=== PATIENT | female | born 1940 | race Caucasian/White ===

== ENCOUNTER 2019-09-11 10:52 | Outpatient (CLI) | payer BC, MEDICARE, SELFPAY ==
--- NOTE | ~2019-09-11 | CT_ITS ---
EXAMINATION: CT brain wo con EXAM DATE: 09/11/2019 11:43 INDICATION: Head trauma. TECHNIQUE: Spiral CT of the head was performed without contrast. Axial, coronal and sagittal images were reviewed. The dose-length product (DLP) for this examination was 605.33 mGy-cm. The exposure w as tailored according to patient size, and iterative reconstruction (ASIR) was used as additional dos e reduction technique. Comparison is made to prior examination from 08/19/2015. FINDINGS: There is no acute intraparenchymal hemorrhage. No evidence of intraparenchymal brain mass lesion. No evidence of acute infarction. Please note that initial head CT has limited sensitivity f or small or acute infarctions. Small right choroidal fissure cyst. There is mild periventricular an d subcortical hypodensity, nonspecific but probably related to small vessel ischemic disease. There is mild prominence of the sulci and ventricles related to cerebral atrophy. There is intracranial carotid arteriosclerosis. There are no extra-axial collections. There is no mass effect or midline shift. Patient has had bilateral ocular lens surgery. Soft tissue is unremarkable. The visualized sinuses and mastoid air cells are well aerated. IMPRESSION: 1. No acute intracranial findings. 2. Chronic age related findings. Reviewed, dictated and finalized at location B. GING SUPERVISOR
== END 2019-09-11 10:53 | disposition home or self-care (01) ==
DX: S09.90XA Unspecified injury of head, initial encounter (principal); X58.XXXA Exposure to other specified factors, initial encounter
CPT/HCPCS: 70450

== ENCOUNTER 2019-09-12 10:42 | Inpatient (IN) | payer BC, MEDICARE, SELFPAY ==
[2019-09-12] VITALS (12 sets, daily range): BP systolic 90–113; BP diastolic 39–97; PULSE 65–194; RESP 23–33; TEMP 36.4–37.8; O2SAT 94–99; BMI 33.5
--- NOTE | ~2019-09-12 | XR_ITS ---
EXAMINATION: XR chest 2V EXAM DATE: 09/12/2019 11:45 INDICATION: Fall, weakness. TECHNIQUE: Frontal and lateral projections of the chest obtained and reviewed. Comparison is made to prior examination from 09/26/2018. FINDINGS: Linear left basilar atelectasis. The lungs are otherwise clear. There are no pleural effu sions. The cardiomediastinal silhouette is within normal limits. There is no pneumothorax suspected . There is aortic arterial sclerosis. There are mild bony degenerative changes. There are cholecyste ctomy clips. IMPRESSION: Mild linear left basilar atelectasis. Reviewed, dictated and finalized at location B. INE BURRER
--- NOTE | ~2019-09-12 | XR_ITS ---
EXAMINATION: XR chest 1V portable INDICATION: CODE BLUE TECHNIQUE: Portable AP chest at 1537 hours COMPARISON: 1130 hours FINDINGS: The lung volumes are low. There is mild diffuse opacities of the lungs. The cardiomediastin al silhouette is normal for technique. No pleural effusion or pneumothorax is identified. Surgical cl ips in the right upper quadrant are likely from prior cholecystectomy. IMPRESSION: 1. Minimal bilateral opacities of the lungs which could reflect pulmonary edema versus low lung volum es. Reviewed, dictated and finalized at location A. SPORTATION DISPATCH MANAGER IMPRESSION: 1. Minimal bilateral opacities of the lungs which could reflect pulmonary edema versus low lung volumes.
--- NOTE | ~2019-09-12 | US_ITS ---
US renal BI 09/18/2019 13:37 Procedure: Realtime transabdominal ultrasound of the kidneys and bladder. Indication: Sepsis, UTI and bacteremia Comparison: CT dated 02/12/2018 Findings: Renal echotexture is normal bilaterally without hydronephrosis, contour deforming mass or r enal calculus. There is a cyst of the left kidney measuring 2.7 x 1.3 x 1.2 cm. The right kidney lonny ures 10.7 cm and left kidney measures 10.5 cm. Bladder within normal limits. Impression: 1: Left renal cyst measuring 2.7 cm maximum dimension. Reviewed, dictated and finalized at location B. DER CONVEYOR OPERATOR Impression: 1: Left renal cyst measuring 2.7 cm maximum dimension.
[2019-09-12 10:53] LABS: Glucose Point of Care 167 (65-105)
--- NOTE | 2019-09-12 10:57 | ECG_ITS ---
Measurements Intervals [place] Rate: 71 P: 16 FL: 161 QRS: 8 QRSD: 86 T: 30 QT: 465 QTc: 508 Interpretive Statements SINUS RHYTHM ATRIAL PREMATURE COMPLEXES INCOMPLETE RIGHT BUNDLE BRANCH BLOCK PROLONGED QT INTERVAL BASELINE WANDER- I, II, III, AVR, AVL, AVF, V5-V6 ABNORMAL ECG Electronically Signed On 09-12-2019 11:14:06 PRESS ASSISTANT AND FEEDER by Pop Costello D.O.
--- NOTE | 2019-09-12 11:07 | ED.WEAKNESS ---
HPI - Weakness General Chief complaint: Weakness Stated complaint: weakness Time Seen by Provider: 09/12/19 10:47 Source: patient Mode of arrival: EMS Limitations: no limitations History of Present Illness HPI Narrative: Pt is a 79 y/o female who presents to the ED, via EMS, secondary to falling out of bed at 1AM this morning. Pt states that she has been on the floor since then because she is too weak to get up. She has been having frequent falls and her son states that he got called at 3AM one day to help her get up off the floor. Pt states that she slipped out of bed when she tried to get up and just laid there until this morning. Pt denies hitting her head. She had a head CT done yesterday and a neck XR on Monday (6 days ago) at [facility] for her frequent falls. Both were negative. Pt reports fever, chills, sweats, myalgia, BRIDGES, back pain, and a non-productive cough. She also notes that she had intermittent SOB yesterday while doing chores around the house, such as laundry, dusting, and sweeping. Pt denies dysuria or frequency. She states that she has been avoiding walking up and down stairs d/t her weakness. Per son, pt has been depressed since her a year ago. Pt takes Elqiuis as her anticoagulation therapy for her H/O AFIB. Her PCP is Dr. Man. Complaint: generalized weakness Onset (ago): unknown Duration: progressively worsening Location: generalized Relieving factors: none Exacerbating factors: none Associated symptoms: shortness of breath and other ( fever, chills, sweats, myalgia, BRIDGES, back pain, and a non-productive cough) Related Data Home Medications Medication Instructions Recorded Confirmed apixaban [Eliquis] 5 mg PO BID 09/12/19 09/12/19 aspirin [Aspir-81] 81 mg PO DAILY 09/12/19 09/12/19 duloxetine 60 mg PO DAILY 09/12/19 09/12/19 escitalopram oxalate 20 mg PO DAILY 09/12/19 09/12/19 insulin aspart U-100 [Novolog See Rx Instructions .ROUTE .COMPLEX 09/12/19 09/12/19 Flexpen U-100 Insulin] insulin glargine [Lantus Solostar 36 unit SUBCUT HS 09/12/19 09/12/19 U-100 Insulin] sotalol 80 mg PO BID 09/12/19 09/12/19 spironolactone 50 mg PO DAILY 09/12/19 09/12/19 Allergies Allergy/AdvReac Type Severity Reaction Status Date / Time codeine Allergy Unknown Unknown Verified 09/12/19 18:59 meperidine Allergy Unknown Unknown Verified 09/12/19 18:59 propoxyphene Allergy Unknown Unknown Verified 09/12/19 18:59 Review of Systems Review of Systems: All systems reviewed & are unremarkable except as noted in HPI and below Constitutional: Constitutional: Reports body ache(s), Reports chills, Reports fever(s), Reports weakness and Reports other (sweats) Respiratory: Respiratory: Reports cough and Reports dyspnea on exertion Genitourinary: Genitourinary: Denies nocturia and Denies dysuria Musculoskeletal: Musculoskeletal: Reports back pain and Reports myalgias Neurologic: Reports headache(s) [facility] Past Medical History Medical History (Updated 09/12/19 @ 19:24 by Brooklynn Zafar NP) Afib Cardioversion 7 months ago. Anxiety Arthritis Chronic anticoagulation Depression Diabetes mellitus With peripheral neuropathy Diverticulitis DVT (deep venous thrombosis) IVC filter Endometrial cancer GI (gastrointestinal bleed) HLD (hyperlipidemia) HTN (hypertension) IBS (irritable bowel syndrome) Osteomyelitis Paroxysmal atrial fibrillation Peripheral neuropathy Psoriasis Pulmonary embolism Surgical History Surgical History (Updated 09/12/19 @ 19:24 by Brooklynn Zafar NP) H/O bilateral cataract extraction H/O: hysterectomy History of back surgery History of left hip replacement History of partial pancreatectomy History of partial splenectomy Hx of cholecystectomy Hx of tonsillectomy S/P IVC filter Family History Family History (Updated 09/12/19 @ 19:26 by Brooklynn Zafar NP) Sibling Cerebrovascular accident Mother Congestive heart failure Hypertension Diabetes mellitus
[2019-09-12 11:09] LABS: Basophils Absolute Auto 0.1 K/mm3 (0.0-0.1); Basophils Percent Auto 0.5 % (0.2-1.2); Hematocrit 41.1 % (37.0-47.0); Hemoglobin 13.6 g/dL (12.0-15.0); Immature Granulocyte Absolute 1.01 K/mm3 (0.00-0.031); Immature Granulocyte Percent A 3.9 % (0-0.5); Lymphocytes Absolute Auto 0.35 K/mm3 (0.9-3.2); Lymphocytes Percent Auto 1.3 % (18.3-44.2); Mean Corpuscular HGB Conc 33.1 g/dl (32-36); Mean Corpuscular Hemoglobin 29.5 pg (26-34); Mean Corpuscular Volume 89.2 fl (80-100); Mean Platelet Volume 10.9 fl (7.4-10.4); Monocytes Absolute Auto 1.5 K/mm3 (0.1-0.6); Monocytes Percent Auto 5.9 % (2.6-8.5); Neutrophils Absolute Auto 22.9 K/mm3 (1.3-6.7); Neutrophils Percent Auto 88.4 % (45.5-73.1); Nucleated Red Blood Cells Perc 0.1 % (0.0-0.2); Platelet Count Result 254 k/mm3 (150-375); Red Blood Count 4.61 M/mm3 (4.2-5.4); Red Cell Distribution Width 18.1 % (11.5-14.5)
[2019-09-12 11:24] LABS: Alanine Aminotransferase 24 U/L (4-35); Albumin Level 3.6 g/dL (3.5-5.1); Alkaline Phosphatase 199 U/L (38-126); Aspartate Amino Transferase 57 U/L (14-36); Blood Urea Nitrogen 47 mg/dL (7-17); Calcium 9.2 mg/dL (8.4-10.2); Carbon Dioxide 21 mmol/L (22-30); Chloride 98 mmol/L (98-107); Estimated CRCL calculation 21 ml/min; Estimated Glomerular Filt Rate 23; Glucose 170 mg/dL (65-105); Potassium 4.5 mmol/L (3.4-5.0); Sodium 134 mmol/L (137-145)
[2019-09-12 11:42] LABS: Creatine Kinase 527 U/L (30-135)
[2019-09-12 12:29] LABS: Add Urine Microscopic? YES; Appearance Urine Cloudy (Clear); Bacteria Urine 2+ /hpf; Bilirubin Urine Negative (Negative); Blood Urine 3+ (Negative); Color Urine Yellow (Yellow); Glucose Urine UA Negative (Negative); Ketones Urine Negative (Negative); Leukocyte Esterase Ur 3+ LEU/UL (Negative); Mucus Urine Rare /lpf; Nitrate Urine Negative (Negative); Protein Urine 2+ mg/dL (Negative); Specific Grav Ur 1.018 (1.001-1.035); Squamous Epithelial Cell Urine Rare /hpf (Few); Urobilinogen Urine Negative mg/dL (<2.0); WBC Clumps Urine Present /HPF; WBC Urine >75 /hpf
[2019-09-12] MEDS: SODIUM CHLORIDE 0.9% IV 1,000 ML 999 ML IV CONT (13:36)
--- NOTE | 2019-09-12 13:36 | PC.NURSE ---
1 L NS initiated per EMS in route infused, 0 volume left in container. Stop time: 1330.
[2019-09-12] MEDS: SODIUM CHLORIDE 0.9% IV 500 ML 999 ML IV CONT (13:37)
--- NOTE | 2019-09-12 15:13 | ECG_ITS ---
Measurements Intervals [place] Rate: 106 P: [place]: 0 QRS: -59 QRSD: 86 T: 106 QT: 370 QTc: 493 Interpretive Statements SINUS RHYTHM NONSUSTAINED VENTRICULAR TACHYCARDIA AND SALVOS OF PVC'S DELAYED PRECORDIAL R/S TRANSITION BASELINE ARTIFACT- I, II, III, AVR, AVL, AVF, V1-V6 ABNORMAL ECG Electronically Signed On 09-12-2019 16:26:08 LIBRARY SERVICES DEAN by Pop Costello D.O.
--- NOTE | 2019-09-12 15:13 | PC.NURSE ---
Ofirmev 1000 given per EDP at bedside VORB
--- NOTE | 2019-09-12 15:27 | ECG_ITS ---
Measurements Intervals [place] Rate: 96 P: VA: 0 QRS: -53 QRSD: 97 T: 84 QT: 360 QTc: 456 Interpretive Statements ATRIAL FIBRILLATION LEFT AXIS DEVIATION INCOMPLETE RIGHT BUNDLE BRANCH BLOCK CANNOT RULE OUT SEPTAL INFARCT, AGE INDETERMINATE BORDERLINE ST-T WAVE ABNORMALITY- LATERAL LEADS BASELINE ARTIFACT- I, II, III, AVR, AVL, AVF, V1-V3 ABNORMAL ECG Electronically Signed On 09-12-2019 20:15:34 CONE RUNNER by Pop Costello D.O.
--- NOTE | 2019-09-12 15:28 | PC.NURSE ---
Pt began to have back pain, decreased LOC, restlessness, and mottling. Pt also noted to have cyanotic. Pt placed had tremors and track greaser showed runs of V tac. Pt placed on LIFEPAK and pads placed. Pt placed on 2 L NC O2. Pt became unresponsive. No pulse palpated w/ rhythm showing V Tac. CPR initiated by EDP in room, code called at 1521. Pt shocked at 1521. Pt shows V tach on monitor, second shock at 1524. Monitor shows V tach, third shock at 1525. Pt alert. Pulse palpated. Pt given Amiodarone 300 IVP at 1525. Pt on NRB mask 15L. Pt on track greaser shows A-Fib (per family has PMH of A-Fib) at 1527. Repeat EKG 1527. Amiodarone gtt initiated. Family at bedside and updated. Pt is alert and aware of events. VSS at this time.
[2019-09-12] MEDS: AMIODARONE 360 MG/D5W 200 ML 360 MG/200 ML BAG 33.3 MG IV CONT (15:33)
[2019-09-12 16:00] LABS: Magnesium 1.4 mg/dL (1.6-2.3)
[2019-09-12 16:07] LABS: Reflex Lactic Acid Yes or No Add Lactic
[2019-09-12] MEDS: MAGNESIUM SULF 2 GM/WATER 50ML 2 GM/50 ML BAG IVPB ×2 (16:35→18:07)
[2019-09-12] MEDS: SODIUM CHLORIDE 0.9% IV 1,000 ML 125 ML IV CONT (17:11)
--- NOTE | 2019-09-12 17:53 | ECG_ITS ---
Measurements Intervals [place] Rate: 79 P: DC: 0 QRS: -7 QRSD: 95 T: 24 QT: 426 QTc: 489 Interpretive Statements ATRIAL FIBRILLATION INCOMPLETE RIGHT BUNDLE BRANCH BLOCK LOW QRS VOLTAGE IN PRECORDIAL LEADS VOLTAGE CRITERIA FOR LVH CONSIDER INFERIOR INFARCT, AGE INDETERMINATE BASELINE ARTIFACT- I, II, III ABNORMAL ECG Electronically Signed On 09-13-2019 7:05:49 SEED SERVICE ADVISOR by Pop Costello D.O.
--- NOTE | 2019-09-12 17:54 | PM.CNCAR ---
Assessment and Plan Assessment and plan (1) Sepsis: Qualifiers: Acute renal failure type: unspecified Sepsis acute organ dysfunction status: with acute organ dysfunction Sepsis type: sepsis due to unspecified organism Severe sepsis acute organ dysfunction type: acute renal failure Severe sepsis shock status: unspecified Qualified Code(s): A41.9 - Sepsis, unspecified organism; R65.20 - Severe sepsis without septic shock; N17.9 - Acute kidney failure, unspecified Code(s): A41.9 - Sepsis, unspecified organism Status: Acute Assessment and Plan: Likely urosepsis has the etiology (2) V-tach: Code(s): I47.2 - Ventricular tachycardia Status: Acute Assessment and Plan: Reportedly monomorphic VT. I do have some concern event of polymorphic VT but I do not have enough rhythm strip to adequately assess. This could be ischemic. It could be related to QT prolongation also especially obviously if polymorphic VT is to be considered. I am going to stop her amiodarone and she was started on for now. Also will hold her sotalol. Her Eliquis is also on hold in case ischemic will are workup/cardiac catheterization is needed. I will give her 1 dose of Lovenox of 1 milligram/kilogram subcu x1. Will continue to trend cardiac enzymes with serial troponins. EKG now. 2D echocardiogram Doppler is also ordered. Will also replace her magnesium with an initial 2 g IV x1. Further workup and recommendations depend on what is found, response to treatment. Will also investigate track down the past cardiac workup performed to Dr. Hammond office as well as at Dr. Vang's office. (3) Acute renal failure: Qualifiers: Acute renal failure type: unspecified Qualified Code(s): N17.9 - Acute kidney failure, unspecified Code(s): N17.9 - Acute kidney failure, unspecified Status: Acute Assessment and Plan: Likely related to a combination of dehydration and UTI (4) Acute UTI: Code(s): N39.0 - Urinary tract infection, site not specified Status: Acute Assessment and Plan: On antibiotics. Would avoid fluoroquinolones (5) Paroxysmal atrial fibrillation: Code(s): I48.0 - Paroxysmal atrial fibrillation Status: Acute Assessment and Plan: Plan as above. Will hold sotalol for now and restart depending on what her QTC does. Also temporarily hold Eliquis in case angiogram is needed. Lovenox to be given in the meantime (6) Chronic anticoagulation: Code(s): Z79.01 - senior living (current) use of anticoagulants Status: Acute Assessment and Plan: As above History of Present Illness History of Present Illness Consult date/time: 09/12/19 17:54 Requesting physician: Micah Richardson MD Consult reason: Other (Cardiac arrest) Reason For Visit: sepsis,uti,renal failure Narrative: Date of service 09/12/2019 History: Patient is a 79-year-old female who has seen Dr. Vang in the past and most recently Dr. Garza. Predominantly seen Dr. Salcedo because atrial fibrillation. She has undergone elective outpatient cardioversion in a sounds. She also history of vascular disease which has been predominantly treated at [facility]. She is on sotalol and Eliquis. She came to the hospital today following a 1/2 week history of multiple falls. In particular today she fell out of bed at about 1:00 a.m. and she could not get up off the floor. EMS was called. She has had 3 falls over the past week and a half. She has had very foul-smelling urine and her urinalysis here in the hospital-0 urinary tract infection, and lab work shows lactic acidosis, acute renal insufficiency [place] [address]. While in the emergency room however she started to develop some achiness in her back. I did talk to Dr. Richardson who states that she started to have some ectopy and shortly thereafter went into what he thinks was monomorphic ventricular tachyc
[2019-09-12 18:20] LABS: Glucose Point of Care 246 (65-105)
--- NOTE | 2019-09-12 18:54 | PM.IMHP ---
H&P: HPI History of Present Illness Chief complaint: sepsis,uti,renal failure Narrative: Jennifer Cano is a 79 year old female Presented to the emergency room today secondary to falling out of bed at 1:00 a.m. this morning. The patient laid on the floor since then as she was too weak to get up. According the family she has been having frequent falls. Another day the family got a call at 3:00 a.m. to help her get up off the floor. She had a CT of the brain performed yesterday and and neck x-ray approximately 6 days ago at [facility] for her frequent falls. He was reportedly negative. Patient also complains of being short of breath when walking around the house. She recently hired a made about a month ago to come in and help clean. Patient does not have a collar button and she lives home alone. She was cardiovert for her AFib approximately [address] Garza. Today she was found to be in AFib and was started on amiodarone. cardiology has seen the patient and stop the amiodarone. She does have a prolonged QT. She is also seen by vascular specialist at [facility] and has had history of PEs and DVTs. According to the daughter she has had a thrombectomy and 1 of her legs and also IVC filter. A code was initiated in the emergency room. See code sheet. Her white count was noted to be 27,000. it was noted that the patient had monomorphic ventricular tachycardia. The patient was shocked 3 times and eventually restored a rhythm. . She was alert and orientated and talking. Although she feels somewhat sleepy. Troponin slightly elevated. Date of service 09/12/2019. Review of Systems Review of Systems: Narrative: Patient stated that she feels very fatigued. She has no chest pain. No nausea no vomiting no diarrhea. No fever no chills. She has been falling quite frequently. She has not been able to do as much around the house and recently hired a housekeeper and laundry assistant. All systems reviewed & are unremarkable except as noted in HPI and below Constitutional: Constitutional: Reports as per HPI and Reports no additional constitutional complaints Eyes: Eyes: Reports as per HPI and Reports no additional eye complaints ENT: Reports system reviewed and no additional complaints, except as documented and Reports Normal hearing present Cardiovascular: Cardiovascular: Reports no additional cardiovascular complaints Respiratory: Respiratory: Reports no additional respiratory complaints and Reports no additional respiratory complaints Gastrointestinal: Gastrointestinal: Reports as per HPI and Reports no additional gastrointestinal complaints Musculoskeletal: Musculoskeletal: Reports no additional musculoskeletal complaints Integumentary/Breasts: Skin/Breast: Reports system reviewed and no additional complaints, except as docu and Reports as per HPI Neurologic: Reports system reviewed and no additional complaints, except as documented, Reports as per HPI and Reports Normal hearing present Psychiatric: Psychiatric: Reports no additional psychiatric complaints and Reports as per HPI Endocrine: Endocrine: Reports no additional endocrine complaints Hematologic/Lymphatic: Hematologic/Lymphatic: Reports no additional hematologic/lymphatic complaints Allergic/Immunologic: Allergic/Immunologic: Reports no additional allergic/immunologic complaints [facility] Past Medical History Medical History (Updated 09/12/19 @ 19:53 by Brooklynn Zafar NP) Afib Cardioversion 7 months ago. Anxiety Arthritis Chronic anticoagulation Depression Diabetes mellitus With peripheral neuropathy Diverticulitis DVT (deep venous thrombosis) IVC filter Endometrial cancer GI (gastrointestinal bleed) HLD (hyperlipidemia) HTN (hypertension) IBS (irritable bowel syndrome) Osteomyelitis Paroxysmal atrial fibrillation Peripheral neuropathy Psoriasis Pulmonary embolism Surgical History Surgical History (Updated 09/12/19 @ 19:24 by Brooklynn Zafar NP) H/O bilatera
[2019-09-12] MEDS: ENOXAPARIN 100 MG/ML SYRINGE 85 MG SUB-Q (19:01)
[2019-09-12 19:04] LABS: Lactic Acid 1.6 mmol/L (0.7-2.1)
[2019-09-12 19:17] LABS: Troponin I 0.987 ng/mL (0.000-0.034)
[2019-09-12] MEDS: INSULIN GLARGINE (*BKC) 100 UNITS/ML 36 UNITS SUB-Q (21:21)
[2019-09-12] MEDS: ACETAMINOPHEN 325 MG TABLET 650 MG PO (22:35)
[2019-09-12 22:52] LABS: Troponin I 0.502 ng/mL (0.000-0.034)
[2019-09-13] VITALS (20 sets, daily range): BP systolic 96–157; BP diastolic 46–133; PULSE 64–73; RESP 16–31; TEMP 36.4–36.8; O2SAT 97–100
--- NOTE | 2019-09-13 | ECHO_ITS ---
Patient Info Name: Jennifer Cano Age: 79 years : 1940 Gender: Female Ht: 63 in Wt: 189 lbs BSA: 1.99 m2 HR: 67 bpm Heart Rhythm: Sinus Rhythm Technical Quality: Good Exam Date: 09/13/2019 7:38 AM Exam Location: [facility] Patient Status: Inpatient Admit Date: 09/12/2019 Staff Ordering Physician: Daryl Rodriguez MD Glue Bone Drier: Jony Mancilla, ALANIS, RT Attending Provider: Lois Rodriguez MD Referring Physician: Jennifer VANEGAS; Exam Type: CA echo dop color flow w con Study Info Indications I47.2 - Ventricular tachycardia Complete two-dimensional, color flow and Doppler transthoracic echocardiogram is performed with contrast to opacify the left ventrical and to improve the deliniation of the left ventrical endocarial boarders. Summary 1. Left ventricular systolic function is normal, estimated at 65-70%. 2. There is moderate concentric increased left ventricular wall thickness. 3. Right ventricular chamber dimension is moderately enlarged. 4. Left atrial chamber dimension is severely enlarged. 5. There is mild to moderate mitral valve regurgitation. 6. There is moderate to severe tricuspid valve regurgitation. 7. The TR velocity estimates RV systolic pressure to be 42 mmHg. 8. Compared to the exam in this laboratory from September of 2018 the findings are essentially unchanged. Left Ventricle Left ventricular chamber dimension is normal. Left ventricular systolic function is normal, estimated at 65-70%. There is moderate concentric increased left ventricular wall thickness. The left ventricular diastolic function is grade I diastolic dysfunction. Right Ventricle Right ventricular chamber dimension is moderately enlarged. Right ventricular systolic function is reduced. Left Atria Left atrial chamber dimension is severely enlarged. Right Atria Right atrial chamber dimension is mildly enlarged. Aortic Valve The aortic valve is trileaflet. There is mild aortic valve sclerosis. Pulmonic Valve The pulmonic valve is normal. There is trace pulmonic regurgitation. Mitral Valve The mitral valve has normal leaflets and calcified annulus. There is mild to moderate mitral valve regurgitation. Tricuspid Valve The tricuspid valve leaflets are normal. There is moderate to severe tricuspid valve regurgitation. The TR velocity estimates RV systolic pressure to be 42 mmHg. Pericardium/Pleural The pericardium appears normal. Aorta The aortic root size at the sinus of Valsalva is normal. Left Ventricular Outflow Tract Name Value Normal LVOT 2D LVOT Diameter 1.96 cm LVOT Doppler LVOT Peak Gradient 6 mmHg LVOT Mean Gradient 3 mmHg LVOT VTI 21.87 cm LVOT VTI/AV VTI Ratio 0.73 LVOT Stroke Volume 66.26 ml LVOT CO 5.36 l/min LVOT CI 2.70 L/min/m2 Pulmonic Valve Name Value Normal -
[2019-09-13 00:03] LABS: Glucose Point of Care 301 (65-105)
[2019-09-13] MEDS: INSULIN ASPART (*BKC) 100 UNITS/ML SUB-Q ×2 (00:13→06:28)
[2019-09-13] MEDS: SODIUM CHLORIDE 0.9% IV 1,000 ML 125 ML IV CONT ×2 (00:16→07:59)
[2019-09-13 01:37] LABS: Glucose Point of Care 343 (65-105)
[2019-09-13 04:36] LABS: Basophils Absolute Auto 0.1 K/mm3 (0.0-0.1); Basophils Percent Auto 0.7 % (0.2-1.2); Eosinophils Percent Auto 0.1 % (0-4.4); Hematocrit 36.2 % (37.0-47.0); Immature Granulocyte Absolute 0.33 K/mm3 (0.00-0.031); Immature Granulocyte Percent A 1.7 % (0-0.5); Lymphocytes Absolute Auto 0.32 K/mm3 (0.9-3.2); Lymphocytes Percent Auto 1.7 % (18.3-44.2); Mean Corpuscular HGB Conc 33.1 g/dl (32-36); Mean Corpuscular Hemoglobin 29.1 pg (26-34); Mean Corpuscular Volume 87.7 fl (80-100); Monocytes Absolute Auto 0.7 K/mm3 (0.1-0.6); Monocytes Percent Auto 3.8 % (2.6-8.5); Neutrophils Absolute Auto 17.8 K/mm3 (1.3-6.7); Nucleated Red Blood Cells Perc 0.1 % (0.0-0.2); Platelet Count Result 214 k/mm3 (150-375); Red Blood Count 4.13 M/mm3 (4.2-5.4); Red Cell Distribution Width 17.9 % (11.5-14.5); White Blood Count 19.3 K/mm3 (4.5-10.0)
[2019-09-13 04:46] LABS: Hemoglobin A1C 8.2 % (<5.7)
[2019-09-13 04:52] LABS: Alanine Aminotransferase 76 U/L (4-35); Albumin Level 2.9 g/dL (3.5-5.1); Alkaline Phosphatase 284 U/L (38-126); Aspartate Amino Transferase 99 U/L (14-36); Bilirubin,Total 0.6 mg/dL (0.2-1.3); Blood Urea Nitrogen 44 mg/dL (7-17); Calcium 7.9 mg/dL (8.4-10.2); Carbon Dioxide 18 mmol/L (22-30); Chloride 104 mmol/L (98-107); Estimated CRCL calculation 24 ml/min; Estimated Glomerular Filt Rate 27; Glucose 253 mg/dL (65-105); Magnesium 2.7 mg/dL (1.6-2.3); Potassium 4.1 mmol/L (3.4-5.0); Sodium 137 mmol/L (137-145)
[2019-09-13 05:05] LABS: Atypical Lymphocytes Present; Platelet Estimate Adequate (Adequate)
[2019-09-13 05:06] LABS: Crenated RBC 1+ (NORMAL)
[2019-09-13 05:54] LABS: Glucose Point of Care 208 (65-105)
--- NOTE | 2019-09-13 08:00 | WPDCNINT ---
Assessment and Plan Assessment and plan (1) Sepsis: Qualifiers: Acute renal failure type: unspecified Sepsis acute organ dysfunction status: with acute organ dysfunction Sepsis type: sepsis due to unspecified organism Severe sepsis acute organ dysfunction type: acute renal failure Severe sepsis shock status: unspecified Qualified Code(s): A41.9 - Sepsis, unspecified organism; R65.20 - Severe sepsis without septic shock; N17.9 - Acute kidney failure, unspecified Code(s): A41.9 - Sepsis, unspecified organism Status: Acute Assessment and Plan: secondary to UTI. culture sent and pending. Patient on empiric ceftriaxone. IV fluid bolus and infusion. Lactic acid has normalized. Continue to monitor closely in ICU at this time will decrease rate of IV fluids this time and rebolusif needed (2) Acute UTI: Code(s): N39.0 - Urinary tract infection, site not specified Status: Acute Assessment and Plan: see above (3) V-tach: Code(s): I47.2 - Ventricular tachycardia Status: Acute Assessment and Plan: patient had episode of ventricular tachycardia in the ED and was cardioverted. Cardiology has seen the patient. Patient's magnesium was low and she was given a 2 g dose of magnesium x1. Patient be NPO after midnight. patient was initially started on amiodarone but was later discontinued due to prolonged QTC. She is on sotalol at home which was also has. She was given a dose of subcu Lovenox x1. Echocardiogram done this morning and is pending at this time. patient may need cardiac catheterization but management will depend on Cardiology. patient is NPO at this time (4) Acute renal failure: Qualifiers: Acute renal failure type: unspecified Qualified Code(s): N17.9 - Acute kidney failure, unspecified Code(s): N17.9 - Acute kidney failure, unspecified Status: Acute Assessment and Plan: most likely prerenal from sepsis and hypovolemia. also has mild rhabdomyolysis Creatinine has improved today with IV fluids. Continue to monitor intake and output, urinary output, electrolyte and creatinine metabolic acidosis - add p.o. bicarb monitor CK level (5) Diabetes mellitus: Code(s): E11.9 - Type 2 diabetes mellitus without complications Status: Chronic Assessment and Plan: Check A1c and do sliding scale insulin. Continue with patient's Lantus. (6) Afib: Code(s): I48.91 - Unspecified atrial fibrillation Status: Acute Assessment and Plan: patient has history of atrial fibrillation status post cardioversion last year. Patient is now back into atrial fibrillation with controlled ventricular rate. Patient was started on amiodarone yesterday but was discontinued due to prolonged QTC.. Will focus on rate control at this time. 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 resume anticoagulation as per above (8) DVT (deep venous thrombosis): Code(s): I82.409 - Acute embolism and thrombosis of unspecified deep veins of unspecified lower extremity Status: Acute Assessment and Plan: see above Additional Plan DVT prophylaxis - received a dose of Lovenox and has SCDs Stress ulcer prophylaxis - not indicated Nutrition - NPO Code Status - patient is not sure this time and would like to think over. She requests to be Full Code until she makes a decision. Pt daughter updated at bedside and Total Critical Care Time - 32 minutes Due to a high probability of clinically significant, life threatening deterioration, the patient required my highest level of preparedness to intervene emergently and I personally spent this critical care time directly and personally managi
[2019-09-13] MEDS: PERFLUTREN LIPID MICROSPHERES 1.5 ML VIAL DILUTED TO 10 ML TOTAL VOLUME IV PUSH (08:29)
--- NOTE | 2019-09-13 09:12 | PM.IMPN ---
Progress Note: A&P Assessment and Plan (1) Sepsis: Qualifiers: Acute renal failure type: unspecified Sepsis acute organ dysfunction status: with acute organ dysfunction Sepsis type: sepsis due to unspecified organism Severe sepsis acute organ dysfunction type: acute renal failure Severe sepsis shock status: unspecified Qualified Code(s): A41.9 - Sepsis, unspecified organism; R65.20 - Severe sepsis without septic shock; N17.9 - Acute kidney failure, unspecified Code(s): A41.9 - Sepsis, unspecified organism Status: Acute Assessment and Plan: Criteria met on admission. Result of UTI. Urine culture now growing E. coli. Blood cultures negative thus far. Blood pressure reviewed on 09/13/2019 and stable. Will continue IV ceftriaxone. Continue to monitor. (2) Acute UTI: Code(s): N39.0 - Urinary tract infection, site not specified Status: Acute Assessment and Plan: Urine culture now with E coli. Continue IV ceftriaxone while awaiting sensitivities. (3) V-tach: Code(s): I47.2 - Ventricular tachycardia Status: Acute Assessment and Plan: Had episode of V-tach in the ER. Did receive cardioversion in ER. Cardiology has been consulted and appreciate input. Discussed briefly with Cardiology today. Home sotalol previously discontinued. Cardiology now starting on flecainide. Eliquis for anticoagulation. Current telemetry reviewed on 09/13/2019 with patient maintaining sinus rhythm with heart rate well controlled. Will continue to monitor. (4) Acute renal failure: Qualifiers: Acute renal failure type: unspecified Qualified Code(s): N17.9 - Acute kidney failure, unspecified Code(s): N17.9 - Acute kidney failure, unspecified Status: Acute Assessment and Plan: Result of UTI, sepsis, dehydration. Creatinine is improved to 1.80 today. Will continue to monitor with low-dose IV fluids in place. (5) Afib: Qualifiers: Atrial fibrillation type: unspecified Qualified Code(s): I48.91 - Unspecified atrial fibrillation Code(s): I48.91 - Unspecified atrial fibrillation Status: Acute Assessment and Plan: Known history previously controlled on sotalol but now switched to flecainide with episode of V-tach and emergency room yesterday. Cardiology following as noted. Continue to monitor. (6) HTN (hypertension): Qualifiers: Hypertension type: essential hypertension Qualified Code(s): I10 - Essential (primary) hypertension Code(s): I10 - Essential (primary) hypertension Status: Chronic Assessment and Plan: Blood pressure reviewed on 09/13/2019 and presently stable. Not on medication at this time. Will monitor. (7) Diabetes mellitus: Qualifiers: Diabetes mellitus complication status: with hyperglycemia Diabetes mellitus terminal clerk insulin use: with terminal clerk use Diabetes mellitus type: type 2 Qualified Code(s): E11.65 - Type 2 diabetes mellitus with hyperglycemia; Z79.4 - snf (current) use of insulin Code(s): E11.9 - Type 2 diabetes mellitus without complications Status: Chronic Assessment and Plan: Hemoglobin A1c 8.2. Glucose reviewed on 09/13/2019 and still elevated but improving. Remains on home Lantus. Sliding scale insulin available. Will continue to monitor and adjust treatment as needed. (8) Depression: Qualifiers: Depression Type: unspecified Qualified Code(s): F32.9 - Major depressive disorder, single episode, unspecified Code(s): F32.9 - Major depressive disorder, single episode, unspecified Status: Chronic Assessment and Plan: Mood stable. Home Cymbalta being given. Will monitor. (9) DVT prophylaxis: Code(s): Z29.9 - Encounter for prophylactic measures, unspecified Status: Acute Assessment and Plan: On Eliquis. Time Spent With Patient Time with patient: 15 - 25 minutes
[2019-09-13] MEDS: SODIUM BICARBONATE TAB 650 MG TABLET 1300 MG PO ×2 (10:06→17:23)
[2019-09-13] MEDS: ASPIRIN 325 MG ENTERIC TABLET PO (10:07)
[2019-09-13] MEDS: ACETAMINOPHEN 325 MG TABLET 650 MG PO ×2 (10:07→21:30)
[2019-09-13] MEDS: DULOXETINE 60 MG CAPSULE.DR PO (10:07)
[2019-09-13 11:54] LABS: Glucose Point of Care 163 (65-105)
--- NOTE | 2019-09-13 17:25 | PM.PNCARD ---
Progress Note: A&P Additional Plan 79-year-old lady with interesting history of atrial fibrillation being maintained in sinus rhythm on sotalol following cardioversion last year by her manager online. Workup [facility] did demonstrate normal LV function and no evidence of coronary disease at [facility] less than 1 year ago. Monomorphic ventricular tachycardia in the emergency room with precipitating factors including stress of sepsis, hypo magnesemia, and possibly pro rhythmic effect of sotalol. I will recommend resuming systemic anticoagulation with apixaban. I will initiate alternative anti arrhythmic treatment with flecainide in hopes of maintaining sinus rhythm and selecting an agent that is unrelated to sotalol. Since the patient is known to have non disease coronary arteries and normal left ventricular function is full flecainide may be a very reasonable choice. Time Spent With Patient Time with patient: 25 - 35 minutes Subjective Date/time seen: Date of service: 09/13/19 17:25 Interval history: 79-year-old white female with Urinary tract infection and sepsis, history of atrial fibrillation being maintained on sotalol and apixaban. Patient known to have angiographically non diseased coronary arteries and normal LV function. Current echocardiogram also demonstrates some RV enlargement. Patient has a history of previous pulmonary embolism/DVT Feels well this afternoon and is offering no cardiovascular complaints Exam Const: General: comfortable and no acute distress HENMT: Mouth: Yes moist mucous membranes Eyes: Sclera: sclerae normal Pupils: Equal, round and reactive pupils present Neck: Neck: supple and no JVD Thyroid: thyroid normal Resp: Effort & Inspection: normal respiratory effort Auscultation: clear to auscultation bilaterally Cardio: Rate: regular rate Rhythm: regular rhythm GI: Auscultation: normal bowel sounds Skin: General skin exam: normal color Neuro: Cognition (Neuro): normal cognition Extrem: General: normal to inspection Objective Data Vital Signs Vital Signs: Vital Signs - 24 hr 09/12/19 17:35 09/12/19 18:00 09/12/19 18:21 Temperature Pulse Rate 89 79 80 Respiratory Rate 23 H 30 H Blood Pressure 90/57 L 97/48 L Pulse Oximetry 94 97 09/12/19 20:00 09/12/19 21:51 09/13/19 00:00 Temperature 36.4 C L 36.4 C L Pulse Rate 69 65 69 Respiratory Rate 25 H 25 H 28 H Blood Pressure 111/57 L 111/57 L 107/69 Pulse Oximetry 96 97 97 09/13/19 02:00 09/13/19 02:09 09/13/19 04:00 Temperature 36.8 C Pulse Rate 69 69 70 Respiratory Rate 31 H 26 H Blood Pressure 107/63 112/61 Pulse Oximetry 97 98 09/13/19 05:59 09/13/19 07:40 09/13/19 08:00 Temperature 36.6 C Pulse Rate 70 68 71 Respiratory Rate 25 H 27 H Blood Pressure 107/53 L 104/50 L Pulse Oximetry 98 98 09/13/19 09:48 09/13/19 12:00 09/13/19 12:03 Temperature 36.6 C Pulse Rate 66 70 70 Respiratory Rate 21 H 23 H Blood Pressure 157/133 H 104/46 L Pulse Oximetry 98 97 09/13/19 13:48 09/13/19 14:00 09/13/19 16:00 Temperature 36.4 C L Pulse Rate 64 64 73 Respiratory Rate 26 H 17 Blood Pressure 99/58 L 96/60 L Pulse Oximetry 98 100 Intake/Output Intake/Output: Intake & Output 09/10/19 09/11/19 09/12/19 09/13/19 23:59 23:59 23:59 23:59 Intake Total 1849 2000 Output Total 300 500 Balance 1549 1500 Meds/Results Medications: Active Medications Generic Name Dose Route Start Last Admin Trade Name Freq PRN Reason Stop Dose Admin Acetaminophen 650 mg 09/12/19 14:31 09/13/19 10:07 Tylenol Tablet PO 650 mg Q4H PRN Administration Mild Pain (1-3) or Fever Aspirin 325 mg 09/13/19 09:00 09/13/19 10:07 Aspirin Ec PO 325 mg QAM RAFAEL Administration Dextrose 12.5 gm 09/12/19 19:53 Dextrose 50% Syringe IV PUSH PRN PRN Hypoglycemia Protocol Dextrose 12.5 gm 09/13/19 08:03 Dextrose 50% Syringe IV PUS
[2019-09-13 19:42] LABS: Glucose Point of Care 163 (65-105)
[2019-09-13] MEDS: APIXABAN 5 MG TABLET PO (20:31)
[2019-09-13] MEDS: INSULIN GLARGINE (*BKC) 100 UNITS/ML 36 UNITS SUB-Q (20:32)
[2019-09-13] MEDS: FLECAINIDE ACETATE 100 MG TABLET PO (20:32)
[2019-09-13 20:41] LABS: Glucose Point of Care 280 (65-105)
[2019-09-13] MEDS: SODIUM CHLORIDE 0.9% IV 1,000 ML 50 ML IV CONT (22:45)
[2019-09-14] VITALS (14 sets, daily range): BP systolic 102–142; BP diastolic 57–107; PULSE 63–74; RESP 14–24; TEMP 36.3–36.6; O2SAT 95–100
[2019-09-14 06:06] LABS: Hematocrit 37.3 % (37.0-47.0); Hemoglobin 12.2 g/dL (12.0-15.0); Mean Corpuscular HGB Conc 32.7 g/dl (32-36); Mean Corpuscular Volume 88.6 fl (80-100); Mean Platelet Volume 11.4 fl (7.4-10.4); Platelet Count Result 184 k/mm3 (150-375); Red Blood Count 4.21 M/mm3 (4.2-5.4); Red Cell Distribution Width 18.1 % (11.5-14.5); White Blood Count 14.8 K/mm3 (4.5-10.0)
[2019-09-14 06:18] LABS: Alanine Aminotransferase 53 U/L (4-35); Albumin Level 2.9 g/dL (3.5-5.1); Alkaline Phosphatase 297 U/L (38-126); Aspartate Amino Transferase 41 U/L (14-36); Bilirubin,Total 0.6 mg/dL (0.2-1.3); Blood Urea Nitrogen 38 mg/dL (7-17); Calcium 7.9 mg/dL (8.4-10.2); Carbon Dioxide 20 mmol/L (22-30); Chloride 102 mmol/L (98-107); Creatine Kinase 109 U/L (30-135); Estimated CRCL calculation 34 ml/min; Estimated Glomerular Filt Rate 40; Glucose 225 mg/dL (65-105); Magnesium 2.7 mg/dL (1.6-2.3); Potassium 4.3 mmol/L (3.4-5.0); Sodium 136 mmol/L (137-145)
[2019-09-14 07:37] LABS: Glucose Point of Care 194 (65-105)
--- NOTE | 2019-09-14 08:04 | WPDINTPN ---
Progress Note: A&P Assessment and Plan (1) Sepsis: Qualifiers: Acute renal failure type: unspecified Sepsis acute organ dysfunction status: with acute organ dysfunction Sepsis type: sepsis due to unspecified organism Severe sepsis acute organ dysfunction type: acute renal failure Severe sepsis shock status: unspecified Qualified Code(s): A41.9 - Sepsis, unspecified organism; R65.20 - Severe sepsis without septic shock; N17.9 - Acute kidney failure, unspecified Code(s): A41.9 - Sepsis, unspecified organism Status: Acute Assessment and Plan: secondary to UTI. culture sent and urine culture is growing E coli sensitive to Rocephin. blood cultures are negative Continue ceftriaxone. Patient received IV fluid bolus and infusion. Lactic acid has normalized. blood pressure adequate will decrease IV fluids this time (2) Acute UTI: Code(s): N39.0 - Urinary tract infection, site not specified Status: Acute Assessment and Plan: see above (3) V-tach: Code(s): I47.2 - Ventricular tachycardia Status: Acute Assessment and Plan: patient had episode of ventricular tachycardia in the ED and was cardioverted. Cardiology has seen the patient. Patient's magnesium was low and she was given a 2 g dose of magnesium x1. patient was initially started on amiodarone but was later discontinued due to prolonged QTC. She is on sotalol at home. echo was repeated and reviewed patient was started on flecainide and apixaban was resumed by Cardiology. At this time there is no plan for any cardiac catheterization as patient had that recently done. (4) Acute renal failure: Qualifiers: Acute renal failure type: unspecified Qualified Code(s): N17.9 - Acute kidney failure, unspecified Code(s): N17.9 - Acute kidney failure, unspecified Status: Acute Assessment and Plan: most likely prerenal from sepsis and hypovolemia. also had mild rhabdomyolysis Creatinine has improved today and is close to normal nowwith IV fluids. Continue to monitor intake and output, urinary output, electrolyte and creatinine metabolic acidosis - Improved with p.o. bicarb. (5) Diabetes mellitus: Qualifiers: Diabetes mellitus type: type 2 Diabetes mellitus residential insulin use: with moth exterminator use Diabetes mellitus complication status: with hyperglycemia Qualified Code(s): E11.65 - Type 2 diabetes mellitus with hyperglycemia; Z79.4 - shelter (current) use of insulin Code(s): E11.9 - Type 2 diabetes mellitus without complications Status: Chronic Assessment and Plan: Check A1c and do sliding scale insulin. Continue with patient's Lantus (6) Afib: Qualifiers: Atrial fibrillation type: unspecified Qualified Code(s): I48.91 - Unspecified atrial fibrillation Code(s): I48.91 - Unspecified atrial fibrillation Status: Acute Assessment and Plan: patient has history of atrial fibrillation status post cardioversion last year. Patient patient was in AFib with RVR at presentation but now has converted back to sinus rhythm on admission, patient was started on amiodarone yesterday but was discontinued due to prolonged QTC.. 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 apixaban resumed (8) DVT (deep venous thrombosis): Code(s): I82.409 - Acute embolism and thrombosis of unspecified deep veins of unspecified lower extremity Status: Acute Assessment and Plan: see above Additional Plan DVT prophylaxis - Apixaban Stress ulcer prophylaxis - not indicated Nutrition - diabetic diet Code Status - patient is not sure this time and would like to think over
--- NOTE | 2019-09-14 09:10 | PM.PNCARD ---
Progress Note: A&P Additional Plan No change in medical regimen today. Patient seems to be stable. Hopefully flecainide will successfully maintain sinus rhythm. It is not certain that the patient had sotalol related proarrhythmia however that is certainly in the differential diagnosis and so it seems reasonable to discontinue that drug for an alternative. Systemic anticoagulation with apixaban will be continued. Patient should be kept in the hospital until Monday morning to ensure there is no apparent flecainide related proarrhythmia. After that follow-up can be with Dr. Garza, his established hvac lead Time Spent With Patient Time with patient: 15 - 25 minutes Subjective Date/time seen: Date of service: 09/14/19 09:10 Interval history: Follow-up visit for management of atrial fibrillation/ventricular tachycardia Patient looks and feels well today. Has had 2nd dose of flecainide this morning. Exam Const: General: comfortable and no acute distress HENMT: Mouth: Yes moist mucous membranes Eyes: Sclera: sclerae normal Pupils: Equal, round and reactive pupils present Neck: Neck: supple and no JVD Thyroid: thyroid normal Resp: Effort & Inspection: normal respiratory effort Auscultation: clear to auscultation bilaterally Cardio: Rate: regular rate Rhythm: regular rhythm GI: Auscultation: normal bowel sounds Neuro: Cognition (Neuro): normal cognition Extrem: General: normal to inspection Objective Data Vital Signs Vital Signs: Vital Signs - 24 hr 09/13/19 09:48 09/13/19 12:00 09/13/19 12:03 Temperature 36.6 C Pulse Rate 66 70 70 Respiratory Rate 21 H 23 H Blood Pressure 157/133 H 104/46 L Pulse Oximetry 98 97 09/13/19 13:48 09/13/19 14:00 09/13/19 16:00 Temperature 36.4 C L Pulse Rate 64 64 73 Respiratory Rate 26 H 17 Blood Pressure 99/58 L 96/60 L Pulse Oximetry 98 100 09/13/19 18:00 09/13/19 19:50 09/13/19 20:00 Temperature 36.6 C Pulse Rate 71 65 67 Respiratory Rate 18 17 Blood Pressure 101/64 102/71 Pulse Oximetry 99 99 09/13/19 20:32 09/13/19 21:46 09/13/19 23:00 Temperature Pulse Rate 66 67 64 Respiratory Rate 16 Blood Pressure 120/85 Pulse Oximetry 98 97 09/13/19 23:54 09/14/19 00:00 09/14/19 02:00 Temperature 36.7 C Pulse Rate 69 68 63 Respiratory Rate 17 14 Blood Pressure 119/71 102/57 L Pulse Oximetry 99 99 09/14/19 04:00 09/14/19 05:38 09/14/19 07:40 Temperature 36.6 C 36.6 C Pulse Rate 65 65 68 Respiratory Rate 16 16 23 H Blood Pressure 110/61 121/107 H 127/67 Pulse Oximetry 99 100 95 09/14/19 08:00 Temperature Pulse Rate 68 Respiratory Rate 23 H Blood Pressure Pulse Oximetry 95 Intake/Output Intake/Output: Intake & Output 09/11/19 09/12/19 09/13/19 09/14/19 23:59 23:59 23:59 23:59 Intake Total 1849 3710 598 Output Total 300 1000 700 Balance 1549 2710 -102 Meds/Results Medications: Active Medications Generic Name Dose Route Start Last Admin Trade Name Freq PRN Reason Stop Dose Admin Acetaminophen 650 mg 09/12/19 14:31 09/13/19 21:30 Tylenol Tablet PO 650 mg Q4H PRN Administration Mild Pain (1-3) or Fever Apixaban 5 mg 09/13/19 21:00 09/13/19 20:31 Eliquis PO 5 mg Q12HR RAFAEL Administration Dextrose 12.5 gm 09/12/19 19:53 Dextrose 50% Syringe IV PUSH PRN PRN Hypoglycemia Protocol Dextrose 12.5 gm 09/13/19 08:03 Dextrose 50% Syringe IV PUSH PRN PRN Hypoglycemia Protocol Duloxetine HCl 60 mg 09/13/19 09:00 09/13/19 10:07 Cymbalta PO 60 mg DAILY RAFAEL Administration Flecainide Acetate 100 mg 09/13/19 21:00 09/13/19 20:32 Tambocor PO 100 mg Q12HR RAFAEL Administration Glucagon 1 mg 09/12/19 19:53 Glucagon For Inj IM PRN PRN Hypoglycemia Protocol Glucagon 1 mg 09/13/19 08:03 Glucagon For Inj IM PRN PRN Hypoglycemia Protocol Glucose 15 gm 09/12/19 19:53 G
[2019-09-14] MEDS: FLECAINIDE ACETATE 100 MG TABLET PO ×2 (09:27→21:46)
[2019-09-14] MEDS: APIXABAN 5 MG TABLET PO ×2 (09:27→21:46)
[2019-09-14] MEDS: DULOXETINE 60 MG CAPSULE.DR PO (09:27)
[2019-09-14] MEDS: SODIUM BICARBONATE TAB 650 MG TABLET 1300 MG PO ×3 (09:28→17:53)
--- NOTE | 2019-09-14 11:45 | PC.NURSE ---
This patient, Jennifer Cano, was received from ICU on 09/14/19 at 1145. Personal belongings list checked and signed. Patient/family oriented to unit policies and routines
[2019-09-14 12:01] LABS: Glucose Point of Care 252 (65-105)
[2019-09-14] MEDS: INSULIN ASPART (*BKC) 100 UNITS/ML SUB-Q ×2 (12:24→17:59)
[2019-09-14] MEDS: ACETAMINOPHEN 325 MG TABLET 650 MG PO ×2 (14:58→22:13)
--- NOTE | 2019-09-14 16:39 | PM.IMPN ---
Progress Note: A&P Assessment and Plan (1) Sepsis: Qualifiers: Acute renal failure type: unspecified Sepsis acute organ dysfunction status: with acute organ dysfunction Sepsis type: sepsis due to unspecified organism Severe sepsis acute organ dysfunction type: acute renal failure Severe sepsis shock status: unspecified Qualified Code(s): A41.9 - Sepsis, unspecified organism; R65.20 - Severe sepsis without septic shock; N17.9 - Acute kidney failure, unspecified Code(s): A41.9 - Sepsis, unspecified organism Status: Acute Assessment and Plan: Criteria met on admission. Result of UTI. Urine culture now growing E. coli. Blood cultures negative thus far. Blood pressure reviewed on 09/14/2019 and stable. Will continue IV ceftriaxone. Continue to monitor. 09/14/19 16:39 Patient is 79 female was brought to the emergency department after she had fallen at home and was found to have sepsis UTI however while in the ER patient had cardiac arrest ACLS was started patient was seen by brush painter amiodarone was stopped as well as a sotalol thinking these medication may be proarrhythemia and started on flecainide since then patient is stable rate is controlled, patient was seen by brush painter today recommended to monitor the patient until Monday to watch for any arrhythmia, patient with a UTI with E coli and being treated with Rocephin, today patient is feeling better denies any chest pain shortness of breath palpitation fever or chills, does complaint of headache, daughter is present in the room (2) Acute UTI: Code(s): N39.0 - Urinary tract infection, site not specified Status: Acute Assessment and Plan: Urine culture now with E coli. Continue IV ceftriaxone while awaiting sensitivities. (3) V-tach: Code(s): I47.2 - Ventricular tachycardia Status: Acute Assessment and Plan: Had episode of V-tach in the ER. Did receive cardioversion in ER. Cardiology has been consulted and appreciate input. Discussed briefly with Cardiology today. Home sotalol previously discontinued. Cardiology now starting on flecainide. Eliquis for anticoagulation. Current telemetry reviewed on 09/14/2019 with patient maintaining sinus rhythm with heart rate well controlled. Will continue to monitor. (4) Acute renal failure: Qualifiers: Acute renal failure type: unspecified Qualified Code(s): N17.9 - Acute kidney failure, unspecified Code(s): N17.9 - Acute kidney failure, unspecified Status: Acute Assessment and Plan: Result of UTI, sepsis, dehydration. Creatinine is improved to 1.30 today. Will continue to monitor with low-dose IV fluids in place. (5) Afib: Qualifiers: Atrial fibrillation type: unspecified Qualified Code(s): I48.91 - Unspecified atrial fibrillation Code(s): I48.91 - Unspecified atrial fibrillation Status: Acute Assessment and Plan: Known history previously controlled on sotalol but now switched to flecainide with episode of V-tach and emergency room yesterday. Cardiology following as noted. Continue to monitor. (6) HTN (hypertension): Qualifiers: Hypertension type: essential hypertension Qualified Code(s): I10 - Essential (primary) hypertension Code(s): I10 - Essential (primary) hypertension Status: Chronic Assessment and Plan: Blood pressure reviewed on 09/14/2019 and presently stable. Not on medication at this time. Will monitor. (7) Diabetes mellitus: Qualifiers: Diabetes mellitus type: type 2 Diabetes mellitus jail insulin use: with jail use Diabetes mellitus complication status: with hyperglycemia Qualified Code(s): E11.65 - Type 2 diabetes mellitus with hyperglycemia; Z79.4 - care home (current) use of insulin Code(s): E11.9 - Type 2 diabetes mellitus without complications Status: Chronic Assessment and Plan: Hemoglobin A1c 8
[2019-09-14 18:03] LABS: Glucose Point of Care 223 (65-105)
[2019-09-14] MEDS: INSULIN GLARGINE (*BKC) 100 UNITS/ML 36 UNITS SUB-Q (22:00)
[2019-09-14 22:48] LABS: Glucose Point of Care 260 (65-105)
[2019-09-15] VITALS (12 sets, daily range): BP systolic 117–150; BP diastolic 80–88; PULSE 66–113; RESP 16–20; TEMP 36.6–36.9; O2SAT 94–98
[2019-09-15 06:34] LABS: Hematocrit 35.9 % (37.0-47.0); Hemoglobin 11.9 g/dL (12.0-15.0); Mean Corpuscular HGB Conc 33.1 g/dl (32-36); Mean Corpuscular Hemoglobin 28.9 pg (26-34); Mean Corpuscular Volume 87.1 fl (80-100); Platelet Count Result 168 k/mm3 (150-375); Red Blood Count 4.12 M/mm3 (4.2-5.4); Red Cell Distribution Width 17.8 % (11.5-14.5); White Blood Count 10.3 K/mm3 (4.5-10.0)
[2019-09-15 06:50] LABS: Alanine Aminotransferase 42 U/L (4-35); Albumin Level 2.9 g/dL (3.5-5.1); Alkaline Phosphatase 294 U/L (38-126); Aspartate Amino Transferase 26 U/L (14-36); Bilirubin,Total 0.6 mg/dL (0.2-1.3); Blood Urea Nitrogen 32 mg/dL (7-17); Calcium 8.6 mg/dL (8.4-10.2); Carbon Dioxide 21 mmol/L (22-30); Chloride 107 mmol/L (98-107); Estimated CRCL calculation 44 ml/min; Estimated Glomerular Filt Rate 53; Glucose 221 mg/dL (65-105); Magnesium 2.4 mg/dL (1.6-2.3); Sodium 135 mmol/L (137-145)
[2019-09-15] MEDS: FLECAINIDE ACETATE 100 MG TABLET PO ×2 (08:27→20:38)
[2019-09-15] MEDS: APIXABAN 5 MG TABLET PO ×2 (08:27→20:38)
[2019-09-15 09:35] LABS: Glucose Point of Care 195 (65-105)
[2019-09-15] MEDS: DULOXETINE 60 MG CAPSULE.DR PO (09:58)
[2019-09-15] MEDS: SODIUM BICARBONATE TAB 650 MG TABLET 1300 MG PO (09:58)
[2019-09-15 12:33] LABS: Glucose Point of Care 259 (65-105)
[2019-09-15] MEDS: INSULIN ASPART (*BKC) 100 UNITS/ML SUB-Q ×2 (12:34→18:03)
--- NOTE | 2019-09-15 14:04 | PM.PNCARD ---
Progress Note: A&P Additional Plan Patient with paroxysmal atrial fibrillation. Was in sinus rhythm yesterday but is in rate controlled asymptomatic AFib today. I will add back some beta-phil therapy to the flecainide and hopefully this will assist in stabilizing this. If she persists in recurrent atrial fibrillation it would be my judgment to provide rate control and eventually stop the flecainide if she does not seem to have any propensity to maintain sinus rhythm. This issue however does not have to prolong her hospitalization here but will follow this while she is here and after discharge she will be followed by her established tuck pointer helper, Dr. Garza Subjective Date/time seen: Date of service: 09/15/19 14:04 Interval history: Follow-up visit for management of atrial fibrillation/ventricular tachycardia Patient on telemetry out on the floor now. Had her 4th dose of flecainide this morning. Telemetry shows her to be in rate controlled atrial fibrillation with which she seems to be asymptomatic and unaware of. Heart rate is in the 90s to low 100s. Exam Const: General: comfortable and no acute distress HENMT: Mouth: Yes moist mucous membranes Eyes: Sclera: sclerae normal Pupils: Equal, round and reactive pupils present Neck: Neck: supple and no JVD Thyroid: thyroid normal Resp: Effort & Inspection: normal respiratory effort Auscultation: clear to auscultation bilaterally Cardio: Rate: regular rate Rhythm: abnormal rhythm irregularly irregular GI: Auscultation: normal bowel sounds Skin: General skin exam: normal color Extrem: General: normal to inspection Objective Data Vital Signs Vital Signs: Vital Signs - 24 hr 09/14/19 16:00 09/14/19 20:00 09/14/19 21:46 Temperature Pulse Rate 73 70 64 Respiratory Rate Blood Pressure Pulse Oximetry 09/14/19 22:00 09/15/19 00:00 09/15/19 04:00 Temperature 36.3 C L Pulse Rate 67 69 67 Respiratory Rate 20 Blood Pressure 139/80 Pulse Oximetry 96 09/15/19 06:00 09/15/19 08:27 Temperature 36.7 C Pulse Rate 66 71 Respiratory Rate 20 Blood Pressure 150/80 H Pulse Oximetry 98 Intake/Output Intake/Output: Intake & Output 09/12/19 09/13/19 09/14/19 09/15/19 23:59 23:59 23:59 23:59 Intake Total 1849 3710 1338 150 Output Total 300 1000 1500 800 Balance 0363 7690 -775 -882 Meds/Results Medications: Active Medications Generic Name Dose Route Start Last Admin Trade Name Freq PRN Reason Stop Dose Admin Acetaminophen 650 mg 09/14/19 13:53 09/14/19 22:13 Tylenol Tablet PO 650 mg Q6H PRN Administration Mild Pain (1-3) or Fever Apixaban 5 mg 09/13/19 21:00 09/15/19 08:27 Eliquis PO 5 mg Q12HR RAFAEL Administration Dextrose 12.5 gm 09/12/19 19:53 Dextrose 50% Syringe IV PUSH PRN PRN Hypoglycemia Protocol Dextrose 12.5 gm 09/13/19 08:03 Dextrose 50% Syringe IV PUSH PRN PRN Hypoglycemia Protocol Duloxetine HCl 60 mg 09/13/19 09:00 09/15/19 09:58 Cymbalta PO 60 mg DAILY RAFAEL Administration Flecainide Acetate 100 mg 09/13/19 21:00 09/15/19 08:27 Tambocor PO 100 mg Q12HR RAFAEL Administration Glucagon 1 mg 09/12/19 19:53 Glucagon For Inj IM PRN PRN Hypoglycemia Protocol Glucagon 1 mg 09/13/19 08:03 Glucagon For Inj IM PRN PRN Hypoglycemia Protocol Glucose 15 gm 09/12/19 19:53 Glutose 15 PO PRN PRN Hypoglycemia Protocol Glucose 15 gm 09/13/19 08:03 Glutose 15 PO PRN PRN Hypoglycemia Protocol Ceftriaxone Sodium/Dextrose 1 gm in 50 mls @ 100 mls/hr 09/12/19 15:00 09/14/19 15:42 Rocephin 1 Gm/D5w 50 Ml IVPB Infused Q24H RAFAEL Infusion Dextrose 1,000 mls @ 100 mls/hr 09/12/19 19:53 Dextrose 5% 1,000 Ml IVPB PRN PRN Hypoglycemia Protocol Dextrose 1,000 mls @ 100 mls/hr 09/13/19 08:03 Dextrose 5% 1,000 Ml IVPB P
[2019-09-15] MEDS: METOPROLOL SUCCINATE EXT REL 50 MG TABCR PO (14:43)
--- NOTE | 2019-09-15 15:08 | PM.IMPN ---
Progress Note: A&P Assessment and Plan (1) Sepsis: Qualifiers: Acute renal failure type: unspecified Sepsis acute organ dysfunction status: with acute organ dysfunction Sepsis type: sepsis due to unspecified organism Severe sepsis acute organ dysfunction type: acute renal failure Severe sepsis shock status: unspecified Qualified Code(s): A41.9 - Sepsis, unspecified organism; R65.20 - Severe sepsis without septic shock; N17.9 - Acute kidney failure, unspecified Code(s): A41.9 - Sepsis, unspecified organism Status: Acute Assessment and Plan: Criteria met on admission. Result of UTI. Urine culture and blood cultures x2 now growing E. coli. Will repeat blood cultures. Remains on IV ceftriaxone as sensitive. Anticipate 5-7 days IV antibiotics. Blood pressure reviewed on 09/15/2019 and stable. Continue PT/OT. Will continue to monitor. (2) Acute UTI: Code(s): N39.0 - Urinary tract infection, site not specified Status: Acute Assessment and Plan: Urine culture now with E coli as noted above. Continue IV ceftriaxone. (3) Afib: Qualifiers: Atrial fibrillation type: unspecified Qualified Code(s): I48.91 - Unspecified atrial fibrillation Code(s): I48.91 - Unspecified atrial fibrillation Status: Acute Assessment and Plan: Cardiology consulted and appreciate help. Now on flecainide with episode of V-tach in the emergency room. Telemetry reviewed on 09/15/2019 with atrial fibrillation with heart rate controlled. Low-dose metoprolol added in addition to flecainide. Will continue to monitor. Remains on Eliquis for anticoagulation. (4) V-tach: Code(s): I47.2 - Ventricular tachycardia Status: Acute Assessment and Plan: Had episode of V-tach in the ER. Did receive cardioversion in ER. Cardiology consulted and appreciate input. Now on flecainide as noted above. Continue to monitor. (5) Acute renal failure: Qualifiers: Acute renal failure type: unspecified Qualified Code(s): N17.9 - Acute kidney failure, unspecified Code(s): N17.9 - Acute kidney failure, unspecified Status: Acute Assessment and Plan: Result of UTI, sepsis, dehydration. Creatinine now normal at 1.00 today. Will follow. (6) HTN (hypertension): Qualifiers: Hypertension type: essential hypertension Qualified Code(s): I10 - Essential (primary) hypertension Code(s): I10 - Essential (primary) hypertension Status: Chronic Assessment and Plan: Blood pressure reviewed on 09/15/2019 and stable. Will monitor with addition of metoprolol. 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 Glucose reviewed on 09/15/2019 and remains elevated. Will increase Lantus. Sliding scale insulin available as needed. Will monitor and adjust treatment as needed. (8) Depression: Qualifiers: Depression Type: unspecified Qualified Code(s): F32.9 - Major depressive disorder, single episode, unspecified Code(s): F32.9 - Major depressive disorder, single episode, unspecified Status: Chronic Assessment and Plan: Mood stable. Continue home Cymbalta. Discussed with family will not restart Lexapro. (9) DVT prophylaxis: Code(s): Z29.9 - Encounter for prophylactic measures, unspecified Status: Acute Assessment and Plan: On Eliquis. Time Spent With Patient Time with patient: 15 - 25 minutes Subjective Date/time seen: 09/15/19 15:08 Interval history: Date of Service:
[2019-09-15] MEDS: ACETAMINOPHEN 325 MG TABLET 650 MG PO (17:57)
[2019-09-15 18:06] LABS: Glucose Point of Care 305 (65-105)
[2019-09-15] MEDS: INSULIN GLARGINE (*BKC) 100 UNITS/ML 36 UNITS SUB-Q (20:41)
[2019-09-15 21:04] LABS: Glucose Point of Care 337 (65-105)
[2019-09-16] VITALS (12 sets, daily range): BP systolic 138–142; BP diastolic 73–88; PULSE 85–100; RESP 18; TEMP 36.4–36.7; O2SAT 92–97
[2019-09-16 06:08] LABS: Hematocrit 40.6 % (37.0-47.0); Hemoglobin 13.8 g/dL (12.0-15.0); Mean Corpuscular Hemoglobin 28.6 pg (26-34); Mean Corpuscular Volume 84.2 fl (80-100); Mean Platelet Volume 11.2 fl (7.4-10.4); Platelet Count Result 178 k/mm3 (150-375); Red Blood Count 4.82 M/mm3 (4.2-5.4); Red Cell Distribution Width 17.2 % (11.5-14.5); White Blood Count 9.9 K/mm3 (4.5-10.0)
[2019-09-16 06:22] LABS: Alanine Aminotransferase 36 U/L (4-35); Alkaline Phosphatase 349 U/L (38-126); Aspartate Amino Transferase 24 U/L (14-36); Bilirubin,Total 0.8 mg/dL (0.2-1.3); Blood Urea Nitrogen 24 mg/dL (7-17); Carbon Dioxide 21 mmol/L (22-30); Chloride 101 mmol/L (98-107); Estimated CRCL calculation 48 ml/min; Estimated Glomerular Filt Rate 60; Glucose 219 mg/dL (65-105); Magnesium 1.9 mg/dL (1.6-2.3); Potassium 3.9 mmol/L (3.4-5.0); Sodium 135 mmol/L (137-145)
[2019-09-16] MEDS: INSULIN ASPART (*BKC) 100 UNITS/ML SUB-Q ×2 (07:29→11:25)
[2019-09-16] MEDS: DULOXETINE 60 MG CAPSULE.DR PO (09:15)
[2019-09-16] MEDS: FLECAINIDE ACETATE 100 MG TABLET PO (09:15)
[2019-09-16] MEDS: APIXABAN 5 MG TABLET PO ×2 (09:15→21:16)
[2019-09-16] MEDS: METOPROLOL SUCCINATE EXT REL 50 MG TABCR PO ×2 (09:20→17:53)
[2019-09-16 09:32] LABS: Glucose Point of Care 238 (65-105)
[2019-09-16] MEDS: polyethylene glycoL 3350 17 GM POWD.PACK PO (11:14)
[2019-09-16 12:06] LABS: Glucose Point of Care 286 (65-105)
[2019-09-16] MEDS: ACETAMINOPHEN 325 MG TABLET 650 MG PO ×2 (12:43→17:52)
--- NOTE | 2019-09-16 13:51 | PM.IMPN ---
Progress Note: A&P Assessment and Plan (1) Sepsis: Qualifiers: Acute renal failure type: unspecified Sepsis acute organ dysfunction status: with acute organ dysfunction Sepsis type: sepsis due to unspecified organism Severe sepsis acute organ dysfunction type: acute renal failure Severe sepsis shock status: unspecified Qualified Code(s): A41.9 - Sepsis, unspecified organism; R65.20 - Severe sepsis without septic shock; N17.9 - Acute kidney failure, unspecified Code(s): A41.9 - Sepsis, unspecified organism Status: Acute Assessment and Plan: Criteria met on admission. Result of UTI. Urine culture and initial blood cultures x2 growing E. coli. Repeat blood cultures negative thus far. Remains on IV ceftriaxone Day #5 as sensitive. Anticipate 5-7 days IV antibiotics. Blood pressure reviewed on 09/16/2019 and remains stable. Continue PT/OT. Patient plans to return home at discharge. Will continue to monitor. Hopeful discharge in next 1-2 days. (2) Acute UTI: Code(s): N39.0 - Urinary tract infection, site not specified Status: Acute Assessment and Plan: Urine culture now with E coli as noted above. Continue IV ceftriaxone as noted above. (3) Afib: Qualifiers: Atrial fibrillation type: unspecified Qualified Code(s): I48.91 - Unspecified atrial fibrillation Code(s): I48.91 - Unspecified atrial fibrillation Status: Acute Assessment and Plan: Cardiology consulted and appreciate help. Now on flecainide after episode of V-tach in the emergency room. Telemetry reviewed on 09/16/2019 with atrial fibrillation with heart rate presently controlled but does occasionally increase. Has been on metoprolol and flecainide. Per Cardiology, flecainide discontinued today with metoprolol advanced. Will continue to monitor. Continue Eliquis for anticoagulation. (4) V-tach: Code(s): I47.2 - Ventricular tachycardia Status: Acute Assessment and Plan: Had episode of V-tach in the ER. Did receive cardioversion in ER. Cardiology consulted and appreciate input. Cardiac treatment as noted above. Continue to monitor. (5) Acute renal failure: Qualifiers: Acute renal failure type: unspecified Qualified Code(s): N17.9 - Acute kidney failure, unspecified Code(s): N17.9 - Acute kidney failure, unspecified Status: Resolved Assessment and Plan: Result of UTI, sepsis, dehydration. Resovled. Creatinine now normal at 0.90 today. Will follow while here. (6) HTN (hypertension): Qualifiers: Hypertension type: essential hypertension Qualified Code(s): I10 - Essential (primary) hypertension Code(s): I10 - Essential (primary) hypertension Status: Chronic Assessment and Plan: Blood pressure reviewed on 09/16/2019. Remains stable. Will continue to monitor on metoprolol. 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 Glucose reviewed on 09/16/2019 and still mildly elevated. Will increase Lantus today as not done yesterday. Sliding scale insulin available as needed. Will monitor and adjust treatment as needed. (8) Depression: Qualifiers: Depression Type: unspecified Qualified Code(s): F32.9 - Major depressive disorder, single episode, unspecified Code(s): F32.9 - Major depressive disorder, single episode, unspecified Status: Chronic Assessment and Plan: Mood remains stable. Continue home Cymbalta. Home Lexapro discontinued on admission. (9) DVT prophylaxis:
--- NOTE | 2019-09-16 15:48 | PCPTNOTE ---
PT returned to complete A.M. PT treatment.
--- NOTE | 2019-09-16 15:52 | PM.PNCARD ---
Progress Note: A&P Time Spent With Patient Time: 79-year-old white female with: History of paroxysmal atrial fibrillation previously been treated with anticoagulation and sotalol. Had malignant ventricular arrhythmias requiring resuscitation at the time of presentation. One must consider the possibility of sotalol related proarrhythmia. Accordingly this drug has been discontinued. She has currently been on flecainide since last week Monday and for the last 48 hours has had nothing but atrial fibrillation noted on the monitor. For the time being since her AFib is asymptomatic going to stop the flecainide since she does not seem to be benefitting from that. I will advance her metoprolol doses to try to provide some additional heart rate control. At this point I would not start any additional specific antiarrhythmic therapy. The patient will likely be in chronic atrial fibrillation and be managed with rate control. Time with patient: 15 - 25 minutes Subjective Date/time seen: Date of service: 09/16/19 15:52 Interval history: Follow-up visit for atrial fibrillation, recent admission for sepsis and ventricular arrhythmias requiring resuscitation in the ED. Concern regarding potential for sotalol related proarrhythmic effect Patient essentially comfortable reports no significant symptomatology. Exam Const: General: comfortable and no acute distress HENMT: Mouth: Yes moist mucous membranes Eyes: Sclera: sclerae normal Pupils: Equal, round and reactive pupils present Neck: Neck: supple and no JVD Thyroid: thyroid normal Resp: Effort & Inspection: normal respiratory effort Auscultation: clear to auscultation bilaterally Cardio: Rhythm: abnormal rhythm irregularly irregular GI: Auscultation: normal bowel sounds Skin: General skin exam: normal color Neuro: Cognition (Neuro): normal cognition Extrem: General: normal to inspection Objective Data Vital Signs Vital Signs: Vital Signs - 24 hr 09/15/19 16:00 09/15/19 20:00 09/15/19 20:38 Temperature Pulse Rate 100 102 H 100 Respiratory Rate Blood Pressure Pulse Oximetry 09/15/19 22:00 09/16/19 00:00 09/16/19 04:00 Temperature 36.6 C Pulse Rate 102 H 97 95 Respiratory Rate 18 Blood Pressure 118/88 Pulse Oximetry 94 09/16/19 06:00 09/16/19 08:00 09/16/19 09:15 Temperature 36.6 C Pulse Rate 85 98 100 Respiratory Rate 18 Blood Pressure 139/85 Pulse Oximetry 92 09/16/19 09:20 09/16/19 12:00 09/16/19 14:00 Temperature 36.7 C Pulse Rate 100 94 87 Respiratory Rate 18 Blood Pressure 142/73 H Pulse Oximetry 97 Intake/Output Intake/Output: Intake & Output 09/13/19 09/14/19 09/15/19 09/16/19 23:59 23:59 23:59 23:59 Intake Total 3710 1338 1500 880 Output Total 1000 1500 2150 1000 Balance 2710 -162 -650 -120 Meds/Results Medications: Active Medications Generic Name Dose Route Start Last Admin Trade Name Freq PRN Reason Stop Dose Admin Acetaminophen 650 mg 09/14/19 13:53 09/16/19 12:43 Tylenol Tablet PO 650 mg Q6H PRN Administration Mild Pain (1-3) or Fever Apixaban 5 mg 09/13/19 21:00 09/16/19 09:15 Eliquis PO 5 mg Q12HR RAFAEL Administration Dextrose 12.5 gm 09/12/19 19:53 Dextrose 50% Syringe IV PUSH PRN PRN Hypoglycemia Protocol Dextrose 12.5 gm 09/13/19 08:03 Dextrose 50% Syringe IV PUSH PRN PRN Hypoglycemia Protocol Duloxetine HCl 60 mg 09/13/19 09:00 09/16/19 09:15 Cymbalta PO 60 mg DAILY RAFAEL Administration Glucagon 1 mg 09/12/19 19:53 Glucagon For Inj IM PRN PRN Hypoglycemia Protocol Glucagon 1 mg 09/13/19 08:03 Glucagon For Inj IM PRN PRN Hypoglycemia Protocol Glucose 15 gm 09/12/19 19:53 Glutose 15 PO PRN PRN Hypoglycemia Protocol Glucose 15 gm 09/13/19 08:03 Glutose 15 PO PRN PRN Hypoglycemia Protocol Ceftriaxone S
[2019-09-16 17:44] LABS: Glucose Point of Care 191 (65-105)
[2019-09-16] MEDS: INSULIN GLARGINE (*BKC) 100 UNITS/ML 40 UNITS SUB-Q (21:20)
[2019-09-16 21:36] LABS: Glucose Point of Care 374 (65-105)
[2019-09-17] VITALS (9 sets, daily range): BP systolic 144–146; BP diastolic 88–94; PULSE 90–110; RESP 16–18; TEMP 36.1–36.8; O2SAT 95–96
[2019-09-17 06:02] LABS: Hematocrit 39.6 % (37.0-47.0); Hemoglobin 13.6 g/dL (12.0-15.0); Mean Corpuscular HGB Conc 34.3 g/dl (32-36); Mean Corpuscular Hemoglobin 28.9 pg (26-34); Mean Corpuscular Volume 84.1 fl (80-100); Mean Platelet Volume 10.9 fl (7.4-10.4); Platelet Count Result 187 k/mm3 (150-375); Red Blood Count 4.71 M/mm3 (4.2-5.4); Red Cell Distribution Width 17.4 % (11.5-14.5); White Blood Count 11.3 K/mm3 (4.5-10.0)
[2019-09-17 06:28] LABS: Alanine Aminotransferase 34 U/L (4-35); Albumin Level 2.9 g/dL (3.5-5.1); Alkaline Phosphatase 339 U/L (38-126); Aspartate Amino Transferase 28 U/L (14-36); Bilirubin,Total 0.6 mg/dL (0.2-1.3); Blood Urea Nitrogen 24 mg/dL (7-17); Calcium 8.9 mg/dL (8.4-10.2); Carbon Dioxide 23 mmol/L (22-30); Chloride 102 mmol/L (98-107); Estimated CRCL calculation 54 ml/min; Estimated Glomerular Filt Rate > 60; Glucose 223 mg/dL (65-105); Magnesium 1.7 mg/dL (1.6-2.3); Potassium 3.9 mmol/L (3.4-5.0); Sodium 137 mmol/L (137-145)
[2019-09-17 08:20] LABS: Glucose Point of Care 194 (65-105)
[2019-09-17] MEDS: APIXABAN 5 MG TABLET PO ×2 (09:55→22:09)
[2019-09-17] MEDS: DULOXETINE 60 MG CAPSULE.DR PO (09:55)
[2019-09-17] MEDS: METOPROLOL SUCCINATE EXT REL 100 MG TABCR PO (09:56)
[2019-09-17] MEDS: polyethylene glycoL 3350 17 GM POWD.PACK PO (09:57)
[2019-09-17 11:50] LABS: Glucose Point of Care 229 (65-105)
[2019-09-17] MEDS: INSULIN ASPART (*BKC) 100 UNITS/ML SUB-Q ×2 (12:02→18:22)
--- NOTE | 2019-09-17 13:14 | PCOTNOTE ---
Attempted to see patient, however, patient with Will re-attempt if time permits today 09/17/19.
--- NOTE | 2019-09-17 16:24 | PM.IMPN ---
Progress Note: A&P Assessment and Plan (1) Sepsis: Qualifiers: Acute renal failure type: unspecified Sepsis acute organ dysfunction status: with acute organ dysfunction Sepsis type: sepsis due to unspecified organism Severe sepsis acute organ dysfunction type: acute renal failure Severe sepsis shock status: unspecified Qualified Code(s): A41.9 - Sepsis, unspecified organism; R65.20 - Severe sepsis without septic shock; N17.9 - Acute kidney failure, unspecified Code(s): A41.9 - Sepsis, unspecified organism Status: Acute Assessment and Plan: Criteria met on admission. Result of UTI and septicemia with urine and blood cultures x2 growing E. coli. Repeat blood cultures negative thus far. Remains on IV ceftriaxone Day #6 as sensitive. Anticipate 5-7 days IV antibiotics. Remove Morales. Continue PT/OT. Patient plans to return home at discharge. Will continue to monitor. Hopeful discharge tomorrow. Call by RN about patient losing her IV. Will change to Cefdinir. (2) Acute UTI: Code(s): N39.0 - Urinary tract infection, site not specified Status: Acute Assessment and Plan: Urine culture growing royal-sensitive E coli as noted above. Continue IV ceftriaxone as noted above. (3) Afib: Qualifiers: Atrial fibrillation type: unspecified Qualified Code(s): I48.91 - Unspecified atrial fibrillation Code(s): I48.91 - Unspecified atrial fibrillation Status: Acute Assessment and Plan: Cardiology consulted and appreciate their input. Was on flecainide after episode of V-tach in the emergency room. Flecainide discontinued and metoprolol advanced. Will continue to monitor. Continue Eliquis for anticoagulation. (4) V-tach: Code(s): I47.2 - Ventricular tachycardia Status: Acute Assessment and Plan: Had episode of V-tach in the ER. Did receive cardioversion in ER. Cardiology consulted and appreciate input. Cardiac treatment as noted above. Continue to monitor. (5) Acute renal failure: Qualifiers: Acute renal failure type: unspecified Qualified Code(s): N17.9 - Acute kidney failure, unspecified Code(s): N17.9 - Acute kidney failure, unspecified Status: Resolved Assessment and Plan: Cr 2.1 on admission. Result of UTI, sepsis, and dehydration. Resolved with creatinine now down to 0.8 today. Will continue to follow. (6) HTN (hypertension): Qualifiers: Hypertension type: essential hypertension Qualified Code(s): I10 - Essential (primary) hypertension Code(s): I10 - Essential (primary) hypertension Status: Chronic Assessment and Plan: Blood pressure reviewed on 09/17/2019. BP reasonably well controlled. Will continue to monitor on metoprolol. 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 Glucose reviewed on 09/17/2019 and still elevated. Lantus increased yesterday. Will monitor for now but advance tomorrow if still elevated. Sliding scale insulin available as needed. Will monitor and adjust treatment as needed. (8) Depression: Qualifiers: Depression Type: unspecified Qualified Code(s): F32.9 - Major depressive disorder, single episode, unspecified Code(s): F32.9 - Major depressive disorder, single episode, unspecified Status: Chronic Assessment and Plan: Mood remains stable. Continue home Cymbalta. Home Lexapro discontinued on admission. (9) DVT prophylaxis: Code(s): Z29.9 - Encounter for prophylactic measur
--- NOTE | 2019-09-17 17:03 | PM.PNCARD ---
Progress Note: A&P Assessment and Plan (1) V-tach: Code(s): I47.2 - Ventricular tachycardia Status: Acute Assessment and Plan: Reportedly monomorphic VT. This could have been ischemic. It could have been related to QT prolongation. Sotalol has been discontinued. Electrolytes have been supplemented. She has had no further ventricular tachycardia. (2) Sepsis: Qualifiers: Acute renal failure type: unspecified Sepsis acute organ dysfunction status: with acute organ dysfunction Sepsis type: sepsis due to unspecified organism Severe sepsis acute organ dysfunction type: acute renal failure Severe sepsis shock status: unspecified Qualified Code(s): A41.9 - Sepsis, unspecified organism; R65.20 - Severe sepsis without septic shock; N17.9 - Acute kidney failure, unspecified Code(s): A41.9 - Sepsis, unspecified organism Status: Acute Assessment and Plan: Likely urosepsis as the etiology. Management per hospitalist service. (3) Acute renal failure: Qualifiers: Acute renal failure type: unspecified Qualified Code(s): N17.9 - Acute kidney failure, unspecified Code(s): N17.9 - Acute kidney failure, unspecified Status: Resolved Assessment and Plan: Likely related to a combination of dehydration and UTI. Resolved Gently lag back in her spironolactone and monitor renal function. (4) Acute UTI: Code(s): N39.0 - Urinary tract infection, site not specified Status: Acute Assessment and Plan: On antibiotics. Would avoid fluoroquinolones (5) Paroxysmal atrial fibrillation: Code(s): I48.0 - Paroxysmal atrial fibrillation Status: Acute Assessment and Plan: History of paroxysmal atrial fibrillation. Was in sinus rhythm but converted to atrial fibrillation. Metoprolol succinate has been increased to 100 mg daily. Flecainide has been discontinued. Good rate control at this dose. Up to bedside commode earlier this afternoon with heart rates only getting into the 111 range. (6) Chronic anticoagulation: Code(s): Z79.01 - intermediate designer (current) use of anticoagulants Status: Acute Assessment and Plan: Eliquis was resumed on a 09/13/2019 Additional Plan Family concerned about edema. Will restart spironolactone at 25 mg daily (home dose 50 mg daily) and will up titrate pending her renal function. No further cardiac recommendations. She is to follow up with her primary code enforcement inspector Dr. Garza Will follow-up p.r.n.. Plan discussed with Dr. Ellington [id number] 09/17/2019 Time Spent With Patient Time with patient: less than 15 minutes Subjective Date/time seen: 09/17/19 17:03 Interval history: Follow-up for: atrial fibrillation, recent admission for sepsis and ventricular arrhythmias requiring resuscitation in the ED. Concern regarding potential for sotalol related proarrhythmic effect Date of service: 09/17/2019 Subjective: No ischemic chest pain. Does have musculoskeletal discomfort from CPR. Short of breath with exertional activities. Walked with physical therapy and could wait to get back to the room because of shortness of breath and fatigue. No lightheadedness or palpitations. Review of Systems Constitutional: Constitutional: Denies fatigue and Denies headache(s) Eyes: Eyes: Denies blurry vision ENT: Denies headache(s), Denies lip swelling and Denies tinnitus Cardiovascular: Cardiovascular: Denies rapid heart rate, Reports leg edema, Denies lightheadedness and Reports dyspnea on exertion Respiratory: Respiratory: Reports dyspnea on exertion and Denies wheezing Gastrointestinal: Gastrointestinal: Denies abdominal pain, Denies melena, Denies bloating, Denies hematochezia, Denies nausea and Denies vomiti
[2019-09-17 18:18] LABS: Glucose Point of Care 215 (65-105)
[2019-09-17] MEDS: ACETAMINOPHEN 325 MG TABLET 650 MG PO (18:27)
[2019-09-17] MEDS: CEFDINIR 300 MG CAPSULE PO (22:09)
[2019-09-17] MEDS: INSULIN GLARGINE (*BKC) 100 UNITS/ML 40 UNITS SUB-Q (22:11)
[2019-09-17 22:23] LABS: Glucose Point of Care 236 (65-105)
[2019-09-18] VITALS (11 sets, daily range): BP systolic 111–147; BP diastolic 71–84; PULSE 86–122; RESP 18; TEMP 36.4–36.8; O2SAT 94–96
[2019-09-18] MEDS: ACETAMINOPHEN 325 MG TABLET 650 MG PO ×2 (03:00→15:44)
[2019-09-18 06:09] LABS: Hematocrit 38.3 % (37.0-47.0); Hemoglobin 12.8 g/dL (12.0-15.0); Mean Corpuscular HGB Conc 33.4 g/dl (32-36); Mean Corpuscular Hemoglobin 28.6 pg (26-34); Mean Corpuscular Volume 85.5 fl (80-100); Mean Platelet Volume 11.2 fl (7.4-10.4); Platelet Count Result 223 k/mm3 (150-375); Red Blood Count 4.48 M/mm3 (4.2-5.4); Red Cell Distribution Width 17.3 % (11.5-14.5); White Blood Count 12.1 K/mm3 (4.5-10.0)
[2019-09-18 06:21] LABS: Alanine Aminotransferase 28 U/L (4-35); Albumin Level 2.7 g/dL (3.5-5.1); Alkaline Phosphatase 291 U/L (38-126); Aspartate Amino Transferase 23 U/L (14-36); Bilirubin,Total 0.7 mg/dL (0.2-1.3); Blood Urea Nitrogen 23 mg/dL (7-17); Calcium 8.9 mg/dL (8.4-10.2); Carbon Dioxide 25 mmol/L (22-30); Chloride 105 mmol/L (98-107); Estimated CRCL calculation 53 ml/min; Estimated Glomerular Filt Rate > 60; Glucose 138 mg/dL (65-105); Magnesium 1.6 mg/dL (1.6-2.3); Potassium 3.8 mmol/L (3.4-5.0); Sodium 136 mmol/L (137-145)
[2019-09-18] MEDS: APIXABAN 5 MG TABLET PO ×2 (08:08→21:58)
[2019-09-18] MEDS: SPIRONOLACTONE 25 MG TABLET PO (08:08)
[2019-09-18] MEDS: CEFDINIR 300 MG CAPSULE PO ×2 (08:08→21:58)
[2019-09-18] MEDS: DULOXETINE 60 MG CAPSULE.DR PO (08:09)
[2019-09-18] MEDS: METOPROLOL SUCCINATE EXT REL 100 MG TABCR PO (08:09)
[2019-09-18 08:18] LABS: Glucose Point of Care 107 (65-105)
[2019-09-18] MEDS: INSULIN ASPART (*BKC) 100 UNITS/ML SUB-Q (12:12)
[2019-09-18] MEDS: MAGNESIUM OXIDE 400 MG TABLET PO (12:12)
[2019-09-18 12:21] LABS: Glucose Point of Care 262 (65-105)
--- NOTE | 2019-09-18 12:39 | PM.IMPN ---
Progress Note: A&P Assessment and Plan (1) Sepsis: Qualifiers: Acute renal failure type: unspecified Sepsis acute organ dysfunction status: with acute organ dysfunction Sepsis type: sepsis due to unspecified organism Severe sepsis acute organ dysfunction type: acute renal failure Severe sepsis shock status: unspecified Qualified Code(s): A41.9 - Sepsis, unspecified organism; R65.20 - Severe sepsis without septic shock; N17.9 - Acute kidney failure, unspecified Code(s): A41.9 - Sepsis, unspecified organism Status: Acute Assessment and Plan: Criteria met on admission. Result of UTI and septicemia with urine and blood cultures x2 growing E. coli. Repeat blood cultures negative thus far. Abx Day #7. Anticipate 14 days total. Voiding normally after Morales removed. Continue PT/OT. Patient plans to return home at discharge. Will continue to monitor. Not feeling well today so will hopeful discharge tomorrow. (2) Acute UTI: Code(s): N39.0 - Urinary tract infection, site not specified Status: Acute Assessment and Plan: Urine culture growing royal-sensitive E coli as noted above. Changed to Cefdinir. Check renal US to exclude abscess or hydronephrosis. (3) Afib: Qualifiers: Atrial fibrillation type: unspecified Qualified Code(s): I48.91 - Unspecified atrial fibrillation Code(s): I48.91 - Unspecified atrial fibrillation Status: Acute Assessment and Plan: Cardiology consulted and appreciate their input. Was on flecainide after episode of V-tach in the emergency room. Flecainide discontinued and metoprolol advanced. Will continue to monitor. Continue Eliquis for anticoagulation. Lasix x 1 to see if this helps foe dyspnea. (4) V-tach: Code(s): I47.2 - Ventricular tachycardia Status: Acute Assessment and Plan: Had episode of V-tach in the ER. Did receive cardioversion in ER. Cardiology consulted and appreciate input. Cardiac treatment as noted above. Continue to monitor. (5) Acute renal failure: Qualifiers: Acute renal failure type: unspecified Qualified Code(s): N17.9 - Acute kidney failure, unspecified Code(s): N17.9 - Acute kidney failure, unspecified Status: Resolved Assessment and Plan: Cr 2.1 on admission. Result of UTI, sepsis, and dehydration. Resolved with creatinine now down to 0.8 today. Will continue to follow. Spironolactone on hold. (6) HTN (hypertension): Qualifiers: Hypertension type: essential hypertension Qualified Code(s): I10 - Essential (primary) hypertension Code(s): I10 - Essential (primary) hypertension Status: Chronic Assessment and Plan: Blood pressure reviewed on 09/18/2019. BP reasonably well controlled. Will continue to monitor on metoprolol. (7) Diabetes mellitus: Qualifiers: Diabetes mellitus type: type 2 Diabetes mellitus halfway insulin use: with halfway use Diabetes mellitus complication status: with hyperglycemia Qualified Code(s): E11.65 - Type 2 diabetes mellitus with hyperglycemia; Z79.4 - continuous churn buttermaker (current) use of insulin Code(s): E11.9 - Type 2 diabetes mellitus without complications Status: Chronic Assessment and Plan: A1c 8.2. Glucose reviewed on 09/18/2019. Lantus increased recently and glucose 107 this morning. Will continue to monitor. Sliding scale insulin available as needed. Will monitor and adjust treatment as needed. (8) Depression: Qualifiers: Depression Type: unspecified Qualified Code(s): F32.9 - Major depressive disorder, single episode, unspecified Code(s): F32.9 - Major depressive disorder, single episode, unspecified Status: Chronic Assessment and Plan: Mood remains stable but seems a little down today. Continue home Cymbalta. Home Lexapro discontinued on admission. (9) DVT prophylaxis:
[2019-09-18] MEDS: FUROSEMIDE 20 MG TABLET PO (14:10)
--- NOTE | 2019-09-18 15:28 | PCOTNOTE ---
Attempted to see patient several times this date. First attempt, patient was with nursing. Second attempt, patient was eating breakfast. Third attempt, patient was eating lunch. Assisted patient to chair in order for patient to eat lunch more efficiently.
[2019-09-18 15:49] LABS: Glucose Point of Care 185 (65-105)
[2019-09-18 17:23] LABS: Glucose Point of Care 168 (65-105)
[2019-09-18] MEDS: INSULIN GLARGINE (*BKC) 100 UNITS/ML 40 UNITS SUB-Q (22:03)
[2019-09-18 22:16] LABS: Glucose Point of Care 223 (65-105)
[2019-09-19] VITALS (9 sets, daily range): BP systolic 132–133; BP diastolic 72–76; PULSE 82–120; RESP 16–18; TEMP 36.6–36.8; O2SAT 95–98
[2019-09-19] MEDS: ACETAMINOPHEN 325 MG TABLET 650 MG PO ×2 (01:13→21:36)
[2019-09-19 06:28] LABS: Basophils Absolute Auto 0.1 K/mm3 (0.0-0.1); Basophils Percent Auto 0.8 % (0.2-1.2); Eosinophils Absolute Auto 0.4 K/mm3 (0-0.3); Eosinophils Percent Auto 3.3 % (0-4.4); Hematocrit 38.3 % (37.0-47.0); Hemoglobin 12.9 g/dL (12.0-15.0); Immature Granulocyte Absolute 0.55 K/mm3 (0.00-0.031); Immature Granulocyte Percent A 4.9 % (0-0.5); Lymphocytes Absolute Auto 1.43 K/mm3 (0.9-3.2); Lymphocytes Percent Auto 12.8 % (18.3-44.2); Mean Corpuscular HGB Conc 33.7 g/dl (32-36); Mean Corpuscular Hemoglobin 28.9 pg (26-34); Mean Corpuscular Volume 85.7 fl (80-100); Mean Platelet Volume 10.3 fl (7.4-10.4); Monocytes Absolute Auto 0.8 K/mm3 (0.1-0.6); Monocytes Percent Auto 6.9 % (2.6-8.5); Neutrophils Percent Auto 71.3 % (45.5-73.1); Nucleated Red Blood Cells Perc 0.2 % (0.0-0.2); Platelet Count Result 291 k/mm3 (150-375); Red Blood Count 4.47 M/mm3 (4.2-5.4); Red Cell Distribution Width 17.4 % (11.5-14.5); White Blood Count 11.2 K/mm3 (4.5-10.0)
[2019-09-19 06:38] LABS: Blood Urea Nitrogen 22 mg/dL (7-17); Calcium 8.8 mg/dL (8.4-10.2); Carbon Dioxide 25 mmol/L (22-30); Chloride 106 mmol/L (98-107); Estimated CRCL calculation 54 ml/min; Estimated Glomerular Filt Rate > 60; Glucose 116 mg/dL (65-105); Potassium 3.8 mmol/L (3.4-5.0); Sodium 136 mmol/L (137-145)
[2019-09-19] MEDS: MAGNESIUM OXIDE 400 MG TABLET PO (08:44)
[2019-09-19] MEDS: DULOXETINE 60 MG CAPSULE.DR PO (08:44)
[2019-09-19] MEDS: METOPROLOL SUCCINATE EXT REL 100 MG TABCR PO (08:45)
[2019-09-19] MEDS: SPIRONOLACTONE 25 MG TABLET PO (08:45)
[2019-09-19] MEDS: APIXABAN 5 MG TABLET PO ×2 (08:45→21:04)
[2019-09-19] MEDS: CEFDINIR 300 MG CAPSULE PO ×2 (08:45→21:04)
[2019-09-19 08:54] LABS: Glucose Point of Care 100 (65-105)
--- NOTE | 2019-09-19 09:51 | PCNWS ---
Weekly nutritional screen. Patient is tolerating current diet with adequate intake. No weight loss reported. No nutritional needs at this time.
[2019-09-19 12:04] LABS: Glucose Point of Care 266 (65-105)
[2019-09-19] MEDS: INSULIN ASPART (*BKC) 100 UNITS/ML SUB-Q (12:05)
--- NOTE | 2019-09-19 17:04 | PM.IMPN ---
Progress Note: A&P Assessment and Plan (1) Sepsis: Qualifiers: Acute renal failure type: unspecified Sepsis acute organ dysfunction status: with acute organ dysfunction Sepsis type: sepsis due to unspecified organism Severe sepsis acute organ dysfunction type: acute renal failure Severe sepsis shock status: unspecified Qualified Code(s): A41.9 - Sepsis, unspecified organism; R65.20 - Severe sepsis without septic shock; N17.9 - Acute kidney failure, unspecified Code(s): A41.9 - Sepsis, unspecified organism Status: Acute Assessment and Plan: Criteria met on admission. Result of UTI and septicemia with urine and blood cultures x2 growing E. coli. Repeat blood cultures negative thus far. Abx Day #8. Anticipate 14 days total. Continue PT/OT. Patient plans to return home at discharge. Will continue to monitor. Home when family can accept her. (2) Acute UTI: Code(s): N39.0 - Urinary tract infection, site not specified Status: Acute Assessment and Plan: Urine culture growing royal-sensitive E coli as noted above. Changed to Cefdinir. Renal US showing no abscess or hydronephrosis. (3) Afib: Qualifiers: Atrial fibrillation type: unspecified Qualified Code(s): I48.91 - Unspecified atrial fibrillation Code(s): I48.91 - Unspecified atrial fibrillation Status: Acute Assessment and Plan: Cardiology consulted and appreciate their input. Sotalol stopped. Was on flecainide after episode of V-tach in the emergency room. Flecainide discontinued and metoprolol ordered. Will continue to monitor. Continue Eliquis for anticoagulation. Lasix has helped her edema. (4) V-tach: Code(s): I47.2 - Ventricular tachycardia Status: Acute Assessment and Plan: Had episode of V-tach in the ER. Did receive cardioversion in ER. Cardiology consulted and appreciate input. Cardiac treatment as noted above. Continue to monitor. (5) Acute renal failure: Qualifiers: Acute renal failure type: unspecified Qualified Code(s): N17.9 - Acute kidney failure, unspecified Code(s): N17.9 - Acute kidney failure, unspecified Status: Resolved Assessment and Plan: Cr 2.1 on admission. Result of UTI, sepsis, Spironolactone and dehydration. Resolved with creatinine now down to 0.8 today. Will continue to follow. Spironolactone remains on hold. (6) HTN (hypertension): Qualifiers: Hypertension type: essential hypertension Qualified Code(s): I10 - Essential (primary) hypertension Code(s): I10 - Essential (primary) hypertension Status: Chronic Assessment and Plan: Blood pressure reviewed on 09/19/2019. BP well controlled. Will continue to monitor on metoprolol. (7) Diabetes mellitus: Qualifiers: Diabetes mellitus complication status: with hyperglycemia Diabetes mellitus terminal gauger insulin use: with usp use Diabetes mellitus type: type 2 Qualified Code(s): E11.65 - Type 2 diabetes mellitus with hyperglycemia; Z79.4 - long term care pharmacist (current) use of insulin Code(s): E11.9 - Type 2 diabetes mellitus without complications Status: Chronic Assessment and Plan: A1c 8.2. Glucose reviewed on 09/19/2019. Lantus increased recently and glucose 100 this morning but 266 at noon. Will continue to monitor clsoely and watch for lows.. Sliding scale insulin available as needed. Will monitor and adjust treatment as needed (8) Depression: Qualifiers: Depression Type: unspecified Qualified Code(s): F32.9 - Major depressive disorder, single episode, unspecified Code(s): F32.9 - Major depressive disorder, single episode, unspecified Status: Chronic Assessment and Plan: Mood remains stable. Continue home Cymbalta. Home Lexapro discontinued on admission. (9) DVT prophylaxis: Code(s): Z29.9 - Encounter for prophylact
[2019-09-19 17:32] LABS: Glucose Point of Care 199 (65-105)
[2019-09-19] MEDS: INSULIN GLARGINE (*BKC) 100 UNITS/ML 40 UNITS SUB-Q (21:27)
[2019-09-19 22:12] LABS: Glucose Point of Care 198 (65-105)
[2019-09-20 06:00] VITALS: BP 129/87; PULSE 115; RESP 18; TEMP 36; O2SAT 100
[2019-09-20] MEDS: MAGNESIUM OXIDE 400 MG TABLET PO (08:29)
[2019-09-20] MEDS: APIXABAN 5 MG TABLET PO (08:29)
[2019-09-20] MEDS: CEFDINIR 300 MG CAPSULE PO (08:29)
[2019-09-20 08:30] VITALS: PULSE 105
[2019-09-20] MEDS: METOPROLOL SUCCINATE EXT REL 100 MG TABCR PO (08:30)
[2019-09-20] MEDS: DULOXETINE 60 MG CAPSULE.DR PO (08:30)
[2019-09-20] MEDS: SPIRONOLACTONE 25 MG TABLET PO (08:30)
[2019-09-20 08:48] LABS: Glucose Point of Care 79 (65-105)
[2019-09-20] MEDS: ACETAMINOPHEN 325 MG TABLET 650 MG PO (10:23)
[2019-09-20] MEDS: INSULIN ASPART (*BKC) 100 UNITS/ML SUB-Q (11:36)
[2019-09-20 11:37] LABS: Glucose Point of Care 216 (65-105)
--- NOTE | 2019-09-20 12:45 | PM.DS ---
DS: Diagnosis Admitting Diagnosis Admitting Diagnosis: Sepsis, unspecified organism Discharge Diagnosis (1) Sepsis: Qualifiers: Acute renal failure type: unspecified Sepsis acute organ dysfunction status: with acute organ dysfunction Sepsis type: sepsis due to unspecified organism Severe sepsis acute organ dysfunction type: acute renal failure Severe sepsis shock status: unspecified Qualified Code(s): A41.9 - Sepsis, unspecified organism; R65.20 - Severe sepsis without septic shock; N17.9 - Acute kidney failure, unspecified Code(s): A41.9 - Sepsis, unspecified organism Status: Acute Assessment and Plan: Criteria met on admission. Result of UTI and septicemia with urine and blood cultures x2 growing E. coli. Repeat blood cultures negative. PT/OT worked with her. (2) Acute UTI: Code(s): N39.0 - Urinary tract infection, site not specified Status: Acute Assessment and Plan: Urine culture growing royal-sensitive E coli as noted above. Started on Rocephin and completed 5 days then changed to Cefdinir. Renal US showing no abscess or hydronephrosis. (3) Afib: Qualifiers: Atrial fibrillation type: unspecified Qualified Code(s): I48.91 - Unspecified atrial fibrillation Code(s): I48.91 - Unspecified atrial fibrillation Status: Acute Assessment and Plan: Cardiology consulted and appreciate their input. Sotalol stopped. Was on flecainide after episode of V-tach in the emergency room. Flecainide discontinued and metoprolol ordered. Continued on Eliquis for anticoagulation. Lasix x1 for edema. (4) V-tach: Code(s): I47.2 - Ventricular tachycardia Status: Acute Assessment and Plan: Had episode of V-tach in the ER. Did receive cardioversion in ER. Cardiology consulted and appreciate input. Cardiac treatment as noted above. (5) Acute renal failure: Qualifiers: Acute renal failure type: unspecified Qualified Code(s): N17.9 - Acute kidney failure, unspecified Code(s): N17.9 - Acute kidney failure, unspecified Status: Resolved Assessment and Plan: Cr 2.1 on admission. Result of UTI, sepsis, Spironolactone and dehydration. Resolved with creatinine now down to 0.8 today. Spironolactone remains on hold. (6) HTN (hypertension): Qualifiers: Hypertension type: essential hypertension Qualified Code(s): I10 - Essential (primary) hypertension Code(s): I10 - Essential (primary) hypertension Status: Chronic Assessment and Plan: Blood pressure moniotred closely. BP well controlled. Will continue to monitor on metoprolol. (7) Diabetes mellitus: Qualifiers: Diabetes mellitus type: type 2 Diabetes mellitus [facility] insulin use: with [facility] use Diabetes mellitus complication status: with hyperglycemia Qualified Code(s): E11.65 - Type 2 diabetes mellitus with hyperglycemia; Z79.4 - nursing home (current) use of insulin Code(s): E11.9 - Type 2 diabetes mellitus without complications Status: Chronic Assessment and Plan: A1c 8.2. Glucose monitored closely. Continued with Lantus. Accuchecks covering with sliding scale insulin. (8) Depression: Qualifiers: Depression Type: unspecified Qualified Code(s): F32.9 - Major depressive disorder, single episode, unspecified Code(s): F32.9 - Major depressive disorder, single episode, unspecified Status: Chronic Assessment and Plan: Mood remains stable. We continued home Cymbalta. Home Lexapro discontinued on admission. (9) DVT prophylaxis: Code(s): Z29.9 - Encounter for prophylactic measures, unspecified Status: Acute Assessment and Plan: On Eliquis. DS: Summary Hospital Course Reason for hospitalization: 79yo female here for sepsis who developed monomorphic VTach in ER. Please see H&P for details. [facility]osp[facility]
== END 2019-09-20 14:03 | disposition home health service (06) | DRG 872 ==
LOC: ANHED 15:29 → ANHICU 15:44 → ANH3MEDSUR 09-14 11:45
PROVIDERS: Emergency Medicine; Internal Medicine; Internal Medicine Cardiovascular Disease; Nurse Practitioner; Admitting Provider Hospitalist; Emergency Provider Emergency Medicine; Visit Provider Internal Medicine
DX: A41.51 Sepsis due to Escherichia coli [E. coli] (principal); N39.0 Urinary tract infection, site not specified; I47.2 Ventricular tachycardia; N17.9 Acute kidney failure, unspecified; M62.82 Rhabdomyolysis; R65.20 Severe sepsis without septic shock; I48.91 Unspecified atrial fibrillation; E86.0 Dehydration; E11.65 Type 2 diabetes mellitus with hyperglycemia; E11.42 Type 2 diabetes mellitus with diabetic polyneuropathy; F32.9 Major depressive disorder, single episode, unspecified; I10 Essential (primary) hypertension; I48.0 Paroxysmal atrial fibrillation; E78.5 Hyperlipidemia, unspecified; M19.90 Unspecified osteoarthritis, unspecified site; F41.9 Anxiety disorder, unspecified; K58.9 Irritable bowel syndrome, unspecified; L40.9 Psoriasis, unspecified; Z79.4 Long term (current) use of insulin; Z79.01 Long term (current) use of anticoagulants; Z87.891 Personal history of nicotine dependence; Z86.718 Personal history of other venous thrombosis and embolism; Z86.711 Personal history of pulmonary embolism; Z85.44 Personal history of malignant neoplasm of other female genital organs; Z98.42 Cataract extraction status, left eye; Z98.41 Cataract extraction status, right eye; Z90.710 Acquired absence of both cervix and uterus; Z96.642 Presence of left artificial hip joint; Z90.49 Acquired absence of other specified parts of digestive tract
CPT/HCPCS: 36415; 51701; 71045; 71046; 76775; 80048; 80053; 81001; 82550; 82948; 83036; 83605; 83735; 84443; 84484; 85025; 85027; 87040; 87077; 87081; 87086; 87088; 87186; 87804; 93005; 93306; 96361; 96365; 96367; 96375; 97110; 97116; 97161; 97166; 97530; 97535; 99285; A9270; C8929; J0131; J0282; J0696; J1650; J1815; J3475; J7030; J7040; Q9957

== ENCOUNTER 2020-05-10 10:55 | Inpatient (IN) | payer BC, MEDICARE, SELFPAY ==
[2020-05-10] VITALS (12 sets, daily range): BP systolic 142–172; BP diastolic 55–82; PULSE 42–96; RESP 16–20; TEMP 36–36.8; O2SAT 94–100; BMI 32.5
--- NOTE | ~2020-05-10 | XR_ITS ---
EXAMINATION: XR chest 2V DATE: 05/10/2020 13:47 INDICATION: Cough TECHNIQUE: frontal and lateral views of the chest were obtained. COMPARISON: Chest radiograph dated 09/12/2019 FINDINGS: Lung volumes remain small. Linear bands of likely discoid atelectasis/scarring in the left mid to low er lung zone. Mild opacities along the posterior diaphragm, unclear whether on the left, right or kp aterally most likely additional atelectasis although differential includes pneumonia. No pleural effu gilmer or pneumothorax. Cardiomegaly with mitral annular calcification. Post cystectomy clips in the ri ght upper quadrant. IMPRESSION: 1. Mild opacities at the posterior lung bases most likely atelectasis although differential includes less likely pneumonia. 2. Cardiomegaly. Reviewed, dictated and finalized at location A.
--- NOTE | ~2020-05-10 | CT_ITS ---
EXAMINATION: CT abdomen pelvis wo con DATE: 05/11/2020 14:17 INDICATION: Chronic urinary tract infections. TECHNIQUE: Computed tomography (CT) of the abdomen and pelvis was performed without intravenous contr ast. Automated exposure control and iterative reconstruction technique were employed. The dose-length product was 891.49 mGy-cm. COMPARISON: CT abdomen and pelvis 02/12/2018, 11/01/09 FINDINGS: The visualized portions of the lung bases demonstrate mild atelectasis. No pleural effusion . Cardiomegaly is noted. There are coronary artery calcifications. No pericardial effusion. The liver is normal. There are changes of cholecystectomy. There are changes of splenectomy and distal pancrea tectomy. There is a 15 mm cystic lesion in the head of the pancreas, stable from 11/01/09, likely shar gn. There is a chronic 19 mm mass in right adrenal gland measuring low-attenuation, consistent with a n adenoma. Left adrenal gland is normal. There are cysts in the kidneys measuring up to 2.2 cm on the left. There is cortical thinning of the kidneys. There is a 1 mm right kidney stone. There are scatt ered diverticula in the colon. There is wall thickening of the sigmoid colon with surrounding fat str anding. There are no dilated loops of bowel. The appendix is normal. There is a filter in the inferio r vena cava. There is a stent in the inferior vena cava and right common and external iliac veins. Th ere are no pathologically enlarged lymph nodes. There is no free intraperitoneal fluid. There is a to anika left hip arthroplasty. There is severe thoracolumbar spondylosis. IMPRESSION: 1. 1 mm nonobstructing right kidney stone. 2. Mild atrophy of the kidneys. 3. Sigmoid diverticulitis. No perforation or abscess. Reviewed, dictated and finalized at location A.
--- NOTE | ~2020-05-10 | XR_ITS ---
EXAMINATION: XR abdomen/kub 1V DATE: 05/11/2020 14:08 INDICATION: Chronic urinary tract infections. TECHNIQUE: A supine view of the abdomen on 2 radiographs was obtained. COMPARISON: CT abdomen and pelvis 05/11/2020 FINDINGS: There are no dilated loops of bowel. There is no visible urolithiasis. There are phlebolith s in the pelvis. There is a filter in the inferior vena cava. There is a stent in the inferior vena c eber and right common and external iliac veins. Surgical clips in the right upper quadrant are likely from cholecystectomy. There is a total left hip arthroplasty. IMPRESSION: 1. No visible urolithiasis. Reviewed, dictated and finalized at location A. IMPRESSION: 1. No visible urolithiasis.
[2020-05-10] MEDS: ACETAMINOPHEN 325 MG TABLET 650 MG PO (12:40)
[2020-05-10] MEDS: IBUPROFEN 600 MG TABLET PO (12:42)
--- NOTE | 2020-05-10 12:52 | ED.BACK ---
HPI - Back Pain/Injury General Chief Complaint: Back Pain/Injury Stated Complaint: UTI/abx not helping Time Seen by Provider: 05/10/20 12:17 Source: patient and family Limitations: no limitations History of Present Illness HPI Narrative: 79 years old complaining of general weakness, hard to stand up and walk without assistant track and field coach, feeling wobbly, diaphoretic, unable to manage activity without assistant track and field coach. Patient lives alone, brought to the emergency room by her daughter. History of recurrent urinary tract infection since August 2019, currently on cefdinir Patient denies any fever, chills, nausea, vomiting, chest pain, shortness of breath, headache, exposure to anybody known to have COVID-19 Patient does not smoke, drinks occasionally, does not use drugs Patient main complaint right now is chronic knee pain bilaterally, [id number]. Related Data Home Medications Medication Instructions Recorded Confirmed Eliquis 5 mg PO BID 09/12/19 09/12/19 aspirin [Aspir-81] 81 mg PO DAILY 09/12/19 09/12/19 duloxetine 60 mg PO DAILY 09/12/19 09/12/19 insulin aspart U-100 [Novolog See Rx Instructions .ROUTE .COMPLEX 09/12/19 09/12/19 Flexpen U-100 Insulin] amiodarone 200 mg tablet 200 mg PO DAILY 04/03/20 metoprolol succinate 50 mg 50 mg PO DAILY 04/03/20 tablet,extended release 24 hr Allergies Allergy/AdvReac Type Severity Reaction Status Date / Time codeine Allergy Unknown Unknown Verified 05/10/20 11:00 meperidine Allergy Unknown Unknown Verified 05/10/20 11:00 propoxyphene Allergy Unknown Unknown Verified 05/10/20 11:00 Review of Systems Review of Systems: Narrative: CONSTITUTIONAL: Denies fever, chills, or sweats. EYES: Denies visual changes, redness, or discharge. ENT: Denies rhinorrhea, congestion, sore throat, or otalgia. CARDIOVASCULAR: Denies chest pain, palpitations, or edema. RESPIRATORY: Denies cough or dyspnea. GASTROINTESTINAL: Denies abdominal pain, nausea, vomiting, or diarrhea. GENITOURINARY: Denies dysuria or hematuria. SKIN: Denies rash or itching. MUSCULOSKELETAL: Denies back pain, joint pain, or myalgia. NEUROLOGIC: Denies headache, numbness, or weakness. PSYCHIATRIC: Denies anxiety or depression. [facility]LY [facility] Past Medical History Medical History Afib Cardioversion 7 months ago. Anxiety Arthritis Chronic anticoagulation Depression Diabetes mellitus With peripheral neuropathy Diverticulitis DVT (deep venous thrombosis) IVC filter Endometrial cancer GI (gastrointestinal bleed) HLD (hyperlipidemia) HTN (hypertension) IBS (irritable bowel syndrome) Osteomyelitis Paroxysmal atrial fibrillation Peripheral neuropathy Psoriasis Pulmonary embolism Surgical History Surgical History H/O bilateral cataract extraction H/O: hysterectomy History of back surgery History of left hip replacement History of partial pancreatectomy History of partial splenectomy Hx of cholecystectomy Hx of tonsillectomy S/P IVC filter Family History Family History Sibling Cerebrovascular accident Mother Congestive heart failure Hypertension Diabetes mellitus Father Lung cancer Social History Social History Social History: she lives home alone. 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 She is to smoke. At the age of 19, she smoked about half pack a cigarettes a day for year. Occasionally drinks alcohol. She desires to be a full code. No power state's attorney at this time. She has a son and a daughter. Smoking status: Former smoker Tobacco type: cigarettes Second hand tobacco smoke exposure: No Alcohol intake: current Drinks per week: 2 Substance use: current Substance use type: marijuana Other substance usage details: Marijuana gummies Last use: 09-11-2019 Gender identity (if verbalized by the patien
[2020-05-10 13:22] LABS: Basophils Absolute Auto 0.2 K/mm3 (0.0-0.1); Basophils Percent Auto 1.7 % (0.2-1.2); Eosinophils Absolute Auto 0.3 K/mm3 (0-0.3); Eosinophils Percent Auto 3.1 % (0-4.4); Hemoglobin 13.2 g/dL (12.0-15.0); Immature Granulocyte Absolute 0.12 K/mm3 (0.00-0.031); Immature Granulocyte Percent A 1.4 % (0-0.5); Lymphocytes Absolute Auto 1.61 K/mm3 (0.9-3.2); Lymphocytes Percent Auto 18.6 % (18.3-44.2); Mean Corpuscular HGB Conc 31.4 g/dl (32-36); Mean Corpuscular Hemoglobin 28.8 pg (26-34); Mean Corpuscular Volume 91.7 fl (80-100); Mean Platelet Volume 9.8 fl (7.4-10.4); Monocytes Absolute Auto 1.5 K/mm3 (0.1-0.6); Monocytes Percent Auto 17.8 % (2.6-8.5); Neutrophils Percent Auto 57.4 % (45.5-73.1); Nucleated Red Blood Cells Perc 0.5 % (0.0-0.2); Platelet Count Result 479 k/mm3 (150-375); Red Blood Count 4.58 M/mm3 (4.2-5.4); White Blood Count 8.7 K/mm3 (4.5-10.0)
[2020-05-10 13:29] LABS: Add Urine Microscopic? YES; Appearance Urine Clear (Clear); Bacteria Urine 1+ /hpf; Bilirubin Urine Negative (Negative); Color Urine Yellow (Yellow); Glucose Urine UA Negative (Negative); Hyaline Casts Urine 15-19 /lpf; Ketones Urine Negative (Negative); Leukocyte Esterase Ur 1+ LEU/UL (Negative); Mucus Urine Rare /lpf; Nitrate Urine Positive (Negative); Protein Urine 1+ mg/dL (Negative); Specific Grav Ur 1.023 (1.001-1.035); Squamous Epithelial Cell Urine Many /hpf (Few); Urobilinogen Urine Negative mg/dL (<2.0); WBC Urine 31-50 /hpf
[2020-05-10 13:30] LABS: Blood Urine Negative (Negative)
--- NOTE | 2020-05-10 13:30 | ECG_ITS ---
Measurements Intervals [place] Rate: 47 P: 12 ID: 197 QRS: 2 QRSD: 90 T: 4 QT: 474 QTc: 423 Interpretive Statements SINUS BRADYCARDIA ATRIAL PREMATURE COMPLEXES INCOMPLETE RIGHT BUNDLE BRANCH BLOCK VOLTAGE CRITERIA FOR LVH ABNORMAL ECG Electronically Signed On 05-10-2020 19:30:22 CDT by Pop Costello D.O.
[2020-05-10 13:35] LABS: INR 1.7; Prothrombin Time 19.6 Seconds (11.1-14.7)
[2020-05-10 13:36] LABS: Partial Thromboplastin Time 30.3 SECONDS (22.3-36.8)
[2020-05-10 13:40] LABS: Alanine Aminotransferase 61 U/L (4-35); Albumin Level 4.4 g/dL (3.5-5.1); Alkaline Phosphatase 139 U/L (38-126); Anion Gap 14 mmol/L (8-16); Aspartate Amino Transferase 72 U/L (14-36); Bilirubin,Total 0.6 mg/dL (0.2-1.3); Blood Urea Nitrogen 44 mg/dL (7-17); CRP 0.7 mg/dL (<1.0); Calcium 10.2 mg/dL (8.4-10.2); Carbon Dioxide 22 mmol/L (22-30); Chloride 102 mmol/L (98-107); Estimated CRCL calculation 19 ml/min; Estimated Glomerular Filt Rate 22; Glucose 224 mg/dL (65-105); Potassium 6.5 mmol/L (3.4-5.0); Sodium 138 mmol/L (137-145)
[2020-05-10 14:06] LABS: Troponin I < 0.012 ng/mL (0.000-0.034)
[2020-05-10] MEDS: DEXTROSE 50% 25 GM/50 ML SYRINGE IV PUSH ×2 (14:06→21:46)
[2020-05-10] MEDS: CALCIUM GLUCONATE 1,000 MG/10 ML VIAL 1000 MG IV PUSH (14:07)
[2020-05-10] MEDS: INSULIN HUMAN REGULAR (*BKC) 100 UNITS/ML 10 UNITS IV PUSH ×2 (14:08→21:46)
[2020-05-10] MEDS: SODIUM BICARBONATE 8.4% 50 MEQ/50 ML VIAL IV PUSH (14:08)
[2020-05-10] MEDS: SODIUM CHLORIDE 0.9% IV 1,000 ML 999 ML IV CONT (14:09)
--- NOTE | 2020-05-10 15:18 | ADMGEN ---
This patient, Jennifer Cano, was admitted to IMU Room 201-01 at 1501 on 05/10/2020. Patient/family oriented to hospital policies and general routines including ID bracelet, bed and alarms, visiting hours, pain management, procedures, bathroom and other care routines, personal items, smoking policy, room service/diet, and visiting hours. Information on how to activate the Rapid Response Team has been discussed. Patient/Family are encouraged to report perceived risks to care and to ask questions if they do not understand what they are told or what they should do.
[2020-05-10 17:32] LABS: Glucose Point of Care 61 (65-105)
[2020-05-10 17:46] LABS: Troponin I < 0.012 ng/mL (0.000-0.034)
[2020-05-10] MEDS: SODIUM CHLORIDE 0.9% IV 1,000 ML 125 ML IV CONT (17:50)
[2020-05-10 17:52] LABS: Glucose Point of Care 87 (65-105)
--- NOTE | 2020-05-10 19:11 | PM.IMHP ---
H&P: HPI History of Present Illness Date/Time: 05/10/20 19:11 Chief complaint: Hypokalemia/Sinus Bradycardia/UTI/SELENE Narrative: Jennifer Cano is a 79 year old female Who came to the emergency room today because of generalized weakness. She was having difficulty standing and could walk without assistance. The patient felt very diaphoretic and wobbly and was and able to manage her activity without assistance. The patient does live home alone and was brought to emergency room by her daughter. Her daughter is a durable power district attorney for healthcare. Patient denied any chest pain or shortness of breath. She has not had any fever chills. She occasionally has a drink but has not been drinking any alcohol. She does have chronic knee pain. She denies having any exposure to COVID. Patient stated she has been taking her medications as prescribed. She has had a history of having atrial fibrillation in the past and is on Eliquis. The patient did not fall today. She is not eat much today either. The patient is in sinus rhythm. She has had a history of an ablation in the past. The patient had been admitted the last time here in 09/12/2019 where she did fall out of bed at 1:00 a.m. in the morning and laid on the floor. She had had multiple falls at that point. Patient has a history of having a PE and DVT. With a IVC filter. That admission the patient had been coded in the emergency room where she had him on a more Sadi ventricular tachycardia. The patient was shocked 3 times and eventually restored to the a rhythm at that time. She had a slight elevation of troponin at that time. The patient was found to be in septic shock for UTI. She had pansensitive E coli at that time. Cardiology saw her at that time and stopped her sotalol. The patient stated she has not been on any new medication and she has been taking her prescribed medications. Her potassium was found to be 6.5 and her creatinine 2.2. The patient stated that she urinates frequency and is still on her spironolactone. Her glucose today was 224. The patient was given Tylenol in the emergency room Motrin, normal saline, an amp of D50, sodium bicarb, 10 units of regular insulin, and ceftriaxone IV for UTI. Her urine was not that impressive for UTI and could be contaminant as there were many squamous they will epithelium. Cultures have been obtained. Patient had an episode were blood sugar dropped below 60 and she was diaphoretic and she was given a tray and I believe orange juice and it brought her up to 80. She was alert orientated x3. Patient is admitted to IMU inpatient on the date of service of 05/10/2020 Review of Systems Review of Systems: All systems reviewed & are unremarkable except as noted in HPI and below Constitutional: Constitutional: Reports as per HPI and Reports no additional constitutional complaints Eyes: Eyes: Reports as per HPI and Reports no additional eye complaints ENT: Reports system reviewed and no additional complaints, except as documented and Reports Normal hearing present Cardiovascular: Cardiovascular: Reports no additional cardiovascular complaints Respiratory: Respiratory: Reports no additional respiratory complaints and Reports no additional respiratory complaints Gastrointestinal: Gastrointestinal: Reports as per HPI and Reports no additional gastrointestinal complaints Musculoskeletal: Musculoskeletal: Reports no additional musculoskeletal complaints Integumentary/Breasts: Skin/Breast: Reports system reviewed and no additional complaints, except as docu and Reports as per HPI Neurologic: Reports system reviewed and no additional complaints, except as documented, Reports as per HPI and Reports Normal hearing present Psychiatric: Psychiatric: Reports no additional psychiatric complaints and Reports as per HPI Endocrine: Endocrine: Reports no additional endocrine complaints Hematologic/Lymphatic: Hematologic/Lymphatic: Reports no additional
[2020-05-10 20:24] LABS: Glucose Point of Care 312 (65-105)
[2020-05-10 20:51] LABS: Anion Gap 13 mmol/L (8-16); Blood Urea Nitrogen 44 mg/dL (7-17); Calcium 9.6 mg/dL (8.4-10.2); Carbon Dioxide 22 mmol/L (22-30); Chloride 105 mmol/L (98-107); Estimated CRCL calculation 19 ml/min; Estimated Glomerular Filt Rate 22; Glucose 289 mg/dL (65-105); Potassium 6.3 mmol/L (3.4-5.0); Sodium 140 mmol/L (137-145)
[2020-05-10 20:58] LABS: Troponin I < 0.012 ng/mL (0.000-0.034)
[2020-05-10 21:26] LABS: Glucose Point of Care 300 (65-105)
[2020-05-10] MEDS: CALCIUM GLUC 1,000 MG/NS 50 ML 1,000 MG/50 ML BAG 100 MG IVPB (21:46)
[2020-05-10] MEDS: SODIUM POLYSTYRENE SULFONONATE 15 GM/60 ML BTL 30 GM PO (21:47)
[2020-05-10 22:22] LABS: Glucose Point of Care 332 (65-105); Glucose Point of Care 374 (65-105)
[2020-05-11] VITALS (15 sets, daily range): BP systolic 109–151; BP diastolic 48–95; PULSE 53–73; RESP 15–20; TEMP 35.6–36.4; O2SAT 95–100
[2020-05-11 00:12] LABS: Anion Gap 11 mmol/L (8-16); Blood Urea Nitrogen 44 mg/dL (7-17); Calcium 10.1 mg/dL (8.4-10.2); Carbon Dioxide 22 mmol/L (22-30); Chloride 109 mmol/L (98-107); Estimated CRCL calculation 21 ml/min; Estimated Glomerular Filt Rate 24; Glucose 201 mg/dL (65-105); Potassium 5.9 mmol/L (3.4-5.0); Sodium 142 mmol/L (137-145)
[2020-05-11 05:30] LABS: Basophils Absolute Auto 0.1 K/mm3 (0.0-0.1); Eosinophils Absolute Auto 0.3 K/mm3 (0-0.3); Eosinophils Percent Auto 2.4 % (0-4.4); Hematocrit 35.2 % (37.0-47.0); Hemoglobin 11.3 g/dL (12.0-15.0); Immature Granulocyte Percent A 0.9 % (0-0.5); Lymphocytes Absolute Auto 1.13 K/mm3 (0.9-3.2); Lymphocytes Percent Auto 10.4 % (18.3-44.2); Mean Corpuscular HGB Conc 32.1 g/dl (32-36); Mean Corpuscular Hemoglobin 28.5 pg (26-34); Mean Corpuscular Volume 88.9 fl (80-100); Mean Platelet Volume 10.1 fl (7.4-10.4); Monocytes Absolute Auto 0.6 K/mm3 (0.1-0.6); Neutrophils Absolute Auto 8.8 K/mm3 (1.3-6.7); Neutrophils Percent Auto 80.3 % (45.5-73.1); Nucleated Red Blood Cells Perc 0.3 % (0.0-0.2); Platelet Count Result 459 k/mm3 (150-375); Red Blood Count 3.96 M/mm3 (4.2-5.4); Red Cell Distribution Width 18.5 % (11.5-14.5); White Blood Count 10.9 K/mm3 (4.5-10.0)
[2020-05-11 05:51] LABS: Anion Gap 9 mmol/L (8-16); Blood Urea Nitrogen 43 mg/dL (7-17); Calcium 9.4 mg/dL (8.4-10.2); Carbon Dioxide 20 mmol/L (22-30); Chloride 109 mmol/L (98-107); Estimated CRCL calculation 24 ml/min; Estimated Glomerular Filt Rate 27; Glucose 256 mg/dL (65-105); Magnesium 2.2 mg/dL (1.6-2.3); Potassium 6.1 mmol/L (3.4-5.0); Sodium 138 mmol/L (137-145)
[2020-05-11 06:22] LABS: Hemoglobin A1C 8.5 % (<5.7)
[2020-05-11] MEDS: ALBUTEROL SULFATE NEB 2.5 MG/0.5 ML INH 10 MG INHALATION (06:33)
[2020-05-11 06:45] LABS: Glucose Point of Care 253 (65-105)
[2020-05-11] MEDS: INSULIN HUMAN REGULAR (*BKC) 100 UNITS/ML 10 UNITS IV PUSH (06:46)
[2020-05-11] MEDS: SODIUM BICARBONATE 8.4% 50 MEQ/50 ML VIAL IV PUSH (06:46)
[2020-05-11] MEDS: CALCIUM GLUC 1,000 MG/NS 50 ML 1,000 MG/50 ML BAG 100 MG IVPB (06:46)
[2020-05-11] MEDS: DEXTROSE 50% 25 GM/50 ML SYRINGE IV PUSH (06:46)
[2020-05-11 08:20] LABS: Anion Gap 12 mmol/L (8-16); Blood Urea Nitrogen 44 mg/dL (7-17); Calcium 9.7 mg/dL (8.4-10.2); Carbon Dioxide 21 mmol/L (22-30); Chloride 106 mmol/L (98-107); Estimated CRCL calculation 24 ml/min; Estimated Glomerular Filt Rate 27; Glucose 258 mg/dL (65-105); Potassium 5.1 mmol/L (3.4-5.0); Sodium 139 mmol/L (137-145)
[2020-05-11] MEDS: INSULIN ASPART (*BKC) 100 UNITS/ML SUB-Q ×3 (08:54→16:54)
[2020-05-11] MEDS: APIXABAN 5 MG TABLET PO ×2 (08:59→16:55)
[2020-05-11] MEDS: AMIODARONE HCL 200 MG TABLET PO (09:00)
[2020-05-11] MEDS: ASPIRIN 81 MG ENTERIC TABLET PO (09:00)
[2020-05-11] MEDS: MAGNESIUM OXIDE 400 MG TABLET PO (09:00)
[2020-05-11] MEDS: METOPROLOL SUCCINATE EXT REL 50 MG TABCR PO (09:01)
[2020-05-11] MEDS: DULoxetine HCL 30 MG CAPSULE.DR 90 MG PO (09:02)
[2020-05-11] MEDS: HYDROcodone/acetaminophen (*CRX) 5-325 MG TABLET 1 TAB PO ×2 (09:18→16:54)
[2020-05-11] MEDS: SODIUM CHLORIDE 0.9% IV 1,000 ML 125 ML IV CONT ×3 (11:46→20:30)
[2020-05-11 11:47] LABS: Glucose Point of Care 316 (65-105)
--- NOTE | 2020-05-11 14:11 | PCOTNOTE ---
OT evaluation attempted. Patient down for testing at this time. Will attempt OT evaluation at later time.
[2020-05-11 15:44] LABS: Glucose Point of Care 347 (65-105)
--- NOTE | 2020-05-11 15:58 | PM.IMPN ---
Progress Note: A&P Assessment and Plan (1) Hyperkalemia: Code(s): E87.5 - Hyperkalemia Status: Acute Assessment and Plan: patient was given a combination of medications including D50, IV insulin, and calcium gluconate in the emergency room. The high potassium level could be due to the acute renal failure or could be due to the spironolactone. I am holding the spironolactone today. May consider discontinuing it altogether. Recheck her potassium down in the morning. 05/11/20 15:58 patient is 79 year female was brought to the emergency depart patient brought by her daughter as patient was quite weak and fatigued patient was found to to have a potassium of 6.5 and creatinine of 2.2 patient states see has been urinating frequently, emergency department patient was treated with ampules of D50, sodium bicarb, calcium gluconate and patient's potassium was trended down to 5.1 patient is on spironolactone which is on hold, currently patient states feeling better compared when she arrived with the patient and her daughter both concern about recurrence UTI patient was started on Rocephin will consult urologist further recommendation (2) Ambulatory dysfunction: Code(s): R26.2 - Difficulty in walking, not elsewhere classified Status: Acute Assessment and Plan: PT and OT evaluation would greatly be appreciated. Could be due to the electrolyte imbalance. (3) Paroxysmal atrial fibrillation: Code(s): I48.0 - Paroxysmal atrial fibrillation Status: Acute Assessment and Plan: The patient is in sinus rhythm. He is on amiodarone. Continue metoprolol. The patient had been cardioverted several times. The patient is on Eliquis as well. 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 The patient is at risk for bleeding as she has multiple falls And periods of weakness. (4) HLD (hyperlipidemia): Code(s): E78.5 - Hyperlipidemia, unspecified Status: Chronic Assessment and Plan: patient would not be a good candidate for statin due to her weakness. (5) HTN (hypertension): Qualifiers: Hypertension type: essential hypertension Qualified Code(s): I10 - Essential (primary) hypertension Code(s): I10 - Essential (primary) hypertension Status: Chronic Assessment and Plan: Continue with patient's amiodarone and metoprolol (6) Depression: Qualifiers: Depression Type: unspecified Qualified Code(s): F32.9 - Major depressive disorder, single episode, unspecified Code(s): F32.9 - Major depressive disorder, single episode, unspecified Status: Chronic Assessment and Plan: continue with Cymbalta (7) Diabetes mellitus: Qualifiers: Diabetes mellitus type: type 2 Diabetes mellitus fpc insulin use: with intermediate teacher use Diabetes mellitus complication status: with hyperglycemia Qualified Code(s): E11.65 - Type 2 diabetes mellitus with hyperglycemia; Z79.4 - manager terminal (current) use of insulin Code(s): E11.9 - Type 2 diabetes mellitus without complications Status: Chronic Assessment and Plan: I am going to hold her Lantus for tonight because her blood sugar was down in the 60s. Please re-evaluate tomorrow. However the patient had gotten a concoction of D50 with regular insulin IV in the ER which could have caused a low blood sugar however she has eaten since then. Will just do the sliding scale insulin for now. Reconsider the Lantus tomorrow after review. (8) Acute UTI: Code(s): N39.0 - Urinary tract infection, site not specified Status: Acute Assessment and Plan: Continue with Rocephin and will get urine cultures and blood cultures. She has had pansensitive E coli in the past. Subjective Date/time seen: 05/11/20 15:58 patient is 79 year female was brought to the emergency depart patient brought by her daughter as patient was quite weak and fatigued patient
--- NOTE | 2020-05-11 16:19 | PM.CNCAR ---
Assessment and Plan Additional Plan this is a 79-year-old lady with paroxysmal atrial fibrillation. She is currently maintaining sinus rhythm on a regimen of amiodarone and metoprolol. She is systemically anticoagulated with apixaban. We were consulted to see her because she was transiently bradycardic earlier today. It should also be noted that she was also hyperkalemic and that has now been corrected. I would agree with discontinuing her spironolactone for the time being. For now I would not observer telemetry while she is in the hospital if we continue to seep concerning Diego arrhythmias her metoprolol dosage can be reduced as well. The principal reason she was admitted to the hospital however was concern regarding urinary tract infection. Cultures for that have been collected and are pending in the laboratory. Will follow her with you on telemetry while she is in the hospital for the time being I would continue her amiodarone and metoprolol. Charly Ellington MD [facility] History of Present Illness History of Present Illness Consult date/time: 05/11/20 16:19 Reason For Visit: Hypokalemia/Sinus Bradycardia/UTI/SELENE Narrative: this is a 79-year-old woman who I remember from a previous hospitalization here at [place] in August I am seeing her at the request of the hospitalist today because of bradycardia that was noticed on telemetry. The patient has a history of paroxysmal atrial fibrillation for a long time and is an established patient of Dr. Garza in [place]. I do not believe she has any other cardiac problems other than atrial fibrillation. We were consulted to see her in August and early part of September of this year when she was hospitalized here at [place] [facility] she presented to the hospital with severe weakness was felt to have a urinary tract infection and then unexpectedly had the development of monomorphic sustained ventricular tachycardia in the emergency department and had to be resuscitated including CPR and being defibrillated. The patient had a history of atrial fibrillation and previous cardioversions at that time she was taking sotalol. There was concern at sotalol might have been a proarrhythmic drug at this point so the drug was stopped she was back in atrial fibrillation although not greatly symptomatic with and was treated with flecainide. Despite being on flecainide she was still going in and out of atrial fibrillation. She was ultimately discharged on September 19 with beta-phil and anticoagulation treatment. She states that since then she had seen her patent agent who performed a ischemia evaluation it sounds like she had a coronary angiogram done at [facility] although I do not have those records at the time of this dictation. She states that since then she was cardioverted and placed on amiodarone and was followed in their office with success. She enters [facility] with the sense of generalized weakness she believes she was mostly concerned that she had a urinary infection because of follows smelling urine and some back pain. She states she has had a number of urinary tract infections in the past and these were typical symptoms. Cultures have been done and she has been placed on antibiotics. None of her physicians are medical care is otherwise delivered here at [facility] her PCP is at [facility] and again her patent agent is in [facility] at [facility]. She is in sinus rhythm on telemetry I have been consulted to see her today because earlier in the day I was told that she was bradycardic with a heart rate in the upper 40s although she was still in sinus rhythm. Her medical regimen consists of amiodarone at 200 mg per day and metoprolol succinate at 50 mg per day as well as systemic anticoagulation with apixaban. It should also be noted that upon admission she was hyperkalemic with a potassium level of 6.1. That has been corrected and spironolactone has been placed on hold. She appears to be comfortable and
--- NOTE | 2020-05-11 16:21 | WPDURCON ---
Assessment and Plan Assessment and plan (1) Acute UTI: Code(s): N39.0 - Urinary tract infection, site not specified Status: Acute Assessment and Plan: CT/KUB showed a 1mm non obstructive stone which was insignificant and is not the cause of her UTI's. Would recommend a cysto with Dr. Abel as an outpatient and starting a low dose daily antibiotic to prevent further UTI's such as Keflex 250mg qd or Trimethoprim 100mg QD based on culture sensitivity. Tailor IV antibiotics to culture sensitivity, continue IV antibiotics. Will continue to follow. (2) Right renal stone: Code(s): N20.0 - Calculus of kidney Status: Acute Urology Consult Note HPI Date Seen: 05/11/20 Requesting Physician: Jose Alfredo Cortez MD Primary Care Provider: Lucian Xiong, Consult Narrative Narrative: Jennifer Cano is a 79 year old female who presented to the ER for weakness and diaphoresis. She has c/o chronic UTI's with symptoms of diaphoresis, dysuria, frequency, urgency and incontinence. She has not seen a urologist before. She has had urosepsis previously and several hospitalizations for UTI's. She was on Cefdinir for a UTI when she arrived at the hospital. She had a CT/KUB today that shows a 1mm kidney stone in the right kidney that is non obstructive, otherwise normal. Her Creatinine has improved from 2.00 yesterday to 1.80 today, her WBC is elevated also at 10.9. Her UA is positive for nitrites, urine and blood cultures are pending although her preliminary blood cultures are negative. She does state that she is well hydrated and makes a concisus effort to drink water. Review of Systems Cardiovascular: Cardiovascular: Denies chest pain Respiratory: Respiratory: Denies no additional respiratory complaints Gastrointestinal: Gastrointestinal: Denies abdominal pain, Denies nausea and Denies vomiting Genitourinary: Genitourinary: Denies hematuria, Reports nocturia, Denies dysuria, Denies flank pain, Denies urinary hesitancy and Denies urinary urgency [facility] Past Medical History Medical History (Updated 05/11/20 @ 16:31 by Richa Lee APRN) Afib Cardioversion 7 months ago. Anxiety Arthritis Chronic anticoagulation Depression Diabetes mellitus With peripheral neuropathy Diverticulitis DVT (deep venous thrombosis) IVC filter Endometrial cancer GI (gastrointestinal bleed) HLD (hyperlipidemia) HTN (hypertension) IBS (irritable bowel syndrome) Osteomyelitis Paroxysmal atrial fibrillation Peripheral neuropathy Psoriasis Pulmonary embolism Surgical History Surgical History H/O bilateral cataract extraction H/O: hysterectomy History of back surgery History of left hip replacement History of partial pancreatectomy History of partial splenectomy Hx of cholecystectomy Hx of tonsillectomy S/P IVC filter Family History Family History Sibling Cerebrovascular accident Mother Congestive heart failure Hypertension Diabetes mellitus Father Lung cancer Social History Social History Social History: she lives home alone. 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 she plans to not run for [employer] again this year. She is going to retire. She Used to smoke. At the age of 19, she smoked about half pack a cigarettes a day for year. Occasionally drinks alcohol. She desires to be a full code. her daughter is now the durable [employer] business intelligence reporting analyst for healthcare. She has a son and a daughter. Smoking status: Former smoker Tobacco type: cigarettes Second hand tobacco smoke exposure: No Alcohol intake: current Drinks per week: 2 Substance use: never Substance use type: marijuana Other substance usage details: Marijuana gummies Last use: 09-11-2019 Gender identity (if verbalized by the patient): Female Spiritual
[2020-05-11 17:01] LABS: Glucose Point of Care 332 (65-105)
--- NOTE | 2020-05-11 18:43 | PC.NURSE ---
This patient, Jennifer Cano, was received from IMU on 05/11/20 at 1843. Personal belongings list checked and signed. Patient/family oriented to unit policies and routines
--- NOTE | 2020-05-11 18:45 | PC.NURSE ---
This patient, Jennifer Cano, was transferred to [facility] on 05/11/20 at 1831. Personal belongings sent with patient. Report given to Abigail RODRIGUEZ. Appropriate documentation sent with patient.
[2020-05-11 20:44] LABS: Glucose Point of Care 283 (65-105)
[2020-05-12] VITALS (14 sets, daily range): BP systolic 106–147; BP diastolic 53–60; PULSE 60–78; RESP 16–20; TEMP 36.2–36.9; O2SAT 94–99
[2020-05-12 05:52] LABS: Hematocrit 31.1 % (37.0-47.0); Hemoglobin 9.9 g/dL (12.0-15.0); Mean Corpuscular HGB Conc 31.8 g/dl (32-36); Mean Corpuscular Hemoglobin 28.9 pg (26-34); Mean Corpuscular Volume 90.7 fl (80-100); Mean Platelet Volume 9.4 fl (7.4-10.4); Platelet Count Result 357 k/mm3 (150-375); Red Blood Count 3.43 M/mm3 (4.2-5.4); Red Cell Distribution Width 18.6 % (11.5-14.5); White Blood Count 11.6 K/mm3 (4.5-10.0)
[2020-05-12 06:03] LABS: Anion Gap 6 mmol/L (8-16); Blood Urea Nitrogen 32 mg/dL (7-17); Calcium 8.7 mg/dL (8.4-10.2); Carbon Dioxide 23 mmol/L (22-30); Chloride 110 mmol/L (98-107); Estimated CRCL calculation 30 ml/min; Estimated Glomerular Filt Rate 36; Glucose 179 mg/dL (65-105); Magnesium 1.8 mg/dL (1.6-2.3); Potassium 5.2 mmol/L (3.4-5.0); Sodium 139 mmol/L (137-145)
[2020-05-12] MEDS: SODIUM CHLORIDE 0.9% IV 1,000 ML 125 ML IV CONT (06:23)
[2020-05-12 07:53] LABS: Glucose Point of Care 165 (65-105)
--- NOTE | 2020-05-12 08:57 | WPDUROPN2 ---
Progress Note: A&P Assessment and Plan (1) Acute UTI: Code(s): N39.0 - Urinary tract infection, site not specified Status: Acute Assessment and Plan: Patient will need a urine culture done, please collect. I would recommend starting antibiotics d/t nitrite positive urine and her being symptomatic. She should then start prophylaxis after she finishes current treatment. She will follow up for cystocopy with Dr. Abel in the office. CT shows only a 1mm right renal stone non obstructive, otherwise normal. Subjective Subjective Date/Time Seen: 05/12/20 08:57 Patient is doing ok today, but still complains of urgency, frequency, incontinence, weakness and urine malodor. No urine culture was done, but UA is nitrite positive, so I would recommend starting antibiotics. Review of Systems Cardiovascular: Cardiovascular: Denies chest pain Respiratory: Respiratory: Reports no additional respiratory complaints Gastrointestinal: Gastrointestinal: Denies abdominal pain, Denies nausea and Denies vomiting Genitourinary: Genitourinary: Denies hematuria, Reports nocturia, Denies dysuria, Denies pelvic pain, Reports urinary incontinence, Reports urinary urgency and Reports other (patient c/o urine malodor) Exam Resp: Effort & Inspection: normal respiratory effort Cardio: Rate: regular rate GI: GI Palp: Yes Soft to palpation and No Tenderness to palpation present (GI) : General: Yes no CVA tenderness Extrem: General: no edema Objective Data Vital Signs Vital Signs: Vital Signs - 24 hr 05/11/20 09:00 05/11/20 09:01 05/11/20 10:00 Temperature Pulse Rate 73 73 66 Respiratory Rate Blood Pressure Pulse Oximetry 05/11/20 12:00 05/11/20 14:00 05/11/20 16:00 Temperature 96.9 F L 96.6 F L Pulse Rate 59 L 53 L 59 L Respiratory Rate 18 18 Blood Pressure 124/55 L 109/48 L Pulse Oximetry 95 98 05/11/20 18:00 05/11/20 20:00 05/11/20 22:00 Temperature 97.5 F L Pulse Rate 61 65 63 Respiratory Rate 18 18 Blood Pressure 123/51 L Pulse Oximetry 98 96 05/12/20 00:00 05/12/20 02:00 05/12/20 04:00 Temperature 98.4 F Pulse Rate 62 72 67 Respiratory Rate 20 Blood Pressure 116/53 L Pulse Oximetry 98 05/12/20 06:00 05/12/20 08:49 Temperature 97.4 F L Pulse Rate 69 Respiratory Rate 20 Blood Pressure 106/57 L Pulse Oximetry 99 98 Intake/Output Intake/Output: Intake & Output 05/09/20 05/10/20 05/11/20 05/12/20 23:59 23:59 23:59 23:59 Intake Total 1290 3800 1640 Output Total 2300 600 Balance 1290 1500 1040 Meds/Results Medications: Active Medications Generic Name Dose Route Start Last Admin Trade Name Freq PRN Reason Stop Dose Admin Hydrocodone Bitart/Acetaminophen 1 tab 05/11/20 09:09 05/11/20 16:54 Hydrocodone/Acetaminophen (*Crx) 5-325 Mg Tablet PO 1 tab Q4H PRN Administration Pain Rated 4-6 Amiodarone HCl 200 mg 05/11/20 09:00 05/11/20 09:00 Amiodarone Hcl 200 Mg Tablet PO 200 mg DAILY RAFAEL Administration Apixaban 5 mg 05/11/20 09:00 05/11/20 16:55 Apixaban 5 Mg Tablet PO 5 mg BID RAFAEL Administration Aspirin 81 mg 05/11/20 09:00 05/11/20 09:00 Aspirin 81 Mg Enteric Tablet PO 81 mg DAILY RAFAEL Administration Dextrose 12.5 gm 05/10/20 19:45 Dextrose 50% 25 Gm/50 Ml Syringe IV PUSH PRN PRN Hypoglycemia Protocol Duloxetine HCl 90 mg 05/11/20 09:00 05/11/20 09:02 Duloxetine Hcl 30 Mg Capsule.Dr PO 90 mg DAILY RAFAEL Administration Glucagon 1 mg 05/10/20 19:45 Glucagon For Inj 1 Mg Vial IM PRN PRN Hypoglycemia Protocol Glucose 15 gm 05/10/20 19:45 Glucose Oral Gel 15 Gm Of Glucse In 37.5 Gm Tube PO PRN PRN Hypoglycemia Protocol Sodium Chloride 1,000 mls @ 125 mls/hr 05/10/20 14:15 05/12/20 07:36 Normal Saline Iv IV CONT Not Given .Q8H RAFAEL Dextrose 1,000 mls @ 100 mls/hr 05/10/20 19:45 Dextrose 5% 1,000 Ml
[2020-05-12] MEDS: MAGNESIUM OXIDE 400 MG TABLET PO (09:06)
[2020-05-12] MEDS: AMIODARONE HCL 200 MG TABLET PO (09:06)
[2020-05-12] MEDS: METOPROLOL SUCCINATE EXT REL 50 MG TABCR PO (09:06)
[2020-05-12] MEDS: DULoxetine HCL 30 MG CAPSULE.DR 90 MG PO (09:06)
[2020-05-12] MEDS: APIXABAN 5 MG TABLET PO ×2 (09:06→16:59)
[2020-05-12] MEDS: ASPIRIN 81 MG ENTERIC TABLET PO (09:06)
[2020-05-12] MEDS: BENZOCAINE/MENTHOL (*BKC) 18 EA LOZENGE 1 LOZENGE PO (12:08)
[2020-05-12 13:16] LABS: Glucose Point of Care 222 (65-105)
[2020-05-12] MEDS: INSULIN ASPART (*BKC) 100 UNITS/ML SUB-Q ×2 (13:31→17:00)
--- NOTE | 2020-05-12 14:00 | PCOTNOTE ---
Patient refused OT evaluation this afternoon due to just finishing lunch and having too busy of a day. Refused any/off activity despite education on the importance of activity and getting out of bed. Will continue to attempt.
--- NOTE | 2020-05-12 14:13 | PC.NURSE ---
On 05/12/20, the student, [ Sue Montanez and Carmela Mckinley], provided care and completed [facility] documentation on this patient. I have reviewed the student's documentation and agree with the findings. Richa Diaz RN
--- NOTE | 2020-05-12 15:59 | PM.PNCARD ---
Progress Note: A&P Assessment and Plan (1) Afib: Qualifiers: Atrial fibrillation type: unspecified Qualified Code(s): I48.91 - Unspecified atrial fibrillation Code(s): I48.91 - Unspecified atrial fibrillation Status: Acute Assessment and Plan: Paroxysmal atrial fibrillation. Cardioverted approximately 7 months ago. Maintaining sinus rhythm on amiodarone and Metoprolol. Systemically anticoagulated with apixaban. No further bradycardia on telemetry. Continue to monitor. (2) Chronic anticoagulation: Code(s): Z79.01 - superintendent container terminal (current) use of anticoagulants Status: Acute Assessment and Plan: Continue apixaban b.i.d.. (3) Hyperkalemia: Code(s): E87.5 - Hyperkalemia Status: Acute Assessment and Plan: Resolving with treatment. Potassium 5.2 today. Continue to hold spironolactone. (4) Exertional shortness of breath: Code(s): R06.02 - Shortness of breath Status: Acute Assessment and Plan: May be multifactorial. Due to her bad knees she is not very active. She is slightly anemic. No evidence of pulmonary fibrosis on chest x-ray from her amiodarone. It is possible it is her beta-phil however she does not have known lung disease. Echocardiogram in August of this year: Left ventricular systolic function was normal estimated 65-70%. Moderate concentric increase left ventricular wall thickness. Right ventricular chamber dimension was modestly enlarged. Left atrial chamber dimension was severely enlarged. Mild to moderate mitral valve regurgitation. Moderate to severe tricuspid valve regurgitation. TR velocity estimated RV systolic pressure to be 42 mm Hg. Compared to the exam done in September of 2018 findings were essentially unchanged. Will repeat an echocardiogram to re-evaluate her LV function, pulmonary pressures as well as her valvular function. TSH is within normal limits. Additional Plan Plan discussed Dr Gibbs [id number] 05/12/2020 Subjective Date/time seen: 05/12/20 15:59 Interval history: Follow-up for: Bradycardia, hyperkalemia, paroxysmal atrial fibrillation, long-term use of anticoagulation with apixaban. Date of service: 05/12/2020 Subjective: Denied chest discomfort. Short of breath with exertional activity. This has been getting worse. Lightheaded when gets up from a lying or sitting position. No lower extremity edema. Review of Systems Constitutional: Constitutional: Reports fatigue, Reports lethargy and Reports weakness Eyes: Eyes: Denies blurry vision ENT: Denies epistaxis Cardiovascular: Cardiovascular: Denies chest pain, Denies pedal edema, Denies leg edema, Reports lightheadedness and Denies palpitations Respiratory: Respiratory: Denies cough, Reports dyspnea, Reports dyspnea on exertion and Denies wheezing Gastrointestinal: Gastrointestinal: Denies abdominal pain, Denies melena, Denies bloating, Denies hematochezia, Denies nausea and Denies vomiting Genitourinary: Genitourinary: Denies hematuria and Reports flank pain Musculoskeletal: Musculoskeletal: Reports neck pain Integumentary/Breasts: Skin/Breast: Reports erythema and Reports rash Neurologic: Denies Abnormal speech present Psychiatric: Psychiatric: Denies anxiety Endocrine: Endocrine: Reports fatigue Hematologic/Lymphatic: Hematologic/Lymphatic: Reports easy bruising Allergic/Immunologic: Allergic/Immunologic: Denies seasonal rhinorrhea Exam Narrative: Exam Narrative: Laying comfortably in bed. No distress. Const: General: cooperative, comfortable and no acute distress HENMT: Head: normocephalic and atraumatic Ears: hearing grossly impaired General nose exam: no epistaxis Eyes: Sclera: sclerae normal Pupils: Equal, round and reactive pupils present Neck: Neck: no JVD Resp: Effort & Inspection: norm
--- NOTE | 2020-05-12 16:37 | PM.IMPN ---
Progress Note: A&P Assessment and Plan (1) Hyperkalemia: Code(s): E87.5 - Hyperkalemia Status: Acute Assessment and Plan: 05/12/20 16:37 patient is 79 year female was brought to the emergency depart patient brought by her daughter as patient was quite weak and fatigued patient was found to to have a potassium of 6.5 and creatinine of 2.2 patient states see has been urinating frequently, emergency department patient was treated with ampules of D50, sodium bicarb, calcium gluconate and patient's potassium was trended down to 5.1 patient is on spironolactone which is on hold, currently patient states feeling better compared when she arrived with the patient and her daughter both concern about recurrence UTI patient was started on Rocephin will consult urologist further recommendation today patient is feeling better denies any chest pain shortness of breath or palpitation, patient was seen by emt paramedic does not recommend adjusting any medication as patient's heart rate is now stable on current dose metoprolol and amiodarone, patient is also has history of recurrent UTI and was seen by urology recommended to start the patient on antibiotics and follow-up on urine culture start the patient on Rocephin will follow-up on urine culture and sensitivity and further recommendation to follow, will have a PT OT evaluate the patient. (2) Ambulatory dysfunction: Code(s): R26.2 - Difficulty in walking, not elsewhere classified Status: Acute Assessment and Plan: PT and OT evaluation would greatly be appreciated. Could be due to the electrolyte imbalance. (3) Paroxysmal atrial fibrillation: Code(s): I48.0 - Paroxysmal atrial fibrillation Status: Acute Assessment and Plan: The patient is in sinus rhythm. He is on amiodarone. Continue metoprolol. The patient had been cardioverted several times. The patient is on Eliquis as well. 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 The patient is at risk for bleeding as she has multiple falls And periods of weakness. (4) HLD (hyperlipidemia): Code(s): E78.5 - Hyperlipidemia, unspecified Status: Chronic Assessment and Plan: patient would not be a good candidate for statin due to her weakness. (5) HTN (hypertension): Qualifiers: Hypertension type: essential hypertension Qualified Code(s): I10 - Essential (primary) hypertension Code(s): I10 - Essential (primary) hypertension Status: Chronic Assessment and Plan: Continue with patient's amiodarone and metoprolol (6) Depression: Qualifiers: Depression Type: unspecified Qualified Code(s): F32.9 - Major depressive disorder, single episode, unspecified Code(s): F32.9 - Major depressive disorder, single episode, unspecified Status: Chronic Assessment and Plan: continue with Cymbalta (7) Diabetes mellitus: Qualifiers: Diabetes mellitus complication status: with hyperglycemia Diabetes mellitus superintendent marine oil terminal insulin use: with superintendent marine oil terminal use Diabetes mellitus type: type 2 Qualified Code(s): E11.65 - Type 2 diabetes mellitus with hyperglycemia; Z79.4 - FDC (current) use of insulin Code(s): E11.9 - Type 2 diabetes mellitus without complications Status: Chronic Assessment and Plan: I am going to hold her Lantus for tonight because her blood sugar was down in the 60s. Please re-evaluate tomorrow. However the patient had gotten a concoction of D50 with regular insulin IV in the ER which could have caused a low blood sugar however she has eaten since then. Will just do the sliding scale insulin for now. Reconsider the Lantus tomorrow after review. (8) Acute UTI: Code(s): N39.0 - Urinary tract infection, site not specified Status: Acute Assessment and Plan: Continue with Rocephin and will get urine cultures and blood cultures. She has had pansensitive E c
[2020-05-12 16:55] LABS: Glucose Point of Care 250 (65-105)
[2020-05-12] MEDS: HYDROcodone/acetaminophen (*CRX) 5-325 MG TABLET 1 TAB PO (16:59)
[2020-05-12 20:27] LABS: Glucose Point of Care 231 (65-105)
[2020-05-13] VITALS (14 sets, daily range): BP systolic 102–151; BP diastolic 59–73; PULSE 56–79; RESP 18–20; TEMP 35.9–36.7; O2SAT 94–98
[2020-05-13 06:07] LABS: Hematocrit 29.3 % (37.0-47.0); Hemoglobin 9.3 g/dL (12.0-15.0); Mean Corpuscular HGB Conc 31.7 g/dl (32-36); Mean Corpuscular Hemoglobin 28.4 pg (26-34); Mean Corpuscular Volume 89.3 fl (80-100); Mean Platelet Volume 9.7 fl (7.4-10.4); Platelet Count Result 354 k/mm3 (150-375); Red Blood Count 3.28 M/mm3 (4.2-5.4); Red Cell Distribution Width 18.6 % (11.5-14.5)
[2020-05-13 06:21] LABS: Anion Gap 6 mmol/L (8-16); Blood Urea Nitrogen 27 mg/dL (7-17); Calcium 8.9 mg/dL (8.4-10.2); Carbon Dioxide 21 mmol/L (22-30); Chloride 111 mmol/L (98-107); Estimated CRCL calculation 35 ml/min; Estimated Glomerular Filt Rate 43; Glucose 223 mg/dL (65-105); Potassium 5.6 mmol/L (3.4-5.0); Sodium 138 mmol/L (137-145)
[2020-05-13 07:49] LABS: Glucose Point of Care 183 (65-105)
[2020-05-13] MEDS: METOPROLOL SUCCINATE EXT REL 50 MG TABCR PO (08:52)
[2020-05-13] MEDS: DULoxetine HCL 30 MG CAPSULE.DR 90 MG PO (08:52)
[2020-05-13] MEDS: MAGNESIUM OXIDE 400 MG TABLET PO (08:53)
[2020-05-13] MEDS: ASPIRIN 81 MG ENTERIC TABLET PO (08:53)
[2020-05-13] MEDS: AMIODARONE HCL 200 MG TABLET PO (08:53)
[2020-05-13] MEDS: APIXABAN 5 MG TABLET PO ×2 (08:53→17:03)
--- NOTE | 2020-05-13 09:00 | ECHO_ITS ---
Patient Info Name: Jennifer Cano Age: 79 years : 1940 Gender: Female Ht: 63 in Wt: 192 lbs BSA: 2.00 m2 HR: 75 bpm BP: 141 / 64 mmHg Heart Rhythm: Sinus Rhythm Technical Quality: Good Exam Date: 05/13/2020 9:12 AM Exam Location: [facility] Patient Status: Inpatient Admit Date: 05/10/2020 Staff Ordering Physician: Halina Tang APRN Blood Bank Order Control Clerk: Dragan Jensen RDCS Attending Provider: Jose Alfredo Cortez MD Referring Physician: Clyde LARA; Exam Type: CA echo doppler color flow Study Info Indications R06.02 - Shortness of breath Complete two-dimensional, color flow and Doppler transthoracic echocardiogram is performed. Strain analysis performed. History/Risk Factors SOB/MENARD; pAfib, bradycardia, HTN, pHTN. Summary 1. Complete two-dimensional, color flow and Doppler transthoracic echocardiogram is performed. 2. Left ventricular chamber size and systolic function are normal with no regional wall motion abnormalities with an estimated ejection fraction of 65-70%. Grade 2 diastolic dysfunction is present. No segmental wall motion abnormalities. The global longitudinal strain is normal at-20%. 3. Right ventricular chamber dimension is moderately enlarged, with mild hypokinesis, there is flattening of the intraventricular septum during diastole consistent with right ventricular volume overload. 4. Left atrial chamber dimension is severely enlarged. 5. Right atrial chamber dimension is moderately enlarged. 6. There is mild aortic valve stenosis. Mean gradient of 11 mm Hg and aortic valve area of 1.5-1.6 cm2. 7. There is moderate mitral valve regurgitation. 8. There is moderate to severe tricuspid valve regurgitation. 9. Severe pulmonary hypertension, estimated pulmonary arterial systolic pressure is 125 mmHg. 10. Normal sinus rhythm. Left Ventricle Left ventricular chamber size and systolic function are normal with no regional wall motion abnormalities with an estimated ejection fraction of 65-70%. Grade 2 diastolic dysfunction is present. No segmental wall motion abnormalities. The global longitudinal strain is normal at-20%. Left ventricular chamber dimension is normal. Left ventricular systolic function is normal, estimated at 65-70%. There is moderately increased left ventricular wall thickness. Left ventricular septal wall motion is normal. The left ventricular diastolic function is grade II diastolic dysfunction. E/e' 15.1 is abnormal. Global longitudinal strain is normal at 20 %. Right Ventricle Right ventricular chamber dimension is moderately enlarged, with mild hypokinesis, there is flattening of the intraventricular septum during diastole consistent with right ventricular volume overload. Right ventricular systolic function is reduced. Left Atria Left atrial chamber dimension is severely enlarged. Right Atria Right atrial chamber dimension is moderately enlarged. Aortic Valve The aortic valve is trileaflet. There is no aortic valve sclerosis. There is mild aortic valve stenosis. Mean gradient of 11 mm Hg and aortic valve area of 1.5-1.6 cm2. There is no aortic valve regurgitation. There is mild aortic valve calcification. Pulmonic Valve The pulmonic valve is normal. There is no pulmonic valve stenosis. There is trace pulmonic regurgitation. Mitral Valve The mitral valve has calcified annulus. There is no mitral valve stenosis. There is moderate mitral valve regurgitation. Tricuspid Valve The tricuspid valve
[2020-05-13] MEDS: SODIUM POLYSTYRENE SULFONONATE 15 GM/60 ML BTL PO (09:39)
--- NOTE | 2020-05-13 11:22 | PM.PNCARD ---
Progress Note: A&P Assessment and Plan (1) Afib: Qualifiers: Atrial fibrillation type: unspecified Qualified Code(s): I48.91 - Unspecified atrial fibrillation Code(s): I48.91 - Unspecified atrial fibrillation Status: Acute Assessment and Plan: Paroxysmal atrial fibrillation. Cardioverted approximately 7 months ago. Maintaining sinus rhythm on amiodarone and Metoprolol. Systemically anticoagulated with apixaban. No significant bradycardia on telemetry for the last 48 hours. 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 (3) Hyperkalemia: Code(s): E87.5 - Hyperkalemia Status: Acute Assessment and Plan: Spironolactone discontinued. Potassium 5.6 today. Kayexalate has already been given by the hospitalist. Renal function continues to improve. IV fluids were stopped yesterday. (4) Exertional shortness of breath: Code(s): R06.02 - Shortness of breath Status: Acute Assessment and Plan: May be multifactorial. Due to her bad knees she is not very active. She is slightly anemic. No evidence of pulmonary fibrosis on chest x-ray from her amiodarone. It is possible it is her beta-phil however she does not have known lung disease. Echocardiogram in August of this year: Left ventricular systolic function was normal estimated 65-70%. Moderate concentric increase left ventricular wall thickness. Right ventricular chamber dimension was modestly enlarged. Left atrial chamber dimension was severely enlarged. Mild to moderate mitral valve regurgitation. Moderate to severe tricuspid valve regurgitation. TR velocity estimated RV systolic pressure to be 42 mm Hg. Compared to the exam done in September of 2018 findings were essentially unchanged. TSH is within normal limits. Echo pending. Additional Plan Plan discussed Dr. Ellington 1130 05/13/2020 Subjective Date/time seen: 05/13/20 11:22 Interval history: Follow-up for: Bradycardia, hyperkalemia, paroxysmal atrial fibrillation, long-term use of anticoagulation with apixaban. Date of service: 05/13/2020 Subjective: Tired. Note some swelling. Denied chest discomfort or back discomfort. Short of breath with exertional activities. Echo is pending. Lightheaded if gets up and moves too quickly. Review of Systems Constitutional: Constitutional: Reports fatigue and Reports lethargy Eyes: Eyes: Denies blurry vision ENT: Denies epistaxis and Reports neck pain Cardiovascular: Cardiovascular: Denies chest pain, Reports pedal edema, Denies leg edema, Reports lightheadedness, Denies palpitations, Reports dyspnea and Reports dyspnea on exertion Respiratory: Respiratory: Denies cough, Reports dyspnea, Reports dyspnea on exertion and Denies wheezing Gastrointestinal: Gastrointestinal: Reports abdominal pain ( Related to Kayexalate), Denies melena, Denies bloating, Denies hematochezia, Denies nausea and Denies vomiting Genitourinary: Genitourinary: Denies hematuria and Reports flank pain Musculoskeletal: Musculoskeletal: Reports neck pain Integumentary/Breasts: Skin/Breast: Denies erythema and Denies rash Neurologic: Denies Abnormal speech present and Reports weakness Psychiatric: Psychiatric: Denies anxiety Endocrine: Endocrine: Reports fatigue and Denies palpitations Hematologic/Lymphatic: Hematologic/Lymphatic: Reports easy bruising Allergic/Immunologic: Allergic/Immunologic: Denies seasonal rhinorrhea and Denies wheezing Exam Narrative: Exam Narrative: Laying comfortably in bed. No distress. Const: General: cooperative, comfortable and no acute distress HENMT: Head: normocephalic and atraumatic Ears: hearing grossly impaired General nose exam: no epist
[2020-05-13 11:46] LABS: Glucose Point of Care 351 (65-105)
[2020-05-13] MEDS: HYDROcodone/acetaminophen (*CRX) 5-325 MG TABLET 1 TAB PO ×2 (11:52→21:36)
[2020-05-13] MEDS: INSULIN ASPART (*BKC) 100 UNITS/ML SUB-Q ×2 (11:53→17:01)
--- NOTE | 2020-05-13 12:49 | WPDINFPN2 ---
Progress Note: A&P Assessment and Plan (1) Bacteriuria: Code(s): R82.71 - Bacteriuria Status: Acute Assessment and Plan: 1. Bacteriuria, I do not think that she has infectious cystitis. Original UA suggests contamination 2. Chronic nocturia, her only bladder symptom, due to diuretic 3. Weakness, her CC on admission, metabolic --> due to renal insufficiency (pre-renal?), hyperkalemia and hyperglycemia 4. DM, not controlled 5. Nephrolithiasis, not infected 6. L lumbar back pain, musculoligamentous, not due to cystitis REC Needs I/O cath. I will continue imipenem until that is available. I do not think that she should not be on chronic oral antibiotic suppression. Glycemic control. Subjective Date/time seen: 05/13/20 12:49 Objective Data Vital Signs Vital Signs: Vital Signs - 24 hr 05/12/20 14:09 05/12/20 16:00 05/12/20 18:00 Temperature 36.4 C L 36.2 C L Pulse Rate 74 78 69 Respiratory Rate 20 16 Blood Pressure 129/53 L 139/60 Pulse Oximetry 94 99 05/12/20 20:00 05/12/20 22:00 05/13/20 00:00 Temperature 36.8 C Pulse Rate 60 62 63 Respiratory Rate 20 Blood Pressure 147/56 H Pulse Oximetry 97 05/13/20 02:00 05/13/20 04:00 05/13/20 06:00 Temperature 36.4 C 36.7 C Pulse Rate 75 66 79 Respiratory Rate 20 20 Blood Pressure 141/64 H 151/73 H Pulse Oximetry 94 94 05/13/20 08:00 05/13/20 08:52 05/13/20 08:53 Temperature Pulse Rate 68 78 78 Respiratory Rate Blood Pressure Pulse Oximetry 05/13/20 09:45 Temperature 35.9 C L Pulse Rate 58 L Respiratory Rate 18 Blood Pressure 146/62 H Pulse Oximetry 98 Intake/Output Intake/Output: Intake & Output 05/10/20 05/11/20 05/12/20 05/13/20 23:59 23:59 23:59 23:59 Intake Total 1290 3800 3590 640 Output Total 2300 800 800 Balance 1290 1500 2790 -160 Meds/Results Medications: Active Medications Generic Name Dose Route Start Last Admin Trade Name Freq PRN Reason Stop Dose Admin Hydrocodone Bitart/Acetaminophen 1 tab 05/11/20 09:09 05/13/20 11:52 Hydrocodone/Acetaminophen (*Crx) 5-325 Mg Tablet PO 1 tab Q4H PRN Administration Pain Rated 4-6 Amiodarone HCl 200 mg 05/11/20 09:00 05/13/20 08:53 Amiodarone Hcl 200 Mg Tablet PO 200 mg DAILY RAFAEL Administration Apixaban 5 mg 05/11/20 09:00 05/13/20 08:53 Apixaban 5 Mg Tablet PO 5 mg BID RAFAEL Administration Aspirin 81 mg 05/11/20 09:00 05/13/20 08:53 Aspirin 81 Mg Enteric Tablet PO 81 mg DAILY RAFAEL Administration Benzocaine 1 lozenge 05/12/20 11:12 05/12/20 12:08 Benzocaine/Menthol (*Bkc) 18 Ea Lozenge PO 1 lozenge PRN PRN Administration Sore Throat Dextrose 12.5 gm 05/10/20 19:45 Dextrose 50% 25 Gm/50 Ml Syringe IV PUSH PRN PRN Hypoglycemia Protocol Duloxetine HCl 90 mg 05/11/20 09:00 05/13/20 08:52 Duloxetine Hcl 30 Mg Capsule.Dr PO 90 mg DAILY RAFAEL Administration Glucagon 1 mg 05/10/20 19:45 Glucagon For Inj 1 Mg Vial IM PRN PRN Hypoglycemia Protocol Glucose 15 gm 05/10/20 19:45 Glucose Oral Gel 15 Gm Of Glucse In 37.5 Gm Tube PO PRN PRN Hypoglycemia Protocol Dextrose 1,000 mls @ 100 mls/hr 05/10/20 19:45 Dextrose 5% 1,000 Ml IVPB PRN PRN Hypoglycemia Protocol Imipenem/Cilastatin Sodium 250 mg in 100 mls @ 300 mls/hr 05/13/20 09:00 05/13/20 09:55 Primaxin 250 Mg/D5w 100 Ml IVPB Infused Q6H RAFAEL Infusion Insulin Aspart 2 - 5 units 05/11/20 08:00 05/13/20 11:53 Insulin Aspart (*Bkc) 100 Units/Ml SUB-Q 5 units TIDWM RAFAEL Administration Protocol Metoprolol Succinate 50 mg 05/11/20 09:00 05/13/20 08:52 Metoprolol Succinate Ext Rel 50 Mg Tabcr PO 50 mg DAILY RAFAEL Administration Radiology Results: ITS Impressions Chest X-Ray 05/10/20 13:56 IMPRESSION: 1. Mild opacities at the posterior lung bases most likely atelectasis although differential includes
--- NOTE | 2020-05-13 13:20 | WPDCDIQUERY2 ---
CDI Query Clarification Request Patient admitted 05/10 with generalized weakness, hyperkalemia, and UTI. Please clarify clinical significance of Creatinine levels: 05/10 13:16 2.20 05/10 10:06 2.20 05/10 23:44 2.00 05/11 04:15 1.80 05/11 07:51 1.80 05/12 05:38 1.40 05/13 05:43 1.20 Thank you! <PETR House - Last Filed: 05/13/20 13:34> Clarified Diagnosis (1) Acute renal failure: Qualifiers: Acute renal failure type: unspecified Qualified Code(s): N17.9 - Acute kidney failure, unspecified <PETR House - Last Filed: 05/13/20 13:34> Code(s): N17.9 - Acute kidney failure, unspecified <PETR House - Last Filed: 05/13/20 13:34> Status: Resolved <PETR House - Last Filed: 05/13/20 13:34> Assessment and Plan: Most likely acute kidney injury secondary to dehydration, as patient was gently hydrated, patient kidney function improved <Lluvia Chew MD - Last Filed: 05/15/20 11:53>
[2020-05-13 13:31] LABS: Add Urine Microscopic? YES; Appearance Urine Cloudy (Clear); Bacteria Urine Trace /hpf; Bilirubin Urine Negative (Negative); Blood Urine Negative (Negative); Color Urine Straw (Yellow); Glucose Urine UA 3+ mg/dL (Negative); Ketones Urine Negative (Negative); Leukocyte Esterase Ur 3+ LEU/UL (Negative); Nitrate Urine Positive (Negative); Protein Urine Negative (Negative); Specific Grav Ur 1.015 (1.001-1.035); Squamous Epithelial Cell Urine Few /hpf (Few); Urobilinogen Urine Negative mg/dL (<2.0); WBC Clumps Urine Present /HPF; WBC Urine >75 /hpf
--- NOTE | 2020-05-13 13:55 | PM.IMPN ---
Progress Note: A&P Assessment and Plan (1) Hyperkalemia: Code(s): E87.5 - Hyperkalemia Status: Acute Assessment and Plan: 05/13/20 13:55 patient is 79 year female was brought to the emergency depart patient brought by her daughter as patient was quite weak and fatigued patient was found to to have a potassium of 6.5 and creatinine of 2.2 patient states she has been urinating frequently, emergency department patient was treated with ampules of D50, sodium bicarb, calcium gluconate and patient's potassium was trended down to 5.1 patient was on spironolactone which is now on hold, today again her potassium is 5.6, currently patient is not on any potassium-sparing medication nor she is taking any supplement, will give the patient Kayexalate and monitor if it does persist will consult nephrology for further recommendation, there was a concern the patient has a recurrent UTI patient was started on Rocephin, urine culture is growing E coli resistant to multiple antibiotics started the patient imipenem however patient does not have any complaint of dysuria or frequency of urine will consult Dr. pimentel for his opinion. 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 Could be due to the electrolyte imbalance. (3) Paroxysmal atrial fibrillation: Code(s): I48.0 - Paroxysmal atrial fibrillation Status: Acute Assessment and Plan: The patient is in sinus rhythm. He is on amiodarone. Continue metoprolol. The patient had been cardioverted several times. The patient is on Eliquis as well. 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 The patient is at risk for bleeding as she has multiple falls And periods of weakness. (4) HLD (hyperlipidemia): Code(s): E78.5 - Hyperlipidemia, unspecified Status: Chronic Assessment and Plan: patient would not be a good candidate for statin due to her weakness. (5) HTN (hypertension): Qualifiers: Hypertension type: essential hypertension Qualified Code(s): I10 - Essential (primary) hypertension Code(s): I10 - Essential (primary) hypertension Status: Chronic Assessment and Plan: Continue with patient's amiodarone and metoprolol (6) Depression: Qualifiers: Depression Type: unspecified Qualified Code(s): F32.9 - Major depressive disorder, single episode, unspecified Code(s): F32.9 - Major depressive disorder, single episode, unspecified Status: Chronic Assessment and Plan: continue with Cymbalta (7) Diabetes mellitus: Qualifiers: Diabetes mellitus type: type 2 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 Please re-evaluate tomorrow. However the patient had gotten a concoction of D50 with regular insulin IV in the ER which could have caused a low blood sugar however she has eaten since then. Will just do the sliding scale insulin for now. Reconsider the Lantus tomorrow after review. (8) Acute UTI:
[2020-05-13 16:34] LABS: Glucose Point of Care 215 (65-105)
--- NOTE | 2020-05-13 18:00 | CONS_ITS ---
DATE OF CONSULTATION: 05/13/2020 REASON FOR CONSULTATION: Abnormal urine culture. HISTORY OF PRESENT ILLNESS: A 79-year-old female, who was here in the hospital in late August. She had urine and blood cultures positive for E. coli and was treated accordingly. I did not see her at that time. Since that time, she had been on several courses of oral antibiotics apparently brought about due to nocturia. These have been persistently abnormal apparently, and most recently, she has received trimethoprim sulfa, which she was taking until the time of her present admission. Also, nitrofurantoin, which she completed 3 days before her present admission. In addition, she was here in the emergency room about 1 month before admission after she dropped a jar of peanut butter on her left leg and she received cephalexin at that time. She has had several falls, and feels short of breath and generally weak when she arises too quickly. The weakness unfortunately became progressive one day before admission, and she presented to the emergency room and then was admitted. She was given ceftriaxone initially, changed to imipenem this morning and consultation requested. She and her daughter are unaware of any recent prescriptions for cefdinir, contrary to her current medical record. The patient has never been told of drug-resistant bacteria isolation. She does have periodic cold sensation and sweats, but unaccompanied by any fever. She has been on no immunosuppressants. 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 The dose has been adjusted downward apparently in response to the nocturia. Spironolactone is on hold currently. She has had hemoglobin A1cs in the 7 to 8 percent range both here and also as an outpatient. She is on insulin at home. There has been no hematuria and she denies any other cystitis symptoms. She has never seen a urologist and knows of no past history of kidney stones. ALLERGIES: OPIOIDS, NO ANTIBIOTICS. CURRENT MEDICATIONS: List reviewed. No immunosuppressants. HABITS: She quit smoking many years ago. Occasional alcohol. FAMILY HISTORY: Stroke, diabetes, hypertension, lung cancer. 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 REVIEW OF SYSTEMS: Left lumbar back pain, worse with bending over, improved with Tylenol or with heat. 14-point review otherwise negative. 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 She tends not to use the bathroom at work. Does have to urinate as soon as she gets home. Her daughter is at the bedside and the patient lives alone, one son and one daughter. PHYSICAL EXAMINATION: GENERAL: Elderly female who appears her actual age. No acute distress. VITAL SIGNS: Afebrile since arrival, 146/62, 58, 18, 98% on room air. SKIN: Warm and dry. No generalized rashes. No erythroderma. EENT: The conjunctivae are normal. Pupils equal, round. Oral mucosa is well hydrated currently. NECK: No meningismus, mass, tenderness. LUNGS: Clear to auscultation and percussion. BACK: No CVAT. No lumbar tenderness. CARDIAC: Soft S1, S2. No ectopy at this time. No murmurs or gallops. Pulses are 2+ and equal. ABDOMEN: Nondistended, soft. No masses. No organomegaly. EXTREMITIES: She has a 1 cm crusted lesion consistent with trauma over the left distal leg. No evidence of cellulitis. She has a 1+ nonpitting edema at the ankles and she has stasis erythema. VIDA
[2020-05-13 21:03] LABS: Glucose Point of Care 273 (65-105)
[2020-05-14] VITALS (12 sets, daily range): BP systolic 125–168; BP diastolic 46–83; PULSE 57–79; RESP 8–20; TEMP 36–36.9; O2SAT 95–98
[2020-05-14 06:05] LABS: Hemoglobin 10.2 g/dL (12.0-15.0); Mean Corpuscular HGB Conc 31.9 g/dl (32-36); Mean Corpuscular Hemoglobin 28.5 pg (26-34); Mean Corpuscular Volume 89.4 fl (80-100); Mean Platelet Volume 9.4 fl (7.4-10.4); Platelet Count Result 339 k/mm3 (150-375); Red Blood Count 3.58 M/mm3 (4.2-5.4); Red Cell Distribution Width 18.4 % (11.5-14.5); White Blood Count 9.3 K/mm3 (4.5-10.0)
[2020-05-14 06:20] LABS: Anion Gap 6 mmol/L (8-16); Blood Urea Nitrogen 21 mg/dL (7-17); Carbon Dioxide 23 mmol/L (22-30); Chloride 106 mmol/L (98-107); Estimated CRCL calculation 42 ml/min; Estimated Glomerular Filt Rate 53; Glucose 251 mg/dL (65-105); Potassium 4.8 mmol/L (3.4-5.0); Sodium 135 mmol/L (137-145)
[2020-05-14] MEDS: ASPIRIN 81 MG ENTERIC TABLET PO (07:55)
[2020-05-14] MEDS: DULoxetine HCL 30 MG CAPSULE.DR 90 MG PO (07:55)
[2020-05-14] MEDS: METOPROLOL SUCCINATE EXT REL 50 MG TABCR PO (07:56)
[2020-05-14] MEDS: INSULIN ASPART (*BKC) 100 UNITS/ML SUB-Q ×3 (07:56→16:45)
[2020-05-14] MEDS: APIXABAN 5 MG TABLET PO ×2 (07:56→16:45)
[2020-05-14] MEDS: AMIODARONE HCL 200 MG TABLET PO (07:56)
[2020-05-14 08:01] LABS: Glucose Point of Care 238 (65-105)
[2020-05-14] MEDS: ACETAMINOPHEN 325 MG TABLET 650 MG PO ×2 (11:26→20:36)
[2020-05-14 11:38] LABS: Glucose Point of Care 332 (65-105)
[2020-05-14] MEDS: INSULIN GLARGINE (*BKC) 100 UNITS/ML 20 UNITS SUB-Q (12:15)
--- NOTE | 2020-05-14 16:16 | WPDINFPN2 ---
Progress Note: A&P Assessment and Plan (1) Bacteriuria: Code(s): R82.71 - Bacteriuria Status: Acute Assessment and Plan: 1. Bacteriuria, straight cath abnormal. With her abdominal tenderness, and with prior splenectomy causing immune suppression, I think treatment is warranted for possible uti. CT=no urologic abnormalities 2. Chronic nocturia, her only bladder symptom, due to diuretic 3. Weakness, her CC on admission, metabolic --> due to renal insufficiency (pre-renal?), hyperkalemia and hyperglycemia 4. DM, not controlled 5. Nephrolithiasis, not infected 6. L lumbar back pain, musculoligamentous, not due to cystitis REC Macrobid x 7 days. Adjust based on new culture. Daughter notes that she was on nitrofurantoin last week; however this medication has no effect when renal insufficiency is present. Now that her Cr is back to normal, I think that the [employer] insurance producer will be eradicated. See urology as outpatient. Glycemic control. Will sign off, call if Qs Subjective Date/time seen: 05/14/20 16:16 Interval history: no dysuria, no subjective fever. She is lightheaded on arising, relieved when she sits for a few minutes first. She is ambulatory, minimal fatigue. Exam Narrative: Exam Narrative: afebrile Const: General: no acute distress Resp: Auscultation: clear to auscultation bilaterally Cardio: Rate: regular rate Rhythm: regular rhythm Heart sounds: no murmurs GI: Inspection: non-distended GI Palp: Yes Soft to palpation, Yes Tenderness to palpation present (GI) and No Guarding due to palpation present (GI) Objective Data Vital Signs Vital Signs: Vital Signs - 24 hr 05/13/20 18:00 05/13/20 20:00 05/13/20 22:00 Temperature 36.7 C 36.3 C L Pulse Rate 61 66 65 Respiratory Rate 18 20 Blood Pressure 133/69 144/65 H Pulse Oximetry 97 97 05/14/20 00:00 05/14/20 02:00 05/14/20 04:00 Temperature 36.3 C L Pulse Rate 79 66 66 Respiratory Rate 18 Blood Pressure 147/66 H Pulse Oximetry 96 05/14/20 06:00 05/14/20 07:56 05/14/20 08:00 Temperature 36.2 C L Pulse Rate 63 75 65 Respiratory Rate 18 Blood Pressure 156/70 H Pulse Oximetry 96 05/14/20 10:00 05/14/20 12:00 05/14/20 14:00 Temperature 36.4 C 36.9 C Pulse Rate 65 68 57 L Respiratory Rate 20 16 Blood Pressure 141/46 H 125/52 L Pulse Oximetry 97 95 Intake/Output Intake/Output: Intake & Output 05/11/20 05/12/20 05/13/20 05/14/20 23:59 23:59 23:59 23:59 Intake Total 3800 3590 2320 870 Output Total 2300 800 1650 500 Balance 1500 2790 670 370 Meds/Results Medications: Active Medications Generic Name Dose Route Start Last Admin Trade Name Freq PRN Reason Stop Dose Admin Acetaminophen 650 mg 05/14/20 11:00 05/14/20 11:26 Acetaminophen 325 Mg Tablet PO 650 mg Q6H PRN Administration Mild Pain (1-3) or Fever Hydrocodone Bitart/Acetaminophen 1 tab 05/11/20 09:09 05/13/20 21:36 Hydrocodone/Acetaminophen (*Crx) 5-325 Mg Tablet PO 1 tab Q4H PRN Administration Pain Rated 4-6 Amiodarone HCl 200 mg 05/11/20 09:00 05/14/20 07:56 Amiodarone Hcl 200 Mg Tablet PO 200 mg DAILY RAFAEL Administration Apixaban 5 mg 05/11/20 09:00 05/14/20 07:56 Apixaban 5 Mg Tablet PO 5 mg BID RAFAEL Administration Aspirin 81 mg 05/11/20 09:00 05/14/20 07:55 Aspirin 81 Mg Enteric Tablet PO 81 mg DAILY RAFAEL Administration Benzocaine 1 lozenge 05/12/20 11:12 05/12/20 12:08 Benzocaine/Menthol (*Bkc) 18 Ea Lozenge PO 1 lozenge PRN PRN Administration Sore Throat Dextrose 12.5 gm 05/10/20 19:45 Dextrose 50% 25 Gm/50 Ml Syringe IV PUSH PRN PRN Hypoglycemia Protocol Duloxetine HCl 90 mg 05/11/20 09:00 05/14/20 07:55 Duloxetine Hcl 30 Mg Capsule.Dr PO 90 mg DAILY RAFAEL Administration Glucagon 1 mg 05/10/20 19:45 Glucagon For Inj 1 Mg Vial IM PRN PRN Hypoglycemia Protocol Glucose 15 gm 05/10/20 19:45 Glu
[2020-05-14 16:28] LABS: Glucose Point of Care 248 (65-105)
--- NOTE | 2020-05-14 16:40 | PM.PNCARD ---
Progress Note: A&P Assessment and Plan (1) Afib: Qualifiers: Atrial fibrillation type: unspecified Qualified Code(s): I48.91 - Unspecified atrial fibrillation Code(s): I48.91 - Unspecified atrial fibrillation Status: Acute Assessment and Plan: Paroxysmal atrial fibrillation. Cardioverted approximately 7 months ago. Maintaining sinus rhythm on amiodarone and Metoprolol. Systemically anticoagulated with apixaban. No significant bradycardia on telemetry for the last 72hours. No pauses. Discontinue telemetry (2) Chronic anticoagulation: Code(s): Z79.01 - prison (current) use of anticoagulants Status: Acute Assessment and Plan: Continue apixaban b.i.d.. as above (3) Hyperkalemia: Code(s): E87.5 - Hyperkalemia Status: Acute Assessment and Plan: Spironolactone discontinued. Potassium 4.8 today. Kayexalate 05/13/2020. Renal function continues to improve. (4) Exertional shortness of breath: Code(s): R06.02 - Shortness of breath Status: Acute Assessment and Plan: May be multifactorial. Due to her bad knees she is not very active. She is slightly anemic. No evidence of pulmonary fibrosis on chest x-ray from her amiodarone. It is possible it is her beta-phil however she does not have known lung disease. Echocardiogram in August of this year: Left ventricular systolic function was normal estimated 65-70%. Moderate concentric increase left ventricular wall thickness. Right ventricular chamber dimension was modestly enlarged. Left atrial chamber dimension was severely enlarged. Mild to moderate mitral valve regurgitation. Moderate to severe tricuspid valve regurgitation. TR velocity estimated RV systolic pressure to be 42 mm Hg. Compared to the exam done in September of 2018 findings were essentially unchanged. TSH is within normal limits. Echo05/13/2020: Severe pulmonary hypertension with estimated pulmonary arterial systolic pressure of 125 is now noted. Also noted that there was flattening of the interventricular septum during diastole consistent with right ventricular volume overload. She has no history of sleep apnea that she is aware of. She she does snore. She is a restless sleeper due to knee discomfort as well as needing to urinate approximately every 2 hours. Recommend follow-up with her primary lumber sorter machine Dr. Garza within the next few weeks. Additional Plan OK to discharge from cardiac standpoint. See discharge instructions for follow-up. Plan discussed Dr. Ellington [id number] Subjective Date/time seen: 05/14/20 16:40 Interval history: Follow-up for: Bradycardia, hyperkalemia, paroxysmal atrial fibrillation, long-term use of anticoagulation with apixaban. Date of service: 05/14/2020 Subjective: Up in chair. Daughter at bedside. Denied any chest discomfort. Short of breath with exertional activity. Lightheaded if gets up too quickly. No palpitations. Review of Systems Constitutional: Constitutional: Denies chills and Denies fever(s) Eyes: Eyes: Denies blurry vision ENT: Denies epistaxis, Reports neck pain and Reports other ( Frequent needing to clear her throat) Cardiovascular: Cardiovascular: Denies chest pain, Reports pedal edema, Denies leg edema, Reports lightheadedness, Denies palpitations and Reports dyspnea on exertion Respiratory: Respiratory: Reports no additional respiratory complaints, Denies cough, Reports dyspnea on exertion and Denies wheezing Gastrointestinal: Gastrointestinal: Denies melena, Denies bloating, Denies hematochezia, Denies nausea and Denies vomiting Genitourinary: Genitourinary: Denies hematuria and Denies flank pain Musculoskeletal: Musculoskeletal: Reports neck pain Integumentary/Breasts: Skin/Breast: Denies erythema and Denies rash Neurologic: D
--- NOTE | 2020-05-14 17:36 | PM.IMPN ---
Progress Note: A&P Assessment and Plan (1) Hyperkalemia: Code(s): E87.5 - Hyperkalemia Status: Acute Assessment and Plan: 05/14/20 17:36 patient is 79 year female was brought to the emergency depart patient brought by her daughter as patient was quite weak and fatigued patient was found to to have a potassium of 6.5 and creatinine of 2.2 patient states she has been urinating frequently, emergency department patient was treated with ampules of D50, sodium bicarb, calcium gluconate and patient's potassium was trended down to 5.1 patient was on spironolactone which is now on hold, today again her potassium is 5.6, currently patient is not on any potassium-sparing medication nor she is taking any supplement, will give the patient Kayexalate and monitor if it does persist will consult nephrology for further recommendation, there was a concern the patient has a recurrent UTI patient was started on Rocephin, urine culture is growing E coli resistant to multiple antibiotics started the patient imipenem however patient does not have any complaint of dysuria or frequency of urine will consult Dr. pimentel for his opinion. today 05/14 patient is feeling better denies any chest pain shortness of breath or palpitation, patient was seen by enlisted aircrew/aerial observer/gunner does not recommend adjusting any medication as patient's heart rate is now stable on current dose metoprolol and amiodarone, repeat cardiac echo was essentially normal patient clinically stable. again today patient was seen by Dr. pimentel and stopped imipenem and recommended Macrobid, patient with hyperkalemia patient was given Kayexalate her potassium is high normal will continue to monitor 1 more day reassess tomorrow if remains within normal limits will discharge the patient home. (2) Ambulatory dysfunction: Code(s): R26.2 - Difficulty in walking, not elsewhere classified Status: Acute Assessment and Plan: PT and OT evaluation would greatly be appreciated. Could be due to the electrolyte imbalance. (3) Paroxysmal atrial fibrillation: Code(s): I48.0 - Paroxysmal atrial fibrillation Status: Acute Assessment and Plan: The patient is in sinus rhythm. He is on amiodarone. Continue metoprolol. The patient had been cardioverted several times. The patient is on Eliquis as well. 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 The patient is at risk for bleeding as she has multiple falls And periods of weakness. (4) HLD (hyperlipidemia): Code(s): E78.5 - Hyperlipidemia, unspecified Status: Chronic Assessment and Plan: patient would not be a good candidate for statin due to her weakness. (5) HTN (hypertension): Qualifiers: Hypertension type: essential hypertension Qualified Code(s): I10 - Essential (primary) hypertension Code(s): I10 - Essential (primary) hypertension Status: Chronic Assessment and Plan: Continue with patient's amiodarone and metoprolol (6) Depression: Qualifiers: Depression Type: unspecified Qualified Code(s): F32.9 - Major depressive disorder, single episode, unspecified Code(s): F32.9 - Major depressive disorder, single episode, unspecified Status: Chronic Assessment and Plan: continue with Cymbalta (7) Diabetes mellitus: Qualifiers: Diabetes mellitus type: type 2 Diabetes mellitus director long term care insulin use: with custodial use Diabetes mellitus complication status: with hyperglycemia Qualified Code(s): E11.65 - Type 2 diabetes mellitus with hyperglycemia; Z79.4 - director long term care (current) use of insulin Code(s): E11.9 - Type 2 diabetes mellitus without complications Status: Chronic Assessment and Plan: I am going to hold her Lantus for tonight because her blood sugar was down in the 60s. Please re-evaluate tomorrow. However the patient had gotten a concoction of D50 with regular insulin IV in the
[2020-05-14] MEDS: NITROFURANTOIN MONOHYD MACROCR 100 MG CAP PO (20:26)
[2020-05-14 21:49] LABS: Glucose Point of Care 226 (65-105)
[2020-05-15 02:00] VITALS: BP 134/57; PULSE 63; RESP 16; TEMP 36.7; O2SAT 93
[2020-05-15 04:00] VITALS: BP 158/71; PULSE 66; RESP 18; TEMP 36.8; O2SAT 97
[2020-05-15 05:43] LABS: Hemoglobin 10.2 g/dL (12.0-15.0); Mean Corpuscular HGB Conc 32.9 g/dl (32-36); Mean Corpuscular Hemoglobin 28.8 pg (26-34); Mean Corpuscular Volume 87.6 fl (80-100); Mean Platelet Volume 9.6 fl (7.4-10.4); Platelet Count Result 354 k/mm3 (150-375); Red Blood Count 3.54 M/mm3 (4.2-5.4); White Blood Count 8.3 K/mm3 (4.5-10.0)
[2020-05-15 05:50] LABS: Anion Gap 7 mmol/L (8-16); Blood Urea Nitrogen 21 mg/dL (7-17); Calcium 9.2 mg/dL (8.4-10.2); Carbon Dioxide 27 mmol/L (22-30); Chloride 104 mmol/L (98-107); Estimated CRCL calculation 39 ml/min; Estimated Glomerular Filt Rate 48; Glucose 222 mg/dL (65-105); Potassium 4.5 mmol/L (3.4-5.0); Sodium 138 mmol/L (137-145)
[2020-05-15] MEDS: ACETAMINOPHEN 325 MG TABLET 650 MG PO (06:51)
[2020-05-15 07:54] LABS: Glucose Point of Care 196 (65-105)
--- NOTE | 2020-05-15 09:22 | PCPTNOTE ---
PT attempted to see patient, however patient requests therapy return later today. Patient states she did not sleep well last night and would like to rest. Patient states that she will be discharged home today. PT will return later today and will continue per plan of care.
[2020-05-15 09:37] VITALS: PULSE 74
[2020-05-15] MEDS: NITROFURANTOIN MONOHYD MACROCR 100 MG CAP PO (09:37)
[2020-05-15] MEDS: AMIODARONE HCL 200 MG TABLET PO (09:37)
[2020-05-15] MEDS: DULoxetine HCL 30 MG CAPSULE.DR 90 MG PO (09:37)
[2020-05-15] MEDS: METOPROLOL SUCCINATE EXT REL 50 MG TABCR PO (09:37)
[2020-05-15] MEDS: ASPIRIN 81 MG ENTERIC TABLET PO (09:38)
[2020-05-15] MEDS: APIXABAN 5 MG TABLET PO (09:38)
[2020-05-15 10:00] VITALS: BP 144/62; PULSE 64; RESP 18; TEMP 36.6; O2SAT 96
--- NOTE | 2020-05-15 11:39 | PM.DS ---
DS: Admitting Diagnosis Admitting Diagnosis Admitting Diagnosis: Hypokalemia/Sinus Bradycardia/UTI/SELENE DS: Discharge Diagnosis Discharge Diagnosis (1) Hyperkalemia: Code(s): E87.5 - Hyperkalemia Status: Acute Assessment and Plan: 05/14/20 17:36 patient is 79 year female was brought to the emergency depart patient brought by her daughter as patient was quite weak and fatigued patient was found to to have a potassium of 6.5 and creatinine of 2.2 patient states she has been urinating frequently, emergency department patient was treated with ampules of D50, sodium bicarb, calcium gluconate and patient's potassium was trended down to 5.1 patient was on spironolactone which is now on hold, today again her potassium is 5.6, currently patient is not on any potassium-sparing medication nor she is taking any supplement, will give the patient Kayexalate and monitor if it does persist will consult nephrology for further recommendation, there was a concern the patient has a recurrent UTI patient was started on Rocephin, urine culture is growing E coli resistant to multiple antibiotics started the patient imipenem however patient does not have any complaint of dysuria or frequency of urine will consult Dr. pimentel for his opinion. today 05/14 patient is feeling better denies any chest pain shortness of breath or palpitation, patient was seen by purchase order checker does not recommend adjusting any medication as patient's heart rate is now stable on current dose metoprolol and amiodarone, repeat cardiac echo was essentially normal patient clinically stable. again today patient was seen by Dr. pimentel and stopped imipenem and recommended Macrobid, patient with hyperkalemia patient was given Kayexalate her potassium is high normal will continue to monitor 1 more day reassess tomorrow if remains within normal limits will discharge the patient home. (2) Ambulatory dysfunction: Code(s): R26.2 - Difficulty in walking, not elsewhere classified Status: Acute Assessment and Plan: PT and OT evaluation would greatly be appreciated. Could be due to the electrolyte imbalance. (3) Paroxysmal atrial fibrillation: Code(s): I48.0 - Paroxysmal atrial fibrillation Status: Acute Assessment and Plan: The patient is in sinus rhythm. He is on amiodarone. Continue metoprolol. The patient had been cardioverted several times. The patient is on Eliquis as well. 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 The patient is at risk for bleeding as she has multiple falls And periods of weakness. (4) HLD (hyperlipidemia): Code(s): E78.5 - Hyperlipidemia, unspecified Status: Chronic Assessment and Plan: patient would not be a good candidate for statin due to her weakness. (5) HTN (hypertension): Qualifiers: Hypertension type: essential hypertension Qualified Code(s): I10 - Essential (primary) hypertension Code(s): I10 - Essential (primary) hypertension Status: Chronic Assessment and Plan: Continue with patient's amiodarone and metoprolol (6) Depression: Qualifiers: Depression Type: unspecified Qualified Code(s): F32.9 - Major depressive disorder, single episode, unspecified Code(s): F32.9 - Major depressive disorder, single episode, unspecified Status: Chronic Assessment and Plan: continue with Cymbalta (7) Diabetes mellitus: Qualifiers: Diabetes mellitus type: type 2 Diabetes mellitus intermediate school teacher insulin use: with intermediate school teacher use Diabetes mellitus complication status: with hyperglycemia Qualified Code(s): E11.65 - Type 2 diabetes mellitus with hyperglycemia; Z79.4 - intermediate card tender (current) use of insulin Code(s): E11.9 - Type 2 diabetes mellitus without complications Status: Chronic Assessment and Plan: I am going to hold her Lantus for tonight because her blood sugar was down in the 60s
[2020-05-15 11:47] LABS: Glucose Point of Care 230 (65-105)
[2020-05-15] MEDS: INSULIN ASPART (*BKC) 100 UNITS/ML SUB-Q (12:32)
== END 2020-05-15 12:55 | disposition home or self-care (01) | DRG 641 ==
LOC: ANHED 14:15 → ANHIMU 16:19 → ANH2MED 05-12 14:56 → ANHIMU 05-19 12:05
PROVIDERS: Family Medicine; Internal Medicine Infectious Disease; Nurse Practitioner; Admitting Provider Internal Medicine; Emergency Provider Emergency Medicine; PCP Internal Medicine; Visit Provider Family Medicine
DX: N39.0 Urinary tract infection, site not specified (principal); E87.5 Hyperkalemia; Z16.12 Extended spectrum beta lactamase (ESBL) resistance; B96.20 Unspecified Escherichia coli [E. coli] as the cause of diseases classified elsewhere; Z23 Encounter for immunization; N20.0 Calculus of kidney; R26.2 Difficulty in walking, not elsewhere classified; I48.0 Paroxysmal atrial fibrillation; E78.5 Hyperlipidemia, unspecified; I10 Essential (primary) hypertension; E11.42 Type 2 diabetes mellitus with diabetic polyneuropathy; E11.65 Type 2 diabetes mellitus with hyperglycemia; F32.9 Major depressive disorder, single episode, unspecified; R06.02 Shortness of breath; D64.9 Anemia, unspecified; R53.1 Weakness; R35.1 Nocturia; M25.569 Pain in unspecified knee; M54.5 Low back pain; Z91.81 History of falling; Z79.01 Long term (current) use of anticoagulants; Z79.4 Long term (current) use of insulin; Z79.82 Long term (current) use of aspirin; Z85.44 Personal history of malignant neoplasm of other female genital organs; Z86.711 Personal history of pulmonary embolism; Z86.718 Personal history of other venous thrombosis and embolism; Z87.891 Personal history of nicotine dependence; Z98.41 Cataract extraction status, right eye; Z98.42 Cataract extraction status, left eye
CPT/HCPCS: 36415; 71046; 74018; 74176; 80048; 80053; 81001; 82728; 83036; 83605; 83735; 84443; 84484; 85025; 85027; 85610; 85730; 86140; 87040; 87077; 87086; 87088; 87186; 90471; 90653; 93005; 93306; 94640; 96374; 96375; 97116; 97162; 97165; 97530; 97535; 99285; A9270; G0008; J0610; J0696; J0743; J1815; J7030

== ENCOUNTER 2020-06-12 10:02 | Emergency (ER) | payer BC, MEDICARE, SELFPAY ==
[2020-06-12 10:17] VITALS: BP 139/62; PULSE 99; RESP 16; TEMP 36.9; O2SAT 97
--- NOTE | 2020-06-12 10:36 | ED.SKABFB ---
HPI - Skin/Abscess/Foreign Bdy General Chief complaint: Skin/Abscess/Foreign Body Stated complaint: possible infected left leg Time Seen by Provider: 06/12/20 10:32 Source: patient and family Mode of arrival: ambulatory Limitations: no limitations History of Present Illness HPI narrative: 80 year old female ambulatory with cane accompanied by her son presents to express care with complaints of wounds X2 to the anterior aspect of her left lower leg. The most distal wound [id number] with pink tissue inner wound that was caused by her dropping a jar of peanut butter on her leg about 2 months ago. Patient states that area was scabbed but the scab came off today, no drainage or acute redness around this wound noted. Other wound is a L shaped skin tear with inner tissue bruised and edges not approximated with red around wound with total area noted to be [id number], no induration of surrounding tissue but mild swelling of tissue with redness. Patient states that the new wound occurred approximately 6 days ago when she hit her leg on a table. Patient is diabetic and is on insulin and admits to poor wound healing. Patient was in the hospital last month for UTI and elevated potassium. MD complaint: other (wound ) Onset (ago): day(s) (2 month most distal wound, larger wound 6 days) Location: LLE Severity: moderate Severity scale (1-10): 8 Quality: aching and sharp Pain Consistency: constant Relieving factors: none Exacerbating factors: palpation and movement Context: other (accidental injury) Associated symptoms: other (pain to left lower leg) Treatments prior to arrival: bandages and other (neosporin ointment) Related Data Home Medications Medication Instructions Recorded Confirmed Eliquis 5 mg PO BID 09/12/19 06/12/20 aspirin [Aspir-81] 81 mg PO DAILY 09/12/19 06/12/20 duloxetine 90 mg PO DAILY 09/12/19 06/12/20 insulin aspart U-100 [Novolog 20 unit SUBCUT TID 09/12/19 06/12/20 Flexpen U-100 Insulin] amiodarone 200 mg tablet 200 mg PO DAILY 04/03/20 06/12/20 metoprolol succinate 50 mg 50 mg PO DAILY 04/03/20 06/12/20 tablet,extended release 24 hr Lantus Solostar U-100 Insulin 50 unit SUBCUT HS 05/10/20 06/12/20 estradiol 1 applic VAGINAL DAILY 06/12/20 06/12/20 Allergies Allergy/AdvReac Type Severity Reaction Status Date / Time codeine AdvReac Mild Itching, Verified 06/12/20 10:30 Nausea meperidine AdvReac Mild Itching, Verified 06/12/20 10:30 Nausea propoxyphene AdvReac Mild Itching, Verified 06/12/20 10:30 Nausea Review of Systems Review of Systems: Narrative: CONSTITUTIONAL: Denies fever, chills, or sweats. EYES: Denies visual changes, redness, or discharge. ENT: Denies rhinorrhea, congestion, sore throat, or otalgia. CARDIOVASCULAR: Denies chest pain, palpitations, or edema. RESPIRATORY: Denies cough or dyspnea. GASTROINTESTINAL: Denies abdominal pain, nausea, vomiting, or diarrhea. GENITOURINARY: Denies dysuria or hematuria was treated for UTI in the past 35 days SKIN: Denies rash or itching.Positive for 2 wounds to the left dorsal lower leg MUSCULOSKELETAL: Denies back pain, joint pain, or myalgia. NEUROLOGIC: Denies headache, numbness, or weakness. PSYCHIATRIC: Positive history of anxiety or depression. All systems reviewed & are unremarkable except as noted in HPI and below PMFSH Past Medical History Medical History (Updated 06/14/20 @ 10:58 by Mita Cunningham NP) Afib Cardioversion 7 months ago. Anxiety Arthritis Chronic anticoagulation Depression Diabetes mellitus With peripheral neuropathy Diverticulitis DVT (deep venous thrombosis) IVC filter Endometrial cancer GI (gastrointestinal bleed) HLD (hyperlipidemia) HTN (hypertension) IBS (irritable bowel syndrome) Osteomyelitis Paroxysmal atrial fibrillation Peripheral neuropathy Psoriasis Pulmonary embolism Surgical History Surgical History H/O bilateral cataract extraction H/O: hyst
== END 2020-06-12 11:23 | disposition home or self-care (01) ==
PROVIDERS: Emergency Provider Registered Nurse; PCP Internal Medicine
DX: S81.802A Unspecified open wound, left lower leg, initial encounter (principal); L03.116 Cellulitis of left lower limb; W20.8XXA Other cause of strike by thrown, projected or falling object, initial encounter; Z87.891 Personal history of nicotine dependence; I48.91 Unspecified atrial fibrillation; E11.42 Type 2 diabetes mellitus with diabetic polyneuropathy; M19.90 Unspecified osteoarthritis, unspecified site; F41.9 Anxiety disorder, unspecified; F32.9 Major depressive disorder, single episode, unspecified; Z86.718 Personal history of other venous thrombosis and embolism; E78.5 Hyperlipidemia, unspecified; I10 Essential (primary) hypertension; Z86.711 Personal history of pulmonary embolism; Z98.42 Cataract extraction status, left eye; Z98.41 Cataract extraction status, right eye; Z96.641 Presence of right artificial hip joint
CPT/HCPCS: 99213; G0463

== ENCOUNTER 2020-08-19 16:03 | Emergency (ER) | payer BC, MEDICARE, SELFPAY ==
--- NOTE | ~2020-08-19 | XR_ITS ---
XR forearm RT 2V, XR hand RT min 3V 08/19/2020 18:05 Indication: Dog bite. Posterior forearm. Procedure: 2 views right forearm and 3 views right hand Comparison: No prior studies for comparison. Findings: There is soft tissue swelling overlying the proximal forearm dorsally on the lateral view o f the forearm. No foreign bodies identified. No acute fracture or traumatic malalignment. 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 Osteopenia. 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 No acute fracture is identified. Impression: 1: No acute fracture. Reviewed, dictated and finalized at location A. ESTATE MARKETING COORDINATOR Impression: 1: No acute fracture. Impression: 1: No acute fracture.
[2020-08-19 16:08] VITALS: BP 140/73; PULSE 58; RESP 14; TEMP 36.2; O2SAT 99
[2020-08-19] MEDS: TETANUS,DIPHTHERIA,AC PERTUSSIS ADULT (0.5 ML) BOOSTRIX IM (17:59)
--- NOTE | 2020-08-19 18:28 | ED.ANIMALBIT ---
HPI - Animal Bite General Chief Complaint: Animal Bite Stated Complaint: dog bite Time Seen by Provider: 08/19/20 17:24 Source: patient Mode of arrival: ambulatory Limitations: no limitations History of Present Illness HPI narrative: This is a 80 year old female that presents to the ER for dog bite to the right forearm sustained last night. Reports her dog had a mask in its mouth and she was trying to get it. Reports the dog bit and scratched her right arm. 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 Reports she was actually just tested for Brucellosis yesterday by her PCP and is following up with him for this. She is not up to date on tetanus. Denies decreased ROM or numbness. Related Data Home Medications Medication Instructions Recorded Confirmed Eliquis 5 mg PO BID 09/12/19 06/12/20 aspirin [Aspir-81] 81 mg PO DAILY 09/12/19 06/12/20 duloxetine 90 mg PO DAILY 09/12/19 06/12/20 insulin aspart U-100 [Novolog 20 unit SUBCUT TID 09/12/19 06/12/20 Flexpen U-100 Insulin] amiodarone 200 mg tablet 200 mg PO DAILY 04/03/20 06/12/20 metoprolol succinate 50 mg 50 mg PO DAILY 04/03/20 06/12/20 tablet,extended release 24 hr Lantus Solostar U-100 Insulin 50 unit SUBCUT HS 05/10/20 06/12/20 estradiol 1 applic VAGINAL DAILY 06/12/20 06/12/20 Allergies Allergy/AdvReac Type Severity Reaction Status Date / Time codeine AdvReac Mild Itching, Verified 07/23/20 14:47 Nausea meperidine AdvReac Mild Itching, Verified 07/23/20 14:47 Nausea propoxyphene AdvReac Mild Itching, Verified 07/23/20 14:47 Nausea Review of Systems Review of Systems: Narrative: CONSTITUTIONAL: Denies fever SKIN: Reports dog bite MUSCULOSKELETAL: Reports joint pain, and myalgia. NEUROLOGIC: Denies numbness All systems reviewed & are unremarkable except as noted in HPI and below PMFSH Past Medical History Medical History (Updated 08/19/20 @ 18:43 by Vielka Simpson PA-C) Afib Cardioversion 7 months ago. Anxiety Arthritis Chronic anticoagulation Depression Diabetes mellitus With peripheral neuropathy Diverticulitis DVT (deep venous thrombosis) IVC filter Endometrial cancer GI (gastrointestinal bleed) HLD (hyperlipidemia) HTN (hypertension) IBS (irritable bowel syndrome) Osteomyelitis Paroxysmal atrial fibrillation Peripheral neuropathy Psoriasis Pulmonary embolism Surgical History Surgical History H/O bilateral cataract extraction H/O: hysterectomy History of back surgery History of left hip replacement History of partial pancreatectomy History of partial splenectomy Hx of cholecystectomy Hx of tonsillectomy S/P IVC filter Family History Family History Sibling Cerebrovascular accident Mother Congestive heart failure Hypertension Diabetes mellitus Father Lung cancer Social History Social History Social History: she lives home alone. 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 she plans to not run for [employer] again this year. She is going to retire. She Used to smoke. At the age of 19, she smoked about half pack a cigarettes a day for year. Occasionally drinks alcohol. She desires to be a full code. her daughter is now the durable power attorney lawyer for healthcare. She has a son and a daughter. Smoking status: Former smoker Tobacco type: cigarettes Second hand tobacco smoke exposure: No Alcohol intake: current Drinks per week: 2 Substance use: never Substance use type: marijuana Other substance usage details: Marijuana gummies Last use: 09-11-2019 Gender identity (if verbalized by the patient): Female Spiritual care concerns: No Agree to blood products: Yes Exam Narrative: Exam Narrative: GENERAL: Elderly, well-nourished, and in no acute distr
[2020-08-19] MEDS: AMOXICILLIN/CLAVULANATE K 875-125 MG TAB 1 TABLET PO (19:16)
== END 2020-08-19 19:26 | disposition home or self-care (01) ==
PROVIDERS: Emergency Provider Emergency Medicine; PCP Internal Medicine
DX: S51.851A Open bite of right forearm, initial encounter (principal); W54.0XXA Bitten by dog, initial encounter; I48.91 Unspecified atrial fibrillation; M19.90 Unspecified osteoarthritis, unspecified site; F41.9 Anxiety disorder, unspecified; E11.42 Type 2 diabetes mellitus with diabetic polyneuropathy; Z79.4 Long term (current) use of insulin; E78.5 Hyperlipidemia, unspecified; I10 Essential (primary) hypertension; Z23 Encounter for immunization
CPT/HCPCS: 73090; 73130; 90471; 90715; 99283; A9270

== ENCOUNTER 2020-12-15 17:40 | Emergency (ER) | payer MEDICARE, SELFPAY ==
--- NOTE | ~2020-12-15 | US_ITS ---
EXAMINATION: US arterial ankle brachial ind DATE: 12/15/2020 18:29 INDICATION: Bilateral foot pain TECHNIQUE: Segmental pressures and plethysmographic and Doppler waveforms of the brachial and lower e xtremity arteries were obtained. COMPARISON: None. FINDINGS: Right and left brachial artery pressures of 168 mm Hg and 166 mm Hg, respectively, are concordant (no rmal difference <= 30 mmHg). The right ankle-brachial index (ТАТЬЯНА) is undetermined because of failure to occlude the dorsalis pedis or posterior tibial arteries (normal >= 0.9-1.0). The right great toe-brachial index (TBI) is 0.38 ( normal >= 0.65). Arterial Doppler waveforms are low amplitude monophasic at the right posterior tibia l artery and biphasic at the dorsalis pedis artery. The left ТАТЬЯНА is undetermined because of failure to occlude the dorsalis pedis or posterior posterior tibial arteries. The left TBI is 0.42. Arterial Doppler waveforms are low amplitude monophasic at the posterior tibial artery and biphasic at the dorsalis pedis artery. IMPRESSION: Abnormally low TBI of 0.38 on the right and 0.42 on the left Undetermined ТАТЬЯНА bilaterally due to inability to occlude the dorsalis pedis and posterior tibial jose luis renae Reviewed, dictated and finalized at [facility]. Reviewed, dictated and finalized at location [facility]. IMPRESSION: Abnormally low TBI of 0.38 on the right and 0.42 on the left Undetermined ТАТЬЯНА bilaterally due to inability to occlude the dorsalis pedis and posterior tibial arteries
--- NOTE | ~2020-12-15 | CT_ITS ---
EXAMINATION: CTA abd aorta runoff EXAM DATE: 12/15/2020 19:49 INDICATION: Bilateral foot discoloration. TECHNIQUE: Spiral CTA abd aorta runoff was performed following intravenous injection of 150 mL Omnipa que 350. Axial, coronal and sagittal images were reviewed. The dose-length product (DLP) for this e xamination was 1461.02 mGy-cm. The exposure was tailored according to patient size (auto mA exposure control), and iterative reconstruction (ASIR) was used as additional dose reduction technique. Corre lation is made to CT abdomen 07/11/2020, 02/12/2018. FINDINGS: VASCULATURE: Widely patent SMA, celiac artery, right renal artery. Mild to moderate stenosis left evelin al artery origin. There is an IVC stent extending down the right iliac vein. There is an IVC filter. No aortic dissection. Mild to moderate scattered aortoiliac arterial sclerosis. Minimal scattered bilateral femoral and popliteal arterial sclerosis. More extensive plaque below the trifurcations bilaterally, with posterior tibial arteries confirmed patent to the foot. The anterior tibial arteries confirm patent to the ankle, difficult to identify enhancement beyond this point. Pe roneal arteries only identified to the mid calf level. 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 No pathological ly enlarged lymph nodes. Moderate to severe colonic diverticulosis. Cardiomegaly. Cholecystectomy. Ri ght adrenal 2.6 cm mass may have developed some punctate calcifications but otherwise unchanged and w as low density consistent with adenoma on prior study. Lobular renal contours with regions of cortica l scarring bilaterally and renal cysts. Mild left renal atrophy. Pancreatic head cystic 2.0 cm mass d emonstrating long-term stability. Bibasilar linear atelectasis. Advanced lower lumbar facet arthropat hy. Left hip arthroplasty. Right tibial cortical thickening, anterior cortical defect could be sequel a from prior injury and/or history of chronic osteomyelitis (correlation was made to a tibia x-ray 11/19/2004 and probably stable appearance compared to that exam). There is severe right hip, at least mod erate bilateral knee primary osteoarthritis. IMPRESSION: 1. Extensive arterial sclerosis bilaterally below the trifurcation, with posterior tibial arteries d ominant supply to feet. 2. Sigmoid inflammatory carcinoma or diverticulitis. Recommend colonoscopy. 3. Stable adrenal, pancreatic masses. 4. Chronic osseous and other incidental findings as above. Reviewed, dictated and finalized at location [facility]. IMPRESSION: 1. Extensive arterial sclerosis bilaterally below the trifurcation, with poste rior tibial arteries dominant supply to feet. 2. Sigmoid inflammatory carcinoma or diverticulitis. Recommend colonoscopy. 3. Stable adrenal, pancreatic masses. 4. Chronic osseous and other incidental findings as above.
[2020-12-15 17:42] VITALS: BP 147/68; PULSE 63; RESP 20; TEMP 36.4; O2SAT 98
[2020-12-15 19:34] LABS: Basophils Absolute Auto 0.1 K/mm3 (0.0-0.1); Basophils Percent Auto 0.5 % (0.2-1.2); Eosinophils Absolute Auto 0.1 K/mm3 (0-0.3); Hematocrit 46.9 % (37.0-47.0); Hemoglobin 15.6 g/dL (12.0-15.0); Immature Granulocyte Absolute 0.18 K/mm3 (0.00-0.031); Immature Granulocyte Percent A 1.8 % (0-0.5); Lymphocytes Absolute Auto 1.38 K/mm3 (0.9-3.2); Lymphocytes Percent Auto 13.8 % (18.3-44.2); Mean Corpuscular HGB Conc 33.3 g/dl (32-36); Mean Corpuscular Hemoglobin 32.3 pg (26-34); Mean Corpuscular Volume 97.1 fl (80-100); Mean Platelet Volume 9.8 fl (7.4-10.4); Monocytes Absolute Auto 1.4 K/mm3 (0.1-0.6); Monocytes Percent Auto 14.2 % (2.6-8.5); Neutrophils Absolute Auto 6.9 K/mm3 (1.3-6.7); Neutrophils Percent Auto 68.7 % (45.5-73.1); Platelet Count Result 289 k/mm3 (150-375); Red Blood Count 4.83 M/mm3 (4.2-5.4); Red Cell Distribution Width 16.4 % (11.5-14.5)
[2020-12-15 19:34] LABS: Estimated CRCL calculation 35 ml/min; Estimated Glomerular Filt Rate 43
[2020-12-15 19:44] LABS: INR 1.3; Prothrombin Time 16.4 Seconds (11.1-14.7)
[2020-12-15 19:45] LABS: Anion Gap 7 mmol/L (8-16); Blood Urea Nitrogen 32 mg/dL (7-17); Calcium 9.9 mg/dL (8.4-10.2); Carbon Dioxide 29 mmol/L (22-30); Chloride 107 mmol/L (98-107); Estimated CRCL calculation 35 ml/min; Estimated Glomerular Filt Rate 43; Glucose 93 mg/dL (65-105); Partial Thromboplastin Time 24.7 SECONDS (22.3-36.8); Potassium 4.5 mmol/L (3.4-5.0); Sodium 143 mmol/L (137-145)
[2020-12-15 19:54] VITALS: BP 200/85; PULSE 63; RESP 18; O2SAT 99
--- NOTE | 2020-12-15 20:56 | ED.GENADULT ---
HPI - General Adult General Chief complaint: Extremity Problem,Nontraumatic Stated complaint: feet abnormal color Time Seen by Provider: 12/15/20 17:48 Source: patient, family, RN notes reviewed and old records reviewed Mode of arrival: ambulatory Limitations: no limitations History of Present Illness HPI narrative: Patient is an 80-year-old female who presented with discoloration to the bilateral feet she presents with her daughter who notes that she always has some discoloration to the feet but they felt like it may have been slightly more than usual patient has history of peripheral vascular disease and is on chronic Eliquis for this and has been compliant with her medications patient denies any worsening or discomfort that is new or different in the extremities and the daughter on arrival feels as though that the color is improving with elevation. Patient denies chest pain shortness of breath or other concerning findings at this time Related Data Home Medications Medication Instructions Recorded Confirmed Eliquis 5 mg PO BID 09/12/19 10/15/20 aspirin [Aspir-81] 81 mg PO DAILY 09/12/19 10/15/20 duloxetine 90 mg PO DAILY 09/12/19 10/15/20 amiodarone 200 mg tablet 200 mg PO DAILY 04/03/20 10/15/20 Lantus Solostar U-100 Insulin 20 unit SUBCUT HS 05/10/20 10/15/20 donepezil 5 mg PO DAILY 12/15/20 ferrous sulfate [FeroSul] 325 mg PO BID 12/15/20 insulin aspart U-100 1 unit SUBCUT AC 12/15/20 metoprolol succinate 50 mg PO DAILY 12/15/20 trimethoprim 100 mg PO DAILY 12/15/20 Allergies Allergy/AdvReac Type Severity Reaction Status Date / Time codeine AdvReac Mild Itching, Verified 12/15/20 19:22 Nausea meperidine AdvReac Mild Itching, Verified 12/15/20 19:22 Nausea propoxyphene AdvReac Mild Itching, Verified 12/15/20 19:22 Nausea Review of Systems Review of Systems: All systems reviewed & are unremarkable except as noted in HPI and below [facility] Past Medical History Medical History (Updated 12/15/20 @ 21:02 by Ashwin Rincon PA-C) Afib Cardioversion 7 months ago. Anxiety Arthritis Chronic anticoagulation Depression Diabetes mellitus With peripheral neuropathy Diverticulitis DVT (deep venous thrombosis) IVC filter Endometrial cancer GI (gastrointestinal bleed) HLD (hyperlipidemia) HTN (hypertension) IBS (irritable bowel syndrome) Osteomyelitis Paroxysmal atrial fibrillation Peripheral neuropathy Psoriasis Pulmonary embolism Surgical History Surgical History H/O bilateral cataract extraction H/O: hysterectomy History of back surgery History of left hip replacement History of partial pancreatectomy History of partial splenectomy Hx of cholecystectomy Hx of tonsillectomy S/P IVC filter Family History Family History Sibling Cerebrovascular accident Mother Congestive heart failure Hypertension Diabetes mellitus Father Lung cancer Social History Social History Social History: she lives home alone. 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 she plans to not run for [employer] again this year. She is going to retire. She Used to smoke. At the age of 19, she smoked about half pack a cigarettes a day for year. Occasionally drinks alcohol. She desires to be a full code. her daughter is now the durable power personal injury attorney for healthcare. She has a son and a daughter. Smoking status: Former smoker Tobacco type: cigarettes Second hand tobacco smoke exposure: No Alcohol intake: current Drinks per week: 2 Substance use: never Substance use type: marijuana Other substance usage details: Marijuana gummies Last use: 09-11-2019 Gender identity (if verbalized by the patient): Female Spiritual care concerns: No Agree to blood products: Yes Exam Narrative: Exam Narrative: GENERAL: Well-appe
[2020-12-15 21:08] VITALS: BP 142/50; PULSE 59; RESP 18; O2SAT 97
== END 2020-12-15 21:34 | disposition home or self-care (01) ==
PROVIDERS: Emergency Medicine Emergency Medical Services; Emergency Provider Emergency Medicine; PCP Internal Medicine
DX: R23.0 Cyanosis (principal); I73.9 Peripheral vascular disease, unspecified; I48.0 Paroxysmal atrial fibrillation; E78.5 Hyperlipidemia, unspecified; I10 Essential (primary) hypertension; E11.42 Type 2 diabetes mellitus with diabetic polyneuropathy; E11.51 Type 2 diabetes mellitus with diabetic peripheral angiopathy without gangrene; M19.90 Unspecified osteoarthritis, unspecified site; F41.9 Anxiety disorder, unspecified; F32.9 Major depressive disorder, single episode, unspecified; Z86.718 Personal history of other venous thrombosis and embolism; Z86.711 Personal history of pulmonary embolism; Z87.891 Personal history of nicotine dependence; K58.9 Irritable bowel syndrome, unspecified; Z98.42 Cataract extraction status, left eye; Z98.41 Cataract extraction status, right eye; Z96.649 Presence of unspecified artificial hip joint; Z90.81 Acquired absence of spleen; Z90.411 Acquired partial absence of pancreas; R93.3 Abnormal findings on diagnostic imaging of other parts of digestive tract; K86.89 Other specified diseases of pancreas; E27.8 Other specified disorders of adrenal gland; Z79.01 Long term (current) use of anticoagulants; Z79.4 Long term (current) use of insulin; Z79.82 Long term (current) use of aspirin
CPT/HCPCS: 36415; 75635; 80048; 85025; 85610; 85730; 93922; 99284; Q9967

== ENCOUNTER 2021-02-16 15:29 | Outpatient (CLI) | payer MEDICARE, SELFPAY ==
--- NOTE | ~2021-02-16 | US_ITS ---
EXAMINATION: US renal BI DATE: 02/16/2021 17:08 INDICATION: Right kidney mass. TECHNIQUE: Multiple ultrasound grayscale images of the kidneys were obtained. COMPARISON: CT abdomen and pelvis 12/15/2020 FINDINGS: The right kidney measures 9.1 x 4.9 x 4.8 cm. The left kidney measures 9.3 x 4.5 x 4.5 cm. There is c ortical thinning of the kidneys. The kidneys demonstrate normal parenchymal echogenicity. There is no hydronephrosis. The bladder is normal. IMPRESSION: 1. Mild atrophy of the kidneys. No hydronephrosis. Reviewed, dictated and finalized at location [facility].
== END 2021-02-16 15:30 | disposition home or self-care (01) ==
PROVIDERS: PCP Internal Medicine; Visit Provider Internal Medicine
DX: N28.89 Other specified disorders of kidney and ureter (principal)
CPT/HCPCS: 76775

== ENCOUNTER 2021-03-08 10:28 | Emergency (ER) | payer MEDICARE, SELFPAY ==
[2021-03-08] VITALS (11 sets, daily range): BP systolic 150–156; BP diastolic 68–80; PULSE 57–63; RESP 16–26; TEMP 36.8; O2SAT 94–100
--- NOTE | 2021-03-08 10:25 | ED.GENADULT ---
HPI - General Adult General Chief complaint: Epistaxis Stated complaint: nose bleed Source: patient and EMS Mode of arrival: EMS Limitations: no limitations History of Present Illness HPI narrative: Patient was brought in by EMS for a nosebleed that started approximately 2 hours prior to their arrival. Patient states this is her second nosebleed in 2 days she tried to treat at home. She has no history of trauma. She does have a history of having to have cauterization due to nosebleeds. In addition to her nose, she has been have bleeding from her left ear at the same time. She does have some pain in her scientologist. She denies any headache. She did not have any of her morning medications but her blood pressure is not excessively high. Onset (ago): hour(s) Associated symptoms: denies other symptoms Related Data Home Medications Medication Instructions Recorded Confirmed Eliquis 5 mg PO BID 09/12/19 10/15/20 aspirin [Aspir-81] 81 mg PO DAILY 09/12/19 10/15/20 duloxetine 90 mg PO DAILY 09/12/19 10/15/20 amiodarone 200 mg tablet 200 mg PO DAILY 04/03/20 10/15/20 Lantus Solostar U-100 Insulin 20 unit SUBCUT HS 05/10/20 10/15/20 donepezil 5 mg PO DAILY 12/15/20 ferrous sulfate [FeroSul] 325 mg PO BID 12/15/20 insulin aspart U-100 1 unit SUBCUT AC 12/15/20 metoprolol succinate 50 mg PO DAILY 12/15/20 losartan mg PO DAILY 03/08/21 Allergies Allergy/AdvReac Type Severity Reaction Status Date / Time codeine AdvReac Mild Itching, Verified 03/08/21 10:33 Nausea meperidine AdvReac Mild Itching, Verified 03/08/21 10:33 Nausea propoxyphene AdvReac Mild Itching, Verified 03/08/21 10:33 Nausea Review of Systems Review of Systems: All systems reviewed & are unremarkable except as noted in HPI and below PMFSH Past Medical History Medical History (Updated 03/08/21 @ 13:14 by Magaly Petersen PA-C) Afib Cardioversion 7 months ago. Anxiety Arthritis Chronic anticoagulation Depression Diabetes mellitus With peripheral neuropathy Diverticulitis DVT (deep venous thrombosis) IVC filter Endometrial cancer GI (gastrointestinal bleed) HLD (hyperlipidemia) HTN (hypertension) IBS (irritable bowel syndrome) Osteomyelitis Paroxysmal atrial fibrillation Peripheral neuropathy Psoriasis Pulmonary embolism Surgical History Surgical History H/O bilateral cataract extraction H/O: hysterectomy History of back surgery History of left hip replacement History of partial pancreatectomy History of partial splenectomy Hx of cholecystectomy Hx of tonsillectomy S/P IVC filter Family History Family History Sibling Cerebrovascular accident Mother Congestive heart failure Hypertension Diabetes mellitus Father Lung cancer Social History Social History (Updated 03/08/21 @ 11:44 by Magaly Petersen PA-C) Social History: she lives home alone. Used to smoke. At the age of 19, she smoked about half pack a cigarettes a day for year. Occasionally drinks alcohol. She desires to be a full code. her daughter is now the durable power qa specialist for healthcare. She has a son and a daughter. Smoking status: Former smoker Tobacco type: cigarettes Second hand tobacco smoke exposure: No Alcohol intake: current Drinks per week: 2 Substance use: never Substance use type: marijuana Other substance usage details: Marijuana gummies Last use: 09-11-2019 Living arrangements: alone Occupation/Education: retired Gender identity (if verbalized by the patient): Female Spiritual care concerns: No Agree to blood products: Yes Exam Const: General: no acute distress and alert Orientation/consciousness: patient oriented x3 HENMT: Head: normal to inspection Ears: external ears normal and Abnormal EAC present (bright red blood in canal on left, no trauma, drum is red, hill material) General
--- NOTE | 2021-03-08 10:52 | PC.NURSE ---
report to miryam maynard
[2021-03-08 11:28] LABS: Basophils Absolute Auto 0.1 K/mm3 (0.0-0.1); Basophils Percent Auto 0.7 % (0.2-1.2); Eosinophils Absolute Auto 0.1 K/mm3 (0-0.3); Eosinophils Percent Auto 1.1 % (0-4.4); Hematocrit 42.1 % (37.0-47.0); Hemoglobin 13.4 g/dL (12.0-15.0); Immature Granulocyte Absolute 0.11 K/mm3 (0.00-0.031); Immature Granulocyte Percent A 1.1 % (0-0.5); Lymphocytes Absolute Auto 0.85 K/mm3 (0.9-3.2); Lymphocytes Percent Auto 8.6 % (18.3-44.2); Mean Corpuscular HGB Conc 31.8 g/dl (32-36); Mean Corpuscular Volume 103.7 fl (80-100); Mean Platelet Volume 9.5 fl (7.4-10.4); Monocytes Absolute Auto 1.1 K/mm3 (0.1-0.6); Monocytes Percent Auto 11.2 % (2.6-8.5); Neutrophils Absolute Auto 7.6 K/mm3 (1.3-6.7); Neutrophils Percent Auto 77.3 % (45.5-73.1); Platelet Count Result 400 k/mm3 (150-375); Red Blood Count 4.06 M/mm3 (4.2-5.4); Red Cell Distribution Width 15.1 % (11.5-14.5); White Blood Count 9.8 K/mm3 (4.5-10.0)
[2021-03-08 11:38] LABS: INR 1.5; Prothrombin Time 17.9 Seconds (11.1-14.7)
[2021-03-08 11:41] LABS: Alanine Aminotransferase 24 U/L (4-35); Albumin Level 3.9 g/dL (3.5-5.1); Alkaline Phosphatase 121 U/L (38-126); Anion Gap 10 mmol/L (8-16); Aspartate Amino Transferase 32 U/L (14-36); Bilirubin,Total 0.4 mg/dL (0.2-1.3); Blood Urea Nitrogen 28 mg/dL (7-17); Calcium 9.6 mg/dL (8.4-10.2); Carbon Dioxide 26 mmol/L (22-30); Chloride 98 mmol/L (98-107); Estimated CRCL calculation 47 ml/min; Estimated Glomerular Filt Rate 60; Glucose 288 mg/dL (65-110); Potassium 4.2 mmol/L (3.4-5.0); Sodium 134 mmol/L (137-145)
[2021-03-08] MEDS: SODIUM CHLORIDE 0.9% IV 1,000 ML 999 ML IV CONT (11:54)
--- NOTE | 2021-03-08 12:25 | WPDCN ---
Assessment and Plan Assessment and plan (1) Left-sided epistaxis: Code(s): R04.0 - Epistaxis Status: Acute Assessment and Plan: Merocel placed. Patient will follow up in 48 hours. Will clean left eac as well. Patient should call the office with any questions/concerns/bleeding that occurs. HPI Data of Consult Date/Time: 03/08/21 12:25 Primary Care Provider: Lucian Xiong, Consult Narrative Narrative: Jennifer Cano is a 80 year old female complains of left sided epistaxis and blood out of left ear. On asa and eliquis. ENT consulted for further evaluation. Review of Systems Constitutional: Constitutional: Denies fatigue, Denies fever(s) and Denies lethargy Eyes: Eyes: Denies blurry vision and Denies change in vision ENT: Reports as per HPI Cardiovascular: Cardiovascular: Denies chest pain Respiratory: Respiratory: Denies cough Endocrine: Endocrine: Denies fatigue Hematologic/Lymphatic: Hematologic/Lymphatic: Denies easy bleeding, Denies easy bruising and Denies lymphadenopathy Allergic/Immunologic: Allergic/Immunologic: Denies seasonal rhinorrhea [facility] Past Medical History Medical History (Updated 03/08/21 @ 12:27 by Raoul Jacobo MD) Afib Cardioversion 7 months ago. Anxiety Arthritis Chronic anticoagulation Depression Diabetes mellitus With peripheral neuropathy Diverticulitis DVT (deep venous thrombosis) IVC filter Endometrial cancer GI (gastrointestinal bleed) HLD (hyperlipidemia) HTN (hypertension) IBS (irritable bowel syndrome) Osteomyelitis Paroxysmal atrial fibrillation Peripheral neuropathy Psoriasis Pulmonary embolism Surgical History Surgical History H/O bilateral cataract extraction H/O: hysterectomy History of back surgery History of left hip replacement History of partial pancreatectomy History of partial splenectomy Hx of cholecystectomy Hx of tonsillectomy S/P IVC filter Family History Family History Sibling Cerebrovascular accident Mother Congestive heart failure Hypertension Diabetes mellitus Father Lung cancer Social History Social History (Updated 03/08/21 @ 11:44 by Magaly Petersen PA-C) Social History: she lives home alone. Used to smoke. At the age of 19, she smoked about half pack a cigarettes a day for year. Occasionally drinks alcohol. She desires to be a full code. her daughter is now the durable power insurance defense attorney for healthcare. She has a son and a daughter. Smoking status: Former smoker Tobacco type: cigarettes Second hand tobacco smoke exposure: No Alcohol intake: current Drinks per week: 2 Substance use: never Substance use type: marijuana Other substance usage details: Marijuana gummies Last use: 09-11-2019 Living arrangements: alone Occupation/Education: retired Gender identity (if verbalized by the patient): Female Spiritual care concerns: No Agree to blood products: Yes Meds Home Medications and Allergies Home Medications Medication Instructions Recorded Confirmed Type Eliquis 5 mg PO BID 09/12/19 10/15/20 History aspirin [Aspir-81] 81 mg PO DAILY 09/12/19 10/15/20 History duloxetine 90 mg PO DAILY 09/12/19 10/15/20 History magnesium oxide 400 mg PO QAM #30 tablet 09/20/19 10/15/20 Rx amiodarone 200 mg tablet 200 mg PO DAILY 04/03/20 10/15/20 History Lantus Solostar U-100 Insulin 20 unit SUBCUT HS 05/10/20 10/15/20 History donepezil 5 mg PO DAILY 12/15/20 History ferrous sulfate [FeroSul] 325 mg PO BID 12/15/20 History insulin aspart U-100 1 unit SUBCUT AC 12/15/20 History metoprolol succinate 50 mg PO DAILY 12/15/20 History losartan mg PO DAILY 03/08/21 History Allergies Allergy/AdvReac Type Severity Reaction Status Date / Time codeine AdvReac Mild Itching, Verified 03/08/21 10:33 Nausea meperidine AdvReac Mild Itching, Verified 03/08/21
[2021-03-08 12:45] LABS: Glucose Point of Care 214 mg/dl (65-105)
--- NOTE | 2021-03-08 13:00 | WPDPROCEDUR ---
Procedures Epistaxis Control Time out performed: No Nostril: left Nose prepped with: oxymetazoline Direct inspection: unable to visualize Clots removed by: blowing nose Cautery used: none Device inserted: nasal tampon Patient tolerated procedure: well Complications: pain Epistaxis Comment: Epistaxis resolved following insertion of merocel
== END 2021-03-08 13:39 | disposition home or self-care (01) ==
PROVIDERS: Physician Assistant; Emergency Provider Family Medicine; PCP Internal Medicine
DX: R04.0 Epistaxis (principal); E11.65 Type 2 diabetes mellitus with hyperglycemia; I48.0 Paroxysmal atrial fibrillation; E11.42 Type 2 diabetes mellitus with diabetic polyneuropathy; E78.5 Hyperlipidemia, unspecified; I10 Essential (primary) hypertension; M86.9 Osteomyelitis, unspecified; K58.9 Irritable bowel syndrome, unspecified; M19.90 Unspecified osteoarthritis, unspecified site; Z86.718 Personal history of other venous thrombosis and embolism; Z86.711 Personal history of pulmonary embolism; Z79.82 Long term (current) use of aspirin; Z79.01 Long term (current) use of anticoagulants; Z79.4 Long term (current) use of insulin; Z98.42 Cataract extraction status, left eye; Z98.41 Cataract extraction status, right eye; Z96.642 Presence of left artificial hip joint; Z90.81 Acquired absence of spleen; Z90.411 Acquired partial absence of pancreas; Z87.891 Personal history of nicotine dependence
CPT/HCPCS: 30901; 36415; 80053; 82948; 85025; 85610; 96360; 99283; J7030

== ENCOUNTER 2021-03-12 11:03 | Day surgery (SDC) | payer MEDICARE, SELFPAY ==
[2021-03-12] VITALS (12 sets, daily range): BP systolic 136–163; BP diastolic 63–110; PULSE 54–78; RESP 12–20; TEMP 36.2–36.7; O2SAT 94–100
--- NOTE | 2021-03-12 11:43 | ED.EPISTAXIS ---
HPI - Epistaxis General Chief complaint: Epistaxis Stated complaint: Nose Bleed Time Seen by Provider: 03/12/21 11:28 Source: patient Mode of arrival: ambulatory Limitations: no limitations History of Present Illness HPI Narrative: This is a 80 year old female that presents to the ER for nosebleed. Reports bleeding from the left nare for which she has been seeing Dr. Jacobo. She currently has Merocel in place. Reports this has been saturated and is having some oozing from the area. Dr. Jacobo is in surgery today, so she was prompted to come to the ER. Reports since having the packing in place it has been giving her headaches. Patient currently takes Eliquis for history of blood clots and atrial fibrillation. She is continuing her blood thinner at this time. Denies fever. Related Data Home Medications Medication Instructions Recorded Confirmed Eliquis 5 mg PO BID 09/12/19 03/12/21 aspirin [Aspir-81] 81 mg PO DAILY 09/12/19 03/12/21 duloxetine 90 mg PO DAILY 09/12/19 03/12/21 amiodarone 200 mg tablet 200 mg PO DAILY 04/03/20 03/12/21 Lantus Solostar U-100 Insulin 20 unit SUBCUT HS 05/10/20 03/12/21 donepezil 5 mg PO DAILY 12/15/20 03/12/21 ferrous sulfate [FeroSul] 325 mg PO BID 12/15/20 03/12/21 insulin aspart U-100 1 unit SUBCUT AC 12/15/20 03/12/21 metoprolol succinate 50 mg PO DAILY 12/15/20 03/12/21 losartan 25 mg PO DAILY 03/08/21 03/12/21 Allergies Allergy/AdvReac Type Severity Reaction Status Date / Time codeine AdvReac Mild Itching, Verified 03/12/21 14:29 Nausea meperidine AdvReac Mild Itching, Verified 03/12/21 14:29 Nausea propoxyphene AdvReac Mild Itching, Verified 03/12/21 14:29 Nausea Review of Systems Review of Systems: CONSTITUTIONAL: Denies fever ENT: Reports epistaxis All systems reviewed & are unremarkable except as noted in HPI and below PMFSH Past Medical History Medical History (Updated 03/12/21 @ 16:04 by Raoul Jacobo MD) Afib Cardioversion 7 months ago. Anxiety Arthritis Chronic anticoagulation Depression Diabetes mellitus With peripheral neuropathy Diverticulitis DVT (deep venous thrombosis) IVC filter Endometrial cancer GI (gastrointestinal bleed) HLD (hyperlipidemia) HTN (hypertension) IBS (irritable bowel syndrome) Osteomyelitis Paroxysmal atrial fibrillation Peripheral neuropathy Psoriasis Pulmonary embolism Surgical History Surgical History H/O bilateral cataract extraction H/O: hysterectomy History of back surgery History of left hip replacement History of partial pancreatectomy History of partial splenectomy Hx of cholecystectomy Hx of tonsillectomy S/P IVC filter Family History Family History Sibling Cerebrovascular accident Mother Congestive heart failure Hypertension Diabetes mellitus Father Lung cancer Social History Social History Social History: she lives home alone. Used to smoke. At the age of 19, she smoked about half pack a cigarettes a day for year. Occasionally drinks alcohol. She desires to be a full code. her daughter is now the durable power ip technology transactions attorney for healthcare. She has a son and a daughter. Smoking status: Former smoker Tobacco type: cigarettes Second hand tobacco smoke exposure: No Alcohol intake: current Drinks per week: 2 Substance use: never Substance use type: marijuana Other substance usage details: Marijuana gummies Last use: 09-11-2019 Gender identity (if verbalized by the patient): Female Spiritual care concerns: No Agree to blood products: Yes Exam Narrative: GENERAL: Well-appearing, well-nourished, and in no acute distress. HEAD: Normocephalic, atraumatic. EYES: EOMI. ENT: Left nare with Merocel in place which is soaked. Mild oozing of blood from the left nare. Mucous membranes moist. Oroph
[2021-03-12 12:11] LABS: Basophils Absolute Auto 0.1 K/mm3 (0.0-0.1); Basophils Percent Auto 0.8 % (0.2-1.2); Eosinophils Absolute Auto 0.2 K/mm3 (0-0.3); Eosinophils Percent Auto 1.4 % (0-4.4); Hematocrit 36.3 % (37.0-47.0); Hemoglobin 11.9 g/dL (12.0-15.0); Immature Granulocyte Absolute 0.15 K/mm3 (0.00-0.031); Immature Granulocyte Percent A 1.4 % (0-0.5); Lymphocytes Absolute Auto 1.12 K/mm3 (0.9-3.2); Lymphocytes Percent Auto 10.8 % (18.3-44.2); Mean Corpuscular HGB Conc 32.8 g/dl (32-36); Mean Corpuscular Hemoglobin 33.1 pg (26-34); Mean Corpuscular Volume 101.1 fl (80-100); Mean Platelet Volume 9.4 fl (7.4-10.4); Monocytes Absolute Auto 1.5 K/mm3 (0.1-0.6); Monocytes Percent Auto 14.6 % (2.6-8.5); Neutrophils Absolute Auto 7.4 K/mm3 (1.3-6.7); Platelet Count Result 357 k/mm3 (150-375); Red Blood Count 3.59 M/mm3 (4.2-5.4); Red Cell Distribution Width 14.6 % (11.5-14.5); White Blood Count 10.4 K/mm3 (4.5-10.0)
[2021-03-12 12:40] LABS: INR 1.4; Partial Thromboplastin Time 29.8 SECONDS (22.3-36.8); Prothrombin Time 17.1 Seconds (11.1-14.7)
--- NOTE | 2021-03-12 12:40 | ECG_ITS ---
Measurements Intervals [place] Rate: 64 P: 53 [place]: 171 QRS: 9 QRSD: 104 T: -6 QT: 441 QTc: 457 Interpretive Statements SINUS RHYTHM INCOMPLETE RIGHT BUNDLE BRANCH BLOCK VOLTAGE CRITERIA FOR LVH BORDERLINE ST-T WAVE ABNORMALITY- INFERIOR LEADS BORDERLINE ECG Electronically Signed On 03-12-2021 13:06:14 CDT by Pop Costello D.O.
--- NOTE | 2021-03-12 13:09 | PC.NURSE ---
unable to obtain iv site after several attempts. iv nurse apple will use ultrasound for placement iv and lab draw,
[2021-03-12] MEDS: MORPHINE SULFATE (*CRX) 2 MG/ML INJ IV PUSH (13:32)
[2021-03-12] MEDS: ONDANSETRON INJ 4 MG/2 ML VIAL IV PUSH (13:38)
--- NOTE | 2021-03-12 13:40 | PM.IMHP ---
H&P: HPI History of Present Illness Date/Time: 03/12/21 13:40 Chief Complaint: Epistaxis left-sided Narrative: 80-year-old female presents for on controlled left-sided cautery somewhat urgently. On blood thinners. no changes in symptoms no change in medical history. Review of Systems Constitutional: Constitutional: Denies fatigue, Denies fever(s) and Denies lethargy Eyes: Eyes: Denies blurry vision and Denies change in vision ENT: Reports as per HPI Cardiovascular: Cardiovascular: Denies chest pain Respiratory: Respiratory: Denies cough Endocrine: Endocrine: Denies fatigue Hematologic/Lymphatic: Hematologic/Lymphatic: Denies easy bleeding, Denies easy bruising and Denies lymphadenopathy Allergic/Immunologic: Allergic/Immunologic: Denies seasonal rhinorrhea [facility] Past Medical History Medical History (Updated 03/12/21 @ 13:01 by Vielka Simpson PA-C) Afib Cardioversion 7 months ago. Anxiety Arthritis Chronic anticoagulation Depression Diabetes mellitus With peripheral neuropathy Diverticulitis DVT (deep venous thrombosis) IVC filter Endometrial cancer GI (gastrointestinal bleed) HLD (hyperlipidemia) HTN (hypertension) IBS (irritable bowel syndrome) Osteomyelitis Paroxysmal atrial fibrillation Peripheral neuropathy Psoriasis Pulmonary embolism Surgical History Surgical History H/O bilateral cataract extraction H/O: hysterectomy History of back surgery History of left hip replacement History of partial pancreatectomy History of partial splenectomy Hx of cholecystectomy Hx of tonsillectomy S/P IVC filter Family History Family History Sibling Cerebrovascular accident Mother Congestive heart failure Hypertension Diabetes mellitus Father Lung cancer Social History Social History Social History: she lives home alone. Used to smoke. At the age of 19, she smoked about half pack a cigarettes a day for year. Occasionally drinks alcohol. She desires to be a full code. her daughter is now the durable power attorney general for healthcare. She has a son and a daughter. Smoking status: Former smoker Tobacco type: cigarettes Second hand tobacco smoke exposure: No Alcohol intake: current Drinks per week: 2 Substance use: never Substance use type: marijuana Other substance usage details: Marijuana gummies Last use: 09-11-2019 Gender identity (if verbalized by the patient): Female Spiritual care concerns: No Agree to blood products: Yes Meds Home Medications and Allergies Home Medications Medication Instructions Recorded Confirmed Type Eliquis 5 mg PO BID 09/12/19 03/11/21 History aspirin [Aspir-81] 81 mg PO DAILY 09/12/19 03/11/21 History duloxetine 90 mg PO DAILY 09/12/19 03/11/21 History magnesium oxide 400 mg PO QAM #30 tablet 09/20/19 03/11/21 Rx amiodarone 200 mg tablet 200 mg PO DAILY 04/03/20 03/11/21 History Lantus Solostar U-100 Insulin 20 unit SUBCUT HS 05/10/20 03/11/21 History donepezil 5 mg PO DAILY 12/15/20 03/11/21 History ferrous sulfate [FeroSul] 325 mg PO BID 12/15/20 03/11/21 History insulin aspart U-100 1 unit SUBCUT AC 12/15/20 03/11/21 History metoprolol succinate 50 mg PO DAILY 12/15/20 03/11/21 History losartan mg PO DAILY 03/08/21 03/11/21 History ofloxacin 0.3 % ear drops 5 drp LEFT EAR BID 5 Days #5 ml 03/11/21 03/11/21 Rx Allergies Allergy/AdvReac Type Severity Reaction Status Date / Time codeine AdvReac Mild Itching, Verified 03/12/21 11:35 Nausea meperidine AdvReac Mild Itching, Verified 03/12/21 11:35 Nausea propoxyphene AdvReac Mild Itching, Verified 03/12/21 11:35 Nausea Vital Signs Vital Signs - 24 hr 03/12/21 11:18 03/12/21 13:19 Temperature 36.7 C Pulse Rate 78 62 Respiratory Rate 18 18 Blood Pressure 157/110 H 136/65 Pulse
--- NOTE | 2021-03-12 13:42 | WPDCN ---
Assessment and Plan Assessment and plan (1) Epistaxis: Code(s): R04.0 - Epistaxis Status: Acute Assessment and Plan: plan is for the OR for control of epistaxis left-sided maxillary antrostomy SP ligation. (2) Left-sided epistaxis: Code(s): R04.0 - Epistaxis Status: Acute HPI Data of Consult Date/Time: 03/12/21 13:42 Primary Care Provider: Lucian Xiong, Consult Narrative Narrative: Jennifer Cano is a 80 year old female With recurrent epistaxis, and ENT consult for further evaluation and treatment. A cauterized on the left with silver nitrate and packed with Merocel yesterday she reports bleeding shortly thereafter. Did not call me. Call the office this morning presented to ER. Hemoglobin 11.9 Review of Systems Constitutional: Constitutional: Denies fatigue, Denies fever(s) and Denies lethargy Eyes: Eyes: Denies blurry vision and Denies change in vision ENT: Reports as per HPI Cardiovascular: Cardiovascular: Denies chest pain Respiratory: Respiratory: Denies cough Endocrine: Endocrine: Denies fatigue Hematologic/Lymphatic: Hematologic/Lymphatic: Denies easy bleeding, Denies easy bruising and Denies lymphadenopathy Allergic/Immunologic: Allergic/Immunologic: Denies seasonal rhinorrhea [facility] Past Medical History Medical History (Updated 03/12/21 @ 13:01 by Vielka Simpson PA-C) Afib Cardioversion 7 months ago. Anxiety Arthritis Chronic anticoagulation Depression Diabetes mellitus With peripheral neuropathy Diverticulitis DVT (deep venous thrombosis) IVC filter Endometrial cancer GI (gastrointestinal bleed) HLD (hyperlipidemia) HTN (hypertension) IBS (irritable bowel syndrome) Osteomyelitis Paroxysmal atrial fibrillation Peripheral neuropathy Psoriasis Pulmonary embolism Surgical History Surgical History H/O bilateral cataract extraction H/O: hysterectomy History of back surgery History of left hip replacement History of partial pancreatectomy History of partial splenectomy Hx of cholecystectomy Hx of tonsillectomy S/P IVC filter Family History Family History Sibling Cerebrovascular accident Mother Congestive heart failure Hypertension Diabetes mellitus Father Lung cancer Social History Social History Social History: she lives home alone. Used to smoke. At the age of 19, she smoked about half pack a cigarettes a day for year. Occasionally drinks alcohol. She desires to be a full code. her daughter is now the durable power divorce attorney for healthcare. She has a son and a daughter. Smoking status: Former smoker Tobacco type: cigarettes Second hand tobacco smoke exposure: No Alcohol intake: current Drinks per week: 2 Substance use: never Substance use type: marijuana Other substance usage details: Marijuana gummies Last use: 09-11-2019 Gender identity (if verbalized by the patient): Female Spiritual care concerns: No Agree to blood products: Yes Meds Home Medications and Allergies Home Medications Medication Instructions Recorded Confirmed Type Eliquis 5 mg PO BID 09/12/19 03/11/21 History aspirin [Aspir-81] 81 mg PO DAILY 09/12/19 03/11/21 History duloxetine 90 mg PO DAILY 09/12/19 03/11/21 History magnesium oxide 400 mg PO QAM #30 tablet 09/20/19 03/11/21 Rx amiodarone 200 mg tablet 200 mg PO DAILY 04/03/20 03/11/21 History Lantus Solostar U-100 Insulin 20 unit SUBCUT HS 05/10/20 03/11/21 History donepezil 5 mg PO DAILY 12/15/20 03/11/21 History ferrous sulfate [FeroSul] 325 mg PO BID 12/15/20 03/11/21 History insulin aspart U-100 1 unit SUBCUT AC 12/15/20 03/11/21 History metoprolol succinate 50 mg PO DAILY 12/15/20 03/11/21 History losartan mg PO DAILY 03/08/21 03/11/21 History ofloxacin 0.3 % ear drops 5 drp LEFT E
--- NOTE | 2021-03-12 13:44 | WPDHPUPDATE1 ---
History and Physical Update Update Date/Time: 03/12/21 13:44 History and Physical has been reviewed, including an updated exam of the patient. There are NO changes in the patient's condition. Risks, benefits, and alternatives have been discussed and questions answered. Patient agrees to proceed with procedure.
[2021-03-12] MEDS: LACTATED RINGERS 1,000 ML 30 ML IV CONT (14:00)
[2021-03-12 14:05] LABS: Alanine Aminotransferase 20 U/L (4-35); Albumin Level 3.6 g/dL (3.5-5.1); Alkaline Phosphatase 114 U/L (38-126); Anion Gap 6 mmol/L (8-16); Aspartate Amino Transferase 32 U/L (14-36); Bilirubin,Total 0.4 mg/dL (0.2-1.3); Blood Urea Nitrogen 23 mg/dL (7-17); Calcium 9.3 mg/dL (8.4-10.2); Carbon Dioxide 30 mmol/L (22-30); Chloride 99 mmol/L (98-107); Estimated CRCL calculation 50 ml/min; Estimated Glomerular Filt Rate > 60; Glucose 136 mg/dL (65-110); Potassium 3.8 mmol/L (3.4-5.0); Sodium 135 mmol/L (137-145)
--- NOTE | 2021-03-12 14:16 | WPDANESEPPF ---
Anes - Initial Pre Proc Eval Procedure: Operation Date: 03/12/21 17:00 Proposed Procedures p Control of Left Sided Epistaxis, Bilateral Nasal Cautery - Raoul Jacobo MD Date/Time: 03/12/21 14:16 Pre Op Diagnosis: Nose Bleed Patient Data Age: 80 Gender: F Height: 1.6 m Weight: 84.2 kg Last Vital Signs Temp 98.1 F 03/12/21 11:18 Pulse 62 03/12/21 13:50 Resp 16 03/12/21 13:50 BP 137/63 03/12/21 13:50 Pulse Ox 98 03/12/21 13:50 Allergies Allergy/AdvReac Type Severity Reaction Status Date / Time codeine AdvReac Mild Itching, Verified 03/12/21 11:35 Nausea meperidine AdvReac Mild Itching, Verified 03/12/21 11:35 Nausea propoxyphene AdvReac Mild Itching, Verified 03/12/21 11:35 Nausea Home Medications Medication Instructions Recorded Confirmed Type Eliquis 5 mg PO BID 09/12/19 03/11/21 History aspirin [Aspir-81] 81 mg PO DAILY 09/12/19 03/11/21 History duloxetine 90 mg PO DAILY 09/12/19 03/11/21 History magnesium oxide 400 mg PO QAM #30 tablet 09/20/19 03/11/21 Rx amiodarone 200 mg tablet 200 mg PO DAILY 04/03/20 03/11/21 History Lantus Solostar U-100 Insulin 20 unit SUBCUT HS 05/10/20 03/11/21 History donepezil 5 mg PO DAILY 12/15/20 03/11/21 History ferrous sulfate [FeroSul] 325 mg PO BID 12/15/20 03/11/21 History insulin aspart U-100 1 unit SUBCUT AC 12/15/20 03/11/21 History metoprolol succinate 50 mg PO DAILY 12/15/20 03/11/21 History losartan mg PO DAILY 03/08/21 03/11/21 History ofloxacin 0.3 % ear drops 5 drp LEFT EAR BID 5 Days #5 ml 03/11/21 03/11/21 Rx Laboratory Tests 03/12/21 03/12/21 03/12/21 11:59 11:59 13:27 WBC 10.4 K/mm3 H K/mm3 (4.5-10.0) RBC 3.59 M/mm3 L M/mm3 (4.2-5.4) Hgb 11.9 g/dL L g/dL (12.0-15.0) Hct 36.3 % L % (37.0-47.0) MCV 101.1 fl H fl (80-100) MCH 33.1 pg pg (26-34) MCHC 32.8 g/dl g/dl (32-36) RDW 14.6 % H % (11.5-14.5) Plt Count 357 k/mm3 k/mm3 (150-375) MPV 9.4 fl fl (7.4-10.4) Immature Gran % (Auto) 1.4 % H % (0-0.5) Neut % (Auto) 71.0 % % (45.5-73.1) Lymph % (Auto) 10.8 % L % (18.3-44.2) Crook % (Auto) 14.6 % H % (2.6-8.5) Eos % (Auto) 1.4 % % (0-4.4) Baso % (Auto) 0.8 % % (0.2-1.2) Lymph # (Auto) 1.12 K/mm3 K/mm3 (0.9-3.2) Crook # (Auto) 1.5 K/mm3 H K/mm3 (0.1-0.6) Eos # (Auto) 0.2 K/mm3 K/mm3 (0-0.3) Baso # (Auto) 0.1 K/mm3 K/mm3 (0.0-0.1) Abs Immat Gran (auto) 0.15 K/mm3 H K/mm3 (0.00-0.031) Absolute Neuts (auto) 7.4 K/mm3 H K/mm3 (1.3-6.7) Absolute Nucleated RBC 0.0 K/mm3 K/mm3 (0.0-0.012) Nucleated RBC % 0.0 % % (0.0-0.2) PT 17.1 Seconds H Seconds (11.1-14.7) INR 1.4 APTT 29.8 SECONDS SECONDS (22.3-36.8) Sodium 135 mmol/L L mmol/L (137-145) Potassium 3.8 mmol/L mmol/L (3.4-5.0) Chloride 99 mmol/L mmol/L (98-107) Carbon Dioxide 30 mmol/L mmol/L (22-30) Anion Gap 6 mmol/L L mmol/L (8-16) BUN 23 mg/dL H mg/dL (7-17) Creatinine 0.80 mg/dL mg/dL (0.7-1.0) Estim Creat Clear Calc 50 ml/min ml/min Estimated GFR > 60 (59 - ) Glucose 136 mg/dL H mg/dL (65-110) Calcium 9.3 mg/dL mg/dL (8.4-10.2) Total Bilirubin 0.4 mg/dL mg/dL (0.2-1.3) AST 32 U/L U/L (14-36) ALT 20 U/L U/L (4-35) Alkaline Phosphatase 114 U/L U/L (38-126) Total Protein 7.0 g/dL g/dL (6.3-8.2) Albumin 3.6 g/dL g/dL (3.5-5.1) Patient hx anesthesia problems: none Family hx anesthesia problems: none [facility] Past Medical History Medical History (Updated 03/12/21 @ 13:01 by Vielka Simpson PA-C) Afib Cardioversion 7 months ago. Anxiety Arthritis Chronic anti
[2021-03-12 14:19] LABS: Glucose Point of Care 114 mg/dl (65-105)
[2021-03-12] MEDS: OXYMETAZOLINE HCL 0.05% NAS 15 ML BTL (*BKC) 1 SPRAY NASAL (14:28)
--- NOTE | 2021-03-12 15:49 | W.PM.PROC2 ---
Procedure Note - Detailed Date of Procedure 03/12/21 Pre-op Diagnosis Nose Bleed left-sided Post-op Diagnosis same Procedure Performed 1. Endoscopic left-sided cautery 2. Left-sided maxillary antrostomy 3. Left-sided ligation of sphenopalatine artery Surgeon Raoul Jacobo MD Director Digital Catalogue none Anesthesia general Indications see above Findings bleeding from the anterior nasal septum copious amounts of blood during the sinus procedure hemostasis was excellent following ligation of the left-sided sphenopalatine artery Description of Procedure patient correctly identified consent verified in the preoperative holding area. The patient was then brought to the operating room time-out was performed. General anesthesia was induced endotracheal tube secured the patient's airway. Patient prepped and draped for the aforementioned procedure. 0 degree endoscope utilized for the procedure Bovie suction electrocautery at a setting of 15 and 20 utilized to cauterize anterior nasal septum maxillary antrostomy then performed using straight through cup micro debrider backbiter double ball tip probe back wall located dissected posteriorly using Bovie suction electrocautery to the sphenopalatine artery was located this was cauterized using Bovie suction electrocautery to setting of 20 for added benefit the posterior nasal septal artery region was also cauterized marked end the procedure. Blood loss 25 cc care of the patient turned over to Anesthesiology. I performed all dictated portions of the procedure. No immediate complications. Nasal pore packing placed against the anterior nasal septum Estimated Blood Loss 25 Drains No Packing Yes ( absorbable) Pathology none sent Complications No immediate complications Condition stable Disposition PACU
[2021-03-12] MEDS: oxyCODONE HCL (*CRX) 2.5 MG TAB IR PO (17:26)
[2021-03-17 13:46] LABS: Glucose Point of Care 106 mg/dl (65-105)
== END 2021-03-12 18:01 | disposition home or self-care (01) ==
LOC: ANHED 13:01 → ANHSURGERY 03-15 15:33
PROVIDERS: Physician Assistant; Emergency Provider Emergency Medicine; PCP Internal Medicine; Visit Provider Otolaryngology
PROC: (CPT 31256; principal; 2021-03-12 17:00)
DX: R04.0 Epistaxis (principal); I48.0 Paroxysmal atrial fibrillation; E11.42 Type 2 diabetes mellitus with diabetic polyneuropathy; F41.8 Other specified anxiety disorders; I10 Essential (primary) hypertension; E78.5 Hyperlipidemia, unspecified; L40.9 Psoriasis, unspecified; K58.9 Irritable bowel syndrome, unspecified; Z86.718 Personal history of other venous thrombosis and embolism; Z86.711 Personal history of pulmonary embolism; Z79.01 Long term (current) use of anticoagulants; Z79.82 Long term (current) use of aspirin; Z79.4 Long term (current) use of insulin; Z87.19 Personal history of other diseases of the digestive system; Z85.42 Personal history of malignant neoplasm of other parts of uterus; F12.90 Cannabis use, unspecified, uncomplicated
CPT/HCPCS: 31256; 31241; 36415; 80053; 82948; 85025; 85610; 85730; 93005; 96374; 96375; 99285; A9270; J0131; J0330; J1100; J2270; J2405; J2704; J3010; J7120

== ENCOUNTER 2021-05-09 15:48 | Inpatient (IN) | payer MEDICARE, SELFPAY ==
[2021-05-09] VITALS (43 sets, daily range): BP systolic 126–153; BP diastolic 46–95; PULSE 61–80; RESP 17–33; TEMP 36.8–37.5; O2SAT 90–100; BMI 31.5
--- NOTE | ~2021-05-09 | CT_ITS ---
EXAMINATION: CT abdomen pelvis w con EXAM DATE: 05/16/2021 12:02 INDICATION: Persistent leukocytosis, pelvic abscess . TECHNIQUE: Spiral CT of the abdomen and pelvis was performed following intravenous injection of 100 m L Omnipaque 350. Axial, coronal and sagittal images of the abdomen and pelvis were reviewed. The do se-length product (DLP) for this examination was 1165.88 mGy-cm. The exposure was tailored according to patient size (auto mA exposure control), and iterative reconstruction (ASIR) was used as addition al dose reduction technique. Comparison is made to prior examination from 05/09/2021. FINDINGS: There is a pelvic pigtail catheter which has drained the previously seen largest pelvic per idiverticular abscess. Lateral to the pigtail catheter there is smaller abscess which has not been dr rajwinderned, difficult to measure given its shape but largest region of it measures about 3 cm in diameter, potentially could be treated with another pigtail catheter if indicated clinically. Moderate to joel re descending and sigmoid colonic diverticulosis, with improvement in the perisigmoid wall edema. Small left liver lobe cyst measuring about 8 mm. There is 1.7 cm pancreatic head cystic lesion unchan ged. The differential diagnosis includes pseudocyst, intraductal papillary mucinous neoplasm (IPMN), mucinous cystic neoplasm (MCN), and the less common serous cystadenoma and neuroendocrine tumor. Ward remi for history of pancreatitis. Nodularity to the right adrenal gland unchanged. There are cholecystectomy clips. No hydronephrosis. There are lobular renal contours bilaterally with regions of renal cortical scarring. There is a 2 c m lesion superior pole right kidney probably a cyst. The uterus is not identified and has likely bee n surgically resected. The bladder is unremarkable. There is no retroperitoneal or pelvic lymphaden opathy. There is extensive scattered arterial sclerotic disease. There is an IVC filter. There is l ower IVC, right iliac venous stent. There are no findings to suggest appendicitis. The stomach and small bowel are unremarkable. No fr ee intraperitoneal gas. Cardiomegaly and mitral annular calcifications. Small to moderate left, sm all right pleural effusions. There is left lower lobe segmental atelectasis, right lower lobe subsegm ental atelectasis. There is left hip arthroplasty hardware. IMPRESSION: 1. Complicated sigmoid diverticulitis with successful drainage of largest pelvic abscess. 2. Additional pelvic abscess unchanged, potentially could be treated with 2nd percutaneous drain. 3. Moderate to severe colonic diverticulosis. 4. Stable pancreatic head cystic lesion. 5. Stable right adrenal gland nodularity. 6. Increase in size of small to moderate left, small right pleural effusions, associated atelectasis . 7. Cardiomegaly. Reviewed, dictated and finalized at location A. IMPRESSION: 1. Complicated sigmoid diverticulitis with successful drainage of largest pelv ic abscess. 2. Additional pelvic abscess unchanged, potentially could be treated with 2nd percutaneous drain. 3. Moderate to severe colonic diverticulosis. 4. Stable pancreatic head cystic lesion. 5. Stable right adrenal gland nodularity. 6. Increase in size of small to moderate left, small right pleural effusions, associated atelectasis. 7. Cardiomegaly.
--- NOTE | ~2021-05-09 | CT_ITS ---
EXAMINATION: CT abdomen pelvis w con DATE: 05/09/2021 18:05 INDICATION: Left lower quadrant abdominal pain, fever TECHNIQUE: Computed tomography (CT) of the abdomen and pelvis was performed with 100 cc Omnipaque 350 intravenous contrast. Automated exposure control and iterative reconstruction technique were employe d. Exam dose: 1337.03 mGy-cm total exam DLP. COMPARISON: 12/15/2020 CT abdomen aorta right 05/11/2020 CT abdomen pelvis 02/12/2018 CT abdomen pelvis FINDINGS: There is bibasilar atelectasis. Cardiomegaly. Prominent coronary artery calcification. 1 cm lateral segment left hepatic cyst. Occasional additional much smaller probable hepatic cysts, to o small to definitively characterize. Status post cholecystectomy. Stable 2.6 cm right adrenal mass. 2 probable small left adrenal adenomas, stable since 05/05/2020.. Pancreatic head cyst measures 1.6 cm x 1.8, stable since 05/11/2020 and 02/12/2018. Bilateral renal scarring consistent with chronic bilateral pyelonephritis. 1.8 x 2.1 cm upper pole left renal mass lesion appears stable in size since 05/11/2020 and 02/12/2018. Indeterminate approximately 11 mm hypoenhancing area at the lower pole of the left kidney (series 3 i mage 80). Occasional right renal cysts, the largest measuring up to 1.5 cm. 2.4 mm nonobstructing right renal calculus. No ureteral calculus or hydroureteronephrosis on either side. There is extensive calcification of the abdominal aorta and at the origins of the celiac and superior mesenteric and renal arteries. No abdominal aortic aneurysm. No intraperitoneal or retroperitoneal o r pelvic lymphadenopathy. There are multiple diverticula sigmoid and descending colon as well as transverse colon. There is pro minent pericolic fat stranding in the sigmoid colon area pericolic abscess formation, the largest are a measuring approximately 4.3 x 5.1 cm; this abscess cavity impresses the left superior aspect of the urinary bladder.. Additional smaller abscess cavities are suggested. No intraperitoneal free air is noted. No bowel obstruction. Normal appendix. There is a stent in the right femoral vein and IVC filter. Diffuse idiopathic skeletal hyperostosis of the thoracic spine. Severe degenerative disc disease at L5-S1 Degenerative change at the apophyseal joints with grade 1 anterolisthesis at L4-5 Status post left total hip arthroplasty Severe right hip osteoarthritis IMPRESSION: Sigmoid diverticulitis with multiple by diverticular abscess cavities, pericolic inflamm ation Diverticulosis of left and right colon Normal appendix Cardiomegaly, coronary artery atherosclerosis Hepatic cysts Status post cholecystectomy Stable 1.6 x 1.8 cm pancreatic head cyst Stable renal cystic lesions 11 mm nonspecific hypoenhancing lower pole left renal lesion Stable bilateral adrenal masses Reviewed, dictated and finalized at [facility]. Reviewed, dictated and finalized at [facility]. IMPRESSION: Sigmoid diverticulitis with multiple by diverticular abscess cavit ies, pericolic inflammation Diverticulosis of left and right colon Normal appendix Cardiomegaly, coronary artery atherosclerosis Hepatic cysts Status post cholecystectomy Stable 1.6 x 1.8 cm pancreatic head cyst Stable renal cystic lesions 11 mm nonspecific hypoenhancing lower pole left renal lesion Stable bilateral adrenal masses
--- NOTE | ~2021-05-09 | CT_ITS ---
EXAMINATION: CT guide absc cath placement DATE: 05/11/2021 12:27 INDICATION: Diverticular abscess. TECHNIQUE: The procedure including the risks, benefits, and alternatives was discussed with the patie nt. Risks discussed included bleeding and infection. The patient understood the risks and benefits an d agreed to proceed. The skin overlying the abdomen was prepped and draped in usual sterile fashion. Anesthetic was administered with 1% lidocaine subcutaneously. An 18 gauge trochar needle was insert ed into the perisigmoid abscess with CT guidance. The needle was exchanged over a wire for 6 Chinese, 8 Chinese, and 9 Chinese dilators and then for an 8.5 Chinese pigtail catheter. The catheter was stitche d to the skin, and a sterile dressing was applied. The mA was adjusted according to patient size. Ite rative reconstruction technique was employed. The dose-length product was 277.51 mGy-cm. There were n o immediate complications. FINDINGS: CT images demonstrate the catheter within the perisigmoid abscess. 3 mL fluid was aspirated for testing. IMPRESSION: 1. Successful CT-guided perisigmoid abscess drainage. 2. 3 mL opaque, brown, foul-smelling fluid was sent for aerobic and anaerobic cultures. Reviewed, dictated and finalized at location [facility]. IMPRESSION: 1. Successful CT-guided perisigmoid abscess drainage. 2. 3 mL opaque, brown, foul-smelling fluid was sent for aerobic and anaerobic c ultures.
--- NOTE | ~2021-05-09 | US_ITS ---
EXAMINATION: US venous doppler [facility] DATE: 05/11/2021 12:55 INDICATION: Abdominal tenderness, unspecified site TECHNIQUE: Higuera scale images without and with compression and Doppler images of the bilateral lower e xtremity veins were obtained. COMPARISON: 06/20/2018 FINDINGS: The right common femoral vein, profunda femoral vein, femoral vein, popliteal vein, peroneal trunk, p osterior tibial veins, and greater saphenous vein are patent. The left common femoral vein, profunda femoral vein, femoral vein, popliteal vein, peroneal trunk, po sterior tibial veins, and greater saphenous vein are patent. IMPRESSION: 1. Patent bilateral lower extremity veins. No evidence of deep venous thrombosis. Reviewed, dictated and finalized at location [facility]. IMPRESSION: 1. Patent bilateral lower extremity veins. No evidence of deep venous thrombosi s.
--- NOTE | ~2021-05-09 | XR_ITS ---
XR chest 1V portable DATE: 05/09/2021 17:37 INDICATION: Fever. Urinary tract infection. History of atrial fibrillation. TECHNIQUE: Portable upright AP chest on 05/09/2021 at 1733 hours COMPARISON: 05/10/2020 AP and lateral chest FINDINGS: Cardiomegaly. Aortic calcification and mild tortuosity. No hilar or mediastinal enlargement . Mild bibasilar infiltrate, atelectasis and/or scarring. No interval pulmonary consolidation since is evident. No pleural effusion or pulmonary vascular congestion or pneumothorax. Diffuse osteopenia. Degenerative spurring of the thoracic and lumbar spine. Status post cholecystectomy. IMPRESSION: Mild bibasilar infiltrate, atelectasis and/or scarring, left greater than right, not sign ificantly changed compared to 05/10/2020 Cardiomegaly Aortic calcification and tortuosity Osteopenia Status post cholecystectomy Reviewed, dictated and finalized at location [facility]. IMPRESSION: Mild bibasilar infiltrate, atelectasis and/or scarring, left greate r than right, not significantly changed compared to 05/10/2020 Cardiomegaly Aortic calcification and tortuosity Osteopenia Status post cholecystectomy
--- NOTE | ~2021-05-09 | XR_ITS ---
EXAMINATION: XR chest 1V portable DATE: 05/19/2021 06:03 INDICATION: Pleural effusion TECHNIQUE: frontal view of the chest was obtained. COMPARISON: Chest radiograph dated 05/09/[address] dated 05/16/2021 FINDINGS: Linear band of discoid atelectasis at the left midlung zone. Opacities at the bilateral lung bases, l eft greater than right consistent with small bilateral pleural effusions with associated atelectasis and/or pneumonia likely without significant change since the more recent CT. No pneumothorax. Cardiom egaly. Mitral annular calcification. Cholecystectomy clips in the right upper quadrant. IMPRESSION: 1. Unchanged small bilateral pleural effusions with associated bibasilar atelectasis and/or pneumonia . Reviewed, dictated and finalized at location [facility]. IMPRESSION: 1. Unchanged small bilateral pleural effusions with associated bibasilar atelec tasis and/or pneumonia.
--- NOTE | ~2021-05-09 | CT_ITS ---
EXAMINATION: CT cervical spine wo con DATE: 05/09/2021 16:48 INDICATION: Fall. Neck injury. TECHNIQUE: Computed tomography (CT) of the cervical spine was performed without intravenous contrast. Automated exposure control and iterative reconstruction technique were employed. Exam dose: 484.22 mGy-cm total exam DLP. COMPARISON: None FINDINGS: C1 and C2 are normally aligned and the odontoid process is intact. No fracture or dislocati on or locked facet or prevertebral soft tissue swelling. There is minimal anterolisthesis at C4-5. There is severe degenerative disc disease at C5-6 and C6-7 and moderate degenerative disc disease at the remaining interspace levels. There is prominent degenerative change of the apophyseal joints throughout the cervical spine and sev ere uncovertebral joint spurring at C5-6 and C6-7. IMPRESSION: Severe cervical spondylosis and minimal anterolisthesis at C4-5; no fracture or dislocat ion or locked facet Reviewed, dictated and finalized at [facility]. Reviewed, dictated and finalized at location [facility]. IMPRESSION: Severe cervical spondylosis and minimal anterolisthesis at C4-5; n o fracture or dislocation or locked facet
--- NOTE | ~2021-05-09 | US_ITS ---
EXAMINATION: US venous doppler [facility] DATE: 05/19/2021 12:23 INDICATION: Bilateral lower limb edema TECHNIQUE: Higuera scale images without and with compression and Doppler images of the bilateral lower e xtremity veins were obtained. COMPARISON: 05/11/2021 FINDINGS: The right common femoral vein, profunda femoral vein, femoral vein, popliteal vein, peroneal trunk, p osterior tibial veins, and greater saphenous vein are patent. The left common femoral vein, profunda femoral vein, femoral vein, popliteal vein, peroneal trunk, po sterior tibial veins, and greater saphenous vein are patent. IMPRESSION: 1. Patent bilateral lower extremity veins. No evidence of deep venous thrombosis. Reviewed, dictated and finalized at location B. IMPRESSION: 1. Patent bilateral lower extremity veins. No evidence of deep venous thrombosi s.
--- NOTE | ~2021-05-09 | CT_ITS ---
EXAMINATION: CT brain wo con DATE: 05/09/2021 16:47 INDICATION: Fall. Head injury. TECHNIQUE: Computed tomography (CT) of the head was performed without intravenous contrast. The mA wa s adjusted according to patient size. Iterative reconstruction technique was employed. Exam dose: 60 5.33 mGy-cm total exam DLP. COMPARISON: September 11, 2019 CT brain FINDINGS: No intracranial mass lesion or hemorrhage or cerebrovascular accident is evident. No midlin e shift or mass effect. Stable right choroidal fissure cyst. There is prominent bilateral carotid siphon and supraclinoid internal carotid artery calcification in addition to vertebral artery and basilar artery calcification. There is nonspecific diminished atten uation of cerebral white matter, likely due to chronic small vessel ischemic changes. There is a child inconsistent moderate cerebral and cerebellar volume loss. No subdural or epidural hematoma is detected. There is mild mucoperiosteal thickening of left maxillary sinus. The paranasal sinuses and mastoid ai r cells are otherwise unremarkable. No fracture or bone destruction of the cranial vault. IMPRESSION: Cerebral atherosclerosis and chronic small vessel ischemic changes of the cerebral white matter Right choroidal fissure cyst, stable No acute intracranial finding Reviewed, dictated and finalized at [facility]. Reviewed, dictated and finalized at location [facility].
--- NOTE | 2021-05-09 16:22 | ECG_ITS ---
Measurements Intervals [place] Rate: 71 P: 16 NE: 149 QRS: 37 QRSD: 90 T: 27 QT: 428 QTc: 468 Interpretive Statements SINUS RHYTHM INCOMPLETE RIGHT BUNDLE BRANCH BLOCK LOW QRS VOLTAGE IN PRECORDIAL LEADS BASELINE ARTIFACT- I, III, AVR, AVL, AVF BORDERLINE ECG Electronically Signed On 05-09-2021 22:29:53 CDT by Pop Costello D.O.
[2021-05-09 16:44] LABS: Basophils Absolute Auto 0.1 K/mm3 (0.0-0.1); Basophils Percent Auto 0.5 % (0.2-1.2); Eosinophils Percent Auto 0.2 % (0-4.4); Hematocrit 34.1 % (37.0-47.0); Hemoglobin 11.1 g/dL (12.0-15.0); Immature Granulocyte Absolute 0.29 K/mm3 (0.00-0.031); Immature Granulocyte Percent A 1.8 % (0-0.5); Lymphocytes Absolute Auto 0.64 K/mm3 (0.9-3.2); Mean Corpuscular HGB Conc 32.6 g/dl (32-36); Mean Corpuscular Hemoglobin 31.2 pg (26-34); Mean Corpuscular Volume 95.8 fl (80-100); Mean Platelet Volume 9.3 fl (7.4-10.4); Monocytes Absolute Auto 1.2 K/mm3 (0.1-0.6); Monocytes Percent Auto 7.6 % (2.6-8.5); Neutrophils Absolute Auto 13.8 K/mm3 (1.3-6.7); Neutrophils Percent Auto 85.9 % (45.5-73.1); Platelet Count Result 517 k/mm3 (150-375); Red Blood Count 3.56 M/mm3 (4.2-5.4); Red Cell Distribution Width 14.7 % (11.5-14.5)
[2021-05-09 16:53] LABS: INR 1.8; Platelet Estimate Increased (Adequate); Prothrombin Time 20.8 Seconds (11.1-14.7); Target Cells 1+ (NORMAL)
[2021-05-09] MEDS: LACTATED RINGERS 1,000 ML 999 ML IV CONT (16:55)
--- NOTE | 2021-05-09 17:15 | ED.GENADULT ---
HPI - General Adult General Chief complaint: Urogenital-Female <Abi Frederick MD - Last Filed: 05/11/21 21:03> Stated complaint: UTI?? <Abi Frederick MD - Last Filed: 05/11/21 21:03> Time Seen by Provider: 05/09/21 16:08 <Abi Frederick MD - Last Filed: 05/11/21 21:03> Source: patient, family, RN notes reviewed and old records reviewed <Abi Frederick MD - Last Filed: 05/11/21 21:03> Mode of arrival: wheelchair <Abi Frederick MD - Last Filed: 05/11/21 21:03> Limitations: dementia <Abi Frederick MD - Last Filed: 05/11/21 21:03> History of Present Illness HPI narrative: This is an 80 year old female with history of hypertension, DM, dementia who presents with daughter for concern of possible UTI. Over the past 2 days, daughter reports patient has confused and weak. She fell yesterday and she almost fell today but her daughter was able to catch her. Yesterday, patient fell because chair came from under head. She does report hitting her head but denies LOC. She report neck pain and back pain. Her daughter thinks her neck pain and back pain are chronic. Patient reports right lower back pain with nausea. Her daughter thinks she may have a fever as well. She was taken off antibiotics 3 months ago for chronic UTI. <Abi Frederick MD - Last Filed: 05/11/21 21:03> Related Data Home medications: Home Medications Medication Instructions Recorded Confirmed Eliquis 5 mg PO BID 09/12/19 03/18/21 aspirin [Aspir-81] 81 mg PO DAILY 09/12/19 03/18/21 amiodarone 200 mg tablet 200 mg PO DAILY 04/03/20 03/18/21 Lantus Solostar U-100 Insulin 20 unit SUBCUT HS 05/10/20 03/18/21 ferrous sulfate [FeroSul] 325 mg PO BID 12/15/20 03/18/21 insulin aspart U-100 1 unit SUBCUT AC 12/15/20 03/18/21 metoprolol succinate 50 mg PO DAILY 12/15/20 03/18/21 losartan 25 mg PO DAILY 03/08/21 03/18/21 escitalopram oxalate mg 05/09/21 <Abi Frederick MD - Last Filed: 05/11/21 21:03> Allergies/adverse reactions: Allergies Allergy/AdvReac Type Severity Reaction Status Date / Time codeine AdvReac Mild Itching, Verified 05/10/21 02:19 Nausea meperidine AdvReac Mild Itching, Verified 05/10/21 02:19 Nausea propoxyphene AdvReac Mild Unknown Verified 05/10/21 02:19 <Abi Frederick MD - Last Filed: 05/11/21 21:03> Review of Systems Review of Systems: All systems reviewed & are unremarkable except as noted in HPI and below <Abi Frederick MD - Last Filed: 05/11/21 21:03> Constitutional: Constitutional: Reports chills, Reports fever(s) and Reports weakness <Abi Frederick MD - Last Filed: 05/11/21 21:03> ENT: Denies sore throat <Abi Frederick MD - Last Filed: 05/11/21 21:03> Cardiovascular: Cardiovascular: Denies chest pain <Abi Frederick MD - Last Filed: 05/11/21 21:03> Respiratory: Respiratory: Denies cough and Denies dyspnea <Abi Frederick MD - Last Filed: 05/11/21 21:03> Gastrointestinal: Gastrointestinal: Reports abdominal pain, Reports constipation, Reports diarrhea, Reports nausea and Denies vomiting <Abi Frederick MD - Last Filed: 05/11/21 21:03> Genitourinary: Genitourinary: Denies hematuria, Reports nocturia, Denies dysuria and Reports flank pain <Abi Frederick MD - Last Filed: 05/11/21 21:03> Musculoskeletal: Musculoskeletal: Reports myalgias <Abi Frederick MD - Last Filed: 05/11/21 21:03> PMFSH Past Medical History Medical History: Medical History Anxiety Arthritis Chronic anticoagulation Depression 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 Diverticulitis Endometrial cancer 2008 and underwent [facility]ERR[facility]-BSO GI (gastrointestinal bleed) History of pulmonary embolism HLD (hyperlipidemia) HTN (hypertension) IBS (irritable bowel s
[2021-05-09 17:26] LABS: Alanine Aminotransferase 20 U/L (4-35); Albumin Level 3.1 g/dL (3.5-5.1); Alkaline Phosphatase 217 U/L (38-126); Anion Gap 9 mmol/L (8-16); Aspartate Amino Transferase 41 U/L (14-36); Bilirubin,Total 0.6 mg/dL (0.2-1.3); Blood Urea Nitrogen 20 mg/dL (7-17); Calcium 8.8 mg/dL (8.4-10.2); Carbon Dioxide 26 mmol/L (22-30); Chloride 100 mmol/L (98-107); Estimated CRCL calculation 38 ml/min; Estimated Glomerular Filt Rate 60; Glucose 136 mg/dL (65-110); Lipase 26 U/L (23-300); Potassium 3.7 mmol/L (3.4-5.0); Sodium 135 mmol/L (137-145)
[2021-05-09 17:40] LABS: Add Urine Microscopic? YES; Appearance Urine Cloudy (Clear); Bilirubin Urine Negative (Negative); Blood Urine 2+ (Negative); Color Urine Amber (Yellow); Glucose Urine UA Negative (Negative); Ketones Urine Negative (Negative); Leukocyte Esterase Ur 1+ LEU/UL (Negative); Mucus Urine Rare /lpf; Nitrate Urine Positive (Negative); Protein Urine Negative (Negative); Specific Grav Ur 1.018 (1.001-1.035); Squamous Epithelial Cell Urine Many /hpf (Few); WBC Urine 31-50 /hpf
[2021-05-09 17:42] LABS: CRP 17.5 mg/dL (<1.0)
[2021-05-09 19:12] LABS: Glucose Point of Care 151 mg/dl (65-105)
--- NOTE | 2021-05-09 21:10 | PM.IMHP ---
H&P: HPI History of Present Illness Date/Time: 05/09/21 21:10 this 80-year-old female patient who resides at home alone and has caregivers come into the home. She has 2 children that help her out. The daughter stated that she noticed that her mom had become more confused and weak over the last 2 days. The daughter states that this is the way her mom gets whenever she has a urinary tract infection. The daughter left a message for urology but states she has not had a return phone call as of yet. The patient has a history of hypertension, diabetes, dementia and diverticulosis. The patient's daughter brought her in to the emergency room today for concerns that the patient may have a UTI with her increased confusion weakness. Patient has been sleeping more often than usual. The patient went to sit in her chair yesterday and missed it and fell on the floor. The patient's daughter stated that the patient did hit her head but denied any LOC. The patient reported neck and back pain. Patient was taken off of her prophylactic antibiotics for UTI approximately 3 months ago per Urology. Her white count is 16.0. H&H is stable at 11.1 and 34.1 which is her baseline. Neutrophil percentage is 85.9. Her urine is positive for UTI. Initially the patient was started on Rocephin. Urology has been consulted. Head CT was read as cerebral atherosclerosis and chronic small-vessel ischemic changes of the cerebral white matter. Right choroidal fissure cyst, stable. No acute intracranial finding. Cervical spine CT was read as severe cervical spondylosis and minimal anterolisthesis at C4-5; no fracture or dislocation or locked facet. Chest x-ray was read as mild bibasilar infiltrate, atelectasis and/or scarring left greater than right not significantly changed compared to 05/10/2020. Cardiomegaly. Aortic calcification and tortuosity. Osteopenia. Status post cholecystectomy. Abdominal pelvis CT was read as a follow-up Sigmoid diverticulitis with multiple by diverticular abscess cavities, pericolic inflammation Diverticulosis of left and right colon Normal appendix Cardiomegaly, coronary artery atherosclerosis Hepatic cysts Status post cholecystectomy Stable 1.6 x 1.8 cm pancreatic head cyst Stable renal cystic lesions 11 mm nonspecific hypoenhancing lower pole left renal lesion Stable bilateral adrenal masses Surgery has been consulted. The patient has been changed to Zosyn for her antibiotics. Patient is being admitted to inpatient services on the date of service of 05/09/2021. Chief Complaint: Weakness lethargy and confusion PMFSH Past Medical History Medical History (Updated 05/09/21 @ 21:23 by Brooklynn Zafar NP) Afib The patient has been cardioverted x2 and has been in sinus rhythm since her last cardioversion. Anxiety Arthritis Chronic anticoagulation Depression Diabetes mellitus With peripheral neuropathy Diverticulitis DVT (deep venous thrombosis) IVC filter Endometrial cancer GI (gastrointestinal bleed) HLD (hyperlipidemia) HTN (hypertension) IBS (irritable bowel syndrome) Osteomyelitis Paroxysmal atrial fibrillation Peripheral neuropathy Psoriasis Pulmonary embolism Surgical History Surgical History H/O bilateral cataract extraction H/O: hysterectomy History of back surgery History of left hip replacement History of partial pancreatectomy History of partial splenectomy Hx of cholecystectomy Hx of tonsillectomy S/P IVC filter Family History Family History Sibling Cerebrovascular accident Mother Congestive heart failure Hypertension Diabetes mellitus Father Lung cancer Social History Social History (Updated 05/09/21 @ 21:25 by Brooklynn Zafar NP) Social History: she lives home alone. Used to smoke. At the age of 19, she smoked about half pack a cigarettes a day for year. Occasionally drinks alcohol.
[2021-05-09 21:29] LABS: Basophils Absolute Auto 0.1 K/mm3 (0.0-0.1); Basophils Percent Auto 0.5 % (0.2-1.2); Eosinophils Percent Auto 0.1 % (0-4.4); Hematocrit 33.2 % (37.0-47.0); Hemoglobin 10.7 g/dL (12.0-15.0); Immature Granulocyte Absolute 0.26 K/mm3 (0.00-0.031); Immature Granulocyte Percent A 1.7 % (0-0.5); Lymphocytes Absolute Auto 1.12 K/mm3 (0.9-3.2); Lymphocytes Percent Auto 7.4 % (18.3-44.2); Mean Corpuscular HGB Conc 32.2 g/dl (32-36); Mean Corpuscular Hemoglobin 31.1 pg (26-34); Mean Corpuscular Volume 96.5 fl (80-100); Mean Platelet Volume 9.3 fl (7.4-10.4); Monocytes Absolute Auto 1.7 K/mm3 (0.1-0.6); Monocytes Percent Auto 11.4 % (2.6-8.5); Neutrophils Absolute Auto 11.9 K/mm3 (1.3-6.7); Neutrophils Percent Auto 78.9 % (45.5-73.1); Nucleated Red Blood Cells Perc 0.1 % (0.0-0.2); Platelet Count Result 503 k/mm3 (150-375); Red Blood Count 3.44 M/mm3 (4.2-5.4); Red Cell Distribution Width 14.7 % (11.5-14.5); White Blood Count 15.1 K/mm3 (4.5-10.0)
[2021-05-09] MEDS: SODIUM CHLORIDE 0.9% IV 1,000 ML 125 ML IV CONT (21:35)
[2021-05-09] MEDS: HEPARIN SOD/D5W 100 UNITS/ML 25,000 UNITS/250 ML BAG 11 UNITS IV CONT (21:44)
[2021-05-09 21:45] LABS: INR 1.6; Partial Thromboplastin Time 34.8 SECONDS (22.3-36.8)
--- NOTE | 2021-05-09 22:13 | ADMGEN ---
This patient, Jennifer Cano, was admitted to 2 Medical Room 240-01. Patient/family oriented to hospital policies and general routines including ID bracelet, bed and alarms, visiting hours, pain management, procedures, bathroom and other care routines, personal items, smoking policy, room service/diet, and visiting hours. Information on how to activate the Rapid Response Team has been discussed. Patient/Family are encouraged to report perceived risks to care and to ask questions if they do not understand what they are told or what they should do.
[2021-05-10] MEDS: ACETAMINOPHEN 325 MG TABLET 650 MG PO (01:57)
[2021-05-10 02:09] LABS: Glucose Point of Care 158 mg/dl (65-105)
[2021-05-10 04:41] LABS: Basophils Absolute Auto 0.1 K/mm3 (0.0-0.1); Basophils Percent Auto 0.6 % (0.2-1.2); Eosinophils Absolute Auto 0.1 K/mm3 (0-0.3); Eosinophils Percent Auto 0.7 % (0-4.4); Hematocrit 30.7 % (37.0-47.0); Hemoglobin 9.9 g/dL (12.0-15.0); Immature Granulocyte Absolute 0.29 K/mm3 (0.00-0.031); Immature Granulocyte Percent A 2.3 % (0-0.5); Lymphocytes Absolute Auto 1.21 K/mm3 (0.9-3.2); Lymphocytes Percent Auto 9.8 % (18.3-44.2); Mean Corpuscular HGB Conc 32.2 g/dl (32-36); Mean Corpuscular Hemoglobin 31.9 pg (26-34); Monocytes Absolute Auto 2.1 K/mm3 (0.1-0.6); Monocytes Percent Auto 17.2 % (2.6-8.5); Neutrophils Absolute Auto 8.6 K/mm3 (1.3-6.7); Neutrophils Percent Auto 69.4 % (45.5-73.1); Platelet Count Result 441 k/mm3 (150-375); Red Cell Distribution Width 15.1 % (11.5-14.5); White Blood Count 12.4 K/mm3 (4.5-10.0)
[2021-05-10 04:56] LABS: Partial Thromboplastin Time 89.8 SECONDS (22.3-36.8)
[2021-05-10 05:15] LABS: Alanine Aminotransferase 16 U/L (4-35); Albumin Level 2.7 g/dL (3.5-5.1); Alkaline Phosphatase 171 U/L (38-126); Anion Gap 8 mmol/L (8-16); Aspartate Amino Transferase 32 U/L (14-36); Bilirubin,Total 0.5 mg/dL (0.2-1.3); Blood Urea Nitrogen 18 mg/dL (7-17); Calcium 8.4 mg/dL (8.4-10.2); Carbon Dioxide 25 mmol/L (22-30); Chloride 103 mmol/L (98-107); Estimated CRCL calculation 49 ml/min; Estimated Glomerular Filt Rate > 60; Glucose 184 mg/dL (65-110); Lactate Dehydrogenase 405 U/L (313-618); Magnesium 1.7 mg/dL (1.6-2.3); Sodium 136 mmol/L (137-145)
[2021-05-10] MEDS: SODIUM CHLORIDE 0.9% IV 1,000 ML 125 ML IV CONT ×3 (05:35→21:05)
[2021-05-10 05:37] LABS: Thyroid Stimulating Hormone Reflex 0.778 uIU/mL (0.465-4.68)
[2021-05-10 06:00] VITALS: BP 144/60; PULSE 61; RESP 20; TEMP 37.2; O2SAT 98
[2021-05-10 06:17] LABS: Glucose Point of Care 173 mg/dl (65-105)
--- NOTE | 2021-05-10 08:00 | PM.IMPN ---
Progress Note: A&P Assessment and Plan (1) Diverticulitis of intestine with abscess: Code(s): K57.80 - Diverticulitis of intestine, part unspecified, with perforation and abscess without bleeding Status: Acute Assessment and Plan: Abd/Pel CT: Sigmoid diverticulitis with multiple by diverticular abscess cavities, pericolic inflammation WBC elevated, currently 12.4 NPO IV fluids Surgery consult IV Zosyn Pending blood cultures DVT prophylaxis: Heparin Gtt (2) Sepsis: Qualifiers: Sepsis acute organ dysfunction status: unspecified Sepsis type: sepsis due to unspecified organism Qualified Code(s): A41.9 - Sepsis, unspecified organism Code(s): A41.9 - Sepsis, unspecified organism Status: Acute Assessment and Plan: Meets sepsis criteria with VS: T: 37.5C, HR: 74, RR: 27, BP: 137/64, WBC 16.0, Source of infection diverticulitis with abscess, and possible UTI Lactic acid was 2.0 Fluids: 1L LR in the ED, Current NaCl 125ml/hr IV antibiotics: Ceftriaxone in the ED changed to Zosyn Trend labs Trend VS (3) Abnormal urinalysis: Code(s): R82.90 - Unspecified abnormal findings in urine Status: Acute Assessment and Plan: Hx of freq UTI, was on a prophylactic antibiotic and taken off about 3 months ago Presents with complaints of urgency and frequency UA leo, cloudy, 2+ Ur blood, positive nitrites, Leukocyte esterase 1+, WBC 31-50 IV Zosyn Urine cultures pending Urology consulted, seen by Dr. 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: with marine oil terminal superintendent use Diabetes mellitus type: type 2 Qualified Code(s): E11.65 - Type 2 diabetes mellitus with hyperglycemia; Z79.4 - oil heaterman (current) use of insulin Code(s): E11.9 - Type 2 diabetes mellitus without complications Status: Chronic Assessment and Plan: Glucose 184 on labs this am Accu-Cheks AC and HS Sliding scale insulin Hold Lantus while NPO Adjust medications as needed (5) Afib: Qualifiers: Atrial fibrillation type: unspecified Qualified Code(s): I48.91 - Unspecified atrial fibrillation Code(s): I48.91 - Unspecified atrial fibrillation Status: Deleted Assessment and Plan: Ablations x2 in the past EKG SR in the ED Controlled on amiodarone 200mg PO Daily, and metoprolol 50mng PO daily which have been continued Eliquis is placed on hold and on heparin drip (6) Depression: Qualifiers: Depression Type: unspecified Qualified Code(s): F32.9 - Major depressive disorder, single episode, unspecified Code(s): F32.9 - Major depressive disorder, single episode, unspecified Status: Chronic Assessment and Plan: Continue home Lexapro 20mg PO daily Appears to have been increased recently Has an anxious demeanor, concerned with and made the comment that she was nosey and not ready to (7) HTN (hypertension): Qualifiers: Hypertension type: essential hypertension Qualified Code(s): I10 - Essential (primary) hypertension Code(s): I10 - Essential (primary) hypertension Status: Chronic Assessment and Plan: Current BP 144/60 Continue metoprolol and losartan from home Trend BP Adjust medications as needed (8) HLD (hyperlipidemia): Code(s): E78.5 - Hyperlipidemia, unspecified Status: Chronic Assessment and Plan: Not currently treated Will get a lipid panel in the am Consider starting patient on statin therapy (9) Chronic anticoagulation: Code(s): Z79.01 - oil heaterman (current) use of anticoagulants Status: Acute Assessment and Plan: Eliquis on hold, heparin drip currently Hx of afib and PAD Chadsvas score is a 7 Heparin drip is
--- NOTE | 2021-05-10 08:00 | P.PNIM_ITS ---
Progress Note: A&P Assessment and Plan (1) Diverticulitis of intestine with abscess: Code(s): K57.80 - Diverticulitis of intestine, part unspecified, with perforation and abscess without bleeding Status: Acute Assessment and Plan: * Abd/Pel CT: Sigmoid diverticulitis with multiple by diverticular abscess cavities, pericolic inflammation * WBC elevated, currently 12.4 * NPO * IV fluids * Surgery consult * IV Zosyn * Pending blood cultures * DVT prophylaxis: Heparin Gtt (2) Sepsis: Qualifiers: Sepsis acute organ dysfunction status: unspecified Sepsis type: sepsis due to unspecified organism Qualified Code(s): A41.9 - Sepsis, unspecified organism Code(s): A41.9 - Sepsis, unspecified organism Status: Acute Assessment and Plan: * Meets sepsis criteria with VS: T: 37.5C, HR: 74, RR: 27, BP: 137/64, WBC 16.0, Source of infection diverticulitis with abscess, and possible UTI * Lactic acid was 2.0 * Fluids: 1L LR in the ED, Current NaCl 125ml/hr * IV antibiotics: Ceftriaxone in the ED changed to Zosyn * Trend labs * Trend VS (3) Abnormal urinalysis: Code(s): R82.90 - Unspecified abnormal findings in urine Status: Acute Assessment and Plan: * Hx of freq UTI, was on a prophylactic antibiotic and taken off about 3 months ago * Presents with complaints of urgency and frequency * UA leo, cloudy, 2+ Ur blood, positive nitrites, Leukocyte esterase 1+, WBC 31-50 * IV Zosyn * Urine cultures pending * Urology consulted, seen by Dr. Hicks in the past (4) Diabetes mellitus: Qualifiers: Diabetes mellitus complication status: with hyperglycemia Diabetes mellitus senior living insulin use: with senior living use Diabetes mellitus type: type 2 Qualified Code(s): E11.65 - Type 2 diabetes mellitus with hyperglycemia; Z79.4 - churner (current) use of insulin Code(s): E11.9 - Type 2 diabetes mellitus without complications Status: Chronic Assessment and Plan: * Glucose 184 on labs this am * Accu-Cheks AC and HS * Sliding scale insulin * Hold Lantus while NPO * Adjust medications as needed (5) Afib: Qualifiers: Atrial fibrillation type: unspecified Qualified Code(s): I48.91 - Unspecified atrial fibrillation Code(s): I48.91 - Unspecified atrial fibrillation Status: Deleted Assessment and Plan: * Ablations x2 in the past * EKG SR in the ED * Controlled on amiodarone 200mg PO Daily, and metoprolol 50mng PO daily which have been continued * Eliquis is placed on hold and on heparin drip (6) Depression: Qualifiers: Depression Type: unspecified Qualified Code(s): F32.9 - Major depressive disorder, single episode, unspecified Code(s): F32.9 - Major depressive disorder, single episode, unspecified Status: Chronic Assessment and Plan: * Continue home Lexapro 20mg PO daily * Appears to have been increased recently * Has an anxious demeanor, concerned with and made the comment that she was nosey and not ready to (7) HTN (hypertension): Qualifiers: Hypertension type: essential hypertension Qualified Code(s): I10 - Essential (primary) hypertension Code(s): I10 - Essential (primary) hypertension Status: Chronic Assessment and Plan: * Current BP 144/60 * Continue metoprolol and losartan from home * Trend BP
[2021-05-10] MEDS: HYDROcodone/acetaminophen (*CRX) 5-325 MG TABLET 1 TAB PO ×2 (08:18→15:04)
--- NOTE | 2021-05-10 09:41 | PM.CNGS ---
Assessment and Plan Assessment and plan (1) Diverticulitis of intestine with abscess: Code(s): K57.80 - Diverticulitis of intestine, part unspecified, with perforation and abscess without bleeding Status: Acute Assessment and Plan: CT scan reviewed and discussed with the patient and her daughter in detail. There is evidence of sigmoid diverticulitis with multiple pericolonic abscesses, with the largest measuring nearly 5 cm in greatest dimension. She has a significant history of diverticulosis and diverticulitis in the past for many years, but has never had surgical intervention. She recently had a colonoscopy on 03/23/21 at [facility]. I have requested these records. For now, we would recommend to continue the broad-spectrum IV antibiotics, IV fluids, and analgesics as needed. Dr. Thomas is planning to speak to the Radiologist today regarding possible percutaneous drainage of the largest intraabdominal abscess. Her WBC has already come down with just IV antibiotics and her exam is benign. If they are able to do the percutaneous drainage, then we will have to also coordinate stopping her heparin drip and when to resume after the procedure. I discussed the plan with the patient's daughter as well and answered all her questions. We will continue to follow along with serial abdominal exams and labs. Thank you for allowing us to see the patient in consultation. (2) Acute UTI: Code(s): N39.0 - Urinary tract infection, site not specified Status: Acute Assessment and Plan: On IV Zosyn. Urine cx pending. Urology consulted. Management per Hospitalist/Urology. (3) Weakness: Code(s): R53.1 - Weakness Status: Acute (4) Paroxysmal atrial fibrillation: Code(s): I48.0 - Paroxysmal atrial fibrillation Status: Acute Assessment and Plan: Established patient of Dr. Garza in [place]. (5) Chronic anticoagulation: Code(s): Z79.01 - [facility] (current) use of anticoagulants Status: Acute Assessment and Plan: Eliquis on hold. Last dose reportedly yesterday morning around 8:30 am. Hospitalist has started a Heparin drip while this is held. (6) HTN (hypertension): Qualifiers: Hypertension type: essential hypertension Qualified Code(s): I10 - Essential (primary) hypertension Code(s): I10 - Essential (primary) hypertension Status: Chronic (7) HLD (hyperlipidemia): Code(s): E78.5 - Hyperlipidemia, unspecified Status: Chronic (8) Diabetes mellitus: Qualifiers: Diabetes mellitus complication status: with hyperglycemia Diabetes mellitus assisted insulin use: with assisted use Diabetes mellitus type: type 2 Qualified Code(s): E11.65 - Type 2 diabetes mellitus with hyperglycemia; Z79.4 - [facility] (current) use of insulin Code(s): E11.9 - Type 2 diabetes mellitus without complications Status: Chronic (9) Depression: Qualifiers: Depression Type: unspecified Qualified Code(s): F32.9 - Major depressive disorder, single episode, unspecified Code(s): F32.9 - Major depressive disorder, single episode, unspecified Status: Chronic (10) History of DVT (deep vein thrombosis): Code(s): Z86.718 - Personal history of other venous thrombosis and embolism Status: Acute Assessment and Plan: Significant history of DVTs and PE. This is apparently the reason for her chronic oral anticoagulation. Last DVT was in 2019 when her anticoagulation was held for a cardiac procedure, per the daughter. (11) Peripheral arterial disease: Code(s): I73.9 - Peripheral vascular disease, unspecified Status: Acute Additional Plan I have discussed the patient's case and plan of care with Dr. Thomas. I have also requested records for her most recent colonoscopy at [facility]. History of Present Illness Consult details Consult date: 05/10/21 Reason for consult: other ([place] dive
[2021-05-10] MEDS: LOSARTAN POTASSIUM 25 MG TABLET PO (10:25)
[2021-05-10] MEDS: METOPROLOL SUCCINATE EXT REL 50 MG TABCR PO (10:25)
[2021-05-10] MEDS: FERROUS SULFATE 324 MG TABLET PO ×2 (10:25→16:34)
[2021-05-10] MEDS: ESCITALOPRAM OXALATE 10 MG TABLET 20 MG PO (10:25)
[2021-05-10] MEDS: ASPIRIN 81 MG ENTERIC TABLET PO (10:25)
[2021-05-10] MEDS: MAGNESIUM OXIDE 400 MG TABLET PO (10:26)
[2021-05-10] MEDS: AMIODARONE HCL 200 MG TABLET PO (10:26)
[2021-05-10 10:29] LABS: Partial Thromboplastin Time 84.1 SECONDS (22.3-36.8)
[2021-05-10 12:22] VITALS: BMI 31.5
[2021-05-10 12:29] LABS: Glucose Point of Care 174 mg/dl (65-105)
--- NOTE | 2021-05-10 12:34 | WPDURCON ---
Assessment and Plan Assessment and plan (1) Abnormal urinalysis: Code(s): R82.90 - Unspecified abnormal findings in urine Status: Acute (2) Acute UTI: Code(s): N39.0 - Urinary tract infection, site not specified Status: Acute Assessment and Plan: Continue IV antibiotics, tailor to culure results. Start daily Trimethoprim to prevent further UTI's, when done completing antibiotic course for this current infection. Call the office to schedule a 3 month f/u with Dr. Abel. (3) Weakness: Code(s): R53.1 - Weakness Status: Acute Assessment and Plan: secondary to diverticulitis and UTI. (4) Adrenal mass: Code(s): E27.8 - Other specified disorders of adrenal gland Status: Acute Assessment and Plan: Will re-image on BA in 6 months. Stable. (5) Lesion of left ute kidney: Code(s): N28.9 - Disorder of kidney and ureter, unspecified Status: Acute Assessment and Plan: Will re-image on US in 6 months, stable. Urology Consult Note HPI Date Seen: 05/10/21 Requesting Physician: Washington Adkins MD Primary Care Provider: Lucian Xiong, Consult Narrative Narrative: Jennifer Cano is a 80 year old female who presented for weakness, confusion and a fall at home yesterday. She was seen in the ER and had a CT scan that noted a possible diverticulum abscess present and diverticulitis as well as an 11mm hypoenhancing lesion left lower pole as well as stable bilateral adrenal masses. These lesions/masses were also noted in her imaging from 2018 and were noted as stable. Her WBC was 16.0 but has since improved to 12.4 and creatinine is normal at 0.80. Her urine culture is pending but UA is suspicious for UTI. We were consulted d/t recurrent UTI's. She is a known patient of Dr. Abel's and myself who in the past was treated with antibiotic prophylaxis Trimethoprim daily to prevent UTI's. There was no known source of infection noted on her examination at the time of starting prophylaxis by Dr. Abel. She did well on those antibiotics and had no noted infections during that 3 month course. They were stopped in 11/2020 and she has had trouble with recurrent UTI's since. She denies difficulty urinating, dysuria, hematuria, frequency, urgency or incontinence. She underwent a cystoscopy in the office with Dr. Abel on 05/28/2020 which was noted as normal. 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 Diverticulitis Endometrial cancer 2008 and underwent TERRANCE-BSO GI (gastrointestinal bleed) History of pulmonary embolism HLD (hyperlipidemia) HTN (hypertension) IBS (irritable bowel syndrome) Osteomyelitis Paroxysmal atrial fibrillation Long-standing history of paroxysmal atrial fibrillation and is established with Dr. Garza in [place]. Has previously underwent Cardioversion x 2. Peripheral arterial disease Peripheral neuropathy Psoriasis Pulmonary embolism PE during the perioperative period of an abdominal hysterectomy with bilateral salpingo-oophorectomy in February 2009. Surgical History Surgical History H/O bilateral cataract extraction H/O: hysterectomy abdominal hysterectomy with bilateral salpingo-oophorectomy for endometrial cancer in 2008
[2021-05-10 13:22] LABS: Cholesterol 106 mg/dL (0-200); HDL Direct 32 mg/dL; Triglycerides 117 mg/dL (<150)
[2021-05-10 13:30] VITALS: BP 140/62; PULSE 62; RESP 16; TEMP 36.2; O2SAT 97
[2021-05-10 13:34] LABS: LDL Cholesterol Direct 51 mg/dL
[2021-05-10 20:05] VITALS: BP 147/72; PULSE 65; RESP 20; TEMP 36.4; O2SAT 93
[2021-05-10] MEDS: HEPARIN SOD/D5W 100 UNITS/ML 25,000 UNITS/250 ML BAG 11 UNITS IV CONT (20:28)
[2021-05-11 00:23] LABS: Glucose Point of Care 184 mg/dl (65-105)
[2021-05-11 03:14] VITALS: BP 147/65; PULSE 87; RESP 20; TEMP 36.5; O2SAT 92
[2021-05-11] MEDS: HYDROcodone/acetaminophen (*CRX) 5-325 MG TABLET 1 TAB PO ×2 (05:09→13:23)
[2021-05-11] MEDS: SODIUM CHLORIDE 0.9% IV 1,000 ML 125 ML IV CONT ×2 (05:38→15:49)
[2021-05-11 05:55] LABS: Basophils Absolute Auto 0.1 K/mm3 (0.0-0.1); Basophils Percent Auto 0.6 % (0.2-1.2); Eosinophils Absolute Auto 0.1 K/mm3 (0-0.3); Eosinophils Percent Auto 0.9 % (0-4.4); Hematocrit 30.5 % (37.0-47.0); Hemoglobin 10.2 g/dL (12.0-15.0); Immature Granulocyte Absolute 0.32 K/mm3 (0.00-0.031); Immature Granulocyte Percent A 2.6 % (0-0.5); Lymphocytes Absolute Auto 1.18 K/mm3 (0.9-3.2); Lymphocytes Percent Auto 9.5 % (18.3-44.2); Mean Corpuscular HGB Conc 33.4 g/dl (32-36); Mean Corpuscular Hemoglobin 31.3 pg (26-34); Mean Corpuscular Volume 93.6 fl (80-100); Mean Platelet Volume 9.8 fl (7.4-10.4); Monocytes Absolute Auto 1.9 K/mm3 (0.1-0.6); Monocytes Percent Auto 15.6 % (2.6-8.5); Neutrophils Absolute Auto 8.8 K/mm3 (1.3-6.7); Neutrophils Percent Auto 70.8 % (45.5-73.1); Nucleated Red Blood Cells Perc 0.2 % (0.0-0.2); Platelet Count Result 503 k/mm3 (150-375); Red Blood Count 3.26 M/mm3 (4.2-5.4); Red Cell Distribution Width 14.8 % (11.5-14.5); White Blood Count 12.4 K/mm3 (4.5-10.0)
[2021-05-11 05:59] LABS: Partial Thromboplastin Time 64.3 SECONDS (22.3-36.8)
[2021-05-11 06:35] LABS: Glucose Point of Care 183 mg/dl (65-105)
--- NOTE | 2021-05-11 06:53 | PC.NURSE ---
daily PTT value 64.[address] Cody notified pt having CT guided abscess placed sometime this morning. Ordered to hold bolus and continue infusion at current rate until hold time 2hr before procedure.
[2021-05-11 07:08] LABS: Alanine Aminotransferase 15 U/L (4-35); Albumin Level 2.6 g/dL (3.5-5.1); Alkaline Phosphatase 178 U/L (38-126); Anion Gap 4 mmol/L (8-16); Aspartate Amino Transferase 27 U/L (14-36); Bilirubin,Total 0.3 mg/dL (0.2-1.3); Blood Urea Nitrogen 15 mg/dL (7-17); Calcium 8.4 mg/dL (8.4-10.2); Carbon Dioxide 24 mmol/L (22-30); Chloride 108 mmol/L (98-107); Estimated CRCL calculation 49 ml/min; Estimated Glomerular Filt Rate > 60; Glucose 204 mg/dL (65-110); Magnesium 1.7 mg/dL (1.6-2.3); Potassium 4.1 mmol/L (3.4-5.0); Sodium 136 mmol/L (137-145)
[2021-05-11 07:23] LABS: INR 1.3; Prothrombin Time 16.2 Seconds (11.1-14.7)
[2021-05-11] MEDS: LOSARTAN POTASSIUM 25 MG TABLET PO (08:43)
[2021-05-11] MEDS: MAGNESIUM OXIDE 400 MG TABLET PO (08:43)
[2021-05-11] MEDS: FERROUS SULFATE 324 MG TABLET PO ×2 (08:43→16:41)
[2021-05-11] MEDS: ESCITALOPRAM OXALATE 10 MG TABLET 20 MG PO (08:43)
[2021-05-11] MEDS: METOPROLOL SUCCINATE EXT REL 50 MG TABCR PO (08:43)
[2021-05-11] MEDS: AMIODARONE HCL 200 MG TABLET PO (08:43)
--- NOTE | 2021-05-11 10:37 | P.PNIM_ITS ---
Progress Note: A&P Assessment and Plan (1) Diverticulitis of intestine with abscess: Code(s): K57.80 - Diverticulitis of intestine, part unspecified, with perforation and abscess without bleeding Status: Acute Assessment and Plan: * Abd/Pel CT: Sigmoid diverticulitis with multiple by diverticular abscess cavities, pericolic inflammation * WBC elevated, currently 12.4 * NPO for Per Drain placement today by IR * IV fluids will be discontinued once she is eating after Per Drain Place * Surgery consult and appreciate their recommendations * IV Zosyn * Blood cultures are negative to date * DVT prophylaxis: Heparin Gtt at this time, pending recommendations from IR after Per placement and Surgery (2) Sepsis: Qualifiers: Sepsis acute organ dysfunction status: unspecified Sepsis type: sepsis due to unspecified organism Qualified Code(s): A41.9 - Sepsis, unspecified organism Code(s): A41.9 - Sepsis, unspecified organism Status: Acute Assessment and Plan: * Meets sepsis criteria with VS: T: 37.5C, HR: 74, RR: 27, BP: 137/64, WBC 16.0, Source of infection diverticulitis with abscess, and possible UTI * Lactic acid was 2.0 * Fluids: 1L LR in the ED, will discontinue IV fluids once per drain is place and she is eating well * IV antibiotics: Ceftriaxone in the ED changed to Zosyn * Trend labs * Trend VS (3) Abnormal urinalysis: Code(s): R82.90 - Unspecified abnormal findings in urine Status: Acute Assessment and Plan: * Hx of freq UTI, was on a prophylactic antibiotic and taken off about 3 months ago * Presents with complaints of urgency and frequency * UA leo, cloudy, 2+ Ur blood, positive nitrites, Leukocyte esterase 1+, WBC 31-50 * IV Zosyn * Urine cultures pending- ___ * Urology consulted, who is waiting for urine culture results and recommendations (4) Diabetes mellitus: Qualifiers: Diabetes mellitus type: type 2 Diabetes mellitus snf insulin use: with snf use Diabetes mellitus complication status: with hyperglycemia Qualified Code(s): E11.65 - Type 2 diabetes mellitus with hyperglycemia; Z79.4 - MCFP (current) use of insulin Code(s): E11.9 - Type 2 diabetes mellitus without complications Status: Chronic Assessment and Plan: * Glucose 184 on labs this am * Accu-Cheks AC and HS * Sliding scale insulin * Hold Lantus while NPO * Adjust medications as needed (5) Afib: Qualifiers: Atrial fibrillation type: unspecified Qualified Code(s): I48.91 - Unspecified atrial fibrillation Code(s): I48.91 - Unspecified atrial fibrillation Status: Deleted Assessment and Plan: * Ablations x2 in the past * EKG SR in the ED * Controlled on amiodarone 200mg PO Daily, and metoprolol 50mng PO daily which have been continued * Eliquis is placed on hold and on heparin drip (6) Depression: Qualifiers: Depression Type: unspecified Qualified Code(s): F32.9 - Major depressive disorder, single episode, unspecified Code(s): F32.9 - Major depressive disorder, single episode, unspecified Status: Chronic Assessment and Plan: * Continue home Lexapro 20mg PO daily * Appears to have been increased recently * Has an anxious demeanor, concerned with and made the comment that she was nosey and not ready to (7) HTN (hypertension): Smooth
--- NOTE | 2021-05-11 10:37 | PM.IMPN ---
Progress Note: A&P Assessment and Plan (1) Diverticulitis of intestine with abscess: Code(s): K57.80 - Diverticulitis of intestine, part unspecified, with perforation and abscess without bleeding Status: Acute Assessment and Plan: Abd/Pel CT: Sigmoid diverticulitis with multiple by diverticular abscess cavities, pericolic inflammation WBC elevated, currently 12.4 NPO for Per Drain placement today by IR IV fluids will be discontinued once she is eating after Per Drain Place Surgery consult and appreciate their recommendations IV Zosyn Blood cultures are negative to date DVT prophylaxis: Heparin Gtt at this time, pending recommendations from IR after Per placement and Surgery (2) Sepsis: Qualifiers: Sepsis acute organ dysfunction status: unspecified Sepsis type: sepsis due to unspecified organism Qualified Code(s): A41.9 - Sepsis, unspecified organism Code(s): A41.9 - Sepsis, unspecified organism Status: Acute Assessment and Plan: Meets sepsis criteria with VS: T: 37.5C, HR: 74, RR: 27, BP: 137/64, WBC 16.0, Source of infection diverticulitis with abscess, and possible UTI Lactic acid was 2.0 Fluids: 1L LR in the ED, will discontinue IV fluids once per drain is place and she is eating well IV antibiotics: Ceftriaxone in the ED changed to Zosyn Trend labs Trend VS (3) Abnormal urinalysis: Code(s): R82.90 - Unspecified abnormal findings in urine Status: Acute Assessment and Plan: Hx of freq UTI, was on a prophylactic antibiotic and taken off about 3 months ago Presents with complaints of urgency and frequency UA leo, cloudy, 2+ Ur blood, positive nitrites, Leukocyte esterase 1+, WBC 31-50 IV Zosyn Urine cultures pending- ___ Urology consulted, who is waiting for urine culture results and recommendations (4) Diabetes mellitus: Qualifiers: Diabetes mellitus type: type 2 Diabetes mellitus terminal make up operator insulin use: with terminal make up operator use Diabetes mellitus complication status: with hyperglycemia Qualified Code(s): E11.65 - Type 2 diabetes mellitus with hyperglycemia; Z79.4 - manager intermediate (current) use of insulin Code(s): E11.9 - Type 2 diabetes mellitus without complications Status: Chronic Assessment and Plan: Glucose 184 on labs this am Accu-Cheks AC and HS Sliding scale insulin Hold Lantus while NPO Adjust medications as needed (5) Afib: Qualifiers: Atrial fibrillation type: unspecified Qualified Code(s): I48.91 - Unspecified atrial fibrillation Code(s): I48.91 - Unspecified atrial fibrillation Status: Deleted Assessment and Plan: Ablations x2 in the past EKG SR in the ED Controlled on amiodarone 200mg PO Daily, and metoprolol 50mng PO daily which have been continued Eliquis is placed on hold and on heparin drip (6) Depression: Qualifiers: Depression Type: unspecified Qualified Code(s): F32.9 - Major depressive disorder, single episode, unspecified Code(s): F32.9 - Major depressive disorder, single episode, unspecified Status: Chronic Assessment and Plan: Continue home Lexapro 20mg PO daily Appears to have been increased recently Has an anxious demeanor, concerned with and made the comment that she was nosey and not ready to (7) HTN (hypertension): Qualifiers: Hypertension type: essential hypertension Qualified Code(s): I10 - Essential (primary) hypertension Code(s): I10 - Essential (primary) hypertension Status: Chronic Assessment and Plan: Current BP 147/65 Continue metoprolol and losartan from home Trend BP Adjust medications as needed (8) HLD (hyperlipidemia): Code(s): E78.5 - Hyperlipidemia, unspecified Status: Chronic Assessment and Plan: Not currently treated Will get a lipid panel
[2021-05-11 11:03] VITALS: BP 139/48; PULSE 64; RESP 16; TEMP 36.7; O2SAT 94
[2021-05-11 11:35] LABS: Glucose Point of Care 202 mg/dl (65-105)
[2021-05-11 12:29] VITALS: BP 139/48; PULSE 64; RESP 16; TEMP 36.7; O2SAT 94
--- NOTE | 2021-05-11 12:55 | PCOTNOTE ---
Attempted OT evaluation, per RN patient is currently off the unit for a procedure. will follow and attempt at later time.
--- NOTE | 2021-05-11 13:40 | PCPTNOTE ---
Attempted OT evaluation, per RN patient returned from procedure, but RN stated to hold for today secondary to drowsiness post-procedure, will attempt tomorrow.
[2021-05-11 14:45] VITALS: BP 131/68; PULSE 62; RESP 18; TEMP 36.2; O2SAT 95
--- NOTE | 2021-05-11 16:42 | PM.PNGS ---
Progress Note: A&P Assessment and Plan (1) Diverticulitis of intestine with abscess: Onset Date: ~04/2021 Code(s): K57.80 - Diverticulitis of intestine, part unspecified, with perforation and abscess without bleeding Status: Acute Assessment and Plan: seems to be doing well now a couple hours status post CT-guided pelvic abscess drainage related to diverticular perforation and walled off abscess. Continue clear liquids tonight possibly advance to fulls if doing well tomorrow. If doing well by tomorrow with no signs of bleeding consider change back to Eliquis from the heparin drip since we are not planning surgical intervention on this admission. (2) Peripheral arterial disease: Code(s): I73.9 - Peripheral vascular disease, unspecified Status: Acute (3) History of DVT (deep vein thrombosis): Code(s): Z86.718 - Personal history of other venous thrombosis and embolism Status: Acute (4) Acute UTI: Code(s): N39.0 - Urinary tract infection, site not specified Status: Acute (5) Chronic anticoagulation: Code(s): Z79.01 - termite treater helper (current) use of anticoagulants Status: Acute (6) Paroxysmal atrial fibrillation: Code(s): I48.0 - Paroxysmal atrial fibrillation Status: Acute Subjective Subjective Date/Time Seen: 05/11/21 15:42 patient seen and problem discussed with her and her daughter. She was just back from her percutaneous CT guided abscess drainage. She has some lower abdominal pain with palpation but none if I am not palpating. She has had only a very small bowel movement since arriving from the hospital to the hospital. Will continue clear liquids until morning and if doing well possibly increased to full liquids. She knows she needs to get up and walk. But missed working with PT today because of her procedure. Patient's daughter is working with case management to make plans for possible 2 week rehab stay when she leaves and then she will try to have 24 hour care for her from a agency when she ventrally goes home. Review of Systems Review of Systems: All systems reviewed & are unremarkable except as noted in HPI and below Constitutional: Constitutional: Reports as per HPI, Denies chills and Denies fever(s) Cardiovascular: Cardiovascular: Denies chest pain and Denies dyspnea Respiratory: Respiratory: Reports no additional respiratory complaints and Denies dyspnea Gastrointestinal: Gastrointestinal: Reports as per HPI, Reports abdominal pain ( Only with palpation in both lower quadrants), Denies bloating, Denies heartburn, Denies nausea and Denies vomiting Musculoskeletal: Musculoskeletal: Reports no additional musculoskeletal complaints Neurologic: Denies memory loss Psychiatric: Psychiatric: Denies anxiety and Denies memory loss Exam Const: General: cooperative, comfortable, alert and awake Orientation/consciousness: patient oriented x3 HENMT: Head: normal to inspection Mouth: Yes moist mucous membranes Eyes: Sclera: sclerae normal Pupils: Equal, round and reactive pupils present Neck: Neck: normal visual inspection and no JVD Chest: Chest palpation & inspection: normal inspection of the chest Resp: Effort & Inspection: normal respiratory effort Auscultation: clear to auscultation bilaterally Cardio: Jugular venous distension: no JVD Rate: regular rate GI: Inspection: scar ( upper and lower midline scars.) GI Palp: Yes Soft to palpation, Yes Tenderness to palpation present (GI) ( bilateral lower quadrants), No Guarding due to palpation present (GI) and No Rigid due to palpation Auscultation: normal bowel sounds Other: also has a bucket handle transverse scar in the upper abdomen from a previous distal pancreatectomy with splenectomy. : OB/external & speculum: Deferred OB/external & speculum exam Neuro: General: patient oriented x3 Cranial nerves: Yes Equal, round and reactive pupils present Objective Data Vital S
[2021-05-11 16:49] LABS: Glucose Point of Care 184 mg/dl (65-105)
[2021-05-11 16:58] LABS: Partial Thromboplastin Time 26.3 SECONDS (22.3-36.8)
[2021-05-11 19:47] VITALS: BP 144/60; PULSE 64; RESP 20; TEMP 36.2; O2SAT 98
[2021-05-11] MEDS: PANTOPRAZOLE 40 MG TABLET PO (20:04)
[2021-05-11 20:16] VITALS: O2SAT 96
--- NOTE | 2021-05-11 22:25 | PM.PNGS ---
Progress Note: A&P Assessment and Plan (1) Diverticulitis of intestine with abscess: Onset Date: ~04/2021 Code(s): K57.80 - Diverticulitis of intestine, part unspecified, with perforation and abscess without bleeding Status: Acute Assessment and Plan: Now status post percutaneous drainage of a pericolonic abscess near the sigmoid. Will continue antibiotics. If no bleeding or further problems may return to use of Eliquis tomorrow. For now continue heparin drip so that it could be stopped if there was bleeding or other problems post procedure. Now plan will be to continue IV antibiotics until patient has a normal white count, tolerating a soft low residue diet and then consider switching to oral antibiotics and do a repeat he CT scan in approximately 10 days before removing the drain. ( there were multiple areas of abscesses (Small)which may or may not connect to the currently larger drained abscess ). I had a thorough discussion with the patient and her daughter. I re-emphasized the importance if the patient needs surgery for her diverticulitis she may be better cared for at a tertiary care center in view of multiple vascular problems and previous significant surgery within the abdomen. I believe left colon resection for this patient will be safe significantly difficult. Hopefully we will get this patient by the current episode of diverticulitis with percutaneous drain plus antibiotics. (2) Peripheral arterial disease: Code(s): I73.9 - Peripheral vascular disease, unspecified Status: Acute (3) History of DVT (deep vein thrombosis): Code(s): Z86.718 - Personal history of other venous thrombosis and embolism Status: Acute Assessment and Plan: I discussed with the pt and daughter that her doppler US showed no DVT inher legs now so we would use SCD hose to try to prevent a repeat incident of this. (4) Acute UTI: Onset Date: ~05/09/21 Code(s): N39.0 - Urinary tract infection, site not specified Status: Acute Assessment and Plan: on antibiotics and appreciate Urology input. (5) Diverticulitis large intestine: Qualifiers: Diverticulitis bleeding: without bleeding Diverticulitis complication: with abscess Qualified Code(s): K57.20 - Diverticulitis of large intestine with perforation and abscess without bleeding Code(s): K57.32 - Diverticulitis of large intestine without perforation or abscess without bleeding Status: Acute Assessment and Plan: as above (6) Pulmonary embolism: Code(s): I26.99 - Other pulmonary embolism without acute cor pulmonale Status: Acute (7) Diabetes mellitus: Qualifiers: Diabetes mellitus type: type 2 Diabetes mellitus senior care insulin use: with exterminator helper use Diabetes mellitus complication status: with hyperglycemia Qualified Code(s): E11.65 - Type 2 diabetes mellitus with hyperglycemia; Z79.4 - termite control service representative (current) use of insulin Code(s): E11.9 - Type 2 diabetes mellitus without complications Status: Chronic (8) Paroxysmal atrial fibrillation: Code(s): I48.0 - Paroxysmal atrial fibrillation Status: Acute Subjective Subjective Date/Time Seen: 05/11/21 15:25 Patient seen just after percutaneous CT-guided drainage a pericolonic abscess near the sigmoid colon secondary to diverticulitis. She seems to be doing okay. She denies abdominal pain while just lying in bed. I informed the patient and her daughter we would consider putting her back on Eliquis tomorrow if everything is going well. Also Doppler studies of the legs are negative so we are putting SCD hose on try to help prevent a repeat DVT which she has had in the past. Answered the daughter's questions about further care. I re-emphasized the importance if the patient needs surgery for her diverticulitis she may be better cared for at a tertiary care center view of multiple vascular proble
[2021-05-11 22:57] LABS: Partial Thromboplastin Time 96.9 SECONDS (22.3-36.8)
[2021-05-11] MEDS: HEPARIN SOD/D5W 100 UNITS/ML 25,000 UNITS/250 ML BAG 11 UNITS IV CONT (23:06)
[2021-05-12] LABS: Glucose Point of Care 195 mg/dl (65-105)
[2021-05-12] MEDS: HEPARIN SOD/D5W 100 UNITS/ML 25,000 UNITS/250 ML BAG 11 UNITS IV CONT (03:08)
[2021-05-12 03:20] VITALS: BP 152/72; PULSE 76; RESP 20; TEMP 36.3; O2SAT 95
[2021-05-12] MEDS: HYDROcodone/acetaminophen (*CRX) 5-325 MG TABLET 1 TAB PO (03:26)
[2021-05-12 05:45] LABS: Basophils Absolute Auto 0.1 K/mm3 (0.0-0.1); Basophils Percent Auto 0.6 % (0.2-1.2); Eosinophils Absolute Auto 0.1 K/mm3 (0-0.3); Eosinophils Percent Auto 1.1 % (0-4.4); Hematocrit 29.6 % (37.0-47.0); Hemoglobin 9.6 g/dL (12.0-15.0); Immature Granulocyte Absolute 0.64 K/mm3 (0.00-0.031); Immature Granulocyte Percent A 5.3 % (0-0.5); Lymphocytes Absolute Auto 1.19 K/mm3 (0.9-3.2); Lymphocytes Percent Auto 9.8 % (18.3-44.2); Mean Corpuscular HGB Conc 32.4 g/dl (32-36); Mean Corpuscular Hemoglobin 31.4 pg (26-34); Mean Corpuscular Volume 96.7 fl (80-100); Mean Platelet Volume 9.6 fl (7.4-10.4); Monocytes Absolute Auto 1.4 K/mm3 (0.1-0.6); Monocytes Percent Auto 11.6 % (2.6-8.5); Neutrophils Absolute Auto 8.7 K/mm3 (1.3-6.7); Neutrophils Percent Auto 71.6 % (45.5-73.1); Nucleated Red Blood Cells Perc 0.2 % (0.0-0.2); Platelet Count Result 448 k/mm3 (150-375); Red Blood Count 3.06 M/mm3 (4.2-5.4); Red Cell Distribution Width 15.1 % (11.5-14.5); White Blood Count 12.1 K/mm3 (4.5-10.0)
[2021-05-12 05:51] LABS: Alanine Aminotransferase 15 U/L (4-35); Albumin Level 2.7 g/dL (3.5-5.1); Alkaline Phosphatase 182 U/L (38-126); Anion Gap 8 mmol/L (8-16); Aspartate Amino Transferase 24 U/L (14-36); Bilirubin,Total 0.4 mg/dL (0.2-1.3); Blood Urea Nitrogen 13 mg/dL (7-17); Calcium 8.4 mg/dL (8.4-10.2); Carbon Dioxide 24 mmol/L (22-30); Chloride 103 mmol/L (98-107); Estimated CRCL calculation 49 ml/min; Estimated Glomerular Filt Rate > 60; Glucose 215 mg/dL (65-110); Potassium 3.8 mmol/L (3.4-5.0); Sodium 135 mmol/L (137-145)
[2021-05-12 05:53] LABS: Partial Thromboplastin Time 63.8 SECONDS (22.3-36.8)
[2021-05-12] MEDS: HEPARIN SODIUM 5,000 UNITS/ML VIAL 2500 UNITS IV PUSH (07:10)
[2021-05-12 07:29] LABS: Glucose Point of Care 193 mg/dl (65-105)
[2021-05-12 07:37] LABS: Glucose Point of Care 188 mg/dl (65-105)
[2021-05-12 07:42] LABS: Magnesium 1.6 mg/dL (1.6-2.3)
[2021-05-12] MEDS: ASPIRIN 81 MG ENTERIC TABLET PO (08:47)
[2021-05-12] MEDS: PANTOPRAZOLE 40 MG TABLET PO ×2 (08:47→21:25)
[2021-05-12 08:48] VITALS: PULSE 65
[2021-05-12] MEDS: LOSARTAN POTASSIUM 25 MG TABLET PO (08:48)
[2021-05-12] MEDS: FERROUS SULFATE 324 MG TABLET PO ×2 (08:48→18:10)
[2021-05-12] MEDS: MAGNESIUM OXIDE 400 MG TABLET PO (08:48)
[2021-05-12] MEDS: METOPROLOL SUCCINATE EXT REL 50 MG TABCR PO (08:48)
[2021-05-12] MEDS: ESCITALOPRAM OXALATE 10 MG TABLET 20 MG PO (08:48)
[2021-05-12 08:49] VITALS: PULSE 65
[2021-05-12] MEDS: AMIODARONE HCL 200 MG TABLET PO (08:49)
[2021-05-12] MEDS: MORPHINE SULFATE (*CRX) 2 MG/ML INJ IV PUSH (09:20)
--- NOTE | 2021-05-12 10:15 | PCNFU ---
Nutrition Follow-Up Complete: Altered GI function as related to Diverticulitis as evidenced by NPO Goal; Adequate Intake of at least 75% of meals/supplements of meals Progressing towards goal. We will continue current goal. Pt current nutrition is full liquids. Nutrition Recommendations: Glucerna shakes BID. Awaiting call back on orders. Last recorded weight is 80.8 kg, no new weight to report. Bowel Motility:+BM reported 05/10 Labs Reviewed:Glu 215, Na 135, Alb 2.7,Hgb 9.6,Hct 29.6 Meds Noted:Protonix, Morphine Sulfate, Zosyn, Protonix, Mag-ox, , Lexapro, Pacerone, Heparin. Additional Notes: Nutrition follow up. Patient seen today for nutrition teaching low fiber diet. Patient tolerated clear liquids for breakfast, plans for full liquids at lunch. All info given for low fiber diet education. Thank you for the consult. Monitoring: Will monitor every 5 days.
--- NOTE | 2021-05-12 10:24 | PCOTNOTE ---
Attempted OT evaluation this AM. Patient declined any/all activity due to being too tired. Stating, I haven't gotten any rest today. Educated the patient on the benefits and importance of activity, however she continued to decline. Will continue to attempt.
[2021-05-12 11:14] LABS: Glucose Point of Care 225 mg/dl (65-105)
[2021-05-12] MEDS: INSULIN ASPART (*BKC) 100 UNITS/ML SUB-Q ×2 (11:56→18:10)
--- NOTE | 2021-05-12 12:20 | P.PNIM_ITS ---
Progress Note: A&P Assessment and Plan (1) Diverticulitis of intestine with abscess: Onset Date: ~04/2021 Code(s): K57.80 - Diverticulitis of intestine, part unspecified, with perforation and abscess without bleeding Status: Acute Assessment and Plan: * Abd/Pel CT: Sigmoid diverticulitis with multiple by diverticular abscess cavities, pericolic inflammation * Perc Drain placement 05/11 by IR with 3 mL opaque, brown, foul-smelling fluid was sent for aerobic and anaerobic cultures. * IV fluids discontinued since she is eating well. * Surgery consult and appreciate their recommendations * IV Zosyn * Abscess Cultures sent and pending * Blood cultures are negative to date * DVT prophylaxis: Heparin Gtt at this time, Surgery monitoring and will recommend when to change back to Eliquis (2) Sepsis: Qualifiers: Sepsis acute organ dysfunction status: unspecified Sepsis type: sepsis due to unspecified organism Qualified Code(s): A41.9 - Sepsis, unspecified organism Code(s): A41.9 - Sepsis, unspecified organism Status: Acute Assessment and Plan: * Meets sepsis criteria with VS: T: 37.5C, HR: 74, RR: 27, BP: 137/64, WBC 16.0, Source of infection diverticulitis with abscess, and possible UTI * Lactic acid was 2.0 * Fluids: 1L LR in the ED, will discontinue IV fluids * IV antibiotics: Ceftriaxone in the ED changed to Zosyn #4 * Trend labs * Trend VS (3) Abnormal urinalysis: Code(s): R82.90 - Unspecified abnormal findings in urine Status: Acute Assessment and Plan: * Hx of freq UTI, was on a prophylactic antibiotic and taken off about 3 months ago * Presents with complaints of urgency and frequency * UA leo, cloudy, 2+ Ur blood, positive nitrites, Leukocyte esterase 1+, WBC 31-50 * IV Zosyn * Urine cultures growing E. coli with sensitivity to Zosyn * Urology consulted who recommends deescalating abx once possible. (4) Diabetes mellitus: Qualifiers: Diabetes mellitus type: type 2 Diabetes mellitus prison insulin use: with roasterman use Diabetes mellitus complication status: with hyperglycemia Qualified Code(s): E11.65 - Type 2 diabetes mellitus with hyperglycemia; Z79.4 - longterm (current) use of insulin Code(s): E11.9 - Type 2 diabetes mellitus without complications Status: Chronic Assessment and Plan: * Glucose 215 on labs this am * Accu-Cheks AC and HS * Sliding scale insulin * Hold Lantus while NPO * Adjust medications as needed (5) Afib: Qualifiers: Atrial fibrillation type: unspecified Qualified Code(s): I48.91 - Unspecified atrial fibrillation Code(s): I48.91 - Unspecified atrial fibrillation Status: Deleted Assessment and Plan: * Ablations x2 in the past * EKG SR in the ED * Controlled on amiodarone 200mg PO Daily, and metoprolol 50mng PO daily which have been continued * Eliquis is placed on hold and on heparin drip (6) Depression: Qualifiers: Depression Type: unspecified Qualified Code(s): F32.9 - Major depressive disorder, single episode, unspecified Code(s): F32.9 - Major depressive disorder, single episode, unspecified Status: Chronic Assessment and Plan: * Continue home Lexapro 20mg PO daily * Appears to have been increased recently * Has an anxious demeanor, concerned with and made the comment that she was nosey and not ready to
--- NOTE | 2021-05-12 12:20 | PM.IMPN ---
Progress Note: A&P Assessment and Plan (1) Diverticulitis of intestine with abscess: Onset Date: ~04/2021 Code(s): K57.80 - Diverticulitis of intestine, part unspecified, with perforation and abscess without bleeding Status: Acute Assessment and Plan: Abd/Pel CT: Sigmoid diverticulitis with multiple by diverticular abscess cavities, pericolic inflammation Perc Drain placement 05/11 by IR with 3 mL opaque, brown, foul-smelling fluid was sent for aerobic and anaerobic cultures. IV fluids discontinued since she is eating well. Surgery consult and appreciate their recommendations IV Zosyn Abscess Cultures sent and pending Blood cultures are negative to date DVT prophylaxis: Heparin Gtt at this time, Surgery monitoring and will recommend when to change back to Eliquis (2) Sepsis: Qualifiers: Sepsis acute organ dysfunction status: unspecified Sepsis type: sepsis due to unspecified organism Qualified Code(s): A41.9 - Sepsis, unspecified organism Code(s): A41.9 - Sepsis, unspecified organism Status: Acute Assessment and Plan: Meets sepsis criteria with VS: T: 37.5C, HR: 74, RR: 27, BP: 137/64, WBC 16.0, Source of infection diverticulitis with abscess, and possible UTI Lactic acid was 2.0 Fluids: 1L LR in the ED, will discontinue IV fluids IV antibiotics: Ceftriaxone in the ED changed to Zosyn #4 Trend labs Trend VS (3) Abnormal urinalysis: Code(s): R82.90 - Unspecified abnormal findings in urine Status: Acute Assessment and Plan: Hx of freq UTI, was on a prophylactic antibiotic and taken off about 3 months ago Presents with complaints of urgency and frequency UA leo, cloudy, 2+ Ur blood, positive nitrites, Leukocyte esterase 1+, WBC 31-50 IV Zosyn Urine cultures growing E. coli with sensitivity to Zosyn Urology consulted who recommends deescalating abx once possible. (4) Diabetes mellitus: Qualifiers: Diabetes mellitus type: type 2 Diabetes mellitus longterm insulin use: with intermediate card tender use Diabetes mellitus complication status: with hyperglycemia Qualified Code(s): E11.65 - Type 2 diabetes mellitus with hyperglycemia; Z79.4 - [facility] (current) use of insulin Code(s): E11.9 - Type 2 diabetes mellitus without complications Status: Chronic Assessment and Plan: Glucose 215 on labs this am Accu-Cheks AC and HS Sliding scale insulin Hold Lantus while NPO Adjust medications as needed (5) Afib: Qualifiers: Atrial fibrillation type: unspecified Qualified Code(s): I48.91 - Unspecified atrial fibrillation Code(s): I48.91 - Unspecified atrial fibrillation Status: Deleted Assessment and Plan: Ablations x2 in the past EKG SR in the ED Controlled on amiodarone 200mg PO Daily, and metoprolol 50mng PO daily which have been continued Eliquis is placed on hold and on heparin drip (6) Depression: Qualifiers: Depression Type: unspecified Qualified Code(s): F32.9 - Major depressive disorder, single episode, unspecified Code(s): F32.9 - Major depressive disorder, single episode, unspecified Status: Chronic Assessment and Plan: Continue home Lexapro 20mg PO daily Appears to have been increased recently Has an anxious demeanor, concerned with and made the comment that she was nosey and not ready to (7) HTN (hypertension): Qualifiers: Hypertension type: essential hypertension Qualified Code(s): I10 - Essential (primary) hypertension Code(s): I10 - Essential (primary) hypertension Status: Chronic Assessment and Plan: Current BP 152/72 Continue metoprolol and losartan from home Trend BP Adjust medications as needed (8) HLD (hyperlipidemia): Code(s): E78.5 - Hyperlipidemia, unspecified Status: Chronic A
--- NOTE | 2021-05-12 13:05 | PM.PNGS ---
Progress Note: A&P Assessment and Plan (1) Diverticulitis of intestine with abscess: Onset Date: ~04/2021 Code(s): K57.80 - Diverticulitis of intestine, part unspecified, with perforation and abscess without bleeding Status: Acute Assessment and Plan: S/p percutaneous drainage of pericolonic abscess near sigmoid colon on 05/11/21. Cultures pending. There are multiple abscesses noted that may or may not be connected to this fluid collection. Will advance to a full liquid diet. Consulted dietitian for education on low vs high fiber diet. Continue to monitor perc drain output. Continue IV antibiotics. Repeat labs are ordered for tomorrow. Plan as above, and will plan on switching to oral antibiotics eventually as she progresses. Will likely plan a CT scan in 10 days before removing the drain. (2) Peripheral arterial disease: Code(s): I73.9 - Peripheral vascular disease, unspecified Status: Acute (3) History of DVT (deep vein thrombosis): Code(s): Z86.718 - Personal history of other venous thrombosis and embolism Status: Acute Assessment and Plan: Lower ext dopplers showed no DVT, SCDs ordered yesterday. Still on Heparin drip. (4) Acute UTI: Onset Date: ~05/09/21 Code(s): N39.0 - Urinary tract infection, site not specified Status: Acute Assessment and Plan: on antibiotics and appreciate Urology input. (5) Pulmonary embolism: Code(s): I26.99 - Other pulmonary embolism without acute cor pulmonale Status: Acute (6) Diabetes mellitus: Qualifiers: Diabetes mellitus type: type 2 Diabetes mellitus [facility] insulin use: with middle or intermediate school principal use Diabetes mellitus complication status: with hyperglycemia Qualified Code(s): E11.65 - Type 2 diabetes mellitus with hyperglycemia; Z79.4 - termination clerk (current) use of insulin Code(s): E11.9 - Type 2 diabetes mellitus without complications Status: Chronic (7) Paroxysmal atrial fibrillation: Code(s): I48.0 - Paroxysmal atrial fibrillation Status: Acute Additional Plan I have discussed the patient's case and plan of care with Dr. Thomas. Subjective Subjective Date/Time Seen: 05/12/21 10:05 Patient reports: no new complaints, feels better, pain is less, tolerating liquids well, flatus and afebrile Interval history: The patient was seen and examined. She reports feeling that her lower abdominal pain has improved. She denies any abdominal pain at this time, other than the slight discomfort near the percutaneous drain. No nausea or vomitnig. She is eager to try and advance her diet from the clear liquids. Reports lots of flatus today but no BM yet this morning. She last had a small loose BM yesterday evening. Review of Systems Review of Systems: All systems reviewed & are unremarkable except as noted in HPI and below Exam Const: General: comfortable, no acute distress, alert and awake Orientation/consciousness: patient oriented x3 GI: Inspection: non-distended GI Palp: Yes Soft to palpation, Yes Tenderness to palpation present (GI) (Still some tenderness in the lower abdomen and near perc drain), No Guarding due to palpation present (GI) and No Rebound tenderness present Auscultation: normal bowel sounds Other: Percutaneous drain in LLQ with menjivar/red purulent drainage in the bag. Neuro: General: moves all extremities and no focal motor deficits Extrem: General: normal to inspection Psych: Mental Status: mental status grossly normal Insight: Good insight present (Psych) Judgement: Good judgement present (Psych) Objective Data Vital Signs Vital Signs: Vital Signs - 24 hr 05/11/21 14:45 05/11/21 19:47 05/11/21 20:16 Temperature 97.2 F L 97.2 F L Pulse Rate 62 64 Respiratory Rate 18 20 Blood Pressure 131/68 144/60 H Pulse Oximetry 95 98 96 05/12/21 03:20 05/12/21 08:48 05/12/21 08:49 Temperature 97.3 F L Pulse Rate 76 65 65 Respiratory Rate 2
[2021-05-12 13:26] LABS: Partial Thromboplastin Time 91.5 SECONDS (22.3-36.8)
[2021-05-12 13:35] VITALS: BP 132/61; PULSE 66; RESP 14; TEMP 36.5; O2SAT 97
[2021-05-12 16:32] LABS: Glucose Point of Care 275 mg/dl (65-105)
[2021-05-12 19:50] VITALS: BP 147/61; PULSE 62; RESP 20; TEMP 36.3; O2SAT 98
[2021-05-12 19:53] LABS: Partial Thromboplastin Time 75.1 SECONDS (22.3-36.8)
[2021-05-13] MEDS: HEPARIN SOD/D5W 100 UNITS/ML 25,000 UNITS/250 ML BAG 12 UNITS IV CONT (00:07)
[2021-05-13] MEDS: HYDROcodone/acetaminophen (*CRX) 5-325 MG TABLET 1 TAB PO ×2 (00:11→14:18)
[2021-05-13] MEDS: INSULIN ASPART (*BKC) 100 UNITS/ML SUB-Q ×4 (00:15→16:45)
[2021-05-13 01:13] LABS: Glucose Point of Care 265 mg/dl (65-105)
[2021-05-13 03:09] VITALS: BP 113/56; PULSE 60; RESP 20; TEMP 36.1; O2SAT 97
[2021-05-13 05:13] LABS: Hematocrit 28.9 % (37.0-47.0); Hemoglobin 9.4 g/dL (12.0-15.0); Mean Corpuscular HGB Conc 32.5 g/dl (32-36); Mean Corpuscular Hemoglobin 30.4 pg (26-34); Mean Corpuscular Volume 93.5 fl (80-100); Mean Platelet Volume 9.8 fl (7.4-10.4); Platelet Count Result 484 k/mm3 (150-375); Red Blood Count 3.09 M/mm3 (4.2-5.4); White Blood Count 12.9 K/mm3 (4.5-10.0)
[2021-05-13 05:24] LABS: Anion Gap 6 mmol/L (8-16); Blood Urea Nitrogen 10 mg/dL (7-17); Calcium 8.8 mg/dL (8.4-10.2); Carbon Dioxide 26 mmol/L (22-30); Chloride 103 mmol/L (98-107); Estimated CRCL calculation 49 ml/min; Estimated Glomerular Filt Rate > 60; Glucose 265 mg/dL (65-110); Magnesium 1.7 mg/dL (1.6-2.3); Potassium 3.6 mmol/L (3.4-5.0); Sodium 135 mmol/L (137-145)
[2021-05-13 05:35] LABS: Partial Thromboplastin Time 109.3 SECONDS (22.3-36.8)
[2021-05-13 07:55] LABS: Glucose Point of Care 235 mg/dl (65-105)
[2021-05-13] MEDS: FERROUS SULFATE 324 MG TABLET PO ×2 (08:07→16:48)
[2021-05-13] MEDS: LOSARTAN POTASSIUM 25 MG TABLET PO (08:07)
[2021-05-13] MEDS: ESCITALOPRAM OXALATE 10 MG TABLET 20 MG PO (08:07)
[2021-05-13] MEDS: ASPIRIN 81 MG ENTERIC TABLET PO (08:07)
[2021-05-13 08:08] VITALS: PULSE 60
[2021-05-13] MEDS: AMIODARONE HCL 200 MG TABLET PO (08:08)
[2021-05-13] MEDS: MAGNESIUM OXIDE 400 MG TABLET PO (08:08)
[2021-05-13] MEDS: METOPROLOL SUCCINATE EXT REL 50 MG TABCR PO (08:08)
[2021-05-13] MEDS: PANTOPRAZOLE 40 MG TABLET PO ×2 (08:08→20:20)
[2021-05-13 08:09] LABS: Glucose Point of Care 225 mg/dl (65-105)
[2021-05-13] MEDS: APIXABAN 5 MG TABLET PO ×2 (08:50→20:21)
--- NOTE | 2021-05-13 09:54 | P.PNIM_ITS ---
Progress Note: A&P Assessment and Plan (1) Diverticulitis of intestine with abscess: Onset Date: ~04/2021 Code(s): K57.80 - Diverticulitis of intestine, part unspecified, with perforation and abscess without bleeding Status: Acute Assessment and Plan: * Abd/Pel CT: Sigmoid diverticulitis with multiple by diverticular abscess cavities, pericolic inflammation * Perc Drain placement 05/11 by IR with 3 mL opaque, brown, foul-smelling fluid was sent for aerobic and anaerobic cultures. * IV fluids discontinued since she is eating well. * Surgery consult and appreciate their recommendations * IV Zosyn continued at this time. * Abscess Cultures sent and growing mixed reynaldo * Blood cultures are negative to date * DVT prophylaxis:Discontinued IV Heparin and restarted Eliquis (2) Sepsis: Qualifiers: Sepsis acute organ dysfunction status: unspecified Sepsis type: sepsis due to unspecified organism Qualified Code(s): A41.9 - Sepsis, unspecified organism Code(s): A41.9 - Sepsis, unspecified organism Status: Acute Assessment and Plan: * Meets sepsis criteria with VS: T: 37.5C, HR: 74, RR: 27, BP: 137/64, WBC 16.0, Source of infection diverticulitis with abscess, and possible UTI * Lactic acid was 2.0 * Fluids: 1L LR in the ED * IV antibiotics: Ceftriaxone in the ED changed to Zosyn #5 * Trend labs * Trend VS (3) Abnormal urinalysis: Code(s): R82.90 - Unspecified abnormal findings in urine Status: Acute Assessment and Plan: * Hx of freq UTI, was on a prophylactic antibiotic and taken off about 3 months ago * Presents with complaints of urgency and frequency * UA leo, cloudy, 2+ Ur blood, positive nitrites, Leukocyte esterase 1+, WBC 31-50 * IV Zosyn * Urine cultures growing E. coli with sensitivity to Zosyn #5 * Urology consulted who recommends deescalating abx once possible. (4) Diabetes mellitus: Qualifiers: Diabetes mellitus complication status: with hyperglycemia Diabetes mellitus terminal operations supervisor insulin use: with fpc use Diabetes mellitus type: type 2 Qualified Code(s): E11.65 - Type 2 diabetes mellitus with hyperglycemia; Z79.4 - nursing home (current) use of insulin Code(s): E11.9 - Type 2 diabetes mellitus without complications Status: Chronic Assessment and Plan: * Glucose 265 on labs this am * Accu-Cheks AC and HS * Sliding scale insulin * Will restart Lantus * Adjust medications as needed (5) Afib: Qualifiers: Atrial fibrillation type: unspecified Qualified Code(s): I48.91 - Unspecified atrial fibrillation Code(s): I48.91 - Unspecified atrial fibrillation Status: Deleted Assessment and Plan: * Ablations x2 in the past * EKG SR in the ED * Controlled on amiodarone 200mg PO Daily, and metoprolol 50mg PO daily which have been continued * Eliquis is placed on hold and on heparin drip (6) Depression: Qualifiers: Depression Type: unspecified Qualified Code(s): F32.9 - Major depressive disorder, single episode, unspecified Code(s): F32.9 - Major depressive disorder, single episode, unspecified Status: Chronic Assessment and Plan: * Continue home Lexapro 20mg PO daily * Appears to have been increased recently * Has an anxious demeanor, concerned with and made the comment that she was nosey and not ready to (7) HTN (hypertension):
--- NOTE | 2021-05-13 09:54 | PM.IMPN ---
Progress Note: A&P Assessment and Plan (1) Diverticulitis of intestine with abscess: Onset Date: ~04/2021 Code(s): K57.80 - Diverticulitis of intestine, part unspecified, with perforation and abscess without bleeding Status: Acute Assessment and Plan: Abd/Pel CT: Sigmoid diverticulitis with multiple by diverticular abscess cavities, pericolic inflammation Perc Drain placement 05/11 by IR with 3 mL opaque, brown, foul-smelling fluid was sent for aerobic and anaerobic cultures. IV fluids discontinued since she is eating well. Surgery consult and appreciate their recommendations IV Zosyn continued at this time. Abscess Cultures sent and growing mixed reynaldo Blood cultures are negative to date DVT prophylaxis:Discontinued IV Heparin and restarted Eliquis (2) Sepsis: Qualifiers: Sepsis acute organ dysfunction status: unspecified Sepsis type: sepsis due to unspecified organism Qualified Code(s): A41.9 - Sepsis, unspecified organism Code(s): A41.9 - Sepsis, unspecified organism Status: Acute Assessment and Plan: Meets sepsis criteria with VS: T: 37.5C, HR: 74, RR: 27, BP: 137/64, WBC 16.0, Source of infection diverticulitis with abscess, and possible UTI Lactic acid was 2.0 Fluids: 1L LR in the ED IV antibiotics: Ceftriaxone in the ED changed to Zosyn #5 Trend labs Trend VS (3) Abnormal urinalysis: Code(s): R82.90 - Unspecified abnormal findings in urine Status: Acute Assessment and Plan: Hx of freq UTI, was on a prophylactic antibiotic and taken off about 3 months ago Presents with complaints of urgency and frequency UA leo, cloudy, 2+ Ur blood, positive nitrites, Leukocyte esterase 1+, WBC 31-50 IV Zosyn Urine cultures growing E. coli with sensitivity to Zosyn #5 Urology consulted who recommends deescalating abx once possible. (4) Diabetes mellitus: Qualifiers: Diabetes mellitus complication status: with hyperglycemia Diabetes mellitus assisted insulin use: with assisted use Diabetes mellitus type: type 2 Qualified Code(s): E11.65 - Type 2 diabetes mellitus with hyperglycemia; Z79.4 - [facility] (current) use of insulin Code(s): E11.9 - Type 2 diabetes mellitus without complications Status: Chronic Assessment and Plan: Glucose 265 on labs this am Accu-Cheks AC and HS Sliding scale insulin Will restart Lantus Adjust medications as needed (5) Afib: Qualifiers: Atrial fibrillation type: unspecified Qualified Code(s): I48.91 - Unspecified atrial fibrillation Code(s): I48.91 - Unspecified atrial fibrillation Status: Deleted Assessment and Plan: Ablations x2 in the past EKG SR in the ED Controlled on amiodarone 200mg PO Daily, and metoprolol 50mg PO daily which have been continued Eliquis is placed on hold and on heparin drip (6) Depression: Qualifiers: Depression Type: unspecified Qualified Code(s): F32.9 - Major depressive disorder, single episode, unspecified Code(s): F32.9 - Major depressive disorder, single episode, unspecified Status: Chronic Assessment and Plan: Continue home Lexapro 20mg PO daily Appears to have been increased recently Has an anxious demeanor, concerned with and made the comment that she was nosey and not ready to (7) HTN (hypertension): Qualifiers: Hypertension type: essential hypertension Qualified Code(s): I10 - Essential (primary) hypertension Code(s): I10 - Essential (primary) hypertension Status: Chronic Assessment and Plan: Current BP 130/69 Continue metoprolol and losartan from home Trend BP Adjust medications as needed (8) HLD (hyperlipidemia): Code(s): E78.5 - Hyperlipidemia, unspecified Status: Chronic Assessment and Plan: Not currently treated
--- NOTE | 2021-05-13 10:48 | PCOTNOTE ---
Attempted to see patient for skilled OT session this AM. Patient asleep upon entry, but aroused easily with start of conversation. Patient states of 3/10 pain in the low abdomen and then drifts back to sleep, needing rub of arm to wake back up. Patient declines participation in OT session at this time stating, I didn't sleep well last night, that's why I'm so tired. Can you come back later? Will attempt to see patient a second time this date if able. Will continue OT per POC.
[2021-05-13 11:48] LABS: Glucose Point of Care 291 mg/dl (65-105)
[2021-05-13 13:30] VITALS: BP 142/66; PULSE 61; RESP 18; TEMP 36.3; O2SAT 98
--- NOTE | 2021-05-13 13:59 | PM.PNGS ---
Progress Note: A&P Assessment and Plan (1) Diverticulitis of intestine with abscess: Onset Date: ~04/2021 Code(s): K57.80 - Diverticulitis of intestine, part unspecified, with perforation and abscess without bleeding Status: Acute Assessment and Plan: S/p percutaneous drainage of pericolonic abscess near sigmoid colon on 05/11/21. Awaiting cx results. There are multiple smaller fluid collection seen on CT that may or may not be connected to this fluid collection. WBC remains about the same, she is afebrile. Pain seems to be improving. Blood cx growing clostridium species, final results pending. Abscess cx showing growth of E.coli, final results pending. Urine cx + E.coli. Continue broad-spectrum IV antibiotics. Will advance to a low fiber diet. Continue to monitor perc drain. Dr. Thomas plans to repeat a CT scan as an outpatient in about 10 days prior to removing the drain. (2) Peripheral arterial disease: Code(s): I73.9 - Peripheral vascular disease, unspecified Status: Acute (3) History of DVT (deep vein thrombosis): Code(s): Z86.718 - Personal history of other venous thrombosis and embolism Status: Acute Assessment and Plan: Eliquis restarted and Heparin drip now off. (4) Acute UTI: Onset Date: ~05/09/21 Code(s): N39.0 - Urinary tract infection, site not specified Status: Acute Assessment and Plan: Urine cx +E.coli. Urology consulted and recommendations noted. (5) Pulmonary embolism: Code(s): I26.99 - Other pulmonary embolism without acute cor pulmonale Status: Acute (6) Diabetes mellitus: Qualifiers: Diabetes mellitus type: type 2 Diabetes mellitus ferry terminal supervisor insulin use: with senior living use Diabetes mellitus complication status: with hyperglycemia Qualified Code(s): E11.65 - Type 2 diabetes mellitus with hyperglycemia; Z79.4 - group home (current) use of insulin Code(s): E11.9 - Type 2 diabetes mellitus without complications Status: Chronic (7) Paroxysmal atrial fibrillation: Code(s): I48.0 - Paroxysmal atrial fibrillation Status: Acute Additional Plan I have discussed the patient's case and plan of care with Dr. Thomas. Encouraged her to walk the halls a few times today. She is feeling weak and concerned about returning home where she lives alone. PT/OT following. Subjective Subjective Date/Time Seen: 05/13/21 12:59 Patient reports: no new complaints, tolerating liquids well (full liquids), flatus, no bowel movement (today) and afebrile Interval history: Patient seen and examined. She is currently resting comfortably in bed without any abdominal pain. She reports that she has had intermittent lower abdominal pain that comes and goes. She feels it is worst when she passes gas or has a BM. Reports lots of flatus today but last BM was a few small liquid stools yesterday. Tolerating full liquids. No nausea or vomiting. Perc drain with 50 cc recorded output yesterday. No acute events overnight. Review of Systems Review of Systems: All systems reviewed & are unremarkable except as noted in HPI and below Cardiovascular: Cardiovascular: Reports no additional cardiovascular complaints and Denies chest pain Respiratory: Respiratory: Reports no additional respiratory complaints and Denies dyspnea Gastrointestinal: Gastrointestinal: Reports as per HPI and Reports no additional gastrointestinal complaints Neurologic: Denies confusion and Denies headache(s) Exam Const: General: comfortable, no acute distress and alert Nutritional Appearance: overweight Orientation/consciousness: patient oriented x3 Resp: Effort & Inspection: no respiratory distress Auscultation: clear to auscultation bilaterally Cardio: Rate: regular rate Rhythm: regular rhythm GI: Inspection: non-distended GI Palp: Yes Soft to palpation, Yes Tenderness to palpation present (GI) (lower abdominal tenderness, improving), No
[2021-05-13 16:28] LABS: Glucose Point of Care 309 mg/dl (65-105)
[2021-05-13 19:42] VITALS: BP 131/70; PULSE 64; RESP 18; TEMP 36.4; O2SAT 97
[2021-05-13 19:53] VITALS: PULSE 62; RESP 18; O2SAT 97
[2021-05-13] MEDS: INSULIN GLARGINE (*BKC) 100 UNITS/ML 15 UNITS SUB-Q (20:20)
[2021-05-13 22:09] LABS: Glucose Point of Care 365 mg/dl (65-105)
[2021-05-14] MEDS: INSULIN ASPART (*BKC) 100 UNITS/ML SUB-Q ×3 (00:21→16:31)
[2021-05-14 00:22] LABS: Glucose Point of Care 297 mg/dl (65-105)
[2021-05-14 05:33] VITALS: BP 148/64; PULSE 70; RESP 20; TEMP 36.6; O2SAT 94
[2021-05-14 05:34] LABS: Hematocrit 30.3 % (37.0-47.0); Hemoglobin 9.8 g/dL (12.0-15.0); Mean Corpuscular HGB Conc 32.3 g/dl (32-36); Mean Corpuscular Hemoglobin 31.2 pg (26-34); Mean Corpuscular Volume 96.5 fl (80-100); Mean Platelet Volume 9.8 fl (7.4-10.4); Platelet Count Result 470 k/mm3 (150-375); Red Blood Count 3.14 M/mm3 (4.2-5.4); White Blood Count 14.4 K/mm3 (4.5-10.0)
[2021-05-14 05:41] LABS: Anion Gap 7 mmol/L (8-16); Blood Urea Nitrogen 9 mg/dL (7-17); Calcium 8.6 mg/dL (8.4-10.2); Carbon Dioxide 27 mmol/L (22-30); Chloride 101 mmol/L (98-107); Estimated CRCL calculation 56 ml/min; Estimated Glomerular Filt Rate > 60; Glucose 226 mg/dL (65-110); Magnesium 1.7 mg/dL (1.6-2.3); Potassium 3.9 mmol/L (3.4-5.0); Sodium 135 mmol/L (137-145)
[2021-05-14] MEDS: HYDROcodone/acetaminophen (*CRX) 5-325 MG TABLET 1 TAB PO ×3 (05:53→20:20)
[2021-05-14 06:14] LABS: Glucose Point of Care 199 mg/dl (65-105)
[2021-05-14 08:27] VITALS: PULSE 67
[2021-05-14] MEDS: ESCITALOPRAM OXALATE 10 MG TABLET 20 MG PO (08:27)
[2021-05-14] MEDS: METOPROLOL SUCCINATE EXT REL 50 MG TABCR PO (08:27)
[2021-05-14] MEDS: ASPIRIN 81 MG ENTERIC TABLET PO (08:27)
[2021-05-14] MEDS: PANTOPRAZOLE 40 MG TABLET PO ×2 (08:27→20:22)
[2021-05-14 08:28] VITALS: PULSE 67
[2021-05-14] MEDS: AMIODARONE HCL 200 MG TABLET PO (08:28)
[2021-05-14] MEDS: MAGNESIUM OXIDE 400 MG TABLET PO (08:28)
[2021-05-14] MEDS: FERROUS SULFATE 324 MG TABLET PO ×2 (08:28→16:18)
[2021-05-14] MEDS: LOSARTAN POTASSIUM 25 MG TABLET PO (08:28)
[2021-05-14 08:48] LABS: Basophils Absolute Auto 0.1 K/mm3 (0.0-0.1); Basophils Percent Auto 0.8 % (0.2-1.2); Eosinophils Absolute Auto 0.2 K/mm3 (0-0.3); Eosinophils Percent Auto 1.5 % (0-4.4); Hematocrit 30.5 % (37.0-47.0); Hemoglobin 9.8 g/dL (12.0-15.0); Immature Granulocyte Absolute 0.64 K/mm3 (0.00-0.031); Immature Granulocyte Percent A 4.4 % (0-0.5); Lymphocytes Absolute Auto 0.94 K/mm3 (0.9-3.2); Lymphocytes Percent Auto 6.5 % (18.3-44.2); Mean Corpuscular HGB Conc 32.1 g/dl (32-36); Mean Corpuscular Hemoglobin 30.9 pg (26-34); Mean Corpuscular Volume 96.2 fl (80-100); Mean Platelet Volume 9.7 fl (7.4-10.4); Monocytes Absolute Auto 1.2 K/mm3 (0.1-0.6); Monocytes Percent Auto 8.4 % (2.6-8.5); Neutrophils Absolute Auto 11.3 K/mm3 (1.3-6.7); Neutrophils Percent Auto 78.4 % (45.5-73.1); Nucleated Red Blood Cells Perc 0.3 % (0.0-0.2); Platelet Count Result 478 k/mm3 (150-375); Red Blood Count 3.17 M/mm3 (4.2-5.4); Red Cell Distribution Width 15.4 % (11.5-14.5); White Blood Count 14.4 K/mm3 (4.5-10.0)
[2021-05-14] MEDS: polyethylene glycoL 3350 17 GM POWD.PACK PO (09:44)
[2021-05-14] MEDS: DOCUSATE SODIUM 100 MG CAPSULE PO ×2 (09:44→20:22)
[2021-05-14] MEDS: APIXABAN 5 MG TABLET PO ×2 (09:44→20:21)
[2021-05-14 11:49] LABS: Glucose Point of Care 268 mg/dl (65-105)
--- NOTE | 2021-05-14 13:22 | PM.PNGS ---
Progress Note: A&P Assessment and Plan (1) Diverticulitis of intestine with abscess: Onset Date: ~04/2021 Code(s): K57.80 - Diverticulitis of intestine, part unspecified, with perforation and abscess without bleeding Status: Acute Assessment and Plan: Slowly improving, but still having some pain and WBC 14,000. Will continue Primaxin today and keep on full liquids for now. If WBC down and pain improving, will advance diet tomorrow. (2) Sepsis: Qualifiers: Sepsis acute organ dysfunction status: unspecified Sepsis type: sepsis due to unspecified organism Qualified Code(s): A41.9 - Sepsis, unspecified organism Code(s): A41.9 - Sepsis, unspecified organism Status: Acute (3) History of DVT (deep vein thrombosis): Code(s): Z86.718 - Personal history of other venous thrombosis and embolism Status: Acute Subjective Subjective Date/Time Seen: 05/14/21 13:22 Interval history: Still having some pain. No fevers. Tolerating full liquids. Bowels moved today. Exam GI: Inspection: non-distended and other (Drain with minimal purulent output) GI Palp: Yes Soft to palpation and Yes Tenderness to palpation present (GI) (LLQ) Objective Data Vital Signs Vital Signs: Vital Signs - 24 hr 05/13/21 13:30 05/13/21 19:42 05/13/21 19:53 Temperature 36.3 C L 36.4 C Pulse Rate 61 64 62 Respiratory Rate 18 18 18 Blood Pressure 142/66 H 131/70 Pulse Oximetry 98 97 97 05/14/21 05:33 05/14/21 08:27 05/14/21 08:28 Temperature 36.6 C Pulse Rate 70 67 67 Respiratory Rate 20 Blood Pressure 148/64 H Pulse Oximetry 94 Intake/Output Intake/Output: Intake & Output 05/11/21 05/12/21 05/13/21 05/14/21 23:59 23:59 23:59 23:59 Intake Total 3470 2880 1795 650 Output Total 1050 550 460 5 Balance 2420 2330 1335 645 Meds/Results Medications: Active Medications Generic Name Dose Route Start Last Admin Trade Name Freq PRN Reason Stop Dose Admin Acetaminophen 650 mg 05/10/21 01:26 05/10/21 01:57 Acetaminophen 325 Mg Tablet PO 650 mg Q6H PRN Administration Mild Pain (1-3) or Fever Hydrocodone Bitart/Acetaminophen 1 tab 05/10/21 01:26 05/14/21 05:53 Hydrocodone/Acetaminophen (*Crx) 5-325 Mg Tablet PO 1 tab Q6H PRN Administration Pain Rated 4-6 Amiodarone HCl 200 mg 05/10/21 08:00 05/14/21 08:28 Amiodarone Hcl 200 Mg Tablet PO 200 mg DAILY@0800 RAFAEL Administration Apixaban 5 mg 05/13/21 09:00 05/14/21 09:44 Apixaban 5 Mg Tablet PO 5 mg Q12HR RAFAEL Administration Aspirin 81 mg 05/10/21 09:00 05/14/21 08:27 Aspirin 81 Mg Enteric Tablet PO 81 mg DAILY RAFAEL Administration Bisacodyl 10 mg 05/14/21 08:53 Bisacodyl 10 Mg Suppository RECTAL Q24H PRN Constipation Dextrose 12.5 gm 05/09/21 21:40 Dextrose 50% 25 Gm/50 Ml Syringe IV PUSH PRN PRN Hypoglycemia Protocol Docusate Sodium 100 mg 05/14/21 09:00 05/14/21 09:44 Docusate Sodium 100 Mg Capsule PO 100 mg Q12HR RAFAEL Administration Escitalopram Oxalate 20 mg 05/10/21 09:00 05/14/21 08:27 Escitalopram Oxalate 10 Mg Tablet PO 20 mg DAILY RAFAEL Administration Ferrous Sulfate 324 mg 05/10/21 08:00 05/14/21 08:28 Ferrous Sulfate 324 Mg Tablet PO 324 mg BIDWM RAFAEL Administration Glucagon 1 mg 05/09/21 21:40 Glucagon For Inj 1 Mg Vial IM PRN PRN Hypoglycemia Protocol Glucose 15 gm 05/09/21 21:40 Glucose Oral Gel 15 Gm Of Glucse In 37.5 Gm Tube PO PRN PRN Hypoglycemia Protocol Dextrose 1,000 mls @ 100 mls/hr 05/09/21 21:40 Dextrose 5% 1,000 Ml IVPB PRN PRN Hypoglycemia Protocol Imipenem/Cilastatin Sodium 300 100 mls @ 300 mls/hr 05/14/21 10:00 05/14/21 10:39 mg/ Dextrose IVPB Infused Q6H RAFAEL Infusion Insulin Aspart 2 - 5 units 05/11/21 00:00 05/14/21 11:50 Insulin Aspart (*Bkc) 100 Units/Ml SUB-Q 3 units Q6H
--- NOTE | 2021-05-14 13:24 | P.PNIM_ITS ---
Progress Note: A&P Assessment and Plan (1) Diverticulitis of intestine with abscess: Onset Date: ~04/2021 Code(s): K57.80 - Diverticulitis of intestine, part unspecified, with perforation and abscess without bleeding Status: Acute Assessment and Plan: * Abd/Pel CT: Sigmoid diverticulitis with multiple by diverticular abscess cavities, pericolic inflammation * Perc Drain placement 05/11 by IR with 3 mL opaque, brown, foul-smelling fluid was sent for aerobic and anaerobic cultures. * Abscess cultures from drain came back growing E. coli which was indeterminate resistance to IV Zosyn. Also growing Bacteroides fragilis group pending sensitivities and blood culture growing Clostridium species and pending sensitivities. * Consulted Dr. Justice and he recommended switching to IV Primaxin #1 * Surgery consult and still has the patient on Full liquid diet at this time. Talked to Dr. Thomas who recommends stool softener addition. He recommends Repeat CT Abd/Pelvis if her WBC continues to go up, develops any worsening pain or issues. He recommends if she needs to have surgery to [facility]. If patient is otherwise doing well and still here on Thursday 05/[address] Abd/Pelvis to be completed at that time. Continue monitoring. (2) Sepsis: Qualifiers: Sepsis acute organ dysfunction status: unspecified Sepsis type: sepsis due to unspecified organism Qualified Code(s): A41.9 - Sepsis, unspecified organism Code(s): A41.9 - Sepsis, unspecified organism Status: Acute Assessment and Plan: * Meets sepsis criteria with VS: T: 37.5C, HR: 74, RR: 27, BP: 137/64, WBC 16.0, Source of infection diverticulitis with abscess, and possible UTI * On arrival Lactic acid was 2.0 * IV antibiotics: Zosyn #6, switched to IV Primaxin due to sensitivity results #1. (3) Abnormal urinalysis: Code(s): R82.90 - Unspecified abnormal findings in urine Status: Acute Assessment and Plan: * Hx of freq UTI, was on a prophylactic antibiotic and taken off about 3 months ago * Presents with complaints of urgency and frequency * UA leo, cloudy, 2+ Ur blood, positive nitrites, Leukocyte esterase 1+, WBC 31-50 * Urine cultures growing E. coli with sensitivity to Primaxin * Urology consulted who recommends deescalating abx once possible. (4) Diabetes mellitus: Qualifiers: Diabetes mellitus type: type 2 Diabetes mellitus fpc insulin use: with fpc use Diabetes mellitus complication status: with hyperglycemia Qualified Code(s): E11.65 - Type 2 diabetes mellitus with hyperglycemia; Z79.4 - technician terminal and repeater (current) use of insulin Code(s): E11.9 - Type 2 diabetes mellitus without complications Status: Chronic Assessment and Plan: * Glucose 226 on labs this am * Accu-Cheks AC and HS * Sliding scale insulin * Will restart Lantus * Adjust medications as needed (5) Afib: Qualifiers: Atrial fibrillation type: unspecified Qualified Code(s): I48.91 - Unspecified atrial fibrillation Code(s): I48.91 - Unspecified atrial fibrillation Status: Deleted Assessment and Plan: * Ablations x2 in the past * EKG SR in the ED * Controlled on amiodarone 200mg PO Daily, and metoprolol 50mg PO daily which have been continued * Yvette louie (6) Depression: Qualifiers: Depression Type: unspecified Qualified Code(s): F3
--- NOTE | 2021-05-14 13:24 | PM.IMPN ---
Progress Note: A&P Assessment and Plan (1) Diverticulitis of intestine with abscess: Onset Date: ~04/2021 Code(s): K57.80 - Diverticulitis of intestine, part unspecified, with perforation and abscess without bleeding Status: Acute Assessment and Plan: Abd/Pel CT: Sigmoid diverticulitis with multiple by diverticular abscess cavities, pericolic inflammation Perc Drain placement 05/11 by IR with 3 mL opaque, brown, foul-smelling fluid was sent for aerobic and anaerobic cultures. Abscess cultures from drain came back growing E. coli which was indeterminate resistance to IV Zosyn. Also growing Bacteroides fragilis group pending sensitivities and blood culture growing Clostridium species and pending sensitivities. Consulted Dr. Justice and he recommended switching to IV Primaxin #1 Surgery consult and still has the patient on Full liquid diet at this time. Talked to Dr. Thomas who recommends stool softener addition. He recommends Repeat CT Abd/Pelvis if her WBC continues to go up, develops any worsening pain or issues. He recommends if she needs to have surgery to [facility] with [facility]. If patient is otherwise doing well and still here on Thursday 05/[address] Abd/Pelvis to be completed at that time. Continue monitoring. (2) Sepsis: Qualifiers: Sepsis acute organ dysfunction status: unspecified Sepsis type: sepsis due to unspecified organism Qualified Code(s): A41.9 - Sepsis, unspecified organism Code(s): A41.9 - Sepsis, unspecified organism Status: Acute Assessment and Plan: Meets sepsis criteria with VS: T: 37.5C, HR: 74, RR: 27, BP: 137/64, WBC 16.0, Source of infection diverticulitis with abscess, and possible UTI On arrival Lactic acid was 2.0 IV antibiotics: Zosyn #6, switched to IV Primaxin due to sensitivity results #1. (3) Abnormal urinalysis: Code(s): R82.90 - Unspecified abnormal findings in urine Status: Acute Assessment and Plan: Hx of freq UTI, was on a prophylactic antibiotic and taken off about 3 months ago Presents with complaints of urgency and frequency UA leo, cloudy, 2+ Ur blood, positive nitrites, Leukocyte esterase 1+, WBC 31-50 Urine cultures growing E. coli with sensitivity to Primaxin Urology consulted who recommends deescalating abx once possible. (4) Diabetes mellitus: Qualifiers: Diabetes mellitus type: type 2 Diabetes mellitus mcc insulin use: with assistant terminal manager use Diabetes mellitus complication status: with hyperglycemia Qualified Code(s): E11.65 - Type 2 diabetes mellitus with hyperglycemia; Z79.4 - salvage determiner (current) use of insulin Code(s): E11.9 - Type 2 diabetes mellitus without complications Status: Chronic Assessment and Plan: Glucose 226 on labs this am Accu-Cheks AC and HS Sliding scale insulin Will restart Lantus Adjust medications as needed (5) Afib: Qualifiers: Atrial fibrillation type: unspecified Qualified Code(s): I48.91 - Unspecified atrial fibrillation Code(s): I48.91 - Unspecified atrial fibrillation Status: Deleted Assessment and Plan: Ablations x2 in the past EKG SR in the ED Controlled on amiodarone 200mg PO Daily, and metoprolol 50mg PO daily which have been continued Eliquis tx (6) Depression: Qualifiers: Depression Type: unspecified Qualified Code(s): F32.9 - Major depressive disorder, single episode, unspecified Code(s): F32.9 - Major depressive disorder, single episode, unspecified Status: Chronic Assessment and Plan: Continue home Lexapro 20mg PO daily Appears to have been increased recently Has an anxious demeanor, concerned with and made the comment that she was nosey and not ready to (7) HTN (hypertension): Qualifiers: Hypertension type: essentia
[2021-05-14 14:00] VITALS: BP 145/63; PULSE 60; RESP 16; TEMP 37; O2SAT 95
--- NOTE | 2021-05-14 14:42 | WPDINFPN2 ---
Progress Note: A&P Assessment and Plan (1) Diverticulitis of intestine with abscess: Onset Date: ~04/2021 Code(s): K57.80 - Diverticulitis of intestine, part unspecified, with perforation and abscess without bleeding Status: Acute Assessment and Plan: Diverticular abscesses REC If no open surgery is done, then Imipenem # 1 / 14 days, through 05/27/21. Ertapenem also an option at 1 gram daily, same stop date. But no oral therapy. Call if Qs Subjective Date/time seen: 05/14/21 14:42 Objective Data Vital Signs Vital Signs: Vital Signs - 24 hr 05/13/21 19:42 05/13/21 19:53 05/14/21 05:33 Temperature 36.4 C 36.6 C Pulse Rate 64 62 70 Respiratory Rate 18 18 20 Blood Pressure 131/70 148/64 H Pulse Oximetry 97 97 94 05/14/21 08:27 05/14/21 08:28 05/14/21 14:00 Temperature 37.0 C Pulse Rate 67 67 60 Respiratory Rate 16 Blood Pressure 145/63 H Pulse Oximetry 95 Intake/Output Intake/Output: Intake & Output 05/11/21 05/12/21 05/13/21 05/14/21 23:59 23:59 23:59 23:59 Intake Total 3470 2880 1795 1010 Output Total 1050 550 460 5 Balance 2420 2330 1335 1005 Meds/Results Medications: Active Medications Generic Name Dose Route Start Last Admin Trade Name Freq PRN Reason Stop Dose Admin Acetaminophen 650 mg 05/10/21 01:26 05/10/21 01:57 Acetaminophen 325 Mg Tablet PO 650 mg Q6H PRN Administration Mild Pain (1-3) or Fever Hydrocodone Bitart/Acetaminophen 1 tab 05/10/21 01:26 05/14/21 13:44 Hydrocodone/Acetaminophen (*Crx) 5-325 Mg Tablet PO 1 tab Q6H PRN Administration Pain Rated 4-6 Amiodarone HCl 200 mg 05/10/21 08:00 05/14/21 08:28 Amiodarone Hcl 200 Mg Tablet PO 200 mg DAILY@0800 RAFAEL Administration Apixaban 5 mg 05/13/21 09:00 05/14/21 09:44 Apixaban 5 Mg Tablet PO 5 mg Q12HR RAFAEL Administration Aspirin 81 mg 05/10/21 09:00 05/14/21 08:27 Aspirin 81 Mg Enteric Tablet PO 81 mg DAILY RAFAEL Administration Bisacodyl 10 mg 05/14/21 08:53 Bisacodyl 10 Mg Suppository RECTAL Q24H PRN Constipation Dextrose 12.5 gm 05/09/21 21:40 Dextrose 50% 25 Gm/50 Ml Syringe IV PUSH PRN PRN Hypoglycemia Protocol Docusate Sodium 100 mg 05/14/21 09:00 05/14/21 09:44 Docusate Sodium 100 Mg Capsule PO 100 mg Q12HR RAFAEL Administration Escitalopram Oxalate 20 mg 05/10/21 09:00 05/14/21 08:27 Escitalopram Oxalate 10 Mg Tablet PO 20 mg DAILY RAFAEL Administration Ferrous Sulfate 324 mg 05/10/21 08:00 05/14/21 08:28 Ferrous Sulfate 324 Mg Tablet PO 324 mg BIDWM RAFAEL Administration Glucagon 1 mg 05/09/21 21:40 Glucagon For Inj 1 Mg Vial IM PRN PRN Hypoglycemia Protocol Glucose 15 gm 05/09/21 21:40 Glucose Oral Gel 15 Gm Of Glucse In 37.5 Gm Tube PO PRN PRN Hypoglycemia Protocol Dextrose 1,000 mls @ 100 mls/hr 05/09/21 21:40 Dextrose 5% 1,000 Ml IVPB PRN PRN Hypoglycemia Protocol Imipenem/Cilastatin Sodium 300 100 mls @ 300 mls/hr 05/14/21 10:00 05/14/21 10:39 mg/ Dextrose IVPB Infused Q6H RAFAEL Infusion Insulin Aspart 2 - 5 units 05/11/21 00:00 05/14/21 11:50 Insulin Aspart (*Bkc) 100 Units/Ml SUB-Q 3 units Q6H RAFAEL Administration Protocol Insulin Glargine 15 units 05/13/21 21:00 05/13/21 20:20 Insulin Glargine (*Bkc) 100 Units/Ml SUB-Q 15 units HS RAFAEL Administration Losartan Potassium 25 mg 05/10/21 09:00 05/14/21 08:28 Losartan Potassium 25 Mg Tablet PO 25 mg DAILY RAFAEL Administration Magnesium Oxide 400 mg 05/10/21 09:00 05/14/21 08:28 Magnesium Oxide 400 Mg Tablet PO 400 mg QAM RAFAEL Administration Metoprolol Succinate 50 mg 05/10/21 09:00 05/14/21 08:27 Metoprolol Succinate Ext Rel 50 Mg Tabcr PO 50 mg DAILY RAFAEL Administration Morphine Sulfate 2 mg 05/10/21 01:27 05/12/21 09:20 Morphine Sulfate (*Crx) 2 Mg/Ml Inj IV PUSH 2 m
[2021-05-14] MEDS: LIDOCAINE HCL 1% LOCAL INJ 2 ML AMPUL 5 ML INFILTRATE (15:30)
[2021-05-14 17:10] LABS: Glucose Point of Care 205 mg/dl (65-105)
--- NOTE | 2021-05-14 18:46 | CONS_ITS ---
DATE OF CONSULTATION: 05/14/2021 REASON FOR CONSULTATION: Diverticular abscess. HISTORY OF PRESENT ILLNESS: An 80-year-old female with prior diverticulitis that did not result in severe symptoms in the past. She presented to the hospital on the May 09 with increasing abdominal pain. This is in both lower quadrants. She also has had back pain, nausea, subjective fever. She has been found to have a diverticular abscess. She has had placement of a percutaneous drainage catheter. She had this performed in the Radiology suite on May 11. 3 cc opaque foul-smelling brown fluid were evacuated from the suspected perisigmoid abscess. Her pain has improved at this point, but not resolved. No subjective fever, rigors, night sweats. She has had no change in her diet and has attempted to follow a diet as commonly recommended for patient with diverticulosis. Imipenem was started today after return of her fluid cultures and she was on previous piperacillin and metronidazole. ALLERGIES: NONE PERTINENT. HABITS: No tobacco. No alcohol. PRESENT MEDICATIONS: See above. PAST MEDICAL HISTORY: Cataract extractions, hysterectomy, back surgery, left hip replacement, partial splenectomy and pancreatectomy, cholecystectomy, previous colonoscopy, IVC filter, pulmonary embolism, psoriasis on no immunosuppressants for the same. Previous endometrial carcinoma, diabetes mellitus, peripheral neuropathy, AF, hypertension, hyperlipidemia, depression, anxiety. FAMILY HISTORY: Stroke, heart failure, diabetes, hypertension, lung cancer. SOCIAL HISTORY: She has children known present at the bedside. Lives locally. REVIEW OF SYSTEMS: Recurrent UTIs. Dry mouth. 14-point review otherwise negative. PHYSICAL EXAMINATION: GENERAL: Elderly female appears her actual age. No distress. VITAL SIGNS: Afebrile since arrival 145/63, 60, 16, 95%. SKIN: Warm and dry. No rashes. Few ecchymoses consistent with phlebotomy. NODES: She has no axillary or cervical adenopathy. EENT: Pupils equal, round, and reactive to light. Oropharynx, oral mucosa normal. NECK: No mass, thyromegaly, meningismus. LUNGS: Clear to auscultation and percussion. CHEST: Equal expansion. Normal AP diameter. No indwelling vascular devices. CARDIAC: Regular rate and rhythm. No murmurs or gallops. Pulses 1+ and equal. ABDOMEN: Obese, not distended. Hypoactive bowel sounds. No organomegaly. No masses. She has no tenderness. EXTREMITIES: No clubbing, cyanosis, edema. 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 Urine culture same organism. Blood cultures, Clostridium species, beta lactamase negative. Further identification process. Blood cultures from arrival on May 10 final, no growth. RADIOLOGY: On arrival abdominopelvic CT, atherosclerosis, sigmoid diverticulitis with multiple abscesses pericolic inflammation, hepatic cysts, postop changes. Chest x-ray, bilateral airspace disease, unchanged since the year ago, cardiomegaly, atherosclerosis, osteopenia. ASSESSMENT: 1. Chronic diverticulosis and prior episode of diverticulitis. 2. Diverticular abscess with a catheter in place, postop day 3. 3. Asymptomatic bacteriuria. 4. 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 5. Diabetes mellitus. RECOMMENDATIONS: 1. Agree with imipenem 14-day course. Ertapenem will be an option as well once daily. 2. If relapse or recurrent infection. She will need a colon resection. 3. Follow up white blood cell count over time, currently 14.4. I reviewed her the labs in full. 4. Glycemic control underway. Thank you for asking me to see her
[2021-05-14 19:50] VITALS: PULSE 60; RESP 18; O2SAT 96
[2021-05-14] MEDS: INSULIN GLARGINE (*BKC) 100 UNITS/ML 15 UNITS SUB-Q (20:27)
[2021-05-14] MEDS: SALINE LOCK FLUSH 10 ML IV PUSH (20:28)
[2021-05-14 21:12] VITALS: BP 143/63; PULSE 61; RESP 16; TEMP 36.7; O2SAT 97
[2021-05-14 21:18] LABS: Glucose Point of Care 289 mg/dl (65-105)
--- NOTE | 2021-05-15 | ECHO_ITS ---
Patient Info Name: Jennifer Cano Age: 80 years : 1940 Gender: Female Ht: 63 in Wt: 178 lbs BSA: 1.92 m2 HR: 61 bpm BP: 151 / 72 mmHg Heart Rhythm: Sinus Rhythm Technical Quality: Fair Exam Date: 05/15/2021 11:25 AM Exam Location: [facility] Pulmonary Patient Status: Inpatient Admit Date: 05/09/2021 Staff Ordering Physician: Maryam Campos PA-C Certified Activities Director: Chichi Cornejo RDCS Attending Provider: Maryam Campos PA-C Referring Physician: Andres DOAN; Exam Type: CA echo doppler color flow Study Info Indications ro1.1 - Complete two-dimensional, color flow and Doppler transthoracic echocardiogram is performed. Summary 1. Complete two-dimensional, color flow and Doppler transthoracic echocardiogram is performed. 2. Normal left ventricular size with moderate concentric hypertrophy. Normal left ventricular systolic function, visual estimate 60-65%, calculated 67%. Grade 2 diastolic dysfunction is present. 3. Left atrial chamber dimension is severely enlarged. 4. Right atrial chamber dimension is mildly enlarged. 5. There is moderate to moderately severe mitral valve regurgitation. 6. There is mild tricuspid valve regurgitation. 7. Severe pulmonary hypertension, estimated pulmonary arterial systolic pressure is 69 mmHg. 8. Dilated inferior vena cava with >50% collapse upon inspiration consistent with elevated right atrial pressure, 15 mmHg. 9. Normal sinus rhythm. Left Ventricle Left ventricular chamber dimension is normal. Left ventricular systolic function is normal, estimated at 60-65%. There is moderately increased left ventricular wall thickness. Left ventricular septal wall motion is normal. The left ventricular diastolic function is grade II diastolic dysfunction. Right Ventricle Right ventricular chamber dimension is normal. Right ventricular systolic function is normal. Left Atria Left atrial chamber dimension is severely enlarged. Right Atria Right atrial chamber dimension is mildly enlarged. Aortic Valve The aortic valve is trileaflet. There is no aortic valve sclerosis. There is no aortic valve stenosis. There is no aortic valve regurgitation. Pulmonic Valve The pulmonic valve is normal. There is no pulmonic valve stenosis. There is trace pulmonic regurgitation. Mitral Valve The mitral valve has calcified annulus. There is no mitral valve stenosis. There is moderate to moderately severe mitral valve regurgitation. Tricuspid Valve The tricuspid valve leaflets are normal. There is no significant tricuspid valve stenosis. There is mild tricuspid valve regurgitation. Severe pulmonary hypertension, estimated pulmonary arterial systolic pressure is 69 mmHg. Pericardium/Pleural The pericardium appears normal. There is no pericardial effusion. Inferior Vena Cava Dilated inferior vena cava with >50% collapse upon inspiration consistent with elevated right atrial pressure, 15 mmHg. Aorta The aortic root size at the sinus of Valsalva is normal. The prox ascending aorta size is normal. Left Ventricular Outflow Tract Name Value Normal LVOT 2D LVOT Diameter 2.1 cm LVOT Doppler
[2021-05-15] MEDS: SALINE LOCK FLUSH 10 ML IV PUSH ×3 (03:28→19:45)
[2021-05-15] MEDS: HYDROcodone/acetaminophen (*CRX) 5-325 MG TABLET 1 TAB PO ×2 (04:33→19:47)
[2021-05-15 04:45] LABS: Basophils Absolute Auto 0.1 K/mm3 (0.0-0.1); Basophils Percent Auto 0.8 % (0.2-1.2); Eosinophils Absolute Auto 0.3 K/mm3 (0-0.3); Eosinophils Percent Auto 2.2 % (0-4.4); Hematocrit 28.1 % (37.0-47.0); Hemoglobin 9.3 g/dL (12.0-15.0); Immature Granulocyte Absolute 0.53 K/mm3 (0.00-0.031); Immature Granulocyte Percent A 4.2 % (0-0.5); Lymphocytes Absolute Auto 1.14 K/mm3 (0.9-3.2); Lymphocytes Percent Auto 9.1 % (18.3-44.2); Mean Corpuscular HGB Conc 33.1 g/dl (32-36); Mean Corpuscular Volume 93.7 fl (80-100); Mean Platelet Volume 9.6 fl (7.4-10.4); Monocytes Absolute Auto 1.5 K/mm3 (0.1-0.6); Monocytes Percent Auto 11.9 % (2.6-8.5); Neutrophils Percent Auto 71.8 % (45.5-73.1); Nucleated Red Blood Cells Perc 0.2 % (0.0-0.2); Platelet Count Result 491 k/mm3 (150-375); Red Cell Distribution Width 15.1 % (11.5-14.5); White Blood Count 12.6 K/mm3 (4.5-10.0)
[2021-05-15 05:06] LABS: Anion Gap 5 mmol/L (8-16); Blood Urea Nitrogen 9 mg/dL (7-17); Calcium 8.4 mg/dL (8.4-10.2); Carbon Dioxide 28 mmol/L (22-30); Chloride 101 mmol/L (98-107); Estimated CRCL calculation 56 ml/min; Estimated Glomerular Filt Rate > 60; Glucose 271 mg/dL (65-110); Magnesium 1.7 mg/dL (1.6-2.3); Potassium 3.7 mmol/L (3.4-5.0); Sodium 134 mmol/L (137-145)
[2021-05-15 05:27] VITALS: BP 151/72; PULSE 65; RESP 16; TEMP 36.6; O2SAT 92
[2021-05-15 08:01] LABS: Glucose Point of Care 215 mg/dl (65-105)
[2021-05-15 08:10] VITALS: PULSE 65
[2021-05-15] MEDS: FERROUS SULFATE 324 MG TABLET PO ×2 (08:10→17:19)
[2021-05-15] MEDS: APIXABAN 5 MG TABLET PO ×2 (08:10→19:44)
[2021-05-15] MEDS: MAGNESIUM OXIDE 400 MG TABLET PO (08:10)
[2021-05-15] MEDS: ASPIRIN 81 MG ENTERIC TABLET PO (08:10)
[2021-05-15] MEDS: DOCUSATE SODIUM 100 MG CAPSULE PO ×2 (08:10→19:44)
[2021-05-15] MEDS: ESCITALOPRAM OXALATE 10 MG TABLET 20 MG PO (08:10)
[2021-05-15] MEDS: LOSARTAN POTASSIUM 25 MG TABLET PO (08:10)
[2021-05-15] MEDS: AMIODARONE HCL 200 MG TABLET PO (08:10)
[2021-05-15] MEDS: PANTOPRAZOLE 40 MG TABLET PO ×2 (08:10→19:45)
[2021-05-15 08:11] VITALS: PULSE 65
[2021-05-15] MEDS: METOPROLOL SUCCINATE EXT REL 50 MG TABCR PO (08:11)
[2021-05-15] MEDS: INSULIN ASPART (*BKC) 100 UNITS/ML SUB-Q ×3 (08:11→17:19)
[2021-05-15] MEDS: polyethylene glycoL 3350 17 GM POWD.PACK PO (08:11)
--- NOTE | 2021-05-15 09:29 | P.PNIM_ITS ---
Progress Note: A&P Assessment and Plan (1) Diverticulitis of intestine with abscess: Onset Date: ~04/2021 Code(s): K57.80 - Diverticulitis of intestine, part unspecified, with perforation and abscess without bleeding Status: Acute Assessment and Plan: * Abd/Pel CT: Sigmoid diverticulitis with multiple by diverticular abscess cavities, pericolic inflammation * Perc Drain placement 05/11 by IR with 3 mL opaque, brown, foul-smelling fluid was sent for aerobic and anaerobic cultures. * Abscess cultures from drain came back growing E. coli which was indeterminate resistance to IV Zosyn. Also growing Bacteroides fragilis group pending sensitivities and blood culture growing Clostridium species and pending sensitivities. * Consulted Dr. Justice and he recommended switching to IV Primaxin #08/30 * Surgery consult and diet to Low Fiber at this time. Talked to Dr. Thomas 05/14 who recommends stool softener and Repeat CT Abd/Pelvis if her WBC continues to go up, develops any worsening pain or issues or if she is still at the hospital Monday. He recommends if she needs to have surgery to [facility]. If patient is otherwise doing well and still here on Thursday 05/[address] Abd/Pelvis to be completed at that time. Continue monitoring. (2) Sepsis: Qualifiers: Sepsis acute organ dysfunction status: unspecified Sepsis type: sepsis due to unspecified organism Qualified Code(s): A41.9 - Sepsis, unspecified organism Code(s): A41.9 - Sepsis, unspecified organism Status: Acute Assessment and Plan: * Meets sepsis criteria with VS: T: 37.5C, HR: 74, RR: 27, BP: 137/64, WBC 16.0, Source of infection diverticulitis with abscess, and possible UTI * On arrival Lactic acid was 2.0 * IV antibiotics: Now on IV Primaxin * Vitals stable and WBC decreasing today (3) Abnormal urinalysis: Code(s): R82.90 - Unspecified abnormal findings in urine Status: Acute Assessment and Plan: * Hx of freq UTI, was on a prophylactic antibiotic and taken off about 3 months ago * Presents with complaints of urgency and frequency * UA leo, cloudy, 2+ Ur blood, positive nitrites, Leukocyte esterase 1+, WBC 31-50 * Urine cultures growing E. coli with sensitivity to Primaxin * Urology consulted who recommends deescalating abx once possible. 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 (current) use of insulin Code(s): E11.9 - Type 2 diabetes mellitus without complications Status: Chronic Assessment and Plan: * Glucose 226 on labs this am * Accu-Cheks AC and HS * Sliding scale insulin * Will restart Lantus * Adjust medications as needed (5) Afib: Qualifiers: Atrial fibrillation type: unspecified Qualified Code(s): I48.91 - Unspecified atrial fibrillation Code(s): I48.91 - Unspecified atrial fibrillation Status: Deleted Assessment and Plan: * Ablations x2 in the past * EKG SR in the ED * Controlled on amiodarone 200mg PO Daily, and metoprolol 50mg PO daily which have been continued * Yvette louie (6) Depression: Qualifiers: Depression Type: unspecified Qualified Code(s):
--- NOTE | 2021-05-15 09:29 | PM.IMPN ---
Progress Note: A&P Assessment and Plan (1) Diverticulitis of intestine with abscess: Onset Date: ~04/2021 Code(s): K57.80 - Diverticulitis of intestine, part unspecified, with perforation and abscess without bleeding Status: Acute Assessment and Plan: Abd/Pel CT: Sigmoid diverticulitis with multiple by diverticular abscess cavities, pericolic inflammation Perc Drain placement 05/11 by IR with 3 mL opaque, brown, foul-smelling fluid was sent for aerobic and anaerobic cultures. Abscess cultures from drain came back growing E. coli which was indeterminate resistance to IV Zosyn. Also growing Bacteroides fragilis group pending sensitivities and blood culture growing Clostridium species and pending sensitivities. Consulted Dr. Justice and he recommended switching to IV Primaxin #08/30 Surgery consult and diet to Low Fiber at this time. Talked to Dr. Thomas 05/14 who recommends stool softener and Repeat CT Abd/Pelvis if her WBC continues to go up, develops any worsening pain or issues or if she is still at the hospital Monday. He recommends if she needs to have surgery to [facility]. If patient is otherwise doing well and still here on Thursday 05/[address] Abd/Pelvis to be completed at that time. Continue monitoring. (2) Sepsis: Qualifiers: Sepsis acute organ dysfunction status: unspecified Sepsis type: sepsis due to unspecified organism Qualified Code(s): A41.9 - Sepsis, unspecified organism Code(s): A41.9 - Sepsis, unspecified organism Status: Acute Assessment and Plan: Meets sepsis criteria with VS: T: 37.5C, HR: 74, RR: 27, BP: 137/64, WBC 16.0, Source of infection diverticulitis with abscess, and possible UTI On arrival Lactic acid was 2.0 IV antibiotics: Now on IV Primaxin Vitals stable and WBC decreasing today (3) Abnormal urinalysis: Code(s): R82.90 - Unspecified abnormal findings in urine Status: Acute Assessment and Plan: Hx of freq UTI, was on a prophylactic antibiotic and taken off about 3 months ago Presents with complaints of urgency and frequency UA leo, cloudy, 2+ Ur blood, positive nitrites, Leukocyte esterase 1+, WBC 31-50 Urine cultures growing E. coli with sensitivity to Primaxin Urology consulted who recommends deescalating abx once possible. (4) Diabetes mellitus: Qualifiers: Diabetes mellitus complication status: with hyperglycemia Diabetes mellitus skilled nursing insulin use: with skilled nursing use Diabetes mellitus type: type 2 Qualified Code(s): E11.65 - Type 2 diabetes mellitus with hyperglycemia; Z79.4 - manager long term care (current) use of insulin Code(s): E11.9 - Type 2 diabetes mellitus without complications Status: Chronic Assessment and Plan: Glucose 226 on labs this am Accu-Cheks AC and HS Sliding scale insulin Will restart Lantus Adjust medications as needed (5) Afib: Qualifiers: Atrial fibrillation type: unspecified Qualified Code(s): I48.91 - Unspecified atrial fibrillation Code(s): I48.91 - Unspecified atrial fibrillation Status: Deleted Assessment and Plan: Ablations x2 in the past EKG SR in the ED Controlled on amiodarone 200mg PO Daily, and metoprolol 50mg PO daily which have been continued Eliquis tx (6) Depression: Qualifiers: Depression Type: unspecified Qualified Code(s): F32.9 - Major depressive disorder, single episode, unspecified Code(s): F32.9 - Major depressive disorder, single episode, unspecified Status: Chronic Assessment and Plan: Continue home Lexapro 20mg PO daily Appears to have been increased recently Has an anxious demeanor, concerned with and made the comment that she was nosey and not ready to (7) HTN (hypertension): Qualifiers: Hypertension type: baljit
--- NOTE | 2021-05-15 10:47 | PM.PNGS ---
Progress Note: A&P Assessment and Plan (1) Diverticulitis of intestine with abscess: Onset Date: ~04/2021 Qualifiers: Diverticulitis site: large intestine Diverticulitis bleeding: without bleeding Qualified Code(s): K57.20 - Diverticulitis of large intestine with perforation and abscess without bleeding Code(s): K57.80 - Diverticulitis of intestine, part unspecified, with perforation and abscess without bleeding Status: Acute Assessment and Plan: Advance to low fiber diet. Continue monitoring drain output. Continue Primaxin per ID recs. (2) Sepsis: Qualifiers: Sepsis acute organ dysfunction status: unspecified Sepsis type: sepsis due to unspecified organism Qualified Code(s): A41.9 - Sepsis, unspecified organism Code(s): A41.9 - Sepsis, unspecified organism Status: Acute (3) History of DVT (deep vein thrombosis): Code(s): Z86.718 - Personal history of other venous thrombosis and embolism Status: Acute Subjective Subjective Date/Time Seen: 05/15/21 10:47 Interval history: Tolerating full liquids. Bowels moving. Pain continuing to improve. No fevers. Exam GI: Inspection: non-distended and other (Drain with minimal purulent output) GI Palp: Yes Soft to palpation and Yes Tenderness to palpation present (GI) (LLQ) Objective Data Vital Signs Vital Signs: Vital Signs - 24 hr 05/14/21 14:00 05/14/21 19:50 05/14/21 21:12 Temperature 37.0 C 36.7 C Pulse Rate 60 60 61 Respiratory Rate 16 18 16 Blood Pressure 145/63 H 143/63 H Pulse Oximetry 95 96 97 05/15/21 05:27 05/15/21 08:10 05/15/21 08:11 Temperature 36.6 C Pulse Rate 65 65 65 Respiratory Rate 16 Blood Pressure 151/72 H Pulse Oximetry 92 Intake/Output Intake/Output: Intake & Output 05/12/21 05/13/21 05/14/21 05/15/21 23:59 23:59 23:59 23:59 Intake Total 2880 1795 1720 740 Output Total 550 460 305 610 Balance 2330 1335 1415 130 Meds/Results Medications: Active Medications Generic Name Dose Route Start Last Admin Trade Name Freq PRN Reason Stop Dose Admin Acetaminophen 650 mg 05/10/21 01:26 05/10/21 01:57 Acetaminophen 325 Mg Tablet PO 650 mg Q6H PRN Administration Mild Pain (1-3) or Fever Hydrocodone Bitart/Acetaminophen 1 tab 05/10/21 01:26 05/15/21 04:33 Hydrocodone/Acetaminophen (*Crx) 5-325 Mg Tablet PO 1 tab Q6H PRN Administration Pain Rated 4-6 Amiodarone HCl 200 mg 05/10/21 08:00 05/15/21 08:10 Amiodarone Hcl 200 Mg Tablet PO 200 mg DAILY@0800 RAFAEL Administration Apixaban 5 mg 05/13/21 09:00 05/15/21 08:10 Apixaban 5 Mg Tablet PO 5 mg Q12HR RAFAEL Administration Aspirin 81 mg 05/10/21 09:00 05/15/21 08:10 Aspirin 81 Mg Enteric Tablet PO 81 mg DAILY RAFAEL Administration Bisacodyl 10 mg 05/14/21 08:53 Bisacodyl 10 Mg Suppository RECTAL Q24H PRN Constipation Dextrose 12.5 gm 05/09/21 21:40 Dextrose 50% 25 Gm/50 Ml Syringe IV PUSH PRN PRN Hypoglycemia Protocol Docusate Sodium 100 mg 05/14/21 09:00 05/15/21 08:10 Docusate Sodium 100 Mg Capsule PO 100 mg Q12HR RAFAEL Administration Escitalopram Oxalate 20 mg 05/10/21 09:00 05/15/21 08:10 Escitalopram Oxalate 10 Mg Tablet PO 20 mg DAILY RAFAEL Administration Ferrous Sulfate 324 mg 05/10/21 08:00 05/15/21 08:10 Ferrous Sulfate 324 Mg Tablet PO 324 mg BIDWM RAFAEL Administration Glucagon 1 mg 05/09/21 21:40 Glucagon For Inj 1 Mg Vial IM PRN PRN Hypoglycemia Protocol Glucose 15 gm 05/09/21 21:40 Glucose Oral Gel 15 Gm Of Glucse In 37.5 Gm Tube PO PRN PRN Hypoglycemia Protocol Dextrose 1,000 mls @ 100 mls/hr 05/09/21 21:40 Dextrose 5% 1,000 Ml IVPB PRN PRN Hypoglycemia Protocol Imipenem/Cilastatin Sodium 300 100 mls @ 300 mls/hr 05/15/21 11:00 mg/ Dextrose IVPB Q6HR [facility] Insulin Aspart 2 - 5 units
--- NOTE | 2021-05-15 11:49 | PCPTNOTE ---
Attempted to see patient for PT, however patient declined. Patient reported not today.
[2021-05-15 12:00] LABS: Glucose Point of Care 228 mg/dl (65-105)
[2021-05-15 14:00] VITALS: BP 133/58; PULSE 58; RESP 16; TEMP 36.3; O2SAT 97
[2021-05-15 17:11] LABS: Glucose Point of Care 262 mg/dl (65-105)
[2021-05-15] MEDS: INSULIN GLARGINE (*BKC) 100 UNITS/ML 20 UNITS SUB-Q (19:45)
[2021-05-15 19:47] VITALS: BP 140/50; PULSE 69; RESP 16; TEMP 36.6; O2SAT 95
[2021-05-15 20:43] LABS: Glucose Point of Care 232 mg/dl (65-105)
[2021-05-16] MEDS: ACETAMINOPHEN 325 MG TABLET 650 MG PO ×2 (00:13→23:51)
[2021-05-16 04:52] VITALS: BP 143/64; PULSE 60; RESP 18; TEMP 36.4; O2SAT 96
[2021-05-16] MEDS: HYDROcodone/acetaminophen (*CRX) 5-325 MG TABLET 1 TAB PO ×2 (06:06→14:48)
[2021-05-16] MEDS: SALINE LOCK FLUSH 10 ML IV PUSH ×3 (06:07→22:06)
[2021-05-16] MEDS: SALINE LOCK FLUSH 20 ML IV PUSH (06:07)
[2021-05-16 06:23] LABS: Hematocrit 28.9 % (37.0-47.0); Hemoglobin 9.5 g/dL (12.0-15.0); Mean Corpuscular HGB Conc 32.9 g/dl (32-36); Mean Corpuscular Hemoglobin 30.6 pg (26-34); Mean Corpuscular Volume 93.2 fl (80-100); Mean Platelet Volume 9.5 fl (7.4-10.4); Platelet Count Result 492 k/mm3 (150-375); Red Cell Distribution Width 15.5 % (11.5-14.5); White Blood Count 12.9 K/mm3 (4.5-10.0)
[2021-05-16 06:33] LABS: Anion Gap 4 mmol/L (8-16); Blood Urea Nitrogen 11 mg/dL (7-17); Calcium 8.6 mg/dL (8.4-10.2); Carbon Dioxide 31 mmol/L (22-30); Chloride 103 mmol/L (98-107); Estimated CRCL calculation 56 ml/min; Estimated Glomerular Filt Rate > 60; Glucose 232 mg/dL (65-110); Magnesium 1.8 mg/dL (1.6-2.3); Potassium 3.8 mmol/L (3.4-5.0); Sodium 138 mmol/L (137-145)
[2021-05-16 07:51] LABS: Glucose Point of Care 206 mg/dl (65-105)
[2021-05-16 08:28] VITALS: PULSE 60
[2021-05-16] MEDS: FERROUS SULFATE 324 MG TABLET PO ×2 (08:28→16:27)
[2021-05-16] MEDS: APIXABAN 5 MG TABLET PO ×2 (08:28→20:08)
[2021-05-16] MEDS: DOCUSATE SODIUM 100 MG CAPSULE PO ×2 (08:28→20:08)
[2021-05-16] MEDS: PANTOPRAZOLE 40 MG TABLET PO ×2 (08:28→20:08)
[2021-05-16] MEDS: METOPROLOL SUCCINATE EXT REL 50 MG TABCR PO (08:28)
[2021-05-16] MEDS: ESCITALOPRAM OXALATE 10 MG TABLET 20 MG PO (08:28)
[2021-05-16] MEDS: AMIODARONE HCL 200 MG TABLET PO (08:28)
[2021-05-16] MEDS: LOSARTAN POTASSIUM 25 MG TABLET PO (08:28)
[2021-05-16] MEDS: MAGNESIUM OXIDE 400 MG TABLET PO (08:28)
[2021-05-16] MEDS: ASPIRIN 81 MG ENTERIC TABLET PO (08:29)
[2021-05-16] MEDS: INSULIN ASPART (*BKC) 100 UNITS/ML SUB-Q ×4 (08:29→20:11)
[2021-05-16] MEDS: polyethylene glycoL 3350 17 GM POWD.PACK PO (08:29)
--- NOTE | 2021-05-16 09:15 | PCOTNOTE ---
Attempted to see patient at this time for skilled OT session. Patient in bed upon entry and presents to be awake but drowsy. Patient declines participation in therapy at this time stating, I didn't sleep well last night and I'm just wore out. Will attempt to see patient a second time this date. Will continue per POC.
--- NOTE | 2021-05-16 09:35 | P.PNIM_ITS ---
Progress Note: A&P Assessment and Plan (1) Diverticulitis of intestine with abscess: Onset Date: ~04/2021 Qualifiers: Diverticulitis site: large intestine Diverticulitis bleeding: without bleeding Qualified Code(s): K57.20 - Diverticulitis of large intestine with perforation and abscess without bleeding Code(s): K57.80 - Diverticulitis of intestine, part unspecified, with perforation and abscess without bleeding Status: Acute Assessment and Plan: * Abd/Pel CT: Sigmoid diverticulitis with multiple by diverticular abscess cavities, pericolic inflammation * Perc Drain placement 05/11 by IR with 3 mL opaque, brown, foul-smelling fluid was sent for aerobic and anaerobic cultures. * Abscess cultures from drain came back growing E. coli which was indeterminate resistance to IV Zosyn. Also growing Bacteroides fragilis group pending sensitivities and blood culture growing Clostridium species and pending sensitivities. * Consulted Dr. Justice and he recommended switching to IV Primaxin #09/27 * Surgery consult and she is tolerating low Fiber diet at this time. * At this time with slight elevated of leukocytosis at 12,[address] Abd/Pelvis with contrast. * Surgery had said if the patient needs to have surgery to [facility] with [facility]geon. Continue monitoring. (2) Sepsis: Qualifiers: Sepsis acute organ dysfunction status: unspecified Sepsis type: sepsis due to unspecified organism Qualified Code(s): A41.9 - Sepsis, unspecified organism Code(s): A41.9 - Sepsis, unspecified organism Status: Acute Assessment and Plan: * Meets sepsis criteria with VS: T: 37.5C, HR: 74, RR: 27, BP: 137/64, WBC 16.0, Source of infection diverticulitis with abscess, and possible UTI * On arrival Lactic acid was 2.0 * IV antibiotics: Now on IV Primaxin * Vitals stable and WBC increasing today slightly (3) Abnormal urinalysis: Code(s): R82.90 - Unspecified abnormal findings in urine Status: Acute Assessment and Plan: * Hx of freq UTI, was on a prophylactic antibiotic and taken off about 3 months ago * Presents with complaints of urgency and frequency * UA leo, cloudy, 2+ Ur blood, positive nitrites, Leukocyte esterase 1+, WBC 31-50 * Urine cultures growing E. coli with sensitivity to Primaxin * Urology consulted who recommends deescalating abx once possible. (4) Diabetes mellitus: Qualifiers: Diabetes mellitus type: type 2 Diabetes mellitus marine oil terminal superintendent insulin use: with senior care use Diabetes mellitus complication status: with hyperglycemia Qualified Code(s): E11.65 - Type 2 diabetes mellitus with hyperglycemia; Z79.4 - joint terminal attack controller (current) use of insulin Code(s): E11.9 - Type 2 diabetes mellitus without complications Status: Chronic Assessment and Plan: * Glucose 226 on labs this am * Accu-Cheks AC and HS * Sliding scale insulin * Will restart Lantus * Adjust medications as needed (5) Afib: Qualifiers: Atrial fibrillation type: unspecified Qualified Code(s): I48.91 - Unspecified atrial fibrillation Code(s): I48.91 - Unspecified atrial fibrillation Status: Deleted Assessment and Plan: * Ablations x2 in the past * EKG SR in the ED * Controlled on amiodarone 200mg PO Daily, and metoprolol 50mg PO daily which have been continued * Yvette tx (6) Depression: Qualifiers: Depr
--- NOTE | 2021-05-16 09:35 | PM.IMPN ---
Progress Note: A&P Assessment and Plan (1) Diverticulitis of intestine with abscess: Onset Date: ~04/2021 Qualifiers: Diverticulitis site: large intestine Diverticulitis bleeding: without bleeding Qualified Code(s): K57.20 - Diverticulitis of large intestine with perforation and abscess without bleeding Code(s): K57.80 - Diverticulitis of intestine, part unspecified, with perforation and abscess without bleeding Status: Acute Assessment and Plan: Abd/Pel CT: Sigmoid diverticulitis with multiple by diverticular abscess cavities, pericolic inflammation Perc Drain placement 05/11 by IR with 3 mL opaque, brown, foul-smelling fluid was sent for aerobic and anaerobic cultures. Abscess cultures from drain came back growing E. coli which was indeterminate resistance to IV Zosyn. Also growing Bacteroides fragilis group pending sensitivities and blood culture growing Clostridium species and pending sensitivities. Consulted Dr. Justice and he recommended switching to IV Primaxin #3 Surgery consult and she is tolerating low Fiber diet at this time. At this time with slight elevated of leukocytosis at 12,[address] Abd/Pelvis with contrast. Surgery had said if the patient needs to have surgery to transfer to [facility] with a Colorectal Surgeon. Continue monitoring. (2) Sepsis: Qualifiers: Sepsis acute organ dysfunction status: unspecified Sepsis type: sepsis due to unspecified organism Qualified Code(s): A41.9 - Sepsis, unspecified organism Code(s): A41.9 - Sepsis, unspecified organism Status: Acute Assessment and Plan: Meets sepsis criteria with VS: T: 37.5C, HR: 74, RR: 27, BP: 137/64, WBC 16.0, Source of infection diverticulitis with abscess, and possible UTI On arrival Lactic acid was 2.0 IV antibiotics: Now on IV Primaxin Vitals stable and WBC increasing today slightly (3) Abnormal urinalysis: Code(s): R82.90 - Unspecified abnormal findings in urine Status: Acute Assessment and Plan: Hx of freq UTI, was on a prophylactic antibiotic and taken off about 3 months ago Presents with complaints of urgency and frequency UA leo, cloudy, 2+ Ur blood, positive nitrites, Leukocyte esterase 1+, WBC 31-50 Urine cultures growing E. coli with sensitivity to Primaxin Urology consulted who recommends deescalating abx once possible. (4) Diabetes mellitus: Qualifiers: Diabetes mellitus type: type 2 Diabetes mellitus custodial insulin use: with fiscal manager use Diabetes mellitus complication status: with hyperglycemia Qualified Code(s): E11.65 - Type 2 diabetes mellitus with hyperglycemia; Z79.4 - tableau analyst (current) use of insulin Code(s): E11.9 - Type 2 diabetes mellitus without complications Status: Chronic Assessment and Plan: Glucose 226 on labs this am Accu-Cheks AC and HS Sliding scale insulin Will restart Lantus Adjust medications as needed (5) Afib: Qualifiers: Atrial fibrillation type: unspecified Qualified Code(s): I48.91 - Unspecified atrial fibrillation Code(s): I48.91 - Unspecified atrial fibrillation Status: Deleted Assessment and Plan: Ablations x2 in the past EKG SR in the ED Controlled on amiodarone 200mg PO Daily, and metoprolol 50mg PO daily which have been continued Eliquis tx (6) Depression: Qualifiers: Depression Type: unspecified Qualified Code(s): F32.9 - Major depressive disorder, single episode, unspecified Code(s): F32.9 - Major depressive disorder, single episode, unspecified Status: Chronic Assessment and Plan: Continue home Lexapro 20mg PO daily Appears to have been increased recently Has an anxious demeanor, concerned with and made the comment that she was nosey and not ready to (7) HTN (hypertension): Quali
--- NOTE | 2021-05-16 10:52 | PM.PNGS ---
Progress Note: A&P Assessment and Plan (1) Diverticulitis of intestine with abscess: Onset Date: ~04/2021 Qualifiers: Diverticulitis site: large intestine Diverticulitis bleeding: without bleeding Qualified Code(s): K57.20 - Diverticulitis of large intestine with perforation and abscess without bleeding Code(s): K57.80 - Diverticulitis of intestine, part unspecified, with perforation and abscess without bleeding Status: Acute Assessment and Plan: White blood count still elevated. Patient still having some pain as well. Will plan for repeat CT to assess for adequate drainage of abscess. Continue current antibiotics as per ID recs. (2) Sepsis: Qualifiers: Sepsis acute organ dysfunction status: unspecified Sepsis type: sepsis due to unspecified organism Qualified Code(s): A41.9 - Sepsis, unspecified organism Code(s): A41.9 - Sepsis, unspecified organism Status: Acute (3) History of DVT (deep vein thrombosis): Code(s): Z86.718 - Personal history of other venous thrombosis and embolism Status: Acute Subjective Subjective Date/Time Seen: 05/16/21 10:52 Interval history: Still having some pain. Tolerating low-fiber diet. No fevers. Bowels moving. Exam GI: Inspection: non-distended and other (Drain with minimal purulent output) GI Palp: Yes Soft to palpation and Yes Tenderness to palpation present (GI) (LLQ) Objective Data Vital Signs Vital Signs: Vital Signs - 24 hr 05/15/21 14:00 05/15/21 19:47 05/16/21 04:52 Temperature 36.3 C L 36.6 C 36.4 C Pulse Rate 58 L 69 60 Respiratory Rate 16 16 18 Blood Pressure 133/58 L 140/50 L 143/64 H Pulse Oximetry 97 95 96 05/16/21 08:28 Temperature Pulse Rate 60 Respiratory Rate Blood Pressure Pulse Oximetry Intake/Output Intake/Output: Intake & Output 05/13/21 05/14/21 05/15/21 05/16/21 23:59 23:59 23:59 23:59 Intake Total 1795 1720 1160 350 Output Total 821 271 2457 15 Balance 1335 1415 -50 335 Meds/Results Medications: Active Medications Generic Name Dose Route Start Last Admin Trade Name Freq PRN Reason Stop Dose Admin Acetaminophen 650 mg 05/10/21 01:26 05/16/21 00:13 Acetaminophen 325 Mg Tablet PO 650 mg Q6H PRN Administration Mild Pain (1-3) or Fever Hydrocodone Bitart/Acetaminophen 1 tab 05/10/21 01:26 05/16/21 06:06 Hydrocodone/Acetaminophen (*Crx) 5-325 Mg Tablet PO 1 tab Q6H PRN Administration Pain Rated 4-6 Amiodarone HCl 200 mg 05/10/21 08:00 05/16/21 08:28 Amiodarone Hcl 200 Mg Tablet PO 200 mg DAILY@0800 RAFAEL Administration Apixaban 5 mg 05/13/21 09:00 05/16/21 08:28 Apixaban 5 Mg Tablet PO 5 mg Q12HR RAFAEL Administration Aspirin 81 mg 05/10/21 09:00 05/16/21 08:29 Aspirin 81 Mg Enteric Tablet PO 81 mg DAILY RAFAEL Administration Bisacodyl 10 mg 05/14/21 08:53 Bisacodyl 10 Mg Suppository RECTAL Q24H PRN Constipation Dextrose 12.5 gm 05/09/21 21:40 Dextrose 50% 25 Gm/50 Ml Syringe IV PUSH PRN PRN Hypoglycemia Protocol Docusate Sodium 100 mg 05/14/21 09:00 05/16/21 08:28 Docusate Sodium 100 Mg Capsule PO 100 mg Q12HR RAFAEL Administration Escitalopram Oxalate 20 mg 05/10/21 09:00 05/16/21 08:28 Escitalopram Oxalate 10 Mg Tablet PO 20 mg DAILY RAFAEL Administration Ferrous Sulfate 324 mg 05/10/21 08:00 05/16/21 08:28 Ferrous Sulfate 324 Mg Tablet PO 324 mg BIDWM RAFAEL Administration Glucagon 1 mg 05/09/21 21:40 Glucagon For Inj 1 Mg Vial IM PRN PRN Hypoglycemia Protocol Glucose 15 gm 05/09/21 21:40 Glucose Oral Gel 15 Gm Of Glucse In 37.5 Gm Tube PO PRN PRN Hypoglycemia Protocol Dextrose 1,000 mls @ 100 mls/hr 05/09/21 21:40 Dextrose 5% 1,000 Ml IVPB PRN PRN Hypoglycemia Protocol Imipenem/Cilastatin Sodium 300 100 mls @ 300 mls/hr 05/15/21 11:00 05/16/21 06:07 m
[2021-05-16 11:30] LABS: Procalcitonin 0.2 ng/mL
[2021-05-16 12:03] LABS: Glucose Point of Care 323 mg/dl (65-105)
[2021-05-16 14:00] VITALS: BP 115/52; PULSE 60; RESP 16; TEMP 36.2; O2SAT 100
[2021-05-16 16:25] LABS: Glucose Point of Care 317 mg/dl (65-105)
[2021-05-16 19:12] VITALS: BP 112/85; PULSE 61; RESP 17; TEMP 36.1; O2SAT 98
[2021-05-16] MEDS: INSULIN GLARGINE (*BKC) 100 UNITS/ML 20 UNITS SUB-Q (20:12)
[2021-05-16 20:21] LABS: Glucose Point of Care 262 mg/dl (65-105)
[2021-05-17 03:38] VITALS: BP 138/53; PULSE 63; RESP 18; TEMP 36.2; O2SAT 93
[2021-05-17] MEDS: SALINE LOCK FLUSH 10 ML IV PUSH ×3 (05:11→21:37)
[2021-05-17 05:28] LABS: Basophils Absolute Auto 0.1 K/mm3 (0.0-0.1); Basophils Percent Auto 0.8 % (0.2-1.2); Eosinophils Absolute Auto 0.3 K/mm3 (0-0.3); Eosinophils Percent Auto 2.6 % (0-4.4); Hematocrit 28.9 % (37.0-47.0); Hemoglobin 9.5 g/dL (12.0-15.0); Immature Granulocyte Absolute 0.35 K/mm3 (0.00-0.031); Lymphocytes Absolute Auto 1.22 K/mm3 (0.9-3.2); Lymphocytes Percent Auto 10.6 % (18.3-44.2); Mean Corpuscular HGB Conc 32.9 g/dl (32-36); Mean Corpuscular Hemoglobin 30.7 pg (26-34); Mean Corpuscular Volume 93.5 fl (80-100); Mean Platelet Volume 9.4 fl (7.4-10.4); Monocytes Absolute Auto 1.3 K/mm3 (0.1-0.6); Monocytes Percent Auto 11.6 % (2.6-8.5); Neutrophils Absolute Auto 8.2 K/mm3 (1.3-6.7); Neutrophils Percent Auto 71.4 % (45.5-73.1); Nucleated Red Blood Cells Perc 0.2 % (0.0-0.2); Platelet Count Result 491 k/mm3 (150-375); Red Blood Count 3.09 M/mm3 (4.2-5.4); Red Cell Distribution Width 15.7 % (11.5-14.5); White Blood Count 11.5 K/mm3 (4.5-10.0)
[2021-05-17 05:41] LABS: Anion Gap 4 mmol/L (8-16); Blood Urea Nitrogen 11 mg/dL (7-17); Calcium 8.9 mg/dL (8.4-10.2); Carbon Dioxide 32 mmol/L (22-30); Chloride 102 mmol/L (98-107); Estimated CRCL calculation 56 ml/min; Estimated Glomerular Filt Rate > 60; Glucose 190 mg/dL (65-110); Magnesium 1.8 mg/dL (1.6-2.3); Potassium 3.9 mmol/L (3.4-5.0); Sodium 138 mmol/L (137-145)
[2021-05-17 06:58] LABS: Glucose Point of Care 181 mg/dl (65-105)
[2021-05-17 08:11] VITALS: PULSE 63
[2021-05-17] MEDS: PANTOPRAZOLE 40 MG TABLET PO ×2 (08:11→21:29)
[2021-05-17] MEDS: ASPIRIN 81 MG ENTERIC TABLET PO (08:11)
[2021-05-17] MEDS: ESCITALOPRAM OXALATE 10 MG TABLET 20 MG PO (08:11)
[2021-05-17] MEDS: APIXABAN 5 MG TABLET PO ×2 (08:11→21:28)
[2021-05-17] MEDS: FERROUS SULFATE 324 MG TABLET PO ×2 (08:11→16:55)
[2021-05-17] MEDS: AMIODARONE HCL 200 MG TABLET PO (08:11)
[2021-05-17] MEDS: DOCUSATE SODIUM 100 MG CAPSULE PO ×2 (08:11→21:28)
[2021-05-17] MEDS: LOSARTAN POTASSIUM 25 MG TABLET PO (08:11)
[2021-05-17 08:12] VITALS: PULSE 63
[2021-05-17] MEDS: METOPROLOL SUCCINATE EXT REL 50 MG TABCR PO (08:12)
[2021-05-17] MEDS: MAGNESIUM OXIDE 400 MG TABLET PO (08:12)
[2021-05-17] MEDS: polyethylene glycoL 3350 17 GM POWD.PACK PO (08:12)
[2021-05-17] MEDS: HYDROcodone/acetaminophen (*CRX) 5-325 MG TABLET 1 TAB PO ×2 (08:15→19:14)
--- NOTE | 2021-05-17 08:50 | PM.PNGS ---
Progress Note: A&P Assessment and Plan (1) Diverticulitis of intestine with abscess: Onset Date: ~04/2021 Qualifiers: Diverticulitis site: large intestine Diverticulitis bleeding: without bleeding Qualified Code(s): K57.20 - Diverticulitis of large intestine with perforation and abscess without bleeding Code(s): K57.80 - Diverticulitis of intestine, part unspecified, with perforation and abscess without bleeding Status: Acute Assessment and Plan: continue IV antibiotics. Repeat CT shows small residual abscess. I will discuss with Radiology about possible placement of 2nd drain. (2) Sepsis: Qualifiers: Sepsis acute organ dysfunction status: unspecified Sepsis type: sepsis due to unspecified organism Qualified Code(s): A41.9 - Sepsis, unspecified organism Code(s): A41.9 - Sepsis, unspecified organism Status: Acute (3) History of DVT (deep vein thrombosis): Code(s): Z86.718 - Personal history of other venous thrombosis and embolism Status: Acute Subjective Subjective Date/Time Seen: 05/17/21 08:50 Interval history: Still having some abdominal pain. No fevers. Tolerating low-fiber diet. Exam GI: Inspection: non-distended and other ( pigtail drain with scant feculent drainage) GI Palp: Yes Soft to palpation, Yes Tenderness to palpation present (GI) ( Left lower quadrant and slightly in right lower quadrant) and No Guarding due to palpation present (GI) Objective Data Vital Signs Vital Signs: Vital Signs - 24 hr 05/16/21 14:00 05/16/21 19:12 05/17/21 03:38 Temperature 36.2 C L 36.1 C L 36.2 C L Pulse Rate 60 61 63 Respiratory Rate 16 17 18 Blood Pressure 115/52 L 112/85 138/53 L Pulse Oximetry 100 98 93 05/17/21 08:11 05/17/21 08:12 Temperature Pulse Rate 63 63 Respiratory Rate Blood Pressure Pulse Oximetry Intake/Output Intake/Output: Intake & Output 05/14/21 05/15/21 05/16/21 05/17/21 23:59 23:59 23:59 23:59 Intake Total 1720 1160 950 300 Output Total 305 1210 15 450 Balance 1415 -50 935 -150 Meds/Results Medications: Active Medications Generic Name Dose Route Start Last Admin Trade Name Freq PRN Reason Stop Dose Admin Acetaminophen 650 mg 05/10/21 01:26 05/16/21 23:51 Acetaminophen 325 Mg Tablet PO 650 mg Q6H PRN Administration Mild Pain (1-3) or Fever Hydrocodone Bitart/Acetaminophen 1 tab 05/10/21 01:26 05/17/21 08:15 Hydrocodone/Acetaminophen (*Crx) 5-325 Mg Tablet PO 1 tab Q6H PRN Administration Pain Rated 4-6 Amiodarone HCl 200 mg 05/10/21 08:00 05/17/21 08:11 Amiodarone Hcl 200 Mg Tablet PO 200 mg DAILY@0800 RAFAEL Administration Apixaban 5 mg 05/13/21 09:00 05/17/21 08:11 Apixaban 5 Mg Tablet PO 5 mg Q12HR RAFAEL Administration Aspirin 81 mg 05/10/21 09:00 05/17/21 08:11 Aspirin 81 Mg Enteric Tablet PO 81 mg DAILY RAFAEL Administration Bisacodyl 10 mg 05/14/21 08:53 Bisacodyl 10 Mg Suppository RECTAL Q24H PRN Constipation Dextrose 12.5 gm 05/09/21 21:40 Dextrose 50% 25 Gm/50 Ml Syringe IV PUSH PRN PRN Hypoglycemia Protocol Docusate Sodium 100 mg 05/14/21 09:00 05/17/21 08:11 Docusate Sodium 100 Mg Capsule PO 100 mg Q12HR RAFAEL Administration Escitalopram Oxalate 20 mg 05/10/21 09:00 05/17/21 08:11 Escitalopram Oxalate 10 Mg Tablet PO 20 mg DAILY RAFAEL Administration Ferrous Sulfate 324 mg 05/10/21 08:00 05/17/21 08:11 Ferrous Sulfate 324 Mg Tablet PO 324 mg BIDWM RAFAEL Administration Glucagon 1 mg 05/09/21 21:40 Glucagon For Inj 1 Mg Vial IM PRN PRN Hypoglycemia Protocol Glucose 15 gm 05/09/21 21:40 Glucose Oral Gel 15 Gm Of Glucse In 37.5 Gm Tube PO PRN PRN Hypoglycemia Protocol Dextrose 1,000 mls @ 100 mls/hr 05/09/21 21:40 Dextrose 5% 1,000 Ml IVPB PRN PRN Hypoglycemia Protocol Imipenem/Cilast
--- NOTE | 2021-05-17 09:19 | P.PNIM_ITS ---
Progress Note: A&P Assessment and Plan (1) Diverticulitis of intestine with abscess: Onset Date: ~04/2021 Qualifiers: Diverticulitis bleeding: without bleeding Diverticulitis site: large intestine Qualified Code(s): K57.20 - Diverticulitis of large intestine with perforation and abscess without bleeding Code(s): K57.80 - Diverticulitis of intestine, part unspecified, with perforation and abscess without bleeding Status: Acute Assessment and Plan: * Abd/Pel CT: Sigmoid diverticulitis with multiple by diverticular abscess cavities, pericolic inflammation * Perc Drain placement 05/11 by IR with 3 mL opaque, brown, foul-smelling fluid was sent for aerobic and anaerobic cultures. * Abscess cultures from drain came back growing E. coli which was indeterminate resistance to IV Zosyn. Also growing Bacteroides fragilis group pending sensitivities and blood culture growing Clostridium species and pending sensitivities. * Consulted Dr. Justice and he recommended switching to IV Primaxin #4 * Surgery consult and she is tolerating low Fiber diet at this time. * Repeat CT Abd/Pelvis with contrast 05/16/21 showed Complicated sigmoid diverticulitis with successful drainage of largest pelvic abscess. Additional pelvic abscess unchanged, potentially could be treated with 2nd percutaneous drain. * Surgery evaluated the patient and will talk with radiology about possible second drain placement. Continue monitoring. (2) Sepsis: Qualifiers: Sepsis acute organ dysfunction status: unspecified Sepsis type: sepsis due to unspecified organism Qualified Code(s): A41.9 - Sepsis, unspecified organism Code(s): A41.9 - Sepsis, unspecified organism Status: Acute Assessment and Plan: * Meets sepsis criteria with VS: T: 37.5C, HR: 74, RR: 27, BP: 137/64, WBC 16.0, Source of infection diverticulitis with abscess, and possible UTI * On arrival Lactic acid was 2.0 * IV antibiotics: Now on IV Primaxin * Vitals stable and WBC coming back down today. (3) Abnormal urinalysis: Code(s): R82.90 - Unspecified abnormal findings in urine Status: Acute Assessment and Plan: * Hx of freq UTI, was on a prophylactic antibiotic and taken off about 3 months ago * Presents with complaints of urgency and frequency * UA leo, cloudy, 2+ Ur blood, positive nitrites, Leukocyte esterase 1+, WBC 31-50 * Urine cultures growing E. coli with sensitivity to Primaxin * Urology consulted who recommends deescalating abx once possible. (4) Diabetes mellitus: Qualifiers: Diabetes mellitus complication status: with hyperglycemia Diabetes mellitus terminal makeup operator insulin use: with terminal makeup operator use Diabetes mellitus type: type 2 Qualified Code(s): E11.65 - Type 2 diabetes mellitus with hyperglycemia; Z79.4 - terminal block assembler (current) use of insulin Code(s): E11.9 - Type 2 diabetes mellitus without complications Status: Chronic Assessment and Plan: * Glucose 190 on labs this am * Accu-Cheks AC and HS * Sliding scale insulin * Will restart Lantus * Adjust medications as needed (5) Afib: Qualifiers: Atrial fibrillation type: unspecified Qualified Code(s): I48.91 - Unspecified atrial fibrillation Code(s): I48.91 - Unspecified atrial fibrillation Status: Deleted Assessment and Plan: * Ablations x2 in the past * EKG SR in the ED * Controlled on amiodarone 200mg PO Daily, and metoprolol 50mg PO daily which have been continued
--- NOTE | 2021-05-17 09:19 | PM.IMPN ---
Progress Note: A&P Assessment and Plan (1) Diverticulitis of intestine with abscess: Onset Date: ~04/2021 Qualifiers: Diverticulitis bleeding: without bleeding Diverticulitis site: large intestine Qualified Code(s): K57.20 - Diverticulitis of large intestine with perforation and abscess without bleeding Code(s): K57.80 - Diverticulitis of intestine, part unspecified, with perforation and abscess without bleeding Status: Acute Assessment and Plan: Abd/Pel CT: Sigmoid diverticulitis with multiple by diverticular abscess cavities, pericolic inflammation Perc Drain placement 05/11 by IR with 3 mL opaque, brown, foul-smelling fluid was sent for aerobic and anaerobic cultures. Abscess cultures from drain came back growing E. coli which was indeterminate resistance to IV Zosyn. Also growing Bacteroides fragilis group pending sensitivities and blood culture growing Clostridium species and pending sensitivities. Consulted Dr. Justice and he recommended switching to IV Primaxin #4/14 Surgery consult and she is tolerating low Fiber diet at this time. Repeat CT Abd/Pelvis with contrast 05/16/21 showed Complicated sigmoid diverticulitis with successful drainage of largest pelvic abscess. Additional pelvic abscess unchanged, potentially could be treated with 2nd percutaneous drain. Surgery evaluated the patient and will talk with radiology about possible second drain placement. Continue monitoring. (2) Sepsis: Qualifiers: Sepsis acute organ dysfunction status: unspecified Sepsis type: sepsis due to unspecified organism Qualified Code(s): A41.9 - Sepsis, unspecified organism Code(s): A41.9 - Sepsis, unspecified organism Status: Acute Assessment and Plan: Meets sepsis criteria with VS: T: 37.5C, HR: 74, RR: 27, BP: 137/64, WBC 16.0, Source of infection diverticulitis with abscess, and possible UTI On arrival Lactic acid was 2.0 IV antibiotics: Now on IV Primaxin Vitals stable and WBC coming back down today. (3) Abnormal urinalysis: Code(s): R82.90 - Unspecified abnormal findings in urine Status: Acute Assessment and Plan: Hx of freq UTI, was on a prophylactic antibiotic and taken off about 3 months ago Presents with complaints of urgency and frequency UA leo, cloudy, 2+ Ur blood, positive nitrites, Leukocyte esterase 1+, WBC 31-50 Urine cultures growing E. coli with sensitivity to Primaxin Urology consulted who recommends deescalating abx once possible. (4) Diabetes mellitus: Qualifiers: Diabetes mellitus complication status: with hyperglycemia Diabetes mellitus home health specialist insulin use: with snf use Diabetes mellitus type: type 2 Qualified Code(s): E11.65 - Type 2 diabetes mellitus with hyperglycemia; Z79.4 - talent program manager (current) use of insulin Code(s): E11.9 - Type 2 diabetes mellitus without complications Status: Chronic Assessment and Plan: Glucose 190 on labs this am Accu-Cheks AC and HS Sliding scale insulin Will restart Lantus Adjust medications as needed (5) Afib: Qualifiers: Atrial fibrillation type: unspecified Qualified Code(s): I48.91 - Unspecified atrial fibrillation Code(s): I48.91 - Unspecified atrial fibrillation Status: Deleted Assessment and Plan: Ablations x2 in the past EKG SR in the ED Controlled on amiodarone 200mg PO Daily, and metoprolol 50mg PO daily which have been continued Eliquis tx (6) Depression: Qualifiers: Depression Type: unspecified Qualified Code(s): F32.9 - Major depressive disorder, single episode, unspecified Code(s): F32.9 - Major depressive disorder, single episode, unspecified Status: Chronic Assessment and Plan: Continue home Lexapro 20mg PO daily (7) HTN (hypertension): Qualifiers: Hypertension type: essenti
[2021-05-17] MEDS: FUROSEMIDE INJ 40 MG/4 ML VIAL 20 MG IV PUSH (10:21)
--- NOTE | 2021-05-17 10:23 | PCNFU ---
Nutrition Follow-Up Complete: Altered GI function as related to Diverticulitis as evidenced by NPO Goal: Adequate Intake of at least 75% of meals/supplements of meals Patient is progress towards goal. We will continue current goal. Pt current nutrition is Low Fiber with Ensure compact BID. Last recorded weight is 80.8 kg, no new weight to report. Bowel Motility:+BM reported 05/15 Labs Reviewed:Glu 190, Hct 28.9,Hgb 9.5 Meds Noted:Miralax,Protonix, Ferrous Sulfate, Mag-Ox, Cozaar, Pacerone, Eliquis, [place] Additional Notes: Nutrition follow up. Patient seen today, states to tolerating Low Fiber diet. Oral Intake documented at 50-75% of meals. Patient has been educted on Low Fiber diet for home. Diet supplements of Ensure compact are being consumed providing an additional 220 kcals and 9 gms protein. Agree with diet orders. Monitoring: Will monitor every 5 days.
[2021-05-17 11:39] LABS: Glucose Point of Care 239 mg/dl (65-105)
[2021-05-17] MEDS: INSULIN ASPART (*BKC) 100 UNITS/ML SUB-Q ×3 (11:58→21:37)
[2021-05-17 13:50] VITALS: BP 144/60; PULSE 60; RESP 16; TEMP 36.2; O2SAT 99
[2021-05-17 16:24] LABS: Glucose Point of Care 237 mg/dl (65-105)
[2021-05-17 19:47] VITALS: BP 135/50; PULSE 59; RESP 16; TEMP 37.1; O2SAT 98
[2021-05-17] MEDS: INSULIN GLARGINE (*BKC) 100 UNITS/ML 20 UNITS SUB-Q (21:35)
[2021-05-17 21:55] LABS: Glucose Point of Care 312 mg/dl (65-105)
[2021-05-18 04:30] VITALS: BP 138/52; PULSE 62; RESP 16; TEMP 36.8; O2SAT 97
[2021-05-18 05:41] LABS: Basophils Absolute Auto 0.1 K/mm3 (0.0-0.1); Basophils Percent Auto 0.8 % (0.2-1.2); Eosinophils Absolute Auto 0.3 K/mm3 (0-0.3); Eosinophils Percent Auto 2.5 % (0-4.4); Hematocrit 30.9 % (37.0-47.0); Immature Granulocyte Absolute 0.24 K/mm3 (0.00-0.031); Lymphocytes Absolute Auto 1.21 K/mm3 (0.9-3.2); Lymphocytes Percent Auto 9.9 % (18.3-44.2); Mean Corpuscular HGB Conc 32.4 g/dl (32-36); Mean Corpuscular Hemoglobin 31.4 pg (26-34); Mean Corpuscular Volume 97.2 fl (80-100); Mean Platelet Volume 9.6 fl (7.4-10.4); Monocytes Absolute Auto 1.3 K/mm3 (0.1-0.6); Monocytes Percent Auto 10.9 % (2.6-8.5); Neutrophils Percent Auto 73.9 % (45.5-73.1); Nucleated Red Blood Cells Perc 0.2 % (0.0-0.2); Platelet Count Result 476 k/mm3 (150-375); Red Blood Count 3.18 M/mm3 (4.2-5.4); Red Cell Distribution Width 15.9 % (11.5-14.5); White Blood Count 12.2 K/mm3 (4.5-10.0)
[2021-05-18 05:59] LABS: Anion Gap 4 mmol/L (8-16); Blood Urea Nitrogen 13 mg/dL (7-17); Carbon Dioxide 33 mmol/L (22-30); Chloride 100 mmol/L (98-107); Estimated CRCL calculation 58 ml/min; Estimated Glomerular Filt Rate > 60; Glucose 126 mg/dL (65-110); Magnesium 1.8 mg/dL (1.6-2.3); Potassium 4.1 mmol/L (3.4-5.0); Sodium 137 mmol/L (137-145)
[2021-05-18] MEDS: SALINE LOCK FLUSH 10 ML IV PUSH ×3 (05:59→21:33)
[2021-05-18 07:31] LABS: Glucose Point of Care 144 mg/dl (65-105)
--- NOTE | 2021-05-18 08:06 | PM.PNGS ---
Progress Note: A&P Assessment and Plan (1) Diverticulitis of intestine with abscess: Onset Date: ~04/2021 Qualifiers: Diverticulitis bleeding: without bleeding Diverticulitis site: large intestine Qualified Code(s): K57.20 - Diverticulitis of large intestine with perforation and abscess without bleeding Code(s): K57.80 - Diverticulitis of intestine, part unspecified, with perforation and abscess without bleeding Status: Acute Assessment and Plan: continue IV antibiotics. Repeat CT showed a small residual abscess 2 x 4 cm which may be connected to the larger one that we drained. (This was reviewed by Dr. Myers with Dr. Blanton in Radiology yesterday). Plan will be to continue drainage since a good amount is coming out (60 cc yesterday) and continue IV antibiotics. I will plan to either inpatient or outpatient get a repeat CT scan prior to removing the drain (perhaps on May 26 since her antibiotics are due to be stopped on May 27). (2) Sepsis: Qualifiers: Sepsis acute organ dysfunction status: unspecified Sepsis type: sepsis due to unspecified organism Qualified Code(s): A41.9 - Sepsis, unspecified organism Code(s): A41.9 - Sepsis, unspecified organism Status: Acute Assessment and Plan: Appears to be resolving. (3) History of DVT (deep vein thrombosis): Code(s): Z86.718 - Personal history of other venous thrombosis and embolism Status: Acute Assessment and Plan: The patient did not have her SCD hose on when I entered the room, but I discussed this with her and with her nurse. Patient may not absolutely need them since she is on full-dose Eliquis, however she also has some edema in her legs and these may actually help prevent worsening of that too. (4) Pulmonary hypertension assoc with unclear multi-factorial mechanisms: Code(s): I27.29 - Other secondary pulmonary hypertension Status: Acute Assessment and Plan: See echocardiogram done this visit. This is yet again another factor that makes her high risk for general anesthesia and intra-abdominal surgery. Again I want to emphasize that if she needs to have surgery for her diverticulitis, I believe that she would be best served to be at a tertiary care center such as [facility] or [place] where she has had surgeries in both places in the past. 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 She should probably have a colorectal surgeon perform any surgical intervention for her colon, whether it be semi-urgent or elective in the future. Additional Plan Encouraged her to walk the halls a few times today. She is feeling weak and concerned about returning home where she lives alone. PT/OT following and are indicated at ECF /rehab ,or at home. Subjective Subjective Date/Time Seen: 05/18/21 08:06 Patient is sitting up eating when I entered the room. States that she still has some left lower quadrant pain, but this is where the drain is. States she has not had a good bowel movement for 3 days. States she believes she is getting MiraLax once daily. She is getting up walking with PT and nursing with the walker. States she got a PICC line yesterday or the day before. Review of Systems Review of Systems: All systems reviewed & are unremarkable except as noted in HPI and below ENT: Denies headache(s) Respiratory: Respiratory: Reports no additional respiratory complaints, Reports no additional respiratory complaints, Denies cough and Denies dyspnea Gastrointestinal: Gastrointestinal: Reports as per HPI, Reports no additional gastrointestinal complaints, Denies abdominal pain, Reports melena, Denies bloating, Denies hematochezia, Reports constipation, Denies heartburn, Denies fecal incontinence, Denies diarrhea, Denies nausea and Denies vomitin
[2021-05-18 08:33] VITALS: PULSE 62
[2021-05-18] MEDS: FERROUS SULFATE 324 MG TABLET PO ×2 (08:33→16:26)
[2021-05-18] MEDS: AMIODARONE HCL 200 MG TABLET PO (08:33)
[2021-05-18] MEDS: APIXABAN 5 MG TABLET PO ×2 (08:33→21:32)
[2021-05-18] MEDS: ASPIRIN 81 MG ENTERIC TABLET PO (08:33)
[2021-05-18 08:34] VITALS: PULSE 62
[2021-05-18] MEDS: METOPROLOL SUCCINATE EXT REL 50 MG TABCR PO (08:34)
[2021-05-18] MEDS: MAGNESIUM OXIDE 400 MG TABLET PO (08:34)
[2021-05-18] MEDS: PANTOPRAZOLE 40 MG TABLET PO ×2 (08:34→21:33)
[2021-05-18] MEDS: ESCITALOPRAM OXALATE 10 MG TABLET 20 MG PO (08:34)
[2021-05-18] MEDS: LOSARTAN POTASSIUM 25 MG TABLET PO (08:34)
[2021-05-18] MEDS: polyethylene glycoL 3350 17 GM POWD.PACK PO (08:34)
[2021-05-18] MEDS: DOCUSATE SODIUM 100 MG CAPSULE PO ×2 (08:34→21:32)
--- NOTE | 2021-05-18 09:29 | P.PNIM_ITS ---
Progress Note: A&P Assessment and Plan (1) Diverticulitis of intestine with abscess: Onset Date: ~04/2021 Qualifiers: Diverticulitis bleeding: without bleeding Diverticulitis site: large intestine Qualified Code(s): K57.20 - Diverticulitis of large intestine with perforation and abscess without bleeding Code(s): K57.80 - Diverticulitis of intestine, part unspecified, with perforation and abscess without bleeding Status: Acute Assessment and Plan: * Abd/Pel CT: Sigmoid diverticulitis with multiple by diverticular abscess cavities, pericolic inflammation * Perc Drain placement 05/11 by IR with 3 mL opaque, brown, foul-smelling fluid was sent for aerobic and anaerobic cultures. * Abscess cultures from drain came back growing E. coli which was indeterminate resistance to IV Zosyn. Also growing Bacteroides fragilis group pending sensitivities and blood culture growing Clostridium species and pending sensitivities. * Consulted Dr. Justice and he recommended switching to IV Primaxin x14 d, potentially dc home on Ertapenem as it is only once a day. * Surgery consult and she is tolerating low Fiber diet at this time. * Repeat CT Abd/Pelvis with contrast 05/16/21 showed Complicated sigmoid diverticulitis with successful drainage of largest pelvic abscess. Additional pelvic abscess unchanged, potentially could be treated with 2nd percutaneous drain. * Surgery evaluated the patient and will talk with radiology about possible second drain placement. Continue monitoring. (2) Septicemia: Code(s): A41.9 - Sepsis, unspecified organism Status: Acute Assessment and Plan: * Meets sepsis criteria with VS: T: 37.5C, HR: 74, RR: 27, BP: 137/64, WBC 16.0, Source of infection diverticulitis with abscess, and possible UTI * On arrival Lactic acid was 2.0 * Initial blood cultures 05/09 positive for clostridium species. Repeat BC 05/16 no growth. * IV antibiotics: Now on IV Primaxin * Vitals stable and WBC coming back down (3) Abnormal urinalysis: Code(s): R82.90 - Unspecified abnormal findings in urine Status: Acute Assessment and Plan: * Hx of freq UTI, was on a prophylactic antibiotic and taken off about 3 months ago * Presents with complaints of urgency and frequency * UA leo, cloudy, 2+ Ur blood, positive nitrites, Leukocyte esterase 1+, WBC 31-50 * Urine cultures growing E. coli with sensitivity to Primaxin * Urology consulted who recommends deescalating abx once possible. (4) Diabetes mellitus: Qualifiers: Diabetes mellitus complication status: with hyperglycemia Diabetes mellitus remote computer terminal operator insulin use: with remote computer terminal operator use Diabetes mellitus type: type 2 Qualified Code(s): E11.65 - Type 2 diabetes mellitus with hyperglycemia; Z79.4 - FPC (current) use of insulin Code(s): E11.9 - Type 2 diabetes mellitus without complications Status: Chronic Assessment and Plan: * Glucose 126 on labs this am * Accu-Cheks AC and HS * Sliding scale insulin * Continue Lantus 20 units QHS * Adjust medications as needed (5) Lower extremity edema: Code(s): R60.0 - Localized edema Status: Acute Assessment and Plan: Echo from 05/16/21 Summary 1. Complete two-dimensional, color flow and Doppler transthoracic echocardiogram is performed. 2. Normal left ventricular size with moderate concentric hypertrophy. Normal left ventricular systolic function, visual estimate 60-65%, calculated 67%. Grade 2 diastolic dysfunction is present.
--- NOTE | 2021-05-18 09:29 | PM.IMPN ---
Progress Note: A&P Assessment and Plan (1) Diverticulitis of intestine with abscess: Onset Date: ~04/2021 Qualifiers: Diverticulitis bleeding: without bleeding Diverticulitis site: large intestine Qualified Code(s): K57.20 - Diverticulitis of large intestine with perforation and abscess without bleeding Code(s): K57.80 - Diverticulitis of intestine, part unspecified, with perforation and abscess without bleeding Status: Acute Assessment and Plan: Abd/Pel CT: Sigmoid diverticulitis with multiple by diverticular abscess cavities, pericolic inflammation Perc Drain placement 05/11 by IR with 3 mL opaque, brown, foul-smelling fluid was sent for aerobic and anaerobic cultures. Abscess cultures from drain came back growing E. coli which was indeterminate resistance to IV Zosyn. Also growing Bacteroides fragilis group pending sensitivities and blood culture growing Clostridium species and pending sensitivities. Consulted Dr. Justice and he recommended switching to IV Primaxin x14 d, potentially dc home on Ertapenem as it is only once a day. Surgery consult and she is tolerating low Fiber diet at this time. Repeat CT Abd/Pelvis with contrast 05/16/21 showed Complicated sigmoid diverticulitis with successful drainage of largest pelvic abscess. Additional pelvic abscess unchanged, potentially could be treated with 2nd percutaneous drain. Surgery evaluated the patient and will talk with radiology about possible second drain placement. Continue monitoring. (2) Septicemia: Code(s): A41.9 - Sepsis, unspecified organism Status: Acute Assessment and Plan: Meets sepsis criteria with VS: T: 37.5C, HR: 74, RR: 27, BP: 137/64, WBC 16.0, Source of infection diverticulitis with abscess, and possible UTI On arrival Lactic acid was 2.0 Initial blood cultures 05/09 positive for clostridium species. Repeat BC 05/16 no growth. IV antibiotics: Now on IV Primaxin Vitals stable and WBC coming back down (3) Abnormal urinalysis: Code(s): R82.90 - Unspecified abnormal findings in urine Status: Acute Assessment and Plan: Hx of freq UTI, was on a prophylactic antibiotic and taken off about 3 months ago Presents with complaints of urgency and frequency UA leo, cloudy, 2+ Ur blood, positive nitrites, Leukocyte esterase 1+, WBC 31-50 Urine cultures growing E. coli with sensitivity to Primaxin Urology consulted who recommends deescalating abx once possible. (4) Diabetes mellitus: Qualifiers: Diabetes mellitus complication status: with hyperglycemia Diabetes mellitus window glass installer insulin use: with window glass installer use Diabetes mellitus type: type 2 Qualified Code(s): E11.65 - Type 2 diabetes mellitus with hyperglycemia; Z79.4 - box office clerk (current) use of insulin Code(s): E11.9 - Type 2 diabetes mellitus without complications Status: Chronic Assessment and Plan: Glucose 126 on labs this am Accu-Cheks AC and HS Sliding scale insulin Continue Lantus 20 units QHS Adjust medications as needed (5) Lower extremity edema: Code(s): R60.0 - Localized edema Status: Acute Assessment and Plan: Echo from 05/16/21 Summary 1. Complete two-dimensional, color flow and Doppler transthoracic echocardiogram is performed. 2. Normal left ventricular size with moderate concentric hypertrophy. Normal left ventricular systolic function, visual estimate 60-65%, calculated 67%. Grade 2 diastolic dysfunction is present. 3. Left atrial chamber dimension is severely enlarged. 4. Right atrial chamber dimension is mildly enlarged. 5. There is moderate to moderately severe mitral valve regurgitation. 6. There is mild tricuspid valve regurgitation. 7. Severe pulmonary hypertension, estimated pulmonary arterial systolic pressure is 69 mmHg. 8. 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
[2021-05-18 11:33] LABS: Glucose Point of Care 202 mg/dl (65-105)
[2021-05-18] MEDS: INSULIN ASPART (*BKC) 100 UNITS/ML SUB-Q ×2 (11:44→21:30)
[2021-05-18] MEDS: HYDROcodone/acetaminophen (*CRX) 5-325 MG TABLET 1 TAB PO ×2 (11:45→16:26)
[2021-05-18] MEDS: BISACODYL 10 MG SUPPOSITORY RECTAL (11:45)
[2021-05-18] MEDS: FUROSEMIDE INJ 40 MG/4 ML VIAL IV PUSH (11:51)
[2021-05-18 14:20] VITALS: BP 128/59; PULSE 61; RESP 16; TEMP 36.6; O2SAT 96
[2021-05-18 16:22] LABS: Glucose Point of Care 197 mg/dl (65-105)
[2021-05-18 20:52] VITALS: BP 133/62; PULSE 76; RESP 16; TEMP 36.8; O2SAT 96
[2021-05-18] MEDS: INSULIN GLARGINE (*BKC) 100 UNITS/ML 20 UNITS SUB-Q (21:31)
--- NOTE | 2021-05-18 21:58 | PC.NURSE ---
Pt educated on SCDs and informed Dr. Thomas wants her to wear them at all times in bed. Despite repositioning and loosening SCDs, pt still states they are painful and is refusing them at this time, pt states she will try to wear them again later.
[2021-05-18 22:23] LABS: Glucose Point of Care 232 mg/dl (65-105)
[2021-05-19 00:31] VITALS: O2SAT 93
--- NOTE | 2021-05-19 03:03 | PCRCNOTE ---
Pt stated they did not believe they had sleep apnea. Pt stated unless the doctor told her to wear the apnea link, she was not going to do it.
[2021-05-19 05:38] VITALS: BP 143/58; PULSE 68; RESP 16; TEMP 36.8; O2SAT 94
[2021-05-19] MEDS: SALINE LOCK FLUSH 10 ML IV PUSH ×2 (06:21→15:33)
[2021-05-19 06:28] LABS: Basophils Absolute Auto 0.1 K/mm3 (0.0-0.1); Basophils Percent Auto 0.8 % (0.2-1.2); Eosinophils Absolute Auto 0.3 K/mm3 (0-0.3); Hematocrit 29.8 % (37.0-47.0); Hemoglobin 9.7 g/dL (12.0-15.0); Immature Granulocyte Absolute 0.12 K/mm3 (0.00-0.031); Lymphocytes Absolute Auto 1.17 K/mm3 (0.9-3.2); Lymphocytes Percent Auto 9.3 % (18.3-44.2); Mean Corpuscular HGB Conc 32.6 g/dl (32-36); Mean Corpuscular Hemoglobin 31.4 pg (26-34); Mean Corpuscular Volume 96.4 fl (80-100); Mean Platelet Volume 9.2 fl (7.4-10.4); Monocytes Absolute Auto 1.4 K/mm3 (0.1-0.6); Monocytes Percent Auto 11.4 % (2.6-8.5); Neutrophils Absolute Auto 9.5 K/mm3 (1.3-6.7); Neutrophils Percent Auto 75.5 % (45.5-73.1); Nucleated Red Blood Cells Perc 0.2 % (0.0-0.2); Platelet Count Result 461 k/mm3 (150-375); Red Blood Count 3.09 M/mm3 (4.2-5.4); White Blood Count 12.6 K/mm3 (4.5-10.0)
[2021-05-19 06:43] LABS: Anion Gap 4 mmol/L (8-16); Blood Urea Nitrogen 15 mg/dL (7-17); Calcium 8.7 mg/dL (8.4-10.2); Carbon Dioxide 34 mmol/L (22-30); Chloride 96 mmol/L (98-107); Estimated CRCL calculation 51 ml/min; Estimated Glomerular Filt Rate > 60; Glucose 147 mg/dL (65-110); Potassium 3.8 mmol/L (3.4-5.0); Sodium 134 mmol/L (137-145)
[2021-05-19 07:59] LABS: Glucose Point of Care 159 mg/dl (65-105)
[2021-05-19 08:00] VITALS: BP 125/57; PULSE 72; RESP 14; TEMP 36.6; O2SAT 95
[2021-05-19 08:55] VITALS: PULSE 72
[2021-05-19] MEDS: METOPROLOL SUCCINATE EXT REL 50 MG TABCR PO (08:55)
[2021-05-19] MEDS: LOSARTAN POTASSIUM 25 MG TABLET PO (08:56)
[2021-05-19] MEDS: PANTOPRAZOLE 40 MG TABLET PO (08:57)
[2021-05-19] MEDS: APIXABAN 5 MG TABLET PO (08:57)
[2021-05-19] MEDS: MAGNESIUM OXIDE 400 MG TABLET PO (08:58)
[2021-05-19] MEDS: FERROUS SULFATE 324 MG TABLET PO (08:58)
[2021-05-19] MEDS: ASPIRIN 81 MG ENTERIC TABLET PO (08:58)
[2021-05-19] MEDS: DOCUSATE SODIUM 100 MG CAPSULE PO (08:58)
[2021-05-19 08:59] VITALS: PULSE 72
[2021-05-19] MEDS: AMIODARONE HCL 200 MG TABLET PO (08:59)
[2021-05-19] MEDS: ESCITALOPRAM OXALATE 10 MG TABLET 20 MG PO (09:00)
--- NOTE | 2021-05-19 11:23 | PCOTNOTE ---
Attempted to see Patient for A.M. OT treatment session. Patient out of the room at this time. Per RN, Patient is down having an ultrasound completed.
[2021-05-19 12:36] LABS: Glucose Point of Care 180 mg/dl (65-105)
--- NOTE | 2021-05-19 13:10 | P.DS_ITS ---
DS: Admitting Diagnosis Discharge Date 05/19/21 <Eliana Holley PA-C - Last Filed: 05/19/21 14:19> Admitting Diagnosis Diverticulitis w/ abscess <CATHERINE Khan Last Filed: 05/19/21 14:19> DS: Discharge Diagnosis Discharge Diagnosis (1) Diverticulitis of intestine with abscess: Onset Date: ~04/2021 <CATHERINE Khan Last Filed: 05/19/21 14:19> Qualifiers: Diverticulitis bleeding: without bleeding Diverticulitis site: large intestine Qualified Code(s): K57.20 - Diverticulitis of large intestine with perforation and abscess without bleeding <SHELLI Khan Last Filed: 05/19/21 14:19> Code(s): K57.80 - Diverticulitis of intestine, part unspecified, with perforation and abscess without bleeding <Eliana Holley PA-C Last Filed: 05/19/21 14:19> Status: Acute <CATHERINE Khan Filed: 05/19/21 14:19> Assessment and Plan: * Abd/Pel CT: Sigmoid diverticulitis with multiple by diverticular abscess cavities, pericolic inflammation * Perc Drain placement 05/11 by IR with 3 mL opaque, brown, foul-smelling fluid was sent for aerobic and anaerobic cultures. * Abscess cultures from drain came back growing E. coli which was indeterminate resistance to IV Zosyn. Also growing Bacteroides fragilis group pending sensitivities and blood culture growing Clostridium species and pending sensitivities. * Consulted Dr. Justice Infectious Disease and he recommended switching to IV Primaxin x14 d, potentially dc home on Ertapenem as it is only once a day. * Surgery consult and she is tolerating low Fiber diet at this time. * Repeat CT Abd/Pelvis with contrast 05/16/21 showed Complicated sigmoid diverticulitis with successful drainage of largest pelvic abscess. Additional pelvic abscess unchanged, potentially could be treated with 2nd percutaneous drain. * Spoke w/ Dr. Thomas general surgery who reviewed repeat CT with interventional radiologist. They suspect that the additional abscess is in fact slightly smaller and that it is potentially connected to the larger abscess which has the drain. For these reasons they will not be placing a second drain. Instead they prefer to discharge pt to rehab facility to continue IV abx. Repeat CT on 05/26/21 and appt. w/ Dr. Thomas to re evaluate abscesses and potentially remove drain at that time. * Today is Day 5 of Imipenem, switching to Ertapenem starting tomorrow at [facility]. <CATHERINE Khan Last Filed: 05/19/21 14:19> (2) Septicemia: Code(s): A41.9 - Sepsis, unspecified organism <CATHERINE Khan Last Filed: 05/19/21 14:19> Status: Acute <CATHERINE Khan Last Filed: 05/19/21 14:19> Assessment and Plan: * Meets sepsis criteria with VS: T: 37.5C, HR: 74, RR: 27, BP: 137/6 4, WBC 16.0, Source of infection diverticulitis with abscess, and possible UTI * On arrival Lactic acid was 2.0 * Initial blood cultures 05/09 positive for clostridium species. Repeat BC 05/16 no growth. * IV antibiotics: Now on IV Primaxin per ID, switching to Ertapenem tomorrow at Rehab facility * Vitals stable and WBC down and stable at 12.6, no fevers or tachycardia <CATHERINE Khan Last Filed: 05/19/21 14:19> (3) Acute UTI: Onset Date: ~05/09/21 <CATHERINE Khan Last Filed: 05/19/21 14:19> Code(s): N39.0 - Urinary tract infection, site not specified <CATHERINE Khan Last Filed: 05/19/21 14:19> Status: Acute <CATHERINE Khan
--- NOTE | 2021-05-19 13:10 | PM.DS ---
DS: Admitting Diagnosis Discharge Date 05/19/21 <Eilana Holley PA-C - Last Filed: 05/19/21 14:19> Admitting Diagnosis Diverticulitis w/ abscess <CATHERINE Khan Last Filed: 05/19/21 14:19> DS: Discharge Diagnosis Discharge Diagnosis (1) Diverticulitis of intestine with abscess: Onset Date: ~04/2021 <CATHERINE Khan Last Filed: 05/19/21 14:19> Qualifiers: Diverticulitis bleeding: without bleeding Diverticulitis site: large intestine Qualified Code(s): K57.20 - Diverticulitis of large intestine with perforation and abscess without bleeding <Eliana Holley PA-C - Last Filed: 05/19/21 14:19> Code(s): K57.80 - Diverticulitis of intestine, part unspecified, with perforation and abscess without bleeding <Eliana Holley PA-C Last Filed: 05/19/21 14:19> Status: Acute <CATHERINE Khan Filed: 05/19/21 14:19> Assessment and Plan: Abd/Pel CT: Sigmoid diverticulitis with multiple by diverticular abscess cavities, pericolic inflammation Perc Drain placement 05/11 by IR with 3 mL opaque, brown, foul-smelling fluid was sent for aerobic and anaerobic cultures. Abscess cultures from drain came back growing E. coli which was indeterminate resistance to IV Zosyn. Also growing Bacteroides fragilis group pending sensitivities and blood culture growing Clostridium species and pending sensitivities. Consulted Dr. Justice Infectious Disease and he recommended switching to IV Primaxin x14 d, potentially dc home on Ertapenem as it is only once a day. Surgery consult and she is tolerating low Fiber diet at this time. Repeat CT Abd/Pelvis with contrast 05/16/21 showed Complicated sigmoid diverticulitis with successful drainage of largest pelvic abscess. Additional pelvic abscess unchanged, potentially could be treated with 2nd percutaneous drain. Spoke w/ Dr. Thomas general surgery who reviewed repeat CT with interventional radiologist. They suspect that the additional abscess is in fact slightly smaller and that it is potentially connected to the larger abscess which has the drain. For these reasons they will not be placing a second drain. Instead they prefer to discharge pt to rehab facility to continue IV abx. Repeat CT on 05/26/21 and appt. w/ Dr. Thomas to re evaluate abscesses and potentially remove drain at that time. Today is Day 5 of Imipenem, switching to Ertapenem starting tomorrow at [facility]. <Eliana Holley PA-C - Last Filed: 05/19/21 14:19> (2) Septicemia: Code(s): A41.9 - Sepsis, unspecified organism <CATHERINE Khan Last Filed: 05/19/21 14:19> Status: Acute <CATHERINE Khan Last Filed: 05/19/21 14:19> Assessment and Plan: Meets sepsis criteria with VS: T: 37.5C, HR: 74, RR: 27, BP: 137/64, WBC 16.0, Source of infection diverticulitis with abscess, and possible UTI On arrival Lactic acid was 2.0 Initial blood cultures 05/09 positive for clostridium species. Repeat BC 05/16 no growth. IV antibiotics: Now on IV Primaxin per ID, switching to Ertapenem tomorrow at Rehab facility Vitals stable and WBC down and stable at 12.6, no fevers or tachycardia <Eliana Holley PA-C - Last Filed: 05/19/21 14:19> (3) Acute UTI: Onset Date: ~05/09/21 <Eliana Holley PA-C - Last Filed: 05/19/21 14:19> Code(s): N39.0 - Urinary tract infection, site not specified <Eliana Holley PA-C - Last Filed: 05/19/21 14:19> Status: Acute <CATHERINE Khan Last Filed: 05/19/21 14:19> Assessment and Plan: Hx of freq UTI, was on a prophylactic antibiotic and taken off about 3 months ago Presents with complaints of urgency and frequency UA leo, cloudy, 2+ Ur blood, positive nitrites, Leukocyte esterase 1+, WBC 31-50 Urine cultures growing E. coli with sensitivity to Primaxin
[2021-05-19] MEDS: HYDROcodone/acetaminophen (*CRX) 5-325 MG TABLET 1 TAB PO (13:15)
[2021-05-19 14:00] VITALS: BP 133/47; PULSE 65; RESP 14; TEMP 36.6; O2SAT 96
[2021-05-19 15:10] LABS: EDCOVIDSCREEN Negative (Negative)
[2021-05-19] MEDS: ACETAMINOPHEN 325 MG TABLET 650 MG PO (15:33)
[2021-05-19 16:24] LABS: Glucose Point of Care 309 mg/dl (65-105)
[2021-05-19] MEDS: INSULIN ASPART (*BKC) 100 UNITS/ML SUB-Q (17:02)
--- NOTE | 2021-05-19 17:41 | PC.NURSE ---
This nurse called to inform [facility] that the patient will need to have a CT scan with contrast done on 05/26/21 prior to knowing if the patient can have her PERC drain removed, continued IV antibiotics etc. Per Jailyn at [facility] she discussed with the [facility] doctor and nurses. They stated that because the patient could be transported via family it would be okay for the patient to leave and come back. The charge nurse, Bala Cage RN and Dr. Thomas was informed of the above information.
== END 2021-05-19 18:05 | DRG 872 ==
LOC: ANHED 20:06 → ANH2MED 20:52
PROVIDERS: Internal Medicine; Nurse Practitioner; Physician Assistant; Surgery; Admitting Provider Internal Medicine; Emergency Provider General Practice; PCP Internal Medicine; Visit Provider Physician Assistant
DX: A41.9 Sepsis, unspecified organism (principal); N39.0 Urinary tract infection, site not specified; K57.20 Diverticulitis of large intestine with perforation and abscess without bleeding; I10 Essential (primary) hypertension; E11.9 Type 2 diabetes mellitus without complications; F03.90 Unspecified dementia, unspecified severity, without behavioral disturbance, psychotic disturbance, mood disturbance, and anxiety; Z91.81 History of falling; G89.29 Other chronic pain; M54.2 Cervicalgia; Z20.822 Contact with and (suspected) exposure to COVID-19; M54.50 Low back pain, unspecified; F41.9 Anxiety disorder, unspecified; M19.90 Unspecified osteoarthritis, unspecified site; Z79.01 Long term (current) use of anticoagulants; F32.A Depression, unspecified; E11.42 Type 2 diabetes mellitus with diabetic polyneuropathy; Z79.4 Long term (current) use of insulin; Z86.711 Personal history of pulmonary embolism; E78.5 Hyperlipidemia, unspecified; K58.9 Irritable bowel syndrome, unspecified; I48.0 Paroxysmal atrial fibrillation; E11.51 Type 2 diabetes mellitus with diabetic peripheral angiopathy without gangrene; L40.9 Psoriasis, unspecified; Z87.891 Personal history of nicotine dependence; F12.90 Cannabis use, unspecified, uncomplicated; I67.2 Cerebral atherosclerosis; I70.0 Atherosclerosis of aorta; M85.80 Other specified disorders of bone density and structure, unspecified site; Z90.49 Acquired absence of other specified parts of digestive tract; Z85.89 Personal history of malignant neoplasm of other organs and systems; Z86.718 Personal history of other venous thrombosis and embolism; N28.9 Disorder of kidney and ureter, unspecified; E27.9 Disorder of adrenal gland, unspecified
CPT/HCPCS: 36415; 36569; 51701; 70450; 71045; 72125; 74177; 75989; 80048; 80053; 80061; 81001; 82948; 83605; 83615; 83690; 83735; 84145; 84443; 85025; 85027; 85610; 85730; 86140; 87040; 87070; 87075; 87076; 87077; 87086; 87088; 87185; 87186; 87205; 87426; 93005; 93306; 93970; 96374; 96375; 97110; 97116; 97162; 97165; 97530; 97535; 99285; A9270; C1729; C1751; C1769; C9803; J0131; J0696; J0743; J1644; J1815; J1940; J2270; J2543; J7030; J7120; Q9967

== ENCOUNTER 2021-05-26 08:33 | Outpatient (CLI) | payer OTHER, MEDICARE, SELFPAY ==
--- NOTE | ~2021-05-26 | CT_ITS ---
EXAMINATION: CT pelvis w con INDICATION: Diverticulitis TECHNIQUE: Computed tomographic images of the pelvis were obtained after the administration of 100 cc of Omnipaque 350 intravenous contrast. The dose-length product (DLP) was 726.08 mGy-cm. Automated ex posure control and iterative reconstruction technique were employed. COMPARISON: 05/16/2021 FINDINGS: A percutaneous drainage catheter is unchanged in position adjacent to the sigmoid colon. Th ere is a persistent abscess adjacent to the lateral aspect of the sigmoid colon which, although diffi cult to measure, has decreased in size. Craniocaudal extent of the abscess measures approximately 6 c m, previously 7.4 cm. There is persistent wall thickening of the sigmoid colon without significant ch ruben. There is also been interval decrease in fluid component of the abscess. Colonic diverticulitis is noted. There is an endovascular stent in inferior vena cava, right common iliac vein, and right ex ternal iliac vein. An IVC filter is noted. Severe lumbar spondylosis is noted. IMPRESSION: 1. Persistent but improved perisigmoid abscesses. 2. Persistent sigmoid diverticulitis. Reviewed, dictated and finalized at location B. ICRAFT OR HOBBY SHOP MANAGER
== END 2021-05-26 08:34 | disposition home or self-care (01) ==
PROVIDERS: PCP Surgery; Visit Provider Surgery
DX: K57.32 Diverticulitis of large intestine without perforation or abscess without bleeding (principal)
CPT/HCPCS: 72193; Q9967

== ENCOUNTER 2021-06-07 14:14 | Outpatient (CLI) | payer MEDICARE, SELFPAY ==
--- NOTE | ~2021-06-07 | CT_ITS ---
EXAMINATION: CT pelvis wo con DATE: 06/07/2021 14:52 INDICATION: Diverticulitis TECHNIQUE: Computed tomography (CT) of the pelvis was performed without intravenous contrast. The dos e-length product was 517.17 mGy-cm. Automated exposure control and iterative reconstruction technique were employed. COMPARISON: CT dated 05/26/2021 FINDINGS: Interval removal of percutaneous drain. There is persistent sigmoid diverticulitis with inc reasing size of perisigmoid abscess which abuts the bladder wall. The exact size of abscess is diffic ult to assess due to lack of contrast. No free air is identified. There is a partially visualized IVC filter. There are endovascular stents in the inferior vena cava, right common iliac vein and right e xternal iliac vein. There are severe lumbar spondylosis. Nonobstructive bowel gas pattern. No lymphad enopathy. IMPRESSION: 1. Persistent sigmoid diverticulitis with enlarging perisigmoid abscess. Exact measurements difficult to assess due to lack of contrast. Reviewed, dictated and finalized at location A. ERENCE CENTER COORDINATOR
[2021-06-07 15:42] LABS: Basophils Absolute Auto 0.1 K/mm3 (0.0-0.1); Basophils Percent Auto 0.8 % (0.2-1.2); Eosinophils Absolute Auto 0.1 K/mm3 (0-0.3); Eosinophils Percent Auto 1.1 % (0-4.4); Hematocrit 34.4 % (37.0-47.0); Hemoglobin 11.3 g/dL (12.0-15.0); Immature Granulocyte Absolute 0.24 K/mm3 (0.00-0.031); Lymphocytes Absolute Auto 1.35 K/mm3 (0.9-3.2); Lymphocytes Percent Auto 11.4 % (18.3-44.2); Mean Corpuscular HGB Conc 32.8 g/dl (32-36); Mean Corpuscular Hemoglobin 31.1 pg (26-34); Mean Corpuscular Volume 94.8 fl (80-100); Mean Platelet Volume 9.6 fl (7.4-10.4); Monocytes Absolute Auto 1.8 K/mm3 (0.1-0.6); Monocytes Percent Auto 15.1 % (2.6-8.5); Neutrophils Absolute Auto 8.2 K/mm3 (1.3-6.7); Neutrophils Percent Auto 69.6 % (45.5-73.1); Platelet Count Result 494 k/mm3 (150-375); Red Blood Count 3.63 M/mm3 (4.2-5.4); Red Cell Distribution Width 17.2 % (11.5-14.5); White Blood Count 11.8 K/mm3 (4.5-10.0)
[2021-06-07 15:52] LABS: Alanine Aminotransferase 11 U/L (4-35); Albumin Level 3.2 g/dL (3.5-5.1); Alkaline Phosphatase 140 U/L (38-126); Anion Gap 6 mmol/L (8-16); Aspartate Amino Transferase 21 U/L (14-36); Bilirubin,Total 0.5 mg/dL (0.2-1.3); Blood Urea Nitrogen 23 mg/dL (7-17); Calcium 9.3 mg/dL (8.4-10.2); Carbon Dioxide 30 mmol/L (22-30); Chloride 101 mmol/L (98-107); Estimated Glomerular Filt Rate 53; Glucose 293 mg/dL (65-110); Potassium 3.8 mmol/L (3.4-5.0); Sodium 137 mmol/L (137-145)
== END 2021-06-07 14:15 | disposition home or self-care (01) ==
PROVIDERS: PCP Surgery; Visit Provider Internal Medicine
DX: K57.32 Diverticulitis of large intestine without perforation or abscess without bleeding (principal)
CPT/HCPCS: 36415; 72192; 80053; 85025

== ENCOUNTER 2021-06-22 17:17 | Emergency (ER) | payer MEDICARE, SELFPAY ==
[2021-06-22] VITALS (14 sets, daily range): BP systolic 151–177; BP diastolic 59–79; PULSE 62–75; RESP 15–20; TEMP 36.2; O2SAT 93–100
--- NOTE | 2021-06-22 18:45 | ED.GENADULT ---
HPI - General Adult General Chief complaint: Unspecified Stated complaint: iv infusion Time Seen by Provider: 06/22/21 18:35 History of Present Illness HPI narrative: 81-year-old female with recent intra-abdominal abscess secondary to a abscess from diverticulitis presents to the emergency department for treatment of candidemia. Patient is being treated by infectious disease and is currently on antibiotics at home through a PICC line. Infectious disease felt that the patient needed to also be on micafungin. Unfortunately home health was not able to give this first dose of micafungin and they requested the patient be brought to the hospital and it be infused under observation. Related Data Home Medications Medication Instructions Recorded Confirmed Eliquis 5 mg PO BID 09/12/19 06/09/21 aspirin [Aspir-81] 81 mg PO DAILY 09/12/19 06/09/21 amiodarone 200 mg tablet 200 mg PO DAILY 04/03/20 06/09/21 ferrous sulfate [FeroSul] 325 mg PO BID 12/15/20 06/09/21 metoprolol succinate 50 mg PO DAILY 12/15/20 06/09/21 losartan 25 mg PO DAILY 03/08/21 06/09/21 Allergies Allergy/AdvReac Type Severity Reaction Status Date / Time codeine AdvReac Mild Itching, Verified 06/09/21 09:13 Nausea meperidine AdvReac Mild Itching, Verified 06/09/21 09:13 Nausea propoxyphene AdvReac Mild Unknown Verified 06/09/21 09:13 Review of Systems Review of Systems: CONSTITUTIONAL: Denies fever, chills, or sweats. EYES: Denies visual changes, redness, or discharge. ENT: Denies rhinorrhea, congestion, sore throat, or otalgia. CARDIOVASCULAR: Denies chest pain, palpitations, or edema. RESPIRATORY: Denies cough or dyspnea. GASTROINTESTINAL: Denies abdominal pain, nausea, vomiting, or diarrhea. GENITOURINARY: Denies dysuria or hematuria. SKIN: Denies rash or itching. MUSCULOSKELETAL: Denies back pain, joint pain, or myalgia. NEUROLOGIC: Denies headache, numbness, or weakness. PSYCHIATRIC: Denies anxiety or depression. 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 Diverticulitis Endometrial cancer 2008 and underwent TERRANCE-BSO GI (gastrointestinal bleed) History of pulmonary embolism HLD (hyperlipidemia) HTN (hypertension) IBS (irritable bowel syndrome) Osteomyelitis Paroxysmal atrial fibrillation Long-standing history of paroxysmal atrial fibrillation and is established with Dr. Garza in [place]. Has previously underwent Cardioversion x 2. Peripheral arterial disease Peripheral neuropathy Psoriasis Pulmonary embolism PE during the perioperative period of an abdominal hysterectomy with bilateral salpingo-oophorectomy in February 2009. Surgical History Surgical History H/O bilateral cataract extraction H/O: hysterectomy abdominal hysterectomy with bilateral salpingo-oophorectomy for endometrial cancer in 2008 History of back surgery History of left hip replacement History of partial pancreatectomy History of partial splenectomy Hx of cholecystectomy 2005 Hx of colonoscopy Hx of tonsillectomy S/P IVC filter 2009 Family History Family History Sibling Cerebrovascular accident Mother Congestive heart failure Hypertension Diabetes mellitus Father Lung cancer Social History Social History Social History: she lives home alone. Used to smoke. At the age of 19, she smoked about half pack a cigarettes a day for year. Occasionally drinks alcohol. She desires to be a full code. her daughter is now the durable power patent attorney for healthcare. She has a son and a daughter. Code status full code Smoking status:
[2021-06-22] MEDS: MICAFUNGIN SODIUM 100 MG in SODIUM CHLORIDE 0.9% IV 100 ML IVPB (19:32)
--- NOTE | 2021-06-22 21:12 | PC.NURSE ---
Pt received the micafungin infusion with no adverse reactions. Denies any SOB, no oral swelling, no rash noted, no other symptoms. Pt d/c'd with her daughter. RN assisted pt into home wheelchair and helped into car. Pt's PICC line that she came in with remains patent and in place for home health infusions.
== END 2021-06-22 21:15 | disposition home or self-care (01) ==
PROVIDERS: Emergency Provider Emergency Medicine; PCP Internal Medicine
DX: B37.7 Candidal sepsis (principal); K57.20 Diverticulitis of large intestine with perforation and abscess without bleeding; E11.42 Type 2 diabetes mellitus with diabetic polyneuropathy; E78.5 Hyperlipidemia, unspecified; I10 Essential (primary) hypertension; I48.21 Permanent atrial fibrillation; E11.51 Type 2 diabetes mellitus with diabetic peripheral angiopathy without gangrene; K58.9 Irritable bowel syndrome, unspecified; M19.90 Unspecified osteoarthritis, unspecified site; Z86.711 Personal history of pulmonary embolism; Z79.01 Long term (current) use of anticoagulants; Z79.82 Long term (current) use of aspirin; Z79.4 Long term (current) use of insulin; Z85.44 Personal history of malignant neoplasm of other female genital organs; Z98.42 Cataract extraction status, left eye; Z98.41 Cataract extraction status, right eye; Z96.642 Presence of left artificial hip joint; Z90.411 Acquired partial absence of pancreas; Z90.81 Acquired absence of spleen; Z87.891 Personal history of nicotine dependence
CPT/HCPCS: 80053; 80202; 85027; 96365; 99284; J2248

== ENCOUNTER 2021-07-13 10:12 | Outpatient (RCR) | payer MEDICARE, SELFPAY ==
[2021-06-22 10:39] LABS: Hematocrit 29.7 % (37.0-47.0); Hemoglobin 9.7 g/dL (12.0-15.0); Mean Corpuscular HGB Conc 32.7 g/dl (32-36); Mean Corpuscular Hemoglobin 30.7 pg (26-34); Mean Platelet Volume 9.6 fl (7.4-10.4); Platelet Count Result 518 k/mm3 (150-375); Red Blood Count 3.16 M/mm3 (4.2-5.4); Red Cell Distribution Width 18.5 % (11.5-14.5); White Blood Count 9.3 K/mm3 (4.5-10.0)
[2021-06-22 11:06] LABS: Alanine Aminotransferase 14 U/L (4-35); Albumin Level 2.7 g/dL (3.5-5.1); Alkaline Phosphatase 164 U/L (38-126); Anion Gap 4 mmol/L (8-16); Aspartate Amino Transferase 30 U/L (14-36); Bilirubin,Total 0.3 mg/dL (0.2-1.3); Blood Urea Nitrogen 9 mg/dL (7-17); Calcium 8.7 mg/dL (8.4-10.2); Carbon Dioxide 32 mmol/L (22-30); Chloride 99 mmol/L (98-107); Estimated Glomerular Filt Rate > 60; Glucose 111 mg/dL (65-110); Potassium 3.6 mmol/L (3.4-5.0); Sodium 135 mmol/L (137-145)
[2021-06-22 12:33] LABS: Vancomycin Trough 18.7 ug/mL (10.0-20.0)
[2021-06-29 10:50] LABS: Hematocrit 27.8 % (37.0-47.0); Hemoglobin 8.8 g/dL (12.0-15.0); Mean Corpuscular HGB Conc 31.7 g/dl (32-36); Mean Corpuscular Hemoglobin 30.3 pg (26-34); Mean Corpuscular Volume 95.9 fl (80-100); Mean Platelet Volume 9.9 fl (7.4-10.4); Platelet Count Result 406 k/mm3 (150-375); Red Cell Distribution Width 20.4 % (11.5-14.5); White Blood Count 8.6 K/mm3 (4.5-10.0)
[2021-06-29 10:55] LABS: Alanine Aminotransferase 12 U/L (4-35); Albumin Level 2.6 g/dL (3.5-5.1); Alkaline Phosphatase 149 U/L (38-126); Anion Gap 5 mmol/L (8-16); Aspartate Amino Transferase 29 U/L (14-36); Bilirubin,Total 0.4 mg/dL (0.2-1.3); Blood Urea Nitrogen 12 mg/dL (7-17); Calcium 8.2 mg/dL (8.4-10.2); Carbon Dioxide 33 mmol/L (22-30); Chloride 101 mmol/L (98-107); Estimated Glomerular Filt Rate > 60; Glucose 165 mg/dL (65-110); Potassium 3.2 mmol/L (3.4-5.0); Sodium 139 mmol/L (137-145)
[2021-06-29 11:06] LABS: Vancomycin Trough 19.1 ug/mL (10.0-20.0)
[2021-07-06 11:07] LABS: Hematocrit 27.1 % (37.0-47.0); Hemoglobin 8.7 g/dL (12.0-15.0); Mean Corpuscular HGB Conc 32.1 g/dl (32-36); Mean Corpuscular Hemoglobin 31.2 pg (26-34); Mean Corpuscular Volume 97.1 fl (80-100); Mean Platelet Volume 10.3 fl (7.4-10.4); Platelet Count Result 397 k/mm3 (150-375); Red Blood Count 2.79 M/mm3 (4.2-5.4); Red Cell Distribution Width 21.9 % (11.5-14.5); White Blood Count 9.6 K/mm3 (4.5-10.0)
[2021-07-06 11:23] LABS: Add Urine Microscopic? YES; Appearance Urine Cloudy (Clear); Bilirubin Urine Negative (Negative); Blood Urine 3+ (Negative); Color Urine Yellow (Yellow); Glucose Urine UA Negative (Negative); Ketones Urine Negative (Negative); Leukocyte Esterase Ur 3+ LEU/UL (NEGATIVE); Mucus Urine Rare /lpf; Nitrate Urine Negative (Negative); Protein Urine 1+ mg/dL (Negative); RBC Urine >75 /hpf (0-2); Specific Grav Ur 1.023 (1.001-1.035); WBC Clumps Urine Present /HPF; WBC Urine >75 /hpf (0-3)
[2021-07-06 11:33] LABS: Alanine Aminotransferase 12 U/L (4-35); Albumin Level 2.7 g/dL (3.5-5.1); Alkaline Phosphatase 129 U/L (38-126); Anion Gap 4 mmol/L (8-16); Aspartate Amino Transferase 30 U/L (14-36); Bilirubin,Total 0.4 mg/dL (0.2-1.3); Blood Urea Nitrogen 11 mg/dL (7-17); Calcium 8.3 mg/dL (8.4-10.2); Carbon Dioxide 29 mmol/L (22-30); Chloride 104 mmol/L (98-107); Estimated Glomerular Filt Rate > 60; Glucose 211 mg/dL (65-110); Potassium 3.2 mmol/L (3.4-5.0); Sodium 137 mmol/L (137-145)
[2021-07-13 10:32] LABS: Hematocrit 26.7 % (37.0-47.0); Hemoglobin 8.7 g/dL (12.0-15.0); Mean Corpuscular HGB Conc 32.6 g/dl (32-36); Mean Platelet Volume 10.2 fl (7.4-10.4); Platelet Count Result 500 k/mm3 (150-375); Red Blood Count 2.81 M/mm3 (4.2-5.4); White Blood Count 7.8 K/mm3 (4.5-10.0)
[2021-07-13 11:12] LABS: Vancomycin Trough 15.7 ug/mL (10.0-20.0)
[2021-07-13 11:25] LABS: Alanine Aminotransferase 14 U/L (4-35); Albumin Level 2.5 g/dL (3.5-5.1); Alkaline Phosphatase 127 U/L (38-126); Anion Gap 6 mmol/L (8-16); Aspartate Amino Transferase 29 U/L (14-36); Bilirubin,Total 0.4 mg/dL (0.2-1.3); Blood Urea Nitrogen 10 mg/dL (7-17); Carbon Dioxide 32 mmol/L (22-30); Chloride 99 mmol/L (98-107); Estimated Glomerular Filt Rate > 60; Glucose 203 mg/dL (65-110); Potassium 2.7 mmol/L (3.4-5.0); Sodium 137 mmol/L (137-145)
== END 2021-07-22 10:37 | disposition home or self-care (01) ==
LOC: HOME HLTH 10:12
PROVIDERS: PCP Internal Medicine; Visit Provider Internal Medicine
DX: K57.20 Diverticulitis of large intestine with perforation and abscess without bleeding (principal); I27.29 Other secondary pulmonary hypertension; A41.9 Sepsis, unspecified organism
CPT/HCPCS: 80053; 80202; 81001; 85027; 87086

== ENCOUNTER 2021-07-22 10:44 | Outpatient (RCR) | payer MEDICARE, SELFPAY ==
[2021-07-22 12:00] LABS: Basophils Absolute Auto 0.1 K/mm3 (0.0-0.1); Basophils Percent Auto 1.1 % (0.2-1.2); Eosinophils Absolute Auto 0.3 K/mm3 (0-0.3); Eosinophils Percent Auto 2.3 % (0-4.4); Hematocrit 31.2 % (37.0-47.0); Hemoglobin 9.9 g/dL (12.0-15.0); Immature Granulocyte Absolute 0.09 K/mm3 (0.00-0.031); Immature Granulocyte Percent A 0.8 % (0-0.5); Lymphocytes Absolute Auto 1.15 K/mm3 (0.9-3.2); Lymphocytes Percent Auto 10.4 % (18.3-44.2); Mean Corpuscular HGB Conc 31.7 g/dl (32-36); Mean Platelet Volume 10.7 fl (7.4-10.4); Monocytes Absolute Auto 1.1 K/mm3 (0.1-0.6); Monocytes Percent Auto 10.3 % (2.6-8.5); Neutrophils Absolute Auto 8.3 K/mm3 (1.3-6.7); Neutrophils Percent Auto 75.1 % (45.5-73.1); Nucleated Red Blood Cells Absolute Auto 0.1 K/mm3 (0.0-0.012); Platelet Count Result 444 k/mm3 (150-375); Red Blood Count 3.09 M/mm3 (4.2-5.4); Red Cell Distribution Width 22.8 % (11.5-14.5); White Blood Count 11.1 K/mm3 (4.5-10.0)
[2021-07-22 12:14] LABS: Carbon Dioxide 29 mmol/L (22-30); Chloride 100 mmol/L (98-107); Potassium 3.2 mmol/L (3.4-5.0); Sodium 138 mmol/L (137-145)
[2021-07-22 12:15] LABS: Alanine Aminotransferase 17 U/L (4-35); Albumin Level 2.7 g/dL (3.5-5.1); Alkaline Phosphatase 134 U/L (38-126); Anion Gap 9 mmol/L (8-16); Aspartate Amino Transferase 42 U/L (14-36); Bilirubin,Total 0.9 mg/dL (0.2-1.3); Blood Urea Nitrogen 21 mg/dL (7-17); Calcium 8.6 mg/dL (8.4-10.2); Estimated Glomerular Filt Rate 48; Glucose 199 mg/dL (65-110)
[2021-07-22 13:11] LABS: Vancomycin Trough 10.5 ug/mL (10.0-20.0)
== END 2021-07-29 23:59 | disposition home or self-care (01) ==
LOC: HOME HLTH 10:44
PROVIDERS: PCP Internal Medicine
DX: K57.92 Diverticulitis of intestine, part unspecified, without perforation or abscess without bleeding (principal)
CPT/HCPCS: 36415; 80053; 80202; 85025

== ENCOUNTER 2021-07-22 19:44 | Inpatient (IN) | payer MEDICARE, SELFPAY ==
--- NOTE | ~2021-07-22 | CT_ITS ---
EXAMINATION: CT abdomen pelvis w con DATE: 07/23/2021 01:28 INDICATION: Abdominal pain TECHNIQUE: Computed tomography (CT) of the abdomen and pelvis was performed with 100 mL Omnipaque-350 intravenous contrast. Automated exposure control and iterative reconstruction technique were employe d. The dose-length product was 1233.93 mGy-cm. COMPARISON: 05/16/2021 FINDINGS: Small bilateral posterior layering pleural effusions with dependent atelectasis in the bilateral lowe r lobes. Additional mild discoid atelectasis in the lingula and right middle lobe. Cardiomegaly. Athe rosclerotic coronary artery calcification. Aortic valve and dense mitral annular calcific location. N o pericardial effusion. There is focal wall thickening at the gastric pylorus. Minimal intrahepatic biliary ductal dilation w hich is within normal limits post cholecystectomy with surgical clips the gallbladder fossa. 8 mm cys t in the left hepatic lobe. No significant interval change in a 2.9 x 2.0 cm pair of cysts or cystic lesion with single thin internal septation. Spleen is not visualized and likely surgically absent. A few small bilateral adrenal nodules the largest on the right measuring 1.8 cm which appear unchanged since 02/12/2018 most consistent with adenomas. Bilateral renal cysts the largest on the left measurin g 1.9 cm . Cortical scarring at both kidneys, left greater than right. Small bowel and appendix are n ormal. Moderate scattered diverticulosis. There is mild fluid distention of the colon proximal to a region o f prominent edematous wall thickening with inflammatory stranding at the proximal sigmoid colon likel y related to ongoing diverticulitis. There are couple surrounding peripherally enhancing abscesses wh ich contain gas, fluid and debris and which likely communicate. This includes a more lateral retroper itoneal collection measuring 4.6 x 2.8 cm located between the colon and the iliac is muscle anterior to the common iliac vessels. The more medial intraperitoneal abscess which previously contained an ab scess drain measures 5.3 x 3.8 cm and abuts and exerts mass effect upon the lateral wall of the bladd er which appears thickened. There is small amount of gas within the bladder suggesting possible fistu lization. There is also a small amount of gas extending anteriorly from the second intraperitoneal ab scess along the tract of the since removed abscess drain with small collection at the location where the track crosses the anterior pelvic wall musculature. Minimal nonloculated ascites in the abdomen and pelvis primarily along the left paracolic gutter. The uterus is not identified and has likely been surgically resected. Venous stent extending from the ri t common femoral vein proximally to the inferior vena cava and spanning an infrarenal IVC filter. T here is insufficient venous contrast to assess for patency of the stent. Left total hip arthroplasty. Moderate to severe thoracolumbar spondylosis. IMPRESSION: 1. Complicated sigmoid diverticulitis with a couple approximately 5 x 3 cm and 5 x 4 cm abscess cavit ies and with edematous thickening of the wall of the sigmoid colon with mild fluid distention of the upstream colon but not of the small bowel suggesting stricture with possible mild partial obstruction . 2. Small amount of gas within the bladder which abuts one of the abscesses suggesting possible fistul ization. 3. Small bilateral pleural effusions with bibasilar atelectasis. 4. Cardiomegaly. 5. Wall thickening at the gastric pylorus which could be due to peristalsis or a focal gastritis whic h could be due to infection, inflammatory bowel disease or peptic ulcer disease. 6. Unchanged cystic lesion at the head of the pancreas without evident solid soft tissue component. Reviewed, dictated and finalized at location B. Electronically signed
--- NOTE | ~2021-07-22 | XR_ITS ---
EXAMINATION: XR chest 1V portable EXAM DATE: 07/22/2021 20:41 INDICATION: syncope, HX PE, HX AFIB TECHNIQUE: Portable AP frontal chest x-ray was obtained. Comparison is made to prior examination from 05/19/2021. FINDINGS: There is a right-sided PICC line, tip projecting at the level of the lula. There is cardi omegaly. There are small to moderate bilateral pleural effusions. There is bibasilar pneumonia or ate lectasis. No pneumothorax. There are bony degenerative changes. There is aortic arteriosclerosis. The re are cholecystectomy clips. IMPRESSION: 1. Cardiomegaly, small to moderate pleural effusions. 2. Scattered basilar pneumonia or atelectasis. Reviewed, dictated and finalized at location A. RVISOR METAL FURNITURE ASSEMBLY
--- NOTE | ~2021-07-22 | XR_ITS ---
EXAMINATION: XR chest 1V portable DATE: 07/28/2021 08:48 INDICATION: Respiratory failure. TECHNIQUE: A single frontal view of the chest was obtained. COMPARISON: Chest single view 07/27/2021 FINDINGS: There are airspace opacities throughout the lungs bilaterally. There are small pleural effu sions. No pneumothorax. Cardiomegaly is noted. A right upper extremity peripherally inserted central venous catheter (PICC) is seen with tip in the superior vena cava. Surgical clips in the right upper quadrant are likely from cholecystectomy. IMPRESSION: 1. Diffuse lung disease with mild worsening, consistent with pulmonary edema versus pneumonia. 2. Stable small pleural effusions. 3. Cardiomegaly. Reviewed, dictated and finalized at location B. UM COOKER OPERATOR IMPRESSION: 1. Diffuse lung disease with mild worsening, consistent with pulmonary edema ve rsus pneumonia. 2. Stable small pleural effusions. 3. Cardiomegaly.
--- NOTE | ~2021-07-22 | CT_ITS ---
EXAMINATION: CT guide absc cath placement DATE: 07/23/2021 12:30 INDICATION: Perisigmoid abscess. TECHNIQUE: The procedure including the risks, benefits, and alternatives was discussed with the patie nt. Risks discussed included bleeding and infection. The patient understood the risks and benefits an d agreed to proceed. The skin overlying the abdomen was prepped and draped in usual sterile fashion. Anesthetic was administered with 1% lidocaine subcutaneously. An 18 gauge trochar needle was insert ed into the perisigmoid abscess with CT guidance. The needle was exchanged over a wire for 6 Bulgarian 8 Bulgarian dilators and then for an 8.5 Bulgarian pigtail catheter. The catheter was stitched to the skin, and a sterile dressing was applied. The mA was adjusted according to patient size. Iterative reconstr uction technique was employed. The dose-length product was 261.28 mGy-cm. There were no immediate com plications. FINDINGS: CT images demonstrate the catheter within the perisigmoid abscess. 7 mL fluid was aspirated for testing. IMPRESSION: 1. Successful CT-guided perisigmoid abscess drainage. 2. 7 mL stool-colored brown fluid was sent for aerobic and anaerobic cultures. Reviewed, dictated and finalized at location A. HAULER
--- NOTE | ~2021-07-22 | CT_ITS ---
EXAMINATION: CT brain wo con INDICATION: Confusion COMPARISON: 07/22/2021 TECHNIQUE: Standard unenhanced head CT. The dose-length product (DLP) was 605.33 mGy-cm. The mA was a djusted according to patient size. Iterative reconstruction technique was employed. FINDINGS: There is no acute intraparenchymal hemorrhage. No evidence of mass lesion. No evidence of a cute infarction. 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 There is mild periventricula r and subcortical hypodensity probably related to small vessel ischemic disease. There is mild promin ence of the sulci and ventricles related to cerebral atrophy. Intracranial calcified cerebral atheros clerosis is noted. There are no extra-axial collections. An apparent extra-axial hyperdensity adjacen t to the right frontal lobe appears to be artifactual. There is no mass effect or midline shift. Cain ges in the globes are likely from ocular lens surgery. There is mild mucosal thickening of the parana victor hugo sinuses. IMPRESSION: 1. No acute intracranial abnormality. 2. Age related findings. Reviewed, dictated and finalized at location F. TRUCK DRIVER OFF HIGHW[address]
--- NOTE | ~2021-07-22 | XR_ITS ---
EXAMINATION: XR barium swallow modified DATE: 07/24/2021 13:12 INDICATION: Dysphagia. TECHNIQUE: The patient was given barium-containing material of multiple consistencies to swallow by t manolo speech pathologist while I performed fluoroscopy. Fluoroscopy exposure time was 1.6 minutes. The n umber of fluoroscopy images saved to the PACS was 1. Dose-area product was 1.025 Gy-cm^2. FINDINGS: There was reduced tongue base retraction. There is trace vallecular residue, pyriform sinus residue, and pharyngeal wall residue. There was flash laryngeal penetration with thin liquids via straw. No as piration. IMPRESSION: 1. Flash laryngeal penetration with thin liquids via straw. No aspiration. 2. Please refer to the speech therapy report for recommendations. Reviewed, dictated and finalized at location A. IGERATED CARGO CLERK
--- NOTE | ~2021-07-22 | XR_ITS ---
EXAMINATION: XR chest 1V portable DATE: 07/27/2021 06:31 INDICATION: Increasing shortness of breath TECHNIQUE: frontal view of the chest was obtained. COMPARISON: Chest radiograph dated 07/22/2021 FINDINGS: Right upper extremity peripherally inserted central venous catheter (PICC) tip at the mid superior v janet cava. Increase in bilateral perihilar and lower lung predominant airspace opacities. No pneumotho rax. Likely small left pleural effusion. Cardiomegaly. Cholecystectomy clips in the right upper quadr ant. IMPRESSION: 1. Worsening bilateral lung disease which could represent pulmonary edema, atelectasis, pneumonia or some combination thereof. 2. Small left pleural effusion. 3. Cardiomegaly. Reviewed, dictated and finalized at location [facility] IMPRESSION: 1. Worsening bilateral lung disease which could represent pulmonary edema, atel ectasis, pneumonia or some combination thereof. 2. Small left pleural effusion. 3. Cardiomegaly.
--- NOTE | ~2021-07-22 | CT_ITS ---
EXAMINATION: CT brain wo con EXAM DATE: 07/22/2021 20:35 INDICATION: Syncope. TECHNIQUE: Spiral CT of the head was performed without contrast. Axial, coronal and sagittal images were reviewed. The dose-length product (DLP) for this examination was 605.33 mGy-cm. The exposure w as tailored according to patient size, and iterative reconstruction (ASIR) was used as additional dos e reduction technique. There is no prior study for comparison. FINDINGS: There is no acute intraparenchymal hemorrhage. No evidence of intraparenchymal brain mass lesion. No evidence of acute infarction. There are old bilateral lacunar basal ganglia infarctions. Please note that initial head CT has limited sensitivity for small or acute infarctions. There is mil d periventricular and subcortical hypodensity, nonspecific but probably related to small vessel ische anny disease. There is moderate prominence of the sulci and ventricles related to cerebral atrophy. There is intracranial carotid arteriosclerosis. There are no extra-axial collections. There is no mass effect or midline shift. Patient has had bilateral ocular lens surgery. Soft tissue is unrema rkable. Mild ethmoid mucoperiosteal thickening. Small amount of bilateral maxillary sinus fluid. Old bilateral nasal bone fractures. IMPRESSION: 1. No acute intracranial findings. 2. Chronic age related findings. 3. Old bilateral lacunar infarctions. Reviewed, dictated and finalized at location [facility]
[2021-07-22 19:48] VITALS: BP 125/67; PULSE 83; PULSE 92; RESP 24; TEMP 36.2; O2SAT 99
--- NOTE | 2021-07-22 20:18 | ECG_ITS ---
Measurements Intervals [place]flake Rate: 104 P: W[place]: 0 QRS: 67 QRSD: 106 T: 120 QT: 375 QTc: 495 Interpretive Statements ATRIAL FLUTTER/TACHYCARDIA WITH RAPID VENTRICULAR RESPONSE INCOMPLETE RIGHT BUNDLE BRANCH BLOCK CONSIDER INFERIOR INFARCT, AGE INDETERMINATE BORDERLINE ST-T WAVE ABNORMALITY- ANTEROLAT/HIGH LAT LEADS BASELINE ARTIFACT- AVR, AVL, AVF ABNORMAL ECG Electronically Signed On 07-23-2021 7:38:05 DIRECTOR CAREER by Pop Costello D.O.
--- NOTE | 2021-07-22 20:20 | ED.SYNCOPE ---
HPI - Syncope General Chief Complaint: Syncope <Abi Frederick MD - Last Filed: 07/22/21 21:44> Stated Complaint: syncope <Abi Frederick MD - Last Filed: 07/22/21 21:44> Time Seen by Provider: 07/22/21 20:03 <Abi Frederick MD - Last Filed: 07/22/21 21:44> Source: patient, family, EMS, RN notes reviewed and old records reviewed <Abi Frederick MD - Last Filed: 07/22/21 21:44> Mode of arrival: EMS <Abi Frederick MD - Last Filed: 07/22/21 21:44> History of Present Illness HPI narrative: This is an 81 year old female with multiple medical problems who presents from home via EMS for evaluation of unresponsiveness. Her family is at bedside to provide history. She states patient has been dealing with an abscess due to diverticulitis in which she had drains placed. Her drains were removed on Monday at [place] but she was admitted to hospital for fluid on her lungs . She was discharged from [place] yesterday to home. Her daughter states patient seemed weak and she difficulty walking yesterday. She reports she was leaning when walking yesterday. She was told by patient's caregiver that patient was able to walk some with her walker today but she was in wheelchair most of the day. Tonight patient was walking with her wheelchair when she became limp and she became unresponsive. It is unclear if patient hit her head. Patient does not remember what happened. She is complaining of diffuse headache and her daughter states she always complains of headache. Patient denies chest pain or shortness of breath. Patient has history of DVT, atrial fibrillation and chronic anticoagulation. Her daughter states patient has been on her eliquis. She also reports patient was discharged from hospital yesterday with PICC line and continued IV antibiotics. <Abi Frederick MD - Last Filed: 07/22/21 21:44> Related Data Home Medications: Home Medications Medication Instructions Recorded Confirmed Eliquis 5 mg PO BID 09/12/19 06/09/21 aspirin [Aspir-81] 81 mg PO DAILY 09/12/19 06/09/21 amiodarone 200 mg tablet 200 mg PO DAILY 04/03/20 06/09/21 ferrous sulfate [FeroSul] 325 mg PO BID 12/15/20 06/09/21 metoprolol succinate 50 mg PO DAILY 12/15/20 06/09/21 losartan 25 mg PO DAILY 03/08/21 06/09/21 <Abi Frederick MD - Last Filed: 07/22/21 21:44> Allergies/Adverse Reactions: Allergies Allergy/AdvReac Type Severity Reaction Status Date / Time codeine AdvReac Mild Itching, Verified 07/22/21 20:04 Nausea meperidine AdvReac Mild Itching, Verified 07/22/21 20:04 Nausea propoxyphene AdvReac Mild Unknown Verified 07/22/21 20:04 <Abi Frederick MD - Last Filed: 07/22/21 21:44> Review of Systems Review of Systems: All systems reviewed & are unremarkable except as noted in HPI and below <Abi Frederick MD - Last Filed: 07/22/21 21:44> Constitutional: Constitutional: Reports weakness <Abi Frederick MD - Last Filed: 07/22/21 21:44> Cardiovascular: Cardiovascular: Denies chest pain <Abi Frederick MD - Last Filed: 07/22/21 21:44> Respiratory: Respiratory: Denies cough and Denies dyspnea <Abi Frederick MD - Last Filed: 07/22/21 21:44> Gastrointestinal: Gastrointestinal: Reports abdominal pain, Denies nausea and Denies vomiting <Abi Frederick MD - Last Filed: 07/22/21 21:44> Neurologic: Reports headache(s) <Abi Frederick MD - Last Filed: 07/22/21 21:44> PMF Past Medical History Medical History: Medical History Anxiety Arthritis Chronic anticoagulation Depression 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 Diverticulitis Endometrial cancer 2008 and underwent TERRANCE-BSO GI (gastrointestinal bleed) History of pulmonary embolism HLD (hyperlipidemia) HTN (hypertension
[2021-07-22 21:09] VITALS: BP 128/94; PULSE 88; RESP 24; O2SAT 98
[2021-07-22 21:14] LABS: Add Urine Microscopic? YES; Appearance Urine Cloudy (Clear); Bacteria Urine Trace /hpf; Bilirubin Urine Negative (Negative); Blood Urine 3+ (Negative); Color Urine Amber (Yellow); Glucose Urine UA Negative (Negative); Ketones Urine Negative (Negative); Leukocyte Esterase Ur 3+ LEU/UL (Negative); Mucus Urine Rare /lpf; Nitrate Urine Negative (Negative); Protein Urine 1+ mg/dL (Negative); RBC Urine 21-50 /hpf (0-2); Specific Grav Ur 1.012 (1.001-1.035); Squamous Epithelial Cell Urine Rare /hpf (Few); Urobilinogen Urine Negative mg/dL (<2.0); WBC Clumps Urine Present /HPF; WBC Urine 16-20 /hpf
[2021-07-22 21:22] LABS: Glucose Point of Care 213 mg/dl (65-105)
[2021-07-22 21:30] LABS: Basophils Absolute Auto 0.1 K/mm3 (0.0-0.1); Basophils Percent Auto 0.5 % (0.2-1.2); Eosinophils Absolute Auto 0.2 K/mm3 (0-0.3); Eosinophils Percent Auto 1.1 % (0-4.4); Hematocrit 34.1 % (37.0-47.0); Hemoglobin 10.7 g/dL (12.0-15.0); Immature Granulocyte Percent A 0.7 % (0-0.5); Lymphocytes Absolute Auto 0.49 K/mm3 (0.9-3.2); Lymphocytes Percent Auto 3.4 % (18.3-44.2); Mean Corpuscular HGB Conc 31.4 g/dl (32-36); Mean Corpuscular Hemoglobin 31.8 pg (26-34); Mean Corpuscular Volume 101.2 fl (80-100); Mean Platelet Volume 10.4 fl (7.4-10.4); Monocytes Absolute Auto 0.5 K/mm3 (0.1-0.6); Monocytes Percent Auto 3.4 % (2.6-8.5); Neutrophils Absolute Auto 13.3 K/mm3 (1.3-6.7); Neutrophils Percent Auto 90.9 % (45.5-73.1); Nucleated Red Blood Cells Absolute Auto 0.1 K/mm3 (0.0-0.012); Nucleated Red Blood Cells Perc 0.8 % (0.0-0.2); Platelet Count Result 459 k/mm3 (150-375); Red Blood Count 3.37 M/mm3 (4.2-5.4); White Blood Count 14.6 K/mm3 (4.5-10.0)
[2021-07-22 21:34] LABS: Alveolar/Arterial O2 Gradient 57.9 mmHg; Base Excess ABG 1.5 mEq/l (+/-2.0); Carboxyhemoglobin 0.9 % THb (0-2.0); Fractional Inspired Oxygen 32 %; HCO3 ABG 24.5 mEq/l (22.0-26.0); Methemoglobin ABG 0.2 %THb (0-1.5); Oxygen Content ABG 15.8 %vol (16.0-22.0); Oxygen Saturation ABG 98.8 % (95.0-100.0); PCO2 ABG 33.2 mmHg (35.0-45.0); PO2 ABG 131.4 mmHg (80.0-100.0); PO2 FiO2 Ratio Arterial Blood 4.11 %; Reduced Hemoglobin 1.9 %THb (0-5.0); Total Hemoglobin 11.4 g/dL (12.0-18.0); pH ABG 7.486 (7.350-7.450)
[2021-07-22 21:37] LABS: Device NASAL CANNULA; Modified Allen's Test Pass; Site Drawn LEFT RADIAL
[2021-07-22 21:40] LABS: INR 3.2; Prothrombin Time 32.1 Seconds (11.1-14.7)
[2021-07-22 23:10] LABS: Glucose Point of Care 180 mg/dl (65-105)
[2021-07-22 23:29] VITALS: BP 121/79; PULSE 102; RESP 24; O2SAT 98
[2021-07-22] MEDS: MORPHINE SULFATE (*CRX) 4 MG/ML INJ IV PUSH (23:31)
[2021-07-23] VITALS (21 sets, daily range): BP systolic 83–113; BP diastolic 46–70; PULSE 76–99; RESP 14–26; TEMP 36.2–36.5; O2SAT 96–100
[2021-07-23] MEDS: SODIUM CHLORIDE 0.9% IV 1,000 ML 999 ML IV CONT (00:12)
[2021-07-23 00:56] LABS: Lactic Acid Reflex 1.8 mmol/L (0.7-2.1)
[2021-07-23 01:01] LABS: Alanine Aminotransferase 17 U/L (4-35); Albumin Level 2.4 g/dL (3.5-5.1); Alkaline Phosphatase 132 U/L (38-126); Anion Gap 8 mmol/L (8-16); Aspartate Amino Transferase 53 U/L (14-36); Bilirubin,Total 1.1 mg/dL (0.2-1.3); Blood Urea Nitrogen 22 mg/dL (7-17); Calcium 8.1 mg/dL (8.4-10.2); Carbon Dioxide 26 mmol/L (22-30); Chloride 105 mmol/L (98-107); Estimated Glomerular Filt Rate 60; Glucose 201 mg/dL (65-110); Magnesium 2.3 mg/dL (1.6-2.3); Potassium 3.5 mmol/L (3.4-5.0); Sodium 139 mmol/L (137-145)
[2021-07-23 01:12] LABS: NT Pro B Type Natriuretic Pept 8000 pg/mL (5-100); Troponin I < 0.012 ng/mL (0.000-0.034)
--- NOTE | 2021-07-23 06:07 | ADMGEN ---
This patient, Jennifer Cano, was admitted to IMU Room 211-01. Patient/family oriented to hospital policies and general routines including ID bracelet, bed and alarms, visiting hours, pain management, procedures, bathroom and other care routines, personal items, smoking policy, room service/diet, and visiting hours. Information on how to activate the Rapid Response Team has been discussed. Patient/Family are encouraged to report perceived risks to care and to ask questions if they do not understand what they are told or what they should do.
[2021-07-23] MEDS: SODIUM CHLORIDE 0.9% IV 1,000 ML 125 ML IV CONT ×2 (06:39→12:49)
[2021-07-23] MEDS: CENTRAL LINE FLUSH 10 ML IV PUSH ×3 (06:40→21:31)
--- NOTE | 2021-07-23 09:12 | PM.IMHP ---
H&P: HPI History of Present Illness Date/Time: 07/23/21 09:12 Chief Complaint: Syncope Narrative: 81yo female with hx of DM, pAib on chronic anticoagulation, VTE and complex hx of diverticulitis with multiple complications here for syncope. Emigdio initially hospitalitzed here on 05/09 for possible UTI and found to have sigmoid diverticulitis with multiple diverticular abscess cavities. General surgery was consulted and drain placed on 05/11. BCx 05/09 grew out Clostridium and Abscess cultures grew out ESBL EColi and Bacteroides. CT repeated on 05/16 showing complicated sigmoid diverticulitis with successful drainage of largest pelvic abscess but unchanged smaller ones. She was seen by ID who recommended Ertapenem through 05/27/21. Emigdio was discharged to a rehab facility on 05/20. She had a repeat CT 05/26 showing persistent but improved perisigmoid abscesses (6cm down from 7.4cm) and diverticulitis. Ertapenem was continued through 05/28 then changed to Cefdinir and Flagyl orally on 05/29 per ID. Patient was discharged from the rehab on 05/30 on one week of Cefdinir and Flagly. She was seen by the Genrg 06/[address] performed (06/07) showing persistent sigmoid diverticulitis with enlarging perisigmoid abscess (difficult to measure). Drain removed since in SQ space and recommended that the patient be seen at a tertiary care center for further management. She was admitted to [facility] and two drains placed and PICC line placed for IV antibiotics and discharged 06/20. [facility] added micafungin after discharge when her BCx grew candidemia. Imaging showing smaller abscess so the drain was removed on 07/14 in the outpatient setting but CXR showing pulmonary edema and she was sent to the ED. She was admitted to [facility] on 07/14/21 for 'fluid on the lungs'. With treatment, she had improvement in her breathing. She was able to sit up with assistance and able to walk with walker. She was discharged from 07/21/21. At home, she was 'leaning to the right side' and required 2 person assistance. She slept in a recliner. When she was up, she had a brief syncopal episodes and helped to floor. No head trauma. Called EMS and brought to the ED. She has been more confused over the past week. She has remained on Vanco, Ertapenem and Micafungin since [facility]. In the ED, her vital signs were stable except for tachypnea to 24. Chest x-ray showed cardiomegaly, small moderate effusions and scattered basilar pneumonia or atelectasis. She is vaccinated against COVID including a booster. CT of the brain showed no acute intracranial findings but did show chronic age-related findings and old lacunar infarcts. CT of the abdomen pelvis showed two 5 cm abscess cavities with evidence of diverticulitis and possible mild partial bowel obstruction. She has small amount of gas within the bladder which abuts the abscess suggesting fistulization. Dtr states the fistula was known to the doctors at [facility]. Please see [place] [id number]. Troponin negative. BNP was 8000. Urine was concerning for UTI. Was given morphine. She was started on IV fluids. She was started on vancomycin and Zosyn. Blood pressure did drop to 83/57 overnight but normal now. Patient is alert but mildly confused. Daughter states she has been confused over the past week or so. Patient complains of pain in her left hip and lower abdomen. She denies any fever chills. She has complaints of intermittent headache but this is chronic and has not worsened. No vision changes or eye pain. She denies any chest pain, palpitations, shortness of breath does have dyspnea on exertion. She has a cough but this is chronic. She is diffusely weak but seems to worsen the left leg. She tells me that she has not had a bowel movement 5 days but daughter states that patient actually has been having diarrhea. Patient admitted for further care. Review of Systems Review of Systems: All systems reviewed & are unr
[2021-07-23] MEDS: MORPHINE SULFATE (*CRX) 4 MG/ML INJ IV PUSH (09:40)
--- NOTE | 2021-07-23 10:17 | PM.CNGS ---
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 The patient was actually admitted with complicated diverticulitis and abscess in early May and had percutaneous drainage at that time. The patient had actually recently been admitted to [facility] and was just discharged 2 days ago. The patient reports that she has really never gotten any better and continues to have severe pain. The patient reports very poor appetite and severe weakness. Review of Systems Constitutional: Constitutional: Reports anorexia, Reports body ache(s), Reports chills, Reports fatigue, Reports fever(s), Denies increased appetite, Reports lethargy, Reports malaise, Reports night sweats, Reports poor appetite, Reports weakness, Denies weight gain and Denies weight loss Eyes: Eyes: Reports no additional eye complaints ENT: Reports system reviewed and no additional complaints, except as documented Cardiovascular: Cardiovascular: Reports no additional cardiovascular complaints Respiratory: Respiratory: Reports no additional respiratory complaints Gastrointestinal: Gastrointestinal: Reports as per HPI, Reports abdominal pain, Denies bloating, Reports change in bowel habits, Denies constipation, Reports GI cramping, Reports diarrhea, Reports loose stools, Reports nausea and Denies vomiting Genitourinary: Genitourinary: Reports no additional female genitourinary complaints Musculoskeletal: Musculoskeletal: Reports no additional musculoskeletal complaints Integumentary/Breasts: Skin/Breast: Reports system reviewed and no additional complaints, except as docu Neurologic: Reports system reviewed and no additional complaints, except as documented Psychiatric: Psychiatric: Reports no additional psychiatric complaints Endocrine: Endocrine: Reports no additional endocrine complaints Hematologic/Lymphatic: Hematologic/Lymphatic: Reports no additional hematologic/lymphatic complaints Allergic/Immunologic: Allergic/Immunologic: Reports no additional allergic/immunologic complaints [facility] Past Medical History Medical History Anxiety Arthritis Chronic anticoagulation Depression 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 Diverticulitis Endometrial cancer 2008 and underwent TERRANCE-BSO GI (gastrointestinal bleed) History of pulmonary embolism HLD (hyperlipidemia) HTN (hypertension) IBS (irritable bowel syndrome) Osteomyelitis Paroxysmal atrial fibrillation Long-standing history of paroxysmal atrial fibrillation and is established with Dr. Garza in [place]. Has previously underwent Cardioversion x 2. Peripheral arterial disease Peripheral neuropathy Psoriasis Pulmonary embolism PE during the perioperative period of an abdominal hysterectomy with bilateral salpingo-oophorectomy in February 2009. Surg
--- NOTE | 2021-07-23 10:59 | PCSTNOTE ---
Please refer to the Bedside Swallow Evaluation in the EMR. Please note, silent aspiration cannot be ruled out at bedside.
--- NOTE | 2021-07-23 10:59 | PCSTNOTE ---
Patient performed well at Bedside however she exhibited slurred speech which could be secondary to morphine administration about one hour prior to Bedside Swallow Evaluation. However as a result, a Modified Barium Swallow study is indicated. Dr. Goyal requested the MBS wait until tomorrow, 07/24/21 secondary to other procedures being required today and tomorrow. The MBS will be ordered but completed tomorrow.
--- NOTE | 2021-07-23 11:11 | PCOTNOTE ---
Attempted to see pt. for occupational therapy evaluation. Pt. away at CT scan.
[2021-07-23 12:45] LABS: Glucose Point of Care 252 mg/dl (65-105)
[2021-07-23] MEDS: PANTOPRAZOLE SODIUM IV 40 MG VIAL IV PUSH ×2 (12:46→21:31)
[2021-07-23] MEDS: AMIODARONE HCL 200 MG TABLET PO (12:46)
[2021-07-23] MEDS: INSULIN ASPART (*BKC) 100 UNITS/ML SUB-Q ×2 (12:50→17:21)
[2021-07-23] MEDS: MICAFUNGIN SODIUM 100 MG in SODIUM CHLORIDE 0.9% IV 100 ML IVPB (13:36)
--- NOTE | 2021-07-23 16:00 | WPDURCON ---
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 Treatment of the fistula repair will in turn resolve the issue of the bladder fistula and chronic UTI's. No need for a cystoscopy d/t pending transfer. We suggest she have a urologic consult after arrival at [facility]. (2) UTI (urinary tract infection): Code(s): N39.0 - Urinary tract infection, site not specified Status: Acute Assessment and Plan: Continue IV antibiotics, tailor to culture if positive. If patient has difficulty with urination suddenly, ok to replace Maxwell prior to transfer. Urology Consult Note HPI Date Seen: 07/23/21 Requesting Physician: Aisha Cano MD Primary Care Provider: Lucian Xiong, Consult Narrative Narrative: Jennifer Cano is a 81 year old female who presented to the ER yesterday after having a syncopal episode at home. She was discharged the day prior (07/21/2021) from [facility] hospital for a treatment of fluid on the lungs. She has a known fistula from [facility] and was previously seen here at [facility] in 04/2021 for diverticulitis and UTI. At that time she had a CT guided abscess drainage with a catheter on 05/11/2021, her repeat CT scan on 05/16/2021 showed, Complicated sigmoid diverticulitis with successful drainage of largest pelvic abscess, without evidence of a bladder fistula at that time. She has a very complicated history, but is known to our practice. She was seen most recently in 02/2021 for a f/u on OAB and was taking Myrbetriq. She had a CT scan d/t chronic UTI's on 05/11/2020 which showed no urologic abnormality but did show sigmoid diverticulitis without perforation. A cystoscope was then done on 05/28/[address] Abel and was normal, no note of a fistula at that time. This visit she has a WBC of >14,000, creatinine is 0.90, and UA suggests a UTI. Her CT abdomen/pelvis here shows two 5 cm abscess' with evidence of diverticulitis and possible mild partial bowel obstruction. Small amount of gas within the bladder which abuts the abscess suggesting fistulization. She then underwent a CT guided drainage of abscess with catheter today 07/23/2021. She states she had a maxwell catheter in place at [facility] but it was removed prior to discharge. She denies dysuria, frequency, urgency, hematuria, straining, hesitancy to urinate or flank pain at this time. She has a void culture pending from the ER. The patient is a poor historian and all information was obtained from her chart. 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 Diverticulitis Endometrial cancer 2008 and underwent TERRANCE-BSO GI (gastrointestinal bleed) History of pulmonary embolism HLD (hyperlipidemia) HTN (hypertension) IBS (irritable bowel syndrome) Osteomyelitis Paroxysmal atrial fibrillation Long-standing history of paroxysmal atrial fibrillation and is established with Dr. Garza in [place]. Has previously underwent Cardioversion x 2. Peripheral arterial disease Peripheral neuropathy Psoriasis Pulmonary embolism PE during the perioperative period of an abdominal hysterectomy with bilateral salpingo-oophorectomy in February 2009. Surgical His
[2021-07-23 17:28] LABS: Glucose Point of Care 241 mg/dl (65-105)
[2021-07-23 19:34] LABS: Glucose Point of Care 237 mg/dl (65-105)
[2021-07-24] VITALS (14 sets, daily range): BP systolic 94–116; BP diastolic 45–71; PULSE 78–106; RESP 16–24; TEMP 36.4–36.7; O2SAT 94–100
[2021-07-24] MEDS: CENTRAL LINE FLUSH 10 ML IV PUSH ×3 (06:36→20:43)
[2021-07-24] MEDS: PANTOPRAZOLE SODIUM IV 40 MG VIAL IV PUSH ×2 (08:55→20:43)
[2021-07-24] MEDS: MICAFUNGIN SODIUM 100 MG in SODIUM CHLORIDE 0.9% IV 100 ML IVPB (08:55)
[2021-07-24] MEDS: INSULIN GLARGINE (*BKC) 100 UNITS/ML 9 UNITS SUB-Q (08:56)
[2021-07-24] MEDS: INSULIN ASPART (*BKC) 100 UNITS/ML SUB-Q ×2 (08:56→13:01)
[2021-07-24 09:07] LABS: Glucose Point of Care 239 mg/dl (65-105)
--- NOTE | 2021-07-24 10:07 | PM.PNGS ---
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, not elsewhere classified Status: Acute Assessment and Plan: will place maxwlel and inform urology of family and pt wishes to stay Subjective Subjective Date/Time Seen: 07/24/21 10:07 no acute issues, LLQ drain placed, c/o buring c urination Review of Systems Review of Systems: All systems reviewed & are unremarkable except as noted in HPI and below Exam Const: General: cooperative, comfortable, alert, awake, Physically active and ill appearing Nutritional Appearance: obese Orientation/consciousness: oriented to person and oriented to place Resp: Effort & Inspection: normal respiratory effort Auscultation: clear to auscultation bilaterally Cardio: Rate: regular rate Rhythm: regular rhythm GI: Inspection: normal to inspection and distended GI Palp: Yes Soft to palpation, Yes Tenderness to palpation present (GI), No Guarding due to palpation present (GI) and No Rigid due to palpation Other: LLQ drain - dk output Objective Data Vital Signs Vital Signs: Vital Signs - 24 hr 07/23/21 12:00 07/23/21 14:00 07/23/21 16:00 Temperature 36.5 C Pulse Rate 85 83 87 Respiratory Rate 20 Blood Pressure 108/46 L Pulse Oximetry 96 98 07/23/21 18:00 07/23/21 19:38 07/23/21 20:00 Temperature 36.5 C Pulse Rate 83 76 82 Respiratory Rate 20 Blood Pressure 97/56 L Pulse Oximetry 100 100 07/23/21 22:00 07/24/21 00:00 07/24/21 02:00 Temperature 36.4 C L Pulse Rate 80 84 88 Respiratory Rate 20 Blood Pressure 102/58 L Pulse Oximetry 98 07/24/21 04:00 07/24/21 06:00 07/24/21 07:06 Temperature 36.4 C 36.4 C Pulse Rate 82 86 86 Respiratory Rate 16 18 Blood Pressure 94/71 L 108/55 L Pulse Oximetry 99 94 Intake/Output Intake/Output: Intake & Output 07/21/21 07/22/21 07/23/21 07/24/21 23:59 23:59 23:59 23:59 Intake Total 2350 650 Output Total 80 215 Balance 2270 435 Meds/Results Medications: Active Medications Generic Name Dose Route Start Last Admin Trade Name Freq PRN Reason Stop Dose Admin Acetaminophen 650 mg 07/23/21 10:22 Acetaminophen 325 Mg Tablet PO Q6H PRN Mild Pain (1-3) Or Fever Amiodarone HCl 200 mg 07/23/21 10:25 07/23/21 12:46 Amiodarone Hcl 200 Mg Tablet PO 200 mg DAILY RAFAEL Administration Dextrose 12.5 gm 07/23/21 10:20 Dextrose 50% 25 Gm/50 Ml Syringe IV PUSH PRN PRN Hypoglycemia Protocol Glucagon 1 mg 07/23/21 10:20 Glucagon For Inj 1 Mg Vial IM PRN PRN Hypoglycemia Protocol Glucose 15 gm 07/23/21 10:20 Glucose Oral Gel 15 Gm Of Glucse In 37.5 Gm Tube PO PRN PRN Hypoglycemia Protocol Sodium Chloride 1,000 mls @ 70 mls/hr 07/23/21 04:20 07/23/21 20:00 Normal Saline Iv IV CONT 70 mls/hr .[id number] RAFAEL Infusion Vancomycin HCl 1,250 mg in 250 mls @ 200 mls/hr 07/24/21 05:00 07/24/21 06:18 Vancomycin 1,250 Mg/D5w 250 Ml IVPB Infused Q24H RAFAEL Infusion Dextrose 1,000 mls @ 100 mls/hr 07/23/21 10:20 Dextrose 5% 1,000 Ml IVPB PRN PRN Hypoglycemia Protocol Imipenem/Cilastatin Sodium 500 100 mls @ 300 mls/hr 07/23/21 10:35 07/24/21 06:55 mg/ Sodium Chloride IVPB Infused Q6HR RAFAEL Infusion Micafungin Sodium 100 mg/ 100 mls @ 100 mls/hr
[2021-07-24] MEDS: MORPHINE SULFATE (*CRX) 2 MG/ML INJ 1 MG IV PUSH ×3 (11:22→20:56)
[2021-07-24 12:04] LABS: Basophils Absolute Auto 0.1 K/mm3 (0.0-0.1); Basophils Percent Auto 0.7 % (0.2-1.2); Eosinophils Percent Auto 0.4 % (0-4.4); Hematocrit 27.3 % (37.0-47.0); Hemoglobin 8.7 g/dL (12.0-15.0); Lymphocytes Absolute Auto 0.47 K/mm3 (0.9-3.2); Lymphocytes Percent Auto 4.5 % (18.3-44.2); Mean Corpuscular HGB Conc 31.9 g/dl (32-36); Mean Corpuscular Hemoglobin 32.1 pg (26-34); Mean Corpuscular Volume 100.7 fl (80-100); Mean Platelet Volume 10.7 fl (7.4-10.4); Monocytes Absolute Auto 0.6 K/mm3 (0.1-0.6); Monocytes Percent Auto 5.4 % (2.6-8.5); Neutrophils Absolute Auto 9.3 K/mm3 (1.3-6.7); Nucleated Red Blood Cells Absolute Auto 0.1 K/mm3 (0.0-0.012); Nucleated Red Blood Cells Perc 1.3 % (0.0-0.2); Platelet Count Result 435 k/mm3 (150-375); Red Blood Count 2.71 M/mm3 (4.2-5.4); Red Cell Distribution Width 22.9 % (11.5-14.5); White Blood Count 10.5 K/mm3 (4.5-10.0)
[2021-07-24 12:17] LABS: INR 3.7; Prothrombin Time 35.6 Seconds (11.1-14.7)
[2021-07-24 12:18] LABS: Alanine Aminotransferase 72 U/L (4-35); Albumin Level 2.2 g/dL (3.5-5.1); Alkaline Phosphatase 163 U/L (38-126); Anion Gap 9 mmol/L (8-16); Aspartate Amino Transferase 630 U/L (14-36); Bilirubin,Total 1.3 mg/dL (0.2-1.3); Blood Urea Nitrogen 33 mg/dL (7-17); Carbon Dioxide 25 mmol/L (22-30); Chloride 107 mmol/L (98-107); Estimated CRCL calculation 33 ml/min; Estimated Glomerular Filt Rate 43; Glucose 210 mg/dL (65-110); Magnesium 2.4 mg/dL (1.6-2.3); Phosphorus 3.6 mg/dL (2.5-4.5); Potassium 3.1 mmol/L (3.4-5.0); Sodium 141 mmol/L (137-145)
[2021-07-24 12:21] LABS: Hemoglobin A1C 7.2 % (<5.7)
[2021-07-24] MEDS: SODIUM CHLORIDE 0.9% IV 1,000 ML 70 ML IV CONT (13:01)
--- NOTE | 2021-07-24 13:06 | PCSTNOTE ---
Please refer to the Modified Barium Swallow Evaluation in the EMR.
[2021-07-24 13:23] LABS: Vitamin B12 > 1000.0 pg/mL (239-931)
[2021-07-24 13:33] LABS: Glucose Point of Care 211 mg/dl (65-105)
--- NOTE | 2021-07-24 15:07 | PM.IMPN ---
Progress Note: A&P Assessment and Plan (1) Syncope and collapse: Code(s): R55 - Syncope and collapse Status: Acute (2) Intra-abdominal abscess: Code(s): K65.1 - Peritoneal abscess Status: Acute (3) Diverticulitis of intestine with perforation and abscess: Qualifiers: Diverticulitis bleeding: without bleeding Diverticulitis site: large intestine Qualified Code(s): K57.20 - Diverticulitis of large intestine with perforation and abscess without bleeding Code(s): K57.80 - Diverticulitis of intestine, part unspecified, with perforation and abscess without bleeding Status: Acute (4) Bowel obstruction: Qualifiers: Intestinal obstruction extent: unspecified extent Intestinal obstruction type: unspecified Qualified Code(s): K56.609 - Unspecified intestinal obstruction, unspecified as to partial versus complete obstruction Code(s): K56.609 - Unspecified intestinal obstruction, unspecified as to partial versus complete obstruction Status: Acute (5) 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 fistula, not elsewhere classified Status: Acute (6) Acute UTI: Code(s): N39.0 - Urinary tract infection, site not specified Status: Acute (7) Paroxysmal atrial fibrillation: Code(s): I48.0 - Paroxysmal atrial fibrillation Status: Acute (8) Diabetes mellitus: Qualifiers: Diabetes mellitus type: type 2 Diabetes mellitus ferry terminal agent insulin use: with ferry terminal agent use Diabetes mellitus complication status: with hyperglycemia Qualified Code(s): E11.65 - Type 2 diabetes mellitus with hyperglycemia; Z79.4 - ferry terminal agent (current) use of insulin Code(s): E11.9 - Type 2 diabetes mellitus without complications Status: Chronic (9) HTN (hypertension): Qualifiers: Hypertension type: essential hypertension Qualified Code(s): I10 - Essential (primary) hypertension Code(s): I10 - Essential (primary) hypertension Status: Chronic (10) Pulmonary hypertension: Code(s): I27.20 - Pulmonary hypertension, unspecified Status: Acute Additional Plan Patient has been admitted to IMU. CT of the brain showing no acute findings. Clinically she appears dehydrated. Renal function was mildly abnormal correspond with this. She also having low blood pressure at times to suggest that her syncope may be related to orthostasis. Will continue IV fluids for now but decrease the rate and stop once she is able to eat. No NG tube at this time but keep NPO until seen by General Surgery. Resume some medications. Will hold her antihypertensive medications including the Lasix for now. Will resume the vancomycin and micafungin but change to Primaxin. ID not available here. Spoke with the daughter at length and recommended transferring her to [facility] when bed becomes available. She agrees to this plan. She does mention about comfort measures and this was discussed and all questions were answered. General surgery be consulted in the meantime given difficulty transferring patients to tertiary care centers. Patient may need drains replaced. Urology also to be consulted now that she has what looks like fistulization. Will start PT and OT. Will resume her amiodarone. Will hold on the Eliquis given that her INR is 3.2. Resume Eliquis once her INR is trending downward and no plans for surgery. A1c was 8.2 in May. Will resume low-dose Lantus tonight. Advance as she tolerates. Continue sliding scale protocol. Will check TSH. Possible gastitritis so add PPI. Follow-up on blood and urine cultures. INR therapeutic for DVT prophylaxis. Chest x-ray results noted and reviewed. Will have speech therapy evaluate her as well. Further recommendation as course dictates. 07/24/2021 81yo female with hx of DM, pAib on chronic anticoagulation, VTE and complex hx of diverticulitis with multiple complications here for syncope. syncope CT hea
[2021-07-24] MEDS: POTASSIUM CHLORIDE INJ 40 MEQ in SODIUM CHLORIDE 0.9% IV 500 ML 130 MEQ IVPB (16:23)
[2021-07-24 17:57] LABS: Glucose Point of Care 124 mg/dl (65-105)
[2021-07-24 21:01] LABS: Glucose Point of Care 191 mg/dl (65-105)
[2021-07-24] MEDS: ACETAMINOPHEN 325 MG TABLET 650 MG PO (23:57)
[2021-07-25] VITALS (14 sets, daily range): BP systolic 105–124; BP diastolic 53–88; PULSE 76–98; RESP 16–20; TEMP 36.1–36.9; O2SAT 93–98
[2021-07-25] MEDS: MORPHINE SULFATE (*CRX) 2 MG/ML INJ 1 MG IV PUSH ×3 (03:05→12:59)
[2021-07-25] MEDS: CENTRAL LINE FLUSH 10 ML IV PUSH ×3 (06:12→21:30)
[2021-07-25] MEDS: INSULIN GLARGINE (*BKC) 100 UNITS/ML 9 UNITS SUB-Q (08:32)
[2021-07-25] MEDS: MICAFUNGIN SODIUM 100 MG in SODIUM CHLORIDE 0.9% IV 100 ML IVPB (08:33)
[2021-07-25] MEDS: PANTOPRAZOLE SODIUM IV 40 MG VIAL IV PUSH ×2 (08:34→21:30)
[2021-07-25] MEDS: AMIODARONE HCL 200 MG TABLET PO (08:34)
[2021-07-25] MEDS: SODIUM CHLORIDE 0.9% IV 1,000 ML 70 ML IV CONT ×2 (08:37→21:30)
[2021-07-25 08:42] LABS: Glucose Point of Care 199 mg/dl (65-105)
[2021-07-25] MEDS: ACETAMINOPHEN 325 MG TABLET 650 MG PO (10:36)
--- NOTE | 2021-07-25 12:08 | WPDUROPN2 ---
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 Currently being managed with maxwell, abscess drain and abx. Per notes, she and family elect to remain at [facility]. Surgical treatment of her diverticulitis will resolve the colovesical fistula and such we will defer to CRS. Recommend continuing with maxwell, abscess drain and abx for now. When surgery is planned, will be available for cystoscopy and temporary B stents to help delineate the ureters. May require small cystotomy repair at site of fistula depending on intraoperative findings. Subjective Subjective Date/Time Seen: 07/25/21 12:08 Pt resting in chair. Elects to remain at [facility] and canceled transfer to [facility]. Maxwell placed yesterday. Review of Systems Review of Systems: All systems reviewed & are unremarkable except as noted in HPI and below Exam Const: General: cooperative, comfortable and no acute distress GI: GI Palp: Yes Soft to palpation Urinary Catheter: Urinary Catheter: urine dark (maxwell in place draining dark leo urine) Objective Data Vital Signs Vital Signs: Vital Signs - 24 hr 07/24/21 14:00 07/24/21 16:00 07/24/21 18:00 Temperature 36.5 C Pulse Rate 83 78 92 Respiratory Rate 24 H Blood Pressure 100/65 Pulse Oximetry 95 07/24/21 19:10 07/24/21 20:00 07/24/21 22:00 Temperature 36.7 C Pulse Rate 87 89 84 Respiratory Rate 24 H Blood Pressure 116/58 L Pulse Oximetry 100 100 07/25/21 00:00 07/25/21 02:00 07/25/21 04:00 Temperature 36.4 C L 36.4 C Pulse Rate 76 94 93 Respiratory Rate 18 16 Blood Pressure 120/57 L 124/54 L Pulse Oximetry 94 93 07/25/21 06:00 07/25/21 08:00 07/25/21 08:34 Temperature 36.1 C L Pulse Rate 90 90 97 Respiratory Rate 16 Blood Pressure 112/55 L Pulse Oximetry 94 07/25/21 10:00 Temperature Pulse Rate 98 Respiratory Rate Blood Pressure Pulse Oximetry Intake/Output Intake/Output: Intake & Output 07/22/21 07/23/21 07/24/21 07/25/21 23:59 23:59 23:59 23:59 Intake Total 3350 2009 1814 Output Total 80 335 445 Balance 3270 1675 1370 Meds/Results Medications: Active Medications Generic Name Dose Route Start Last Admin Trade Name Freq PRN Reason Stop Dose Admin Acetaminophen 650 mg 07/23/21 10:22 07/25/21 10:36 Acetaminophen 325 Mg Tablet PO 650 mg Q6H PRN Administration Mild Pain (1-3) Or Fever Amiodarone HCl 200 mg 07/23/21 10:25 07/25/21 08:34 Amiodarone Hcl 200 Mg Tablet PO 200 mg DAILY RAFAEL Administration Dextrose 12.5 gm 07/23/21 10:20 Dextrose 50% 25 Gm/50 Ml Syringe IV PUSH PRN PRN Hypoglycemia Protocol Glucagon 1 mg 07/23/21 10:20 Glucagon For Inj 1 Mg Vial IM PRN PRN Hypoglycemia Protocol Glucose 15 gm 07/23/21 10:20 Glucose Oral Gel 15 Gm Of Glucse In 37.5 Gm Tube PO PRN PRN Hypoglycemia Protocol Sodium Chloride 1,000 mls @ 70 mls/hr 07/23/21 04:20 07/25/21 08:37 Normal Saline Iv IV CONT 70 mls/hr .[id number] RAFAEL Administration Vancomycin HCl 1,250 mg in 250 mls @ 200 mls/hr 07/24/21 05:00 07/25/21 05:57 Vancomycin 1,250 Mg/D5w 250 Ml IVPB Infused Q24H RAFAEL Infusion Dextrose 1,000 mls @ 100 mls/hr 07/23/21 10:20 Dextrose 5% 1,000 Ml IVPB PRN PRN Hypoglycemia Protocol Imipenem/Cilastatin Sodium 500 100 mls @ 300 mls/hr 07/23/21 10:35 07/25/21 06:32 mg/ Sodium Chloride IVPB Infused Q6HR RAFAEL Infusion Micafungin Sodium 100 mg/ 100 mls @ 100 mls/hr 07/23/21 10:40 07/25/21 08:33 Sodium Chloride IVPB 100 mls/hr DAILY RAFAEL Administration Insulin Aspart 3 - 6 units 07/23/21 12:00 07/25/21 0
--- NOTE | 2021-07-25 12:32 | PM.PNGS ---
Progress Note: A&P Assessment and Plan (1) Diverticulitis of intestine with perforation and abscess: Qualifiers: Diverticulitis bleeding: without bleeding Diverticulitis site: large intestine Qualified Code(s): K57.20 - Diverticulitis of large intestine with perforation and abscess without bleeding Code(s): K57.80 - Diverticulitis of intestine, part unspecified, with perforation and abscess without bleeding Status: Acute Assessment and Plan: exam largely benign, WBC normalizing, cont drain, abx Subjective Subjective Date/Time Seen: 07/25/21 12:32 no acute issues, maxwell placed, still c/o pain mostly around drain site Review of Systems Review of Systems: All systems reviewed & are unremarkable except as noted in HPI and below Exam Const: General: cooperative, comfortable, no acute distress and ill appearing Nutritional Appearance: obese Orientation/consciousness: patient oriented x3 Resp: Auscultation: clear to auscultation bilaterally Cardio: Rate: regular rate Rhythm: regular rhythm GI: Inspection: normal to inspection and non-distended GI Palp: Yes abdominal tenderness, Yes Soft to palpation, Yes Tenderness to palpation present (GI), No Guarding due to palpation present (GI) and No Rigid due to palpation Other: drain - mod dk serous drainage, maxwell c dk urine Objective Data Vital Signs Vital Signs: Vital Signs - 24 hr 07/24/21 14:00 07/24/21 16:00 07/24/21 18:00 Temperature 36.5 C Pulse Rate 83 78 92 Respiratory Rate 24 H Blood Pressure 100/65 Pulse Oximetry 95 07/24/21 19:10 07/24/21 20:00 07/24/21 22:00 Temperature 36.7 C Pulse Rate 87 89 84 Respiratory Rate 24 H Blood Pressure 116/58 L Pulse Oximetry 100 100 07/25/21 00:00 07/25/21 02:00 07/25/21 04:00 Temperature 36.4 C L 36.4 C Pulse Rate 76 94 93 Respiratory Rate 18 16 Blood Pressure 120/57 L 124/54 L Pulse Oximetry 94 93 07/25/21 06:00 07/25/21 08:00 07/25/21 08:34 Temperature 36.1 C L Pulse Rate 90 90 97 Respiratory Rate 16 Blood Pressure 112/55 L Pulse Oximetry 94 07/25/21 10:00 Temperature Pulse Rate 98 Respiratory Rate Blood Pressure Pulse Oximetry Intake/Output Intake/Output: Intake & Output 07/22/21 07/23/21 07/24/21 07/25/21 23:59 23:59 23:59 23:59 Intake Total 3350 2009 1814 Output Total 80 335 445 Balance 3270 1675 1370 Meds/Results Medications: Active Medications Generic Name Dose Route Start Last Admin Trade Name Freq PRN Reason Stop Dose Admin Acetaminophen 650 mg 07/23/21 10:22 07/25/21 10:36 Acetaminophen 325 Mg Tablet PO 650 mg Q6H PRN Administration Mild Pain (1-3) Or Fever Amiodarone HCl 200 mg 07/23/21 10:25 07/25/21 08:34 Amiodarone Hcl 200 Mg Tablet PO 200 mg DAILY RAFAEL Administration Dextrose 12.5 gm 07/23/21 10:20 Dextrose 50% 25 Gm/50 Ml Syringe IV PUSH PRN PRN Hypoglycemia Protocol Glucagon 1 mg 07/23/21 10:20 Glucagon For Inj 1 Mg Vial IM PRN PRN Hypoglycemia Protocol Glucose 15 gm 07/23/21 10:20 Glucose Oral Gel 15 Gm Of Glucse In 37.5 Gm Tube PO PRN PRN Hypoglycemia Protocol Sodium Chloride 1,000 mls @ 70 mls/hr 07/23/21 04:20 07/25/21 08:37 Normal Saline Iv IV CONT 70 mls/hr .[id number] RAFAEL Administration Vancomycin HCl 1,250 mg in 250 mls @ 200 mls/hr 07/24/21 05:00 07/25/21 05:57 Vancomycin 1,250 Mg/D5w 250 Ml IVPB Infused Q24H RAFAEL Infusion Dextrose 1,000 mls @ 100 mls/hr 07/23/21 10:20 Dextrose 5% 1,000 Ml IVPB PRN PRN Hypoglycemia Protocol Imipenem/Cilastatin Sodium 500 100 mls @ 300 mls/hr 07/23/21 10:35 07/25/21 06:32 mg/ Sodium Chloride IVPB Infused Q6HR RAFAEL Infusion Micafungin Sodium 100 mg/ 100 mls @ 100 mls/hr 07/23/21 10:40 07/25/21 08:33 Sodium Chloride IVPB 100 mls/hr DAILY RAFAEL Administration Insulin Aspart 3 - 6 units 07/23/21 12:00
[2021-07-25] MEDS: INSULIN ASPART (*BKC) 100 UNITS/ML SUB-Q (12:41)
--- NOTE | 2021-07-25 12:53 | PM.IMPN ---
Progress Note: A&P Assessment and Plan (1) Syncope and collapse: Code(s): R55 - Syncope and collapse Status: Acute Assessment and Plan: Workup in progress. Stable at present. (2) Intra-abdominal abscess: Code(s): K65.1 - Peritoneal abscess Status: Acute (3) Diverticulitis of intestine with perforation and abscess: Qualifiers: Diverticulitis bleeding: without bleeding Diverticulitis site: large intestine Qualified Code(s): K57.20 - Diverticulitis of large intestine with perforation and abscess without bleeding Code(s): K57.80 - Diverticulitis of intestine, part unspecified, with perforation and abscess without bleeding Status: Acute Assessment and Plan: Abscess was drained, sent for culture. (4) Bowel obstruction: Qualifiers: Intestinal obstruction extent: unspecified extent Intestinal obstruction type: unspecified Qualified Code(s): K56.609 - Unspecified intestinal obstruction, unspecified as to partial versus complete obstruction Code(s): K56.609 - Unspecified intestinal obstruction, unspecified as to partial versus complete obstruction Status: Acute Assessment and Plan: Stable at present time. 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 (7) Paroxysmal atrial fibrillation: Code(s): I48.0 - Paroxysmal atrial fibrillation Status: Acute Assessment and Plan: Stable on current meds. 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 (9) HTN (hypertension): Qualifiers: Hypertension type: essential hypertension Qualified Code(s): I10 - Essential (primary) hypertension Code(s): I10 - Essential (primary) hypertension Status: Chronic Assessment and Plan: Stable on current meds (10) Pulmonary hypertension: Code(s): I27.20 - Pulmonary hypertension, unspecified Status: Acute Assessment and Plan: Stable on current regiment, will follow closely Additional Plan 07/25/2021 Patient culture shows E coli infection. Patient is on antibiotics will monitor sensitivity. Will continue with current plan care treatment. Subjective Date/time seen: 07/25/21 12:53 Patient was seen during the morning rounds today. Feeling slightly better. No shortness of breath or chest pain. Abdominal pain is better. No nausea or vomiting. Mood stable. Interval history: 07/24/2021 no overnight events. Feels weak. Denies abdominal pain. No shortness of breath or chest pain Review of Systems Review of Systems: All systems reviewed & are unremarkable except as noted in HPI and below ROS unobtainable: Yes unobtainable due to mental status Exam Narrative: Gen - well-nourished, well-developed female in no acute respiratory distress HEENT - normocephalic. Atraumatic. Neck - neck was supple. Chest - bibasilar inspiratory crackles. Nml RR. CV - heart was irregularly irregular. S1-S2. No murmurs gallops or rubs. Abd - abdomen was soft with voluntary guarding diffusely but worse in the LLQ. No rebound,. +BS. Old drain site in the LLQ is clean and dry Ext - no clubbing, cyanosis or edema. 1+ DP pulses bilaterally. Neuro - patient is alert and oriented x2 Cranial nerves 2-12 are intact. no focal neuro deficits Psych - norm
--- NOTE | 2021-07-25 12:59 | PCPTNOTE ---
Patient refused treatment this afternoon. She states that she is feeling really weak and can't do it today. Talked with nursing before walking in and she said they had just got the pt back to bed and it took 3 people to get her off of the commode.
[2021-07-25 13:19] LABS: Glucose Point of Care 288 mg/dl (65-105)
[2021-07-25 15:49] LABS: Glucose Point of Care 169 mg/dl (65-105)
[2021-07-25 20:42] LABS: Glucose Point of Care 150 mg/dl (65-105)
[2021-07-25] MEDS: APIXABAN 5 MG TABLET PO (21:30)
[2021-07-26] VITALS (14 sets, daily range): BP systolic 105–134; BP diastolic 53–74; PULSE 89–108; RESP 18–94; TEMP 36.1–36.4; O2SAT 20–98
[2021-07-26] MEDS: MORPHINE SULFATE (*CRX) 2 MG/ML INJ 1 MG IV PUSH (03:50)
[2021-07-26 04:15] LABS: Alanine Aminotransferase 124 U/L (4-35); Albumin Level 2.1 g/dL (3.5-5.1); Alkaline Phosphatase 188 U/L (38-126); Anion Gap 8 mmol/L (8-16); Aspartate Amino Transferase 409 U/L (14-36); Bilirubin,Total 1.4 mg/dL (0.2-1.3); Blood Urea Nitrogen 28 mg/dL (7-17); Calcium 7.9 mg/dL (8.4-10.2); Carbon Dioxide 24 mmol/L (22-30); Chloride 109 mmol/L (98-107); Estimated CRCL calculation 41 ml/min; Estimated Glomerular Filt Rate 53; Glucose 133 mg/dL (65-110); Potassium 3.2 mmol/L (3.4-5.0); Sodium 141 mmol/L (137-145)
[2021-07-26 04:19] LABS: Hematocrit 26.9 % (37.0-47.0); Hemoglobin 8.9 g/dL (12.0-15.0); Mean Corpuscular HGB Conc 33.1 g/dl (32-36); Mean Corpuscular Hemoglobin 32.1 pg (26-34); Mean Corpuscular Volume 97.1 fl (80-100); Mean Platelet Volume 10.7 fl (7.4-10.4); Platelet Count Result 276 k/mm3 (150-375); Red Blood Count 2.77 M/mm3 (4.2-5.4); Red Cell Distribution Width 22.6 % (11.5-14.5); White Blood Count 10.1 K/mm3 (4.5-10.0)
[2021-07-26 04:37] LABS: INR 3.2; Prothrombin Time 31.5 Seconds (11.1-14.7)
[2021-07-26 04:50] LABS: Vancomycin Trough 20.6 ug/mL (10.0-20.0)
[2021-07-26] MEDS: CENTRAL LINE FLUSH 10 ML IV PUSH ×3 (05:07→22:03)
--- NOTE | 2021-07-26 06:53 | WPDUROPN2 ---
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 Currently being managed with maxwell, abscess drain and abx. Per notes, she and family elect to remain at [facility]. Surgical treatment of her diverticulitis will resolve the colovesical fistula and such we will defer to CRS. Recommend continuing with maxwell, abscess drain and abx for now. When surgery is planned, will be available for cystoscopy and temporary B stents to help delineate the ureters. May require small cystotomy repair at site of fistula depending on intraoperative findings. 07/26/21 As above - can be available for cysto/ureteral catheterization and bladder repair once definitive plans in place. Subjective Subjective Date/Time Seen: 07/26/21 06:53 Comfortable, no c/o abdominal pain Review of Systems Cardiovascular: Cardiovascular: Denies chest pain, Denies lightheadedness, Denies palpitations and Denies dyspnea Respiratory: Respiratory: Denies dyspnea Gastrointestinal: Gastrointestinal: Denies diarrhea, Denies nausea and Denies vomiting Genitourinary: Genitourinary: Denies hematuria and Denies dysuria Endocrine: Endocrine: Denies palpitations Exam Const: General: no acute distress Resp: Effort & Inspection: normal respiratory effort GI: Inspection: non-distended GI Palp: No abdominal tenderness and No Guarding due to palpation present (GI) Auscultation: normal bowel sounds Objective Data Vital Signs Vital Signs: Vital Signs - 24 hr 07/25/21 08:00 07/25/21 08:34 07/25/21 10:00 Temperature 97.0 F L Pulse Rate 90 97 98 Respiratory Rate 16 Blood Pressure 112/55 L Pulse Oximetry 94 07/25/21 12:00 07/25/21 14:00 07/25/21 16:00 Temperature 97.7 F 98.5 F Pulse Rate 95 89 81 Respiratory Rate 20 20 Blood Pressure 122/60 105/53 L Pulse Oximetry 96 94 07/25/21 18:00 07/25/21 20:00 07/25/21 22:00 Temperature 97.4 F L Pulse Rate 80 86 84 Respiratory Rate 20 Blood Pressure 119/88 Pulse Oximetry 93 07/25/21 23:20 07/26/21 00:00 07/26/21 02:00 Temperature 96.9 F L Pulse Rate 84 89 96 Respiratory Rate 20 20 Blood Pressure 134/74 Pulse Oximetry 93 98 07/26/21 03:17 07/26/21 04:00 07/26/21 06:00 Temperature 97.2 F L Pulse Rate 96 99 91 Respiratory Rate 20 94 H Blood Pressure 108/68 Pulse Oximetry 98 20 L Intake/Output Intake/Output: Intake & Output 07/23/21 07/24/21 07/25/21 07/26/21 23:59 23:59 23:59 23:59 Intake Total 3350 2010 3610 500 Output Total 80 335 445 0 Balance 3270 1675 3165 500 Meds/Results Medications: Active Medications Generic Name Dose Route Start Last Admin Trade Name Freq PRN Reason Stop Dose Admin Acetaminophen 650 mg 07/23/21 10:22 07/25/21 10:36 Acetaminophen 325 Mg Tablet PO 650 mg Q6H PRN Administration Mild Pain (1-3) Or Fever Amiodarone HCl 200 mg 07/23/21 10:25 07/25/21 08:34 Amiodarone Hcl 200 Mg Tablet PO 200 mg DAILY RAFAEL Administration Apixaban 5 mg 07/25/21 21:00 07/25/21 21:30 Apixaban 5 Mg Tablet PO 5 mg Q12HR RAFAEL Administration Dextrose 12.5 gm 07/23/21 10:20 Dextrose 50% 25 Gm/50 Ml Syringe IV PUSH PRN PRN Hypoglycemia Protocol Glucagon 1 mg 07/23/21 10:20 Glucagon For Inj 1 Mg Vial IM PRN PRN Hypoglycemia Protocol Glucose 15 gm 07/23/21 10:20 Glucose Oral Gel 15 Gm Of Glucse In 37.5 Gm Tube PO PRN PRN Hypoglycemia Protocol Sodium Chloride 1,000 mls @ 70 mls/hr 07/23/21 04:20 07/25/21 21:30 Normal Saline Iv IV CONT 70 mls/hr .[id number] RAFAEL Administration Dextrose 1,000 mls @ 100 mls/hr 07/23/21 10:20 Dextrose 5% 1,000 Ml
[2021-07-26 08:34] LABS: Glucose Point of Care 129 mg/dl (65-105)
[2021-07-26] MEDS: INSULIN GLARGINE (*BKC) 100 UNITS/ML 9 UNITS SUB-Q (08:42)
[2021-07-26] MEDS: PANTOPRAZOLE SODIUM IV 40 MG VIAL IV PUSH ×2 (08:42→22:02)
[2021-07-26] MEDS: MICAFUNGIN SODIUM 100 MG in SODIUM CHLORIDE 0.9% IV 100 ML IVPB (08:42)
[2021-07-26] MEDS: AMIODARONE HCL 200 MG TABLET PO (08:42)
[2021-07-26] MEDS: APIXABAN 5 MG TABLET PO ×2 (08:43→22:03)
[2021-07-26] MEDS: POTASSIUM CHLORIDE 20 MEQ PACKET (FOR LIQUID) 40 MEQ PO (08:43)
--- NOTE | 2021-07-26 10:16 | PM.PNGS ---
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, not elsewhere classified Status: Acute Assessment and Plan: cont maxwell, abx Subjective Subjective Date/Time Seen: 07/26/21 10:16 feels better, pain improved Review of Systems Review of Systems: All systems reviewed & are unremarkable except as noted in HPI and below Exam Const: General: cooperative, comfortable, no acute distress and ill appearing Orientation/consciousness: patient oriented x3 Resp: Auscultation: clear to auscultation bilaterally Cardio: Rate: regular rate Rhythm: regular rhythm GI: Inspection: normal to inspection GI Palp: Yes Soft to palpation, Yes Tenderness to palpation present (GI), No Guarding due to palpation present (GI) and No Rigid due to palpation Objective Data Vital Signs Vital Signs: Vital Signs - 24 hr 07/25/21 12:00 07/25/21 14:00 07/25/21 16:00 Temperature 36.5 C 36.9 C Pulse Rate 95 89 81 Respiratory Rate 20 20 Blood Pressure 122/60 105/53 L Pulse Oximetry 96 94 07/25/21 18:00 07/25/21 20:00 07/25/21 22:00 Temperature 36.3 C L Pulse Rate 80 86 84 Respiratory Rate 20 Blood Pressure 119/88 Pulse Oximetry 93 07/25/21 23:20 07/26/21 00:00 07/26/21 02:00 Temperature 36.1 C L Pulse Rate 84 89 96 Respiratory Rate 20 20 Blood Pressure 134/74 Pulse Oximetry 93 98 07/26/21 03:17 07/26/21 04:00 07/26/21 06:00 Temperature 36.2 C L Pulse Rate 96 99 91 Respiratory Rate 20 94 H Blood Pressure 108/68 Pulse Oximetry 98 20 L 07/26/21 08:00 07/26/21 08:42 Temperature 36.2 C L Pulse Rate 93 94 Respiratory Rate 22 H Blood Pressure 117/66 Pulse Oximetry 91 Intake/Output Intake/Output: Intake & Output 07/23/21 07/24/21 07/25/21 07/26/21 23:59 23:59 23:59 23:59 Intake Total 3350 2010 3610 500 Output Total 80 335 445 0 Balance 3270 1675 3165 500 Meds/Results Medications: Active Medications Generic Name Dose Route Start Last Admin Trade Name Freq PRN Reason Stop Dose Admin Acetaminophen 650 mg 07/23/21 10:22 07/25/21 10:36 Acetaminophen 325 Mg Tablet PO 650 mg Q6H PRN Administration Mild Pain (1-3) Or Fever Amiodarone HCl 200 mg 07/23/21 10:25 07/26/21 08:42 Amiodarone Hcl 200 Mg Tablet PO 200 mg DAILY RAFAEL Administration Apixaban 5 mg 07/25/21 21:00 07/26/21 08:43 Apixaban 5 Mg Tablet PO 5 mg Q12HR RAFAEL Administration Dextrose 12.5 gm 07/23/21 10:20 Dextrose 50% 25 Gm/50 Ml Syringe IV PUSH PRN PRN Hypoglycemia Protocol Glucagon 1 mg 07/23/21 10:20 Glucagon For Inj 1 Mg Vial IM PRN PRN Hypoglycemia Protocol Glucose 15 gm 07/23/21 10:20 Glucose Oral Gel 15 Gm Of Glucse In 37.5 Gm Tube PO PRN PRN Hypoglycemia Protocol Sodium Chloride 1,000 mls @ 70 mls/hr 07/23/21 04:20 07/25/21 21:30 Normal Saline Iv IV CONT 70 mls/hr .[id number] RAFAEL Administration Dextrose 1,000 mls @ 100 mls/hr 07/23/21 10:20 Dextrose 5% 1,000 Ml IVPB PRN PRN Hypoglycemia Protocol Imipenem/Cilastatin Sodium 500 100 mls @ 300 mls/hr 07/23/21 10:35 07/26/21 05:20 mg/ Sodium Chloride IVPB Infused Q6HR RAFAEL Infusion Micafungin Sodium 100 mg/ 100 mls @ 100 mls/hr 07/23/21 10:40 07/26/21 08:42 Sodium Chloride IVPB 100 mls/hr DAILY RAFAEL Administration Vancomycin HCl
--- NOTE | 2021-07-26 11:46 | PCSTNOTE ---
The patient treatment was not able to be completed on [] due to []. Will plan to continue treatment per plan of care.
[2021-07-26] MEDS: SODIUM CHLORIDE 0.9% IV 1,000 ML 70 ML IV CONT (12:50)
[2021-07-26 13:12] LABS: Glucose Point of Care 146 mg/dl (65-105)
[2021-07-26 13:12] LABS: Glucose Point of Care 143 mg/dl (65-105)
--- NOTE | 2021-07-26 13:41 | PM.IMPN ---
Progress Note: A&P Assessment and Plan (1) Syncope and collapse: Code(s): R55 - Syncope and collapse Status: Acute Assessment and Plan: Patient had brief syncopal episode after getting up. Possibly orthostatic from dehydration. Doubt seizures. No recurrence. Continue therapy. Continue telemetry. (2) Diverticulitis of intestine with perforation and abscess: Qualifiers: Diverticulitis bleeding: without bleeding Diverticulitis site: large intestine Qualified Code(s): K57.20 - Diverticulitis of large intestine with perforation and abscess without bleeding Code(s): K57.80 - Diverticulitis of intestine, part unspecified, with perforation and abscess without bleeding Status: Acute Assessment and Plan: Patient was at [facility] prior to this admission. She last had drains in place on 07/14/2021. Patient has been on broad-spectrum IV antibiotics and antifungal treatment. She appears to have continued reaccumulation of these abscesses. Drain was placed on 07/23/2021. The abscess is growing E coli and Bacteroides; sensitivities are pending. Urine culture growing ESBL E coli as well as VRE. She is currently on Primaxin, vancomycin and micafungin. Will change to Tobramycin and Linezolid in hopes for cure. Will call over to [facility] to discuss. Spoke with ID. Their plan was for continued abx/antifungal treatment until resolution of the abscess. UCx and Abscess cx noted. Will change Vanco to linezolid. Will await abscess cx results before stopping the Primaxin. Discused case with family and explained that ID is not available here at and that the ID at [facility] did not provide recommendations. They are still comfortable with keeping the patient at and seeing 'how it goes' with the new drain. They voiced understanding about the risks of aminoglycosides. 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 Will continue the same (4) Bowel obstruction: Qualifiers: Intestinal obstruction extent: unspecified extent Intestinal obstruction type: unspecified Qualified Code(s): K56.609 - Unspecified intestinal obstruction, unspecified as to partial versus complete obstruction Code(s): K56.609 - Unspecified intestinal obstruction, unspecified as to partial versus complete obstruction Status: Acute Assessment and Plan: Stable and tolearating clear liquids. Add miralax. Advance diet? 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 Uriology consulted. Appreciate their input. (6) Acute UTI: Code(s): N39.0 - Urinary tract infection, site not specified Status: Acute Assessment and Plan: With ESBL EColi and VRE. Suspect this is from the abscess given the known fistula. As above. (7) Paroxysmal atrial fibrillation: Code(s): I48.0 - Paroxysmal atrial fibrillation Status: Acute Assessment and Plan: Mildly tachycardic but stable HR overall on tele review. She remains on Amiodarone for now. Also remains on Elquis. Continue the same. 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 The patient's blood glucose was reviewed on 07/26 Glucose remains well controlled. Continue AccuCheks covering with sliding scale. Hypoglycemia protocol available as needed. Continue current medications. (9) HTN (hyperten
[2021-07-26 17:26] LABS: Glucose Point of Care 166 mg/dl (65-105)
[2021-07-26 21:20] LABS: Glucose Point of Care 138 mg/dl (65-105)
[2021-07-26] MEDS: LINEZOLID 600 MG/300 ML 600 MG/300 ML SOLN 300 MG IVPB (22:03)
[2021-07-27] VITALS (15 sets, daily range): BP systolic 106–141; BP diastolic 57–90; PULSE 80–100; RESP 22–30; TEMP 36.2–36.7; O2SAT 92–100
[2021-07-27] MEDS: CENTRAL LINE FLUSH 20 ML IV PUSH (05:20)
[2021-07-27] MEDS: CENTRAL LINE FLUSH 10 ML IV PUSH ×3 (05:32→20:20)
[2021-07-27 05:51] LABS: Hematocrit 26.6 % (37.0-47.0); Hemoglobin 8.9 g/dL (12.0-15.0); Mean Corpuscular HGB Conc 33.5 g/dl (32-36); Mean Corpuscular Hemoglobin 32.6 pg (26-34); Mean Corpuscular Volume 97.4 fl (80-100); Platelet Count Result 256 k/mm3 (150-375); Red Blood Count 2.73 M/mm3 (4.2-5.4); Red Cell Distribution Width 22.4 % (11.5-14.5); White Blood Count 10.3 K/mm3 (4.5-10.0)
[2021-07-27 06:00] LABS: Alanine Aminotransferase 69 U/L (4-35); Alkaline Phosphatase 184 U/L (38-126); Anion Gap 7 mmol/L (8-16); Aspartate Amino Transferase 98 U/L (14-36); Bilirubin,Total 1.4 mg/dL (0.2-1.3); Blood Urea Nitrogen 29 mg/dL (7-17); Calcium 7.9 mg/dL (8.4-10.2); Carbon Dioxide 24 mmol/L (22-30); Chloride 112 mmol/L (98-107); Estimated CRCL calculation 40 ml/min; Estimated Glomerular Filt Rate 53; Glucose 180 mg/dL (65-110); INR 3.8; Magnesium 1.7 mg/dL (1.6-2.3); Phosphorus 3.3 mg/dL (2.5-4.5); Potassium 3.7 mmol/L (3.4-5.0); Prothrombin Time 36.5 Seconds (11.1-14.7); Sodium 143 mmol/L (137-145)
[2021-07-27 06:48] LABS: Band Neutrophils Percent 2 % (0-6); Eosinophils Percent Manual 1 % (0-4); Lymphocytes Absolute Manual 0.92 K/mm3 (1.1-4.5); Monocytes Absolute Manual 0.51 K/mm3 (0.1-0.90); Monocytes Percent Manual 5 % (3-9); Neutrophils Absolute Manual 8.75 K/mm3 (1.7-7.2); Neutrophils Percent Manual 83 % (46-73); Nucleated Red Blood Cells 1 %; Platelet Estimate Adequate (Adequate); Total Cells Counted 100
[2021-07-27 06:49] LABS: Anisocytosis 1+ (NORMAL); Ovalocytes 1+ (NORMAL)
[2021-07-27 06:50] LABS: Acanthocytes 3+ (NORMAL); Target Cells 3+ (NORMAL)
[2021-07-27 08:16] LABS: Glucose Point of Care 171 mg/dl (65-105)
--- NOTE | 2021-07-27 09:54 | PM.PNGS ---
Progress Note: A&P Assessment and Plan (1) Diverticulitis of intestine with perforation and abscess: Qualifiers: Diverticulitis bleeding: without bleeding Diverticulitis site: large intestine Qualified Code(s): K57.20 - Diverticulitis of large intestine with perforation and abscess without bleeding Code(s): K57.80 - Diverticulitis of intestine, part unspecified, with perforation and abscess without bleeding Status: Acute Assessment and Plan: Continue IV antibiotics and percutaneous drain. WBC remains at 10,000, afebrile, no abdominal pain. Okay to advance diet, although minimal oral intake due to respiratory status. No plans for surgical intervention. 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 Morales in place, management per Urology. Additional Plan I have discussed the patient's case and plan of care with Dr. Mcoky. Subjective Subjective Date/Time Seen: 07/27/21 09:45 Patient reports: no new complaints, flatus and afebrile Interval history: 81 yo F who presented with diverticulitis with abscess and colovesical fistula with a percutaneous drain placed in the intra-abdominal abscess on 07/23/2021. CT scan also suggested sigmoid stricture with partial obstruction. She is on broad-spectrum IV antibiotics and IV micafungin. Chart reviewed. She is now seen in the IMU. She is able to answer questions and is oriented to person and place, but slightly confused on time. She denies any abdominal pain, nausea, or vomiting. Per nursing, her respiratory status has declined overnight and she is now on 11L high flow NC and 15L non-rebreather. She is tachypneic and sitting up in the chair on my exam. Reports flatus and patient believes she had a liquid BM yesterday but no documented BM in her EMR. No other acute complaints at this time. Exam Const: General: alert, awake, acute distress mild and ill appearing Orientation/consciousness: oriented to time (initially thought it was 2020 but was oriented with encouragment) and patient oriented x3 Resp: Effort & Inspection: labored and tachypneic Auscultation: diminished lung sounds bilateral throughout Cardio: Rate: regular rate Rhythm: abnormal rhythm irregularly irregular GI: Inspection: non-distended GI Palp: Yes Soft to palpation, Yes Tenderness to palpation present (GI) (LLQ near perc drain), No Guarding due to palpation present (GI) and No Rebound tenderness present Auscultation: Hypoactive bowel sounds present Other: LLQ perc drain with dark brown drainage Urinary Catheter: Urinary Catheter: patent and draining and urine dark (dark orange/brown colored urine) Skin: General skin exam: pallor and other (right lower extremity dressing c/d/i) Neuro: General: moves all extremities and no focal motor deficits Extrem: General: no calf tenderness and no edema Psych: Insight: Fair insight present (Psych) Judgement: Fair judgement present (Psych) Objective Data Vital Signs Vital Signs: Vital Signs - 24 hr 07/26/21 10:00 07/26/21 12:00 07/26/21 14:00 Temperature 97.2 F L Pulse Rate 106 H 103 H 108 H Respiratory Rate 26 H Blood Pressure 112/66 Pulse Oximetry 92 07/26/21 16:00 07/26/21 18:00 07/26/21 20:00 Temperature 97.6 F 96.9 F L Pulse Rate 102 H 102 H 96 Respiratory Rate 18 28 H Blood Pressure 123/67 105/53 L Pulse Oximetry 24 L 75 L 07/26/21 22:00 07/27/21 00:00 07/27/21 02:00 Temperature 97.2 F L Pulse Rate 98 98 97 Respiratory Rate 24 H Blood Pressure 119/63 Pulse Oximetry 92 07/27/21 04:00 07/27/21 06:00 07/27/21 08:00 Temperature 97.5 F L 97.6 F Pulse Rate 91 97 91 Respiratory Rate 24 H 30 H Blood Pressure 110/61 118/66 Pulse Oximetry 100 100 Intake/Output Intake/Output: Intake & Output 07/24/21 07/25/21 07/26/21 07/27/21 23:59 23:59 23:59 23:59 Intake Total 2009 8984 21
[2021-07-27] MEDS: LINEZOLID 600 MG/300 ML 600 MG/300 ML SOLN 300 MG IVPB ×2 (10:07→20:19)
[2021-07-27] MEDS: PANTOPRAZOLE SODIUM IV 40 MG VIAL IV PUSH ×2 (10:09→20:21)
[2021-07-27] MEDS: SODIUM CHLORIDE 0.9% IV 1,000 ML 50 ML IV CONT (10:09)
[2021-07-27] MEDS: AMIODARONE HCL 200 MG TABLET PO (10:10)
--- NOTE | 2021-07-27 10:12 | PM.PNGS ---
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, not elsewhere classified Status: Acute Assessment and Plan: maxwell, abx, d/w urology if maxwell can be removed as pt is not going to undergo surgery unless emergent Subjective Subjective Date/Time Seen: 07/27/21 10:12 no acute issues overnight, feels ok Review of Systems Review of Systems: All systems reviewed & are unremarkable except as noted in HPI and below Exam Const: General: cooperative, comfortable, no acute distress and ill appearing Nutritional Appearance: obese Orientation/consciousness: oriented to person and oriented to place Resp: Effort & Inspection: normal respiratory effort Auscultation: diminished lung sounds Cardio: Rate: regular rate Rhythm: regular rhythm GI: Inspection: normal to inspection GI Palp: Yes Soft to palpation, Yes Tenderness to palpation present (GI), No Guarding due to palpation present (GI) and No Rigid due to palpation Other: drain - s/s output Objective Data Vital Signs Vital Signs: Vital Signs - 24 hr 07/26/21 12:00 07/26/21 14:00 07/26/21 16:00 Temperature 36.2 C L 36.4 C Pulse Rate 103 H 108 H 102 H Respiratory Rate 26 H 18 Blood Pressure 112/66 123/67 Pulse Oximetry 92 24 L 07/26/21 18:00 07/26/21 20:00 07/26/21 22:00 Temperature 36.1 C L Pulse Rate 102 H 96 98 Respiratory Rate 28 H Blood Pressure 105/53 L Pulse Oximetry 75 L 07/27/21 00:00 07/27/21 02:00 07/27/21 04:00 Temperature 36.2 C L 36.4 C L Pulse Rate 98 97 91 Respiratory Rate 24 H 24 H Blood Pressure 119/63 110/61 Pulse Oximetry 92 100 07/27/21 06:00 07/27/21 08:00 Temperature 36.4 C Pulse Rate 97 91 Respiratory Rate 30 H Blood Pressure 118/66 Pulse Oximetry 100 Intake/Output Intake/Output: Intake & Output 07/24/21 07/25/21 07/26/21 07/27/21 23:59 23:59 23:59 23:59 Intake Total 2009 3610 2100 300 Output Total 335 445 0 210 Balance 1675 3165 2100 90 Meds/Results Medications: Active Medications Generic Name Dose Route Start Last Admin Trade Name Freq PRN Reason Stop Dose Admin Acetaminophen 650 mg 07/23/21 10:22 07/25/21 10:36 Acetaminophen 325 Mg Tablet PO 650 mg Q6H PRN Administration Mild Pain (1-3) Or Fever Amiodarone HCl 200 mg 07/23/21 10:25 07/26/21 08:42 Amiodarone Hcl 200 Mg Tablet PO 200 mg DAILY RAFAEL Administration Apixaban 5 mg 07/25/21 21:00 07/26/21 22:03 Apixaban 5 Mg Tablet PO 5 mg Q12HR RAFAEL Administration Dextrose 12.5 gm 07/23/21 10:20 Dextrose 50% 25 Gm/50 Ml Syringe IV PUSH PRN PRN Hypoglycemia Protocol Glucagon 1 mg 07/23/21 10:20 Glucagon For Inj 1 Mg Vial IM PRN PRN Hypoglycemia Protocol Glucose 15 gm 07/23/21 10:20 Glucose Oral Gel 15 Gm Of Glucse In 37.5 Gm Tube PO PRN PRN Hypoglycemia Protocol Sodium Chloride 1,000 mls @ 50 mls/hr 07/23/21 04:20 07/26/21 20:07 Normal Saline Iv IV CONT Not Given .Q20H RAFAEL Dextrose 1,000 mls @ 100 mls/hr 07/23/21 10:20 Dextrose 5% 1,000 Ml IVPB PRN PRN Hypoglycemia Protocol Imipenem/Cilastatin Sodium 500 100 mls @ 300 mls/hr 07/23/21 10:35 07/27/21 05:52 mg/ Sodium Chloride IVPB Infused Q6HR RAFAEL Infusion Micafungin Sodium 100 mg/ 100 mls @ 100 mls/hr 07/23/21 10:40 07/26/21 09:45 Sodium Chloride IVPB Infused DAILY RAFAEL Infusion Linezolid 600 mg in 3
[2021-07-27] MEDS: polyethylene glycoL 3350 17 GM POWD.PACK PO (10:13)
[2021-07-27] MEDS: INSULIN GLARGINE (*BKC) 100 UNITS/ML 9 UNITS SUB-Q (10:17)
--- NOTE | 2021-07-27 10:30 | PM.IMPN ---
Progress Note: A&P Assessment and Plan (1) Acute respiratory failure: Code(s): J96.00 - Acute respiratory failure, unspecified whether with hypoxia or hypercapnia Status: Acute Assessment and Plan: Patiet with O2 requirment yesterday at 2L but worsened overnight. ABG 7.48/33/131 on 3L. She had CXR showing worsening bilateral lung disease. She does have evidence of fluid overload. Will proceed with Lasix x1. Monitor UOP and clinical status. Also will check COVID. Consider aspiration but felt less likely. Stop IV fluids (2) Syncope and collapse: Code(s): R55 - Syncope and collapse Status: Acute Assessment and Plan: Patient had brief syncopal episode after getting up prompting this admission. Possibly orthostatic from dehydration. Doubt seizures. No recurrence. Continue therapy. Continue telemetry. As above (3) Diverticulitis of intestine with perforation and abscess: Qualifiers: Diverticulitis bleeding: without bleeding Diverticulitis site: large intestine Qualified Code(s): K57.20 - Diverticulitis of large intestine with perforation and abscess without bleeding Code(s): K57.80 - Diverticulitis of intestine, part unspecified, with perforation and abscess without bleeding Status: Acute Assessment and Plan: Patient was [facility] prior to this admission. She last had drains in place on 07/14/2021. Patient has been on broad-spectrum IV antibiotics and antifungal treatment since early June. She appears to have continued reaccumulation of these abscesses. Drain was replaced on 07/23/2021. The abscess culture growing ESBL E coli and Bacteroides. Urine culture growing ESBL E coli as well as VRE. She is currently on Primaxin; vancomycin changed to Linzolid. UCx and abscess Cx both growing ESBL Ecoli sensitive only to aminoglycosides related to the known fistula. Discussed case with family and explained that ID is not available here at and that the ID at [facility] did not provide recommendations. The family are still comfortable with keeping the patient at and seeing 'how it goes' with the new drain. They voiced understanding about the risks of aminoglycosides. Will continue Linezolid and micafungin. Will change primaxin to Gent in hopes for cure. Discussed with pharmacy. 40 minutes spent on critical care time (4) Fungemia: Code(s): B49 - Unspecified mycosis Status: Acute Assessment and Plan: Fungemia noted early June and she remains of Micafungin. Spoke with ID at [facility] who stated the plan was for indefinite treatment until abscess resolved. Will continue the same (5) Bowel obstruction: Qualifiers: Intestinal obstruction extent: unspecified extent Intestinal obstruction type: unspecified Qualified Code(s): K56.609 - Unspecified intestinal obstruction, unspecified as to partial versus complete obstruction Code(s): K56.609 - Unspecified intestinal obstruction, unspecified as to partial versus complete obstruction Status: Acute Assessment and Plan: Stable and tolerating clear liquids. No BM listed. Continue Miralax. 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 Uriology consulted. Appreciate their input. (7) Acute UTI: Code(s): N39.0 - Urinary tract infection, site not specified Status: Acute Assessment and Plan: With ESBL EColi and VRE. Suspect this is from the abscess given the known fistula. As above. (8) Paroxysmal atrial fibrillation: Code(s): I48.0 - Paroxysmal atrial fibrillation Status: Acute Assessment and Plan: HR stable overall on tele review. She remains on Amiodarone. Also on Eliquis. Continue to monitor on tele. Hold Eliquis for now since INR 3.8 (possibly related to the elevated LFTs). Resume Eliquis when IN
--- NOTE | 2021-07-27 11:15 | PCSTNOTE ---
The patient treatment was not able to be completed on 07/27/21 due to patient short of breath and fatigued; unable to adequately participate in therapy tasks; requested no therapy today. Will plan to continue treatment per plan of care.
[2021-07-27] MEDS: FUROSEMIDE INJ 40 MG/4 ML VIAL IV PUSH (11:27)
[2021-07-27] MEDS: MICAFUNGIN SODIUM 100 MG in SODIUM CHLORIDE 0.9% IV 100 ML IVPB (11:27)
--- NOTE | 2021-07-27 12:51 | PCSTNOTE ---
Please refer to the Bedside Swallow Evaluation in the EMR. Please note, silent aspiration cannot be ruled out at bedside.
[2021-07-27 13:44] LABS: Glucose Point of Care 290 mg/dl (65-105)
[2021-07-27] MEDS: GENTAMICIN SULFATE INJ 325 MG in DEXTROSE 5% 100 ML 100 MG IVPB (14:29)
[2021-07-27] MEDS: INSULIN ASPART (*BKC) 100 UNITS/ML SUB-Q (14:31)
[2021-07-27] MEDS: WATER FOR IRRIGATION, STERILE 1,000 ML BOTTLE 1000 ML (14:32)
[2021-07-27 15:55] LABS: SARS-CoV-2 RNA PCR Negative
[2021-07-27 16:59] LABS: Glucose Point of Care 190 mg/dl (65-105)
[2021-07-27 20:29] LABS: Glucose Point of Care 194 mg/dl (65-105)
[2021-07-28] VITALS (14 sets, daily range): BP systolic 99–123; BP diastolic 50–86; PULSE 78–102; RESP 20–24; TEMP 36.4–36.7; O2SAT 72–100; BMI 33.7
[2021-07-28 01:40] LABS: Gentamicin Random 5.8 ug/mL (5.0-12.0)
[2021-07-28] MEDS: CENTRAL LINE FLUSH 10 ML IV PUSH ×3 (03:59→21:28)
[2021-07-28 04:51] LABS: Basophils Absolute Auto 0.1 K/mm3 (0.0-0.1); Basophils Percent Auto 0.5 % (0.2-1.2); Eosinophils Absolute Auto 0.1 K/mm3 (0-0.3); Eosinophils Percent Auto 0.4 % (0-4.4); Hematocrit 25.3 % (37.0-47.0); Hemoglobin 8.6 g/dL (12.0-15.0); Immature Granulocyte Absolute 0.68 K/mm3 (0.00-0.031); Immature Granulocyte Percent A 4.5 % (0-0.5); Lymphocytes Absolute Auto 0.72 K/mm3 (0.9-3.2); Lymphocytes Percent Auto 4.8 % (18.3-44.2); Mean Corpuscular Volume 96.9 fl (80-100); Monocytes Absolute Auto 0.8 K/mm3 (0.1-0.6); Monocytes Percent Auto 5.2 % (2.6-8.5); Neutrophils Absolute Auto 12.7 K/mm3 (1.3-6.7); Neutrophils Percent Auto 84.6 % (45.5-73.1); Nucleated Red Blood Cells Absolute Auto 0.2 K/mm3 (0.0-0.012); Nucleated Red Blood Cells Perc 1.2 % (0.0-0.2); Platelet Count Result 169 k/mm3 (150-375); Red Blood Count 2.61 M/mm3 (4.2-5.4); Red Cell Distribution Width 22.6 % (11.5-14.5); White Blood Count 15.1 K/mm3 (4.5-10.0)
[2021-07-28 05:12] LABS: INR 3.4; Prothrombin Time 33.5 Seconds (11.1-14.7)
[2021-07-28 05:31] LABS: Alanine Aminotransferase 44 U/L (4-35); Alkaline Phosphatase 191 U/L (38-126); Anion Gap 4 mmol/L (8-16); Aspartate Amino Transferase 63 U/L (14-36); Bilirubin,Total 1.4 mg/dL (0.2-1.3); Blood Urea Nitrogen 30 mg/dL (7-17); Calcium 8.1 mg/dL (8.4-10.2); Carbon Dioxide 25 mmol/L (22-30); Chloride 113 mmol/L (98-107); Estimated CRCL calculation 44 ml/min; Estimated Glomerular Filt Rate 60; Glucose 199 mg/dL (65-110); Magnesium 1.6 mg/dL (1.6-2.3); Potassium 3.3 mmol/L (3.4-5.0); Sodium 142 mmol/L (137-145)
[2021-07-28 05:40] LABS: NT Pro B Type Natriuretic Pept 5850 pg/mL (5-100)
[2021-07-28 05:42] LABS: Anisocytosis 2+ (NORMAL); Platelet Estimate Adequate (Adequate); Poikilocytosis 1+ (NORMAL); Target Cells 2+ (NORMAL)
[2021-07-28 08:07] LABS: Glucose Point of Care 201 mg/dl (65-105)
[2021-07-28] MEDS: POTASSIUM CHLORIDE 20 MEQ TABLET 40 MEQ PO (08:41)
[2021-07-28] MEDS: INSULIN GLARGINE (*BKC) 100 UNITS/ML 9 UNITS SUB-Q (08:41)
[2021-07-28] MEDS: INSULIN ASPART (*BKC) 100 UNITS/ML SUB-Q ×2 (08:41→18:36)
[2021-07-28] MEDS: MAGNESIUM SULF 2 GM/WATER 50ML 2 GM/50 ML BAG IVPB (08:41)
[2021-07-28] MEDS: AMIODARONE HCL 200 MG TABLET PO (08:41)
[2021-07-28] MEDS: PANTOPRAZOLE SODIUM IV 40 MG VIAL IV PUSH ×2 (08:41→21:27)
[2021-07-28] MEDS: MICAFUNGIN SODIUM 100 MG in SODIUM CHLORIDE 0.9% IV 100 ML IVPB (08:42)
[2021-07-28] MEDS: polyethylene glycoL 3350 17 GM POWD.PACK PO (08:42)
--- NOTE | 2021-07-28 08:59 | PM.IMPN ---
Progress Note: A&P Assessment and Plan (1) Acute respiratory failure: Code(s): J96.00 - Acute respiratory failure, unspecified whether with hypoxia or hypercapnia Status: Acute Assessment and Plan: Patiet with increasing O2 requirement over the past 2 days. CXR 07/27 showing worsening bilateral lung disease. She does have evidence of fluid overload so Lasix given. Good UOP. COVID swab negative. Repeat CXR showing diffuse worsening lung disease. Consider ARDS from aspiration?. Consider CHF. (BNP 5800 and Echo in Oct showing EF 60%, Grade II diastolic dysfunction and moderate-sever MR). Will make NPO. Repeat Lasix IV. She is on broad spectrum abx with Linezolid and Gent. Consider repeating COVID swab. Check CT brain to exclude CVA but feel more likely patient's condition is deteriorating related to the diverticulitis. (2) Syncope and collapse: Code(s): R55 - Syncope and collapse Status: Acute Assessment and Plan: Patient had brief syncopal episode after getting up prompting this admission. Possibly orthostatic from dehydration. Doubt seizures. No recurrence. Continue therapy. Continue telemetry. As above (3) Diverticulitis of intestine with perforation and abscess: Qualifiers: Diverticulitis bleeding: without bleeding Diverticulitis site: large intestine Qualified Code(s): K57.20 - Diverticulitis of large intestine with perforation and abscess without bleeding Code(s): K57.80 - Diverticulitis of intestine, part unspecified, with perforation and abscess without bleeding Status: Acute Assessment and Plan: Patient was at [facility] prior to this admission. She last had drains in place on 07/14/2021. Patient has been on broad-spectrum IV antibiotics and antifungal treatment since early June. She appears to have continued reaccumulation of these abscesses. Drain was replaced on 07/23/2021. The abscess culture growing ESBL E coli and Bacteroides. Urine culture growing ESBL E coli as well as VRE. The ESBL Ecoli sensitive only to aminoglycosides felt to be from the abscess related to the known fistula. She was on Primaxin and vancomycin but changed to Linzolid and Gent now. She remains on Micafungin. WBC higher today but could be stress response from the acute resp failure. Discussed case with family (07/26) and explained that ID is not available here at and that the ID at [facility] did not provide recommendations. The family are still comfortable with keeping the patient at and seeing 'how it goes' with the new drain. They voiced understanding about the risks of aminoglycosides. Will continue current antibiotics. Spoke with family today about code status and that the patient is close to requiring intubation/MV. The dtr states allison was DNR at [facility] but listed Full Code here. She will speak with her family and consider making her DNR. Recommended that she do this as soon as possible. 40 minutes spent on critical care time (4) Fungemia: Code(s): B49 - Unspecified mycosis Status: Acute Assessment and Plan: Fungemia noted early June and she remains of Micafungin. Spoke with ID at [facility] who stated the plan was for indefinite treatment until abscess resolved. Will continue the same (5) Bowel obstruction: Qualifiers: Intestinal obstruction extent: unspecified extent Intestinal obstruction type: unspecified Qualified Code(s): K56.609 - Unspecified intestinal obstruction, unspecified as to partial versus complete obstruction Code(s): K56.609 - Unspecified intestinal obstruction, unspecified as to partial versus complete obstruction Status: Acute Assessment and Plan: Stable and tolerating clear liquids. No BM listed. She is eating poorly. Will make NPO. Add TPN. 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 Uriology consulted. Isiah
[2021-07-28] MEDS: LINEZOLID 600 MG/300 ML 600 MG/300 ML SOLN 300 MG IVPB ×2 (10:14→21:27)
[2021-07-28] MEDS: AMINO ACIDS 5%/D15W/E-LYTES/CA 2,000 ML with MULTIVITAMINS-12 INJ VIAL 1 2.5 ML, MULTIV... 40 ML IV CONT (11:27)
[2021-07-28] MEDS: FAT EMULSIONS IV 20% 250 ML 20.83 ML IVPB (11:28)
--- NOTE | 2021-07-28 11:48 | PM.PNGS ---
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, not elsewhere classified Status: Acute Assessment and Plan: mgmt per urology, cont maxwell, abx (3) Acute respiratory failure: Code(s): J96.00 - Acute respiratory failure, unspecified whether with hypoxia or hypercapnia Status: Acute Assessment and Plan: worsening status, may need intubation, await family decision re: code status, comfort care Subjective Subjective Date/Time Seen: 07/28/21 11:48 worsening respiratory status, more confused today Review of Systems Review of Systems: ROS unobtainable: Yes unobtainable due to medical condition and unobtainable due to mental status Exam Const: General: acute distress respiratory, anxious and confusion Resp: Effort & Inspection: abnormal respiratory pattern Auscultation: diminished lung sounds Cardio: Rate: regular rate Rhythm: regular rhythm GI: Inspection: normal to inspection and distended GI Palp: Yes Soft to palpation and Yes Tenderness to palpation present (GI) Other: LLQ drain - minimal dk sang fluid Objective Data Vital Signs Vital Signs: Vital Signs - 24 hr 07/27/21 12:00 07/27/21 14:00 07/27/21 16:00 Temperature 36.4 C L 36.3 C L Pulse Rate 100 80 89 Respiratory Rate 24 H 30 H Blood Pressure 113/67 106/57 L Pulse Oximetry 95 99 07/27/21 18:00 07/27/21 20:00 07/27/21 21:55 Temperature 36.7 C Pulse Rate 93 89 88 Respiratory Rate 22 H Blood Pressure 128/90 Pulse Oximetry 93 07/27/21 23:35 07/27/21 23:48 07/28/21 02:00 Temperature 36.4 C Pulse Rate 91 87 78 Respiratory Rate 22 H 22 H Blood Pressure 141/80 H Pulse Oximetry 93 92 07/28/21 04:00 07/28/21 06:00 07/28/21 08:00 Temperature 36.6 C 36.7 C Pulse Rate 91 92 98 Respiratory Rate 24 H 22 H Blood Pressure 99/57 L 113/86 Pulse Oximetry 100 94 07/28/21 10:00 07/28/21 11:14 Temperature Pulse Rate 94 Respiratory Rate Blood Pressure Pulse Oximetry 96 Intake/Output Intake/Output: Intake & Output 07/25/21 07/26/21 07/27/21 07/28/21 23:59 23:59 23:59 23:59 Intake Total 3610 2100 2640 Output Total 445 0 1285 575 Balance 3165 2100 1355 -575 Meds/Results Medications: Active Medications Generic Name Dose Route Start Last Admin Trade Name Freq PRN Reason Stop Dose Admin Acetaminophen 650 mg 07/23/21 10:22 07/25/21 10:36 Acetaminophen 325 Mg Tablet PO 650 mg Q6H PRN Administration Mild Pain (1-3) Or Fever Amiodarone HCl 200 mg 07/23/21 10:25 07/28/21 08:41 Amiodarone Hcl 200 Mg Tablet PO 200 mg DAILY RAFAEL Administration Apixaban 5 mg 07/25/21 21:00 07/26/21 22:03 Apixaban 5 Mg Tablet PO 5 mg Q12HR RAFAEL Administration Dextrose 12.5 gm 07/23/21 10:20 Dextrose 50% 25 Gm/50 Ml Syringe IV PUSH PRN PRN Hypoglycemia Protocol Furosemide 20 mg 07/28/21 14:00 Furosemide Inj 40 Mg/4 Ml Vial IV PUSH Q8HR RAFAEL Glucagon 1 mg 07/23/21 10:20 Glucagon For Inj 1 Mg Vial IM PRN PRN Hypoglycemia Protocol Glucose 15 gm 07/23/21 10:20 Glucose Oral Gel 15 Gm Of Glucse In 37.5 Gm Tube PO PRN PRN Hypoglycemia Protocol Dextrose 1,000 mls @ 100 mls/hr 07/23/21 10:20 Dextrose 5% 1,000 Ml IVPB PRN PRN Hypoglycemia Protocol Micafungin
[2021-07-28 11:52] LABS: Glucose Point of Care 196 mg/dl (65-105)
[2021-07-28] MEDS: FUROSEMIDE INJ 40 MG/4 ML VIAL 20 MG IV PUSH ×2 (13:08→21:27)
[2021-07-28 18:30] LABS: Glucose Point of Care 208 mg/dl (65-105)
--- NOTE | 2021-07-28 23:27 | PC.NURSE ---
patients o2 sat started to decrease to low 80's and upper 70's. that is on 15 hfnc and 15l nrb. called respiratory to place on airvo. by the time respiratory came with the airvo, which was only a few minutes patient o2 decreased into the 30 and patient was agonal breathing. called charge nurse, housekeeping supervisor and patients son. family is on the way up to see patient. patient is currently a dnr.
[2021-07-29] VITALS: PULSE 104; PULSE 96; RESP 24; O2SAT 92
[2021-07-29] MEDS: MORPHINE SULFATE (*CRX) 2 MG/ML INJ IV PUSH (00:12)
--- NOTE | 2021-07-29 00:17 | PC.NURSE ---
family is currently at bedside. will continue to monitor
[2021-07-29] MEDS: LORazepam INJ (*CRX) 2 MG/ML VIAL 1 MG IV PUSH (00:53)
[2021-07-29 01:08] VITALS: PULSE 104; RESP 24; O2SAT 34
--- NOTE | 2021-07-29 01:38 | PC.NURSE ---
time of 0125. patients family is at bedside.
--- NOTE | 2021-07-29 07:44 | P.DN_ITS ---
Discharge Summary Date and Time Date of : 07/29/21 Time of : 01:29 Provider Pronounced By: miryam beltran Probable Cause of Probable Cause of : Respiratory failure secondary to ARDS Summary Hospital Course: Patient was at [facility] prior to this admission. She last had drains in place on 07/14/2021. Patient has been on broad-spectrum IV antibiotics and antifungal treatment since early June. CT Abd/pelvis here showing reaccumulation of these abscesses. Drain was replaced on 07/23/2021. The abscess culture growing ESBL Ecoli and Bacteroides. Urine culture growing ESBL Ecoli as well as VRE. The ESBL Ecoli sensitive only to aminoglycosides felt to be from the abscess related to the known bladder fistula. She was on Primaxin and vancomycin but changed to Linzolid and Gent. She remains on Micafungin. Patient with increasing O2 requirement over the past 2 days. CXR 07/27 showing worsening bilateral lung disease. She does have evidence of fluid overload so Lasix given. COVID swab negative. Speech therapy did not feel patietn was aspirating. Consider ARDS. Multiple discussions with family. Patient was confused and unable to make decisions. Patient's code status changed to DNR. Her condition worsened and family requested hospice consult. Patient on the distributing clerk hours of 07/29/21. Family at [facility]. Additional Data Confirmation of as documented by pronouncing clinician: Pupillary Reflex, Palpable Pulses, Response to Stimuli, Heart Tones and Breath Sounds Name of Provider Notified: dr damon Time Provider Notified: 01:40 Provider Requests Autopsy: No Family Requests Autopsy: No Employee Communications Specialist Notified: Yes Date [facility] Notified of : 07/29/21 Time [facility] Notified of : 01:41
== END 2021-07-29 02:00 | disposition expired | DRG 391 ==
LOC: ANHED 07-23 04:22 → ANHIMU 07-23 05:15
PROVIDERS: General Practice; Internal Medicine; Admitting Provider Internal Medicine; Emergency Provider Emergency Medicine; PCP Internal Medicine; Visit Provider Internal Medicine
DX: K57.20 Diverticulitis of large intestine with perforation and abscess without bleeding (principal); K65.1 Peritoneal abscess; J80 Acute respiratory distress syndrome; N32.2 Vesical fistula, not elsewhere classified; N39.0 Urinary tract infection, site not specified; B49 Unspecified mycosis; K56.609 Unspecified intestinal obstruction, unspecified as to partial versus complete obstruction; Z16.21 Resistance to vancomycin; B96.20 Unspecified Escherichia coli [E. coli] as the cause of diseases classified elsewhere; M19.90 Unspecified osteoarthritis, unspecified site; B96.89 Other specified bacterial agents as the cause of diseases classified elsewhere; F41.9 Anxiety disorder, unspecified; E78.5 Hyperlipidemia, unspecified; I10 Essential (primary) hypertension; K58.9 Irritable bowel syndrome, unspecified; E11.65 Type 2 diabetes mellitus with hyperglycemia; E11.42 Type 2 diabetes mellitus with diabetic polyneuropathy; L40.9 Psoriasis, unspecified; I73.9 Peripheral vascular disease, unspecified; Z20.822 Contact with and (suspected) exposure to COVID-19; I48.0 Paroxysmal atrial fibrillation; R55 Syncope and collapse; E86.0 Dehydration; I27.20 Pulmonary hypertension, unspecified; F32.A Depression, unspecified; Z96.642 Presence of left artificial hip joint; Z79.01 Long term (current) use of anticoagulants; Z79.4 Long term (current) use of insulin; Z79.82 Long term (current) use of aspirin; Z86.711 Personal history of pulmonary embolism; Z85.89 Personal history of malignant neoplasm of other organs and systems; Z98.42 Cataract extraction status, left eye; Z98.41 Cataract extraction status, right eye; Z90.49 Acquired absence of other specified parts of digestive tract; Z90.710 Acquired absence of both cervix and uterus; E66.9 Obesity, unspecified; Z68.33 Body mass index [BMI] 33.0-33.9, adult
CPT/HCPCS: 36415; 36600; 70450; 71045; 74177; 75989; 80053; 80170; 80202; 81001; 82375; 82607; 82746; 82805; 82948; 83036; 83050; 83605; 83735; 83880; 84100; 84443; 84484; 85025; 85027; 85610; 85730; 87040; 87070; 87075; 87076; 87077; 87086; 87088; 87185; 87186; 87205; 92526; 92610; 92611; 93005; 96361; 96365; 96375; 96376; 97110; 97162; 97166; 97530; 99285; A9270; C1729; C1769; C9113; C9803; G0378; J0131; J0743; J1580; J1815; J1940; J2020; J2060; J2248; J2270; J2543; J3370; J3475; J3480; J7030; J7040; Q9967; U0003; U0005